=== PATIENT | female | born 1975 | race Caucasian/White ===

== ENCOUNTER 2016-05-20 20:34 | Emergency (ER) | payer MEDICARE, OTHER ==
[~2016-05-20] VITALS: Ht 152.4 cm; Wt 81.6 kg
[~2016-05-20 20:34] MED LIST changes: -AMOX1TAB12 PO; -CIPR-225 PO; -DOXY100C42 PO; -LIDO30JE10 TP; -PENI500T PO; -PHEN-639 PO; -TRAM100C3 PO; -TRAM50TA2 PO; -TRAZ100T92 PO
--- OUTSIDE RECORDS SUMMARY | 2016-05-20 20:39 | XMS REPORT | Continuity of Care Document ---
Author Author [facility] Organization [facility] Address Unknown Phone Unavailable Care Team Providers Care Clothing Trades Workers Name Role Phone German Martin PCP [phone] Source Comments Some departments are not documenting in the electronic medical record. If you do not see the information that you expected, contact Release of Information in the Health Information Management department at [phone] for further assistance in locating additional records.[facility] Active Allergies and Adverse Reactions Allergen [...] 50,000 unit capsule 7 days. 14 Insulin [place] Use when injecting Forteo 100 Each 3 [...]
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
[2016-05-20] MEDS ORDERED: NS IV 1000 ML 1,000 ML IV ONE (20:51)
[2016-05-20] MEDS ORDERED: fentaNYL INJECTION 100 MCG/2 ML AMP IVP STA (21:07)
[2016-05-20 21:11] LABS: BASOPHILS % (AUTO) 0 % (0-10); EOSINOPHILS # (AUTO) 0.1 10^3/uL (0.0-0.3); EOSINOPHILS % (AUTO) 1 % (0-10); LYMPHOCYTES % (AUTO) 11 % (12-44); MEAN CORPUSCULAR HEMOGLOBIN 29 PG (25-34); MEAN CORPUSCULAR HGB CONC 32 G/DL (32-36); MEAN CORPUSCULAR VOLUME 90 FL (80-99); MEAN PLATELET VOLUME 10.1 FL (7.4-10.4); MONOCYTES # (AUTO) 0.5 X 10^3 (0.0-1.0); MONOCYTES % (AUTO) 5 % (0-12); NEUTROPHILS % (AUTO) 82 % (42-75); PLATELET COUNT 261 10^3/uL (130-400); RED BLOOD COUNT 4.53 10^6/uL (4.35-5.85); RED CELL DISTRIBUTION WIDTH 16.1 % (10.0-14.5); WHITE BLOOD COUNT 8.5 10^3/uL (4.3-11.0)
[2016-05-20 21:28] LABS: ALANINE AMINOTRANSFERASE 7 U/L (0-55); ALBUMIN 4.1 G/DL (3.2-4.5); ANION GAP 9 MMOL/L (5-14); ASPARTATE AMINO TRANSFERASE 7 U/L (5-34); BILIRUBIN,TOTAL 0.5 MG/DL (0.1-1.0); BLOOD UREA NITROGEN 19 MG/DL (7-18); BUN/CREATININE RATIO 22; CALCIUM 8.8 MG/DL (8.5-10.1); CARBON DIOXIDE 20 MMOL/L (21-32); CHLORIDE 106 MMOL/L (98-107); CREATININE SERUM 0.86 MG/DL (0.60-1.30); GFR ESTIMATED > 60; GLUCOSE 98 MG/DL (70-105); POTASSIUM 4.3 MMOL/L (3.6-5.0); SODIUM 135 MMOL/L (135-145); TOTAL PROTEIN 7.2 G/DL (6.4-8.2); hs C REACTIVE PROTEIN 4.31 MG/DL (0.00-0.50)
[2016-05-20 21:32] LABS: BILIRUBIN,URINE NEGATIVE (NEGATIVE); KETONES,URINE NEGATIVE (NEGATIVE); LEUKOCYTE ESTERASE ,URINE 3+ (NEGATIVE); NITRITE,URINE POSITIVE (NEGATIVE); PH,URINE 6 (5-9); PROTEIN,URINE 2+ (NEGATIVE); UROBILINOGEN,URINE NORMAL (NORMAL)
[2016-05-20 21:49] LABS: SQUAMOUS EPITHELIAL CELL,UR 25-50 /HPF; WBC,URINE 50-100 /HPF
[2016-05-20] MEDS ORDERED: PHEN-639 PO (21:59)
[2016-05-20] MEDS ORDERED: CIPR-225 PO (21:59)
[2016-05-20] MEDS ORDERED: TRAM100C3 PO (22:05)
[2016-05-20] MEDS ORDERED: PHENAZOPYRIDINE 100 MG (PYRIDIUM) TABLET PO STA (22:07)
[2016-05-20] MEDS ORDERED: CIPROFLOXACIN 500 MG (CIPRO) TABLET PO ONE (22:22)
[2016-05-20 22:25] VITALS: BP 129/97
[2016-05-21] MEDS ORDERED: CIPROFLOXACIN 500 MG (CIPRO) TABLET PO SCH (09:00)
== END 2016-05-20 22:26 | disposition home or self-care (01) ==
LOC: EDUNIT# 20:34 → ER 20:35
DX: L97.321 Non-pressure chronic ulcer of left ankle limited to breakdown of skin (principal); L97.319 Non-pressure chronic ulcer of right ankle with unspecified severity; I10 Essential (primary) hypertension; J44.9 Chronic obstructive pulmonary disease, unspecified; I73.9 Peripheral vascular disease, unspecified; F17.210 Nicotine dependence, cigarettes, uncomplicated; Z79.899 Other long term (current) drug therapy
CPT/HCPCS: 36415; 80053; 81000; 83605; 85025; 86141; 87077; 87088; 87186; 96361; 96374

== ENCOUNTER → 2016-05-20 | Outpatient (CLI) | payer MEDICARE ==
[~2016-05-20] MED LIST: ACHD5005 PO; ACHYD1T; AMLO5TAB2 PO; AMOX1TAB12 PO; ARIP2TAB11 PO; AZAT50TA PO; AZAT50TA7 PO; AZTH50T PO; BISO1TAB39; BSP10T PO; BUSP10TA95 PO; CEPH500C PO; CEPH500T PO; CIPR-225 PO; CIPR500S3 PO; CIPR500T4 PO; CLOT15CR6 TOP; D50KC PO; DOXY100C42 PO; DOXY100T2 PO; DULO30CA3 PO; DULO60CA6 PO; ESCT10T; GABA-486 PO; GABA800T2 PO; GBPN100C PO; GBPN600T PO; HYDR-2890 PO; HYDR-623 PO; HYDR50TA76 PO; IBP800T PO; IBUP800T26 PO; Imuran PO; KETO-22 PO; LD5PT TOP; LEVO500T69 PO; LEVO750T24 GT; LEVO750T24 PO; LEVO88TA28 PO; LEVO88TA54 PO; LIDO30JE10 TP; LOVA20TA2 PO; LRT10T PO; LVT.1T PO; LYRICA; METH4TAB PO; NITR-65 PO; NITR100C3 PO; ONDA4TAB8 PO; ONDA8TAB9 PO; OXYC-12 PO; OXYC-465 PO; OXYC1TAB17 PO; PANT40TA3 PO; PENI500T PO; PHEN-639 PO; PHEN200T27 PO; PNT40TEC; PRD10T PO; PRD20T PO; PRD5T PO; PRED-398 PO; PRED1TAB PO; PRED5TAB PO; PREG75CA PO; PRM25T PO; PROP20TA5 PO; Prednisone PO; QTP25T; RT-ALBUINH IH; SERT100T8 PO; SRTR100T PO; SULF-222 PO; SULF1TAB38 PO; SULF1TAB7 PO; TMSL.4C PO; TR1C15 TOP; TRAM100C3 PO; TRAM50TA2 PO; TRAZ100T92 PO; TRAZ150T42 PO; TRAZ300T3 PO; [UNRECOGNIZED DRUG - CODE] TOP; [UNRECOGNIZED DRUG - OTHER]; [UNRECOGNIZED DRUG - OTHER]; humera IJ; medihoney EXT
--- OUTSIDE RECORDS SUMMARY | 2016-05-20 10:47 | XMS REPORT | Continuity of Care Document ---
Author Author [facility] Organization [facility] Address Unknown Phone Unavailable Care Team Providers Care Process Technician Name Role Phone German Martin PCP [phone] Source Comments Some departments are not documenting in the electronic medical record. If you do not see the information that you expected, contact Release of Information in the Health Information Management department at [phone] for further assistance in locating additional records.[facility] Active Allergies and Adverse Reactions Allergen [...] 50,000 unit capsule 7 days. 14 Insulin [place] Use when injecting Forteo 100 Each 3 [...]
--- NOTE | 2016-05-20 12:48 | Diagnostic Imaging Report ---
INDICATION: Venous stasis with ulceration. FINDINGS: There is wavy periosteal thickening and erosion along the fibular shafts bilaterally. The tibia appears normal. Moderate degenerative changes noted of the ankle mortise bilaterally. There are no phleboliths demonstrated in the soft tissues. IMPRESSION: 1. Diffuse periosteal changes along the fibula bilaterally consistent with chronic venous stasis. Could not exclude osteomyelitis with open ulceration. Dictated by: Dictated on workstation # [id number]
== END ==
LOC: RAD 10:41
PROVIDERS: ATTEND Surgery
DX: I87.333 Chronic venous hypertension (idiopathic) with ulcer and inflammation of bilateral lower extremity (principal); L97.313 Non-pressure chronic ulcer of right ankle with necrosis of muscle; L97.322 Non-pressure chronic ulcer of left ankle with fat layer exposed; I70.233 Atherosclerosis of native arteries of right leg with ulceration of ankle; I70.243 Atherosclerosis of native arteries of left leg with ulceration of ankle

== ENCOUNTER 2016-05-25 12:04 | Emergency (ER) | payer MEDICARE, OTHER ==
[~2016-05-25] VITALS: Ht 152.4 cm; Wt 81.6 kg
[~2016-05-25 12:04] MED LIST changes: +CIPR-225 PO; +PHEN-639 PO; +TRAM100C3 PO
--- OUTSIDE RECORDS SUMMARY | 2016-05-25 12:11 | XMS REPORT | Continuity of Care Document ---
Author Author [facility] Organization [facility] Address Unknown Phone Unavailable Care Team Providers Care Bobbin Loose End Finder Name Role Phone German Martin PCP [phone] Source Comments Some departments are not documenting in the electronic medical record. If you do not see the information that you expected, contact Release of Information in the Health Information Management department at [phone] for further assistance in locating additional records.[facility] Active Allergies and Adverse Reactions Allergen [...] 50,000 unit capsule 7 days. 14 Insulin [place] Use when injecting Forteo 100 Each 3 [...]
[2016-05-25] MEDS ORDERED: morphine INJ 10 MG/ML 1ML (SYR OR VIAL) IM STA (12:29)
[2016-05-25] MEDS ORDERED: PENI500T PO (12:49)
--- NOTE | 2016-05-25 12:50 | ED Integumentary General ---
General Chief Complaint: Skin/Wound Problems Stated Complaint: SORE ON RIGHT LEG Nursing Triage Note: PT STATES SHE IS BEING TREATED FOR A WOUND ON HER RT LOWER LEG, STATES PAIN THAT SHE CAN'T STAND ANYMORE. TAKES TRAMADOL BUT IT'S NOT WORKING. Source: patient, other (friend) Exam Limitations: no limitations History of Present Illness Time seen by provider: 12:20 Initial Comments 40-year-old female patient presents to the emergency department complaints of chronic wounds on the right ankle and chronic pain. Reports pain worsened the last 2-3 days. Reports taking tramadol. Does not improve symptoms. Patient is seeing wound care at [facility] and is scheduled to see Dr. Benz on Monday for recheck. Timing/Duration: other (chronic pain and wounds of the right ankle) Location: extremities (right ankle) Possible Cause: other (chronic wounds) Modifying Factors: worse with other (worse with palpation) Allergies and Home Medications Allergies Coded Allergies: levofloxacin (Verified Allergy, Intermediate, HIVES, 12/07/12) orphenadrine (Unverified Allergy, Unknown, 11/14/13) Uncoded Allergies: UNKNOWN ALLERGY (Allergy, Unknown, 07/25/05) Home Medications Albuterol Sulfate 8.5 Gm Hfa.aer.ad #1 2 PUFF IH Q4H PRN PRN SHORTNESS OF BREATH Prescribed by: KAYLA NOLAND on 08/17/152103 Azathioprine 50 Mg Tablet 100 MG PO BID (Reported) LAST FILLED #120 11-20-14 TAKES 2 (50 mg) TABLETS Doxycycline Hyclate 100 Mg Tablet #20 100 MG PO BID Prescribed by: KAYLA NOLAND on 08/17/152103 Gabapentin 800 Mg Tablet 800 MG PO TID (Reported) LAST FILLED #90 11-17-14 Ibuprofen 800 Mg Tablet 800 MG PO TID PRN PRN PAIN (Reported) LAST FILLED #90 11-08-14 Pantoprazole Sodium 40 Mg Tablet. #30 1 TAB PO DAILY (Reported) Penicillin V Potassium 500 Mg Tablet #21 500 MG PO TID Prescribed by: KAYLA NOLAND on 05/25/16 1249 Phenazopyridine HCl 100 Mg Tablet #6 100 MG PO TID PRN PRN PAIN Prescribed by: RONAK JUAREZ on 05/20/162158 Prednisone 20 Mg Tab #30 1 TAB PO DAILY (Reported) Tramadol HCl 100 Mg Cpbp.25.75 #4 100 MG PO ONCE Prescribed by: RONAK JUAREZ on 05/20/16 3121 Constitutional: No chills, No fever, No malaise Respiratory: no symptoms reported Cardiovascular: no symptoms reported Musculoskeletal: see HPI joint pain (right ankle)No joint swelling Skin: see HPI Psychiatric/Neurological: No Symptoms Reported All Other Systems Reviewed Negative Unless Noted: Yes (Negative excepted noted.) Past Rojkbmz-Eweaue-Nkhvuz Hx Patient Social History Alcohol Use: Denies Use Recreational Drug Use: No (SMOKES 1/2 PPD) Smoking Status: Current Everyday Smoker Type Used: Cigarettes Former Smoker/When Quit: Apr 01, 2013 Recent Foreign Travel: No Contact w/Someone Who Travel: No Recent Infectious Disease Expo: No Recent Hopitalizations: No Immunizations Up To Date Tetanus Booster (TDap): Less than 5yrs Date of Pneumonia Vaccine: September 07, 2011 Seasonal Allergies Seasonal Allergies: No Surgeries HX Surgeries: Yes (MULTIPLE SKIN GRAFTS TO FEET, R ANKLE) Respiratory Hx Respiratory Disorders: Yes Respiratory Disorders: Asthma, COPD Cardiovascular Hx Cardiac Disorders: Yes (VASCULITIS, RBBB) Cardiac Disorders: High Cholesterol, Hypertension, Peripheral Vascular Neurological Hx Neurological Disorders: No Reproductive System : No Hx Reproductive Disorders: Yes (miscarriages) Sexually Transmitted Disease: No HIV/AIDS: No Female Reproductive Disorders: Ovarian Cyst Genitourinary Hx Genitourinary Disorders: Yes Genitourinary Disorders: UTI-Chronic Gastrointestinal Hx Gastrointestinal Disorders: No Musculoskeletal Hx Musculoskeletal Disorders: Yes Musculoskeletal Disorders: Degenerate Disk Disease, Arthritis, Rheumatoid Arthritis, Chronic Back Pain Endocrine Hx Endocrine Disorders: Yes (THYROID DISEASE) Endocrine Disorders: Hypothyroidsim HEENT HX ENT Disorders: No Loss of Vision: Denies Hearing Impairment: Denies Cancer Hx Cancer: No Psychosocial Hx Psychiatric Problems: Yes (EXTENSIVE PSYCH ISSUES AND POLYSUBSTANCE ABUSE) Behavioral Health Disorders: Anxiety, Suicide Attempts, Depression Integumentary HX Skin/Integumentary Disorder: Yes Skin/Integumentary Disorders: Eczema Blood Transfusions Hx Blood Disorders: No Adverse Reaction to a Blood Tr: No Reviewed Nursing Assessment Reviewed/Agree w Nursing PMH: Yes Family Medical History Significant Family History: No Pertinent Family Hx Family Medial History: PT NOT COOPERATIVE AT THIS TIME Physical Exam Vital Signs Vital Sign - Last 12Hours 05/25/16 12:13 Temp 98.7 Pulse 114 Resp 22 B/P 134/109 Pulse Ox 98 O2 Delivery Room Air Capillary Refill : Less Than 3 Seconds General Appearance: WD/WN no apparent distress Cardiovascular: normal peripheral pulses no edema Extremities: normal capillary refill other (4x6 cm wound with eschar of the rt lateral ankle and a 3x3 cm wound of the medial rt ankle with escar. Serous drainage from both wounds. No evidence of erythema or warmth. Patient is noted to have telfa on the wounds. TTP. ) Neurologic/Psychiatric: alert normal mood/affect oriented x 3 Skin: normal color warm/dry Skin Problem Location: lower extremities (right ankle) Skin Problem Character: drainage, tenderness, other (4x6 cm wound with eschar of the rt lateral ankle and a 3x3 cm wound of the medial rt ankle with escar. Serous drainage from both wounds. No evidence of erythema or warmth. Patient is noted to have telfa on the wounds. TTP. ) Progress/Results/Core Measures Results/Orders My Orders Orders-KAYLA NOLAND Morphine Injection (Morphine Injection (05/25/16 12:29) Vital Signs/I&O Vital Sign - Last 12Hours 05/25/16 05/25/16 12:13 13:04 Temp 98.7 98.7 Pulse 114 110 Resp 22 20 B/P 134/109 Pulse Ox 98 98 O2 Delivery Room Air Blood Pressure Mean: 117 Departure Communication Progress Notes Patient seen and evaluated. Given 1 dose IM morphine in the emergency department. Patient was found to have Streptococcus viridans on a wound culture from last Monday at [facility] outpatient wound care clinic. Patient given a prescription for penicillin. Patient instructed to contact her primary care physician in [place] for all narcotic medication refills and prescriptions. Patient voices understanding and agrees with the treatment plan. Impression Impression: Primary Impression: Lower extremity pain, right Additional Impression: Chronic wound of extremity Disposition: HOME, SELF-CARE Condition: Improved Departure-Patient Inst. Decision time for Depature: 12:46 Referrals: PAULINA BENZ MD NO,LOCAL PHYSICIAN (PCP) Primary Care Physician Patient Instructions: Wound Care (DC) Add. Discharge Instructions: All discharge instructions reviewed with patient and/or family. Voiced understanding. Medications as instructed. Continue usual home medications. Do NOT use telfa on the wounds. Dressed wounds as instructed by Dr. Rosa at wound care. Follow-up Monday as previously scheduled with wound care. Follow- up with your primary care physician in [place] for all narcotic pain medication prescriptions. Call for appointment time. Return to the emergency department for worsened symptoms or any other concerns. Scripts Penicillin V Potassium 500 Mg [id number] Mg PO TID #21 TAB Ref 0 Prov:KAYLA NOLAND 05/25/16 KAYLA NOLAND May 25, 2016 12:50
[2016-05-25 13:04] VITALS: BP 134/109
== END 2016-05-25 13:04 | disposition home or self-care (01) ==
LOC: EDUNIT# 12:04 → ER 12:06
DX: M79.661 Pain in right lower leg (principal); G89.29 Other chronic pain; S91.001A Unspecified open wound, right ankle, initial encounter; J44.9 Chronic obstructive pulmonary disease, unspecified; F17.210 Nicotine dependence, cigarettes, uncomplicated; X58.XXXA Exposure to other specified factors, initial encounter; Y99.8 Other external cause status
CPT/HCPCS: 96372

== ENCOUNTER 2016-05-28 08:23 | Emergency (ER) | payer MEDICARE, OTHER ==
[~2016-05-28] VITALS: Ht 147.3 cm; Wt 54.4 kg
[~2016-05-28 08:23] MED LIST changes: +PENI500T PO
--- OUTSIDE RECORDS SUMMARY | 2016-05-28 08:28 | XMS REPORT | Continuity of Care Document ---
Author Author [facility] Organization [facility] Address Unknown Phone Unavailable Care Team Providers Care Woods Laborer Name Role Phone German Martin PCP [phone] Source Comments Some departments are not documenting in the electronic medical record. If you do not see the information that you expected, contact Release of Information in the Health Information Management department at [phone] for further assistance in locating additional records.[facility] Active Allergies and Adverse Reactions [...] 50,000 unit capsule 7 days. 14 Insulin [place] Use when injecting Forteo 100 Each 3 [...]
[2016-05-28] MEDS ORDERED: diphenhydrAMINE 50 MG/ML INJ (BENADRYL) IVP ONE (08:30)
[2016-05-28] MEDS ORDERED: PROMETHAZINE INJ 25 MG/ML (PHENERGAN) AMP IVP ONE (08:30)
[2016-05-28] MEDS ORDERED: NS IV 1000 ML 1,000 ML ONE (08:32)
[2016-05-28] MEDS ORDERED: diphenhydrAMINE 50 MG/ML INJ (BENADRYL) ONE (08:32)
[2016-05-28] MEDS ORDERED: PROMETHAZINE INJ 25 MG/ML (PHENERGAN) AMP ONE (08:32)
--- NOTE | 2016-05-28 08:38 | ED Abdominal Pain ---
General Stated Complaint: N/V Source of Information: Patient, EMS Exam Limitations: No Limitations History of Present Illness Time Seen By Provider: 08:34 Initial Comments This 40 year old female presents with nausea and vomiting that began this morning. No preceeding fever or chill. No URI sympts. Allergies and Home Medications Allergies Coded Allergies: levofloxacin (Verified Allergy, Intermediate, HIVES, 12/07/12) orphenadrine (Unverified Allergy, Unknown, 11/14/13) Uncoded Allergies: UNKNOWN ALLERGY (Allergy, Unknown, 07/25/05) Home Medications Albuterol Sulfate 8.5 Gm Hfa.aer.ad #1 2 PUFF IH Q4H PRN PRN SHORTNESS OF BREATH Prescribed by: KAYLA NOLAND on 08/17/152103 Azathioprine 50 Mg Tablet 100 MG PO BID (Reported) LAST FILLED #120 11-20- TAKES 2 (50 mg) TABLETS Gabapentin 800 Mg Tablet 800 MG PO TID (Reported) LAST FILLED #90 15 Ibuprofen 800 Mg Tablet 800 MG PO TID PRN PRN PAIN (Reported) LAST FILLED #90 11-08-15 Pantoprazole Sodium 40 Mg Tablet. #30 1 TAB PO DAILY (Reported) Penicillin V Potassium 500 Mg Tablet #21 500 MG PO TID Prescribed by: KAYLA NOLAND on 05/25/16 1249 Tramadol HCl 100 Mg Cpbp.25.75 #4 100 MG PO ONCE Prescribed by: RONAK JUAREZ on 05/20/16 2205 Review of Systems Constitutional: No chills, No fever EENTM: No Blurred Vision Respiratory: Denies Cough Cardiovascular: Denies Chest Pain Gastrointestinal: Abdominal Pain Nausea Vomiting Genitourinary: Denies Burning Musculoskeletal: No back pain, No joint pain Skin: No rash Psychiatric/Neurological: No Symptoms Reported Endocrine: No Symptoms Reported Hematologic/Lymphatic: Other (vasculitis) Past Mtkgcmm-Czisyg-Fhfdyc Hx Patient Social History Type Used: Cigarettes Former Smoker/When Quit: Apr 01, 2013 Recent Hopitalizations: No Immunizations Up To Date Tetanus Booster (TDap): Less than 5yrs Date of Pneumonia Vaccine: September 07, 2011 Seasonal Allergies Seasonal Allergies: No Surgeries HX Surgeries: Yes (MULTIPLE SKIN GRAFTS TO FEET, R ANKLE) Respiratory Hx Respiratory Disorders: Yes Respiratory Disorders: Asthma, COPD Cardiovascular Hx Cardiac Disorders: Yes (VASCULITIS, RBBB) Cardiac Disorders: High Cholesterol, Hypertension, Peripheral Vascular Neurological Hx Neurological Disorders: No Reproductive System Hx Reproductive Disorders: Yes (miscarriages) Sexually Transmitted Disease: No HIV/AIDS: No Female Reproductive Disorders: Ovarian Cyst Genitourinary Hx Genitourinary Disorders: Yes Genitourinary Disorders: UTI-Chronic Gastrointestinal Hx Gastrointestinal Disorders: No Musculoskeletal Hx Musculoskeletal Disorders: Yes Musculoskeletal Disorders: Degenerate Disk Disease, Arthritis, Rheumatoid Arthritis, Chronic Back Pain Endocrine Hx Endocrine Disorders: Yes (THYROID DISEASE) Endocrine Disorders: Hypothyroidsim HEENT HX ENT Disorders: No Loss of Vision: Denies Hearing Impairment: Denies Cancer Hx Cancer: No Psychosocial Hx Psychiatric Problems: Yes (EXTENSIVE PSYCH ISSUES AND POLYSUBSTANCE ABUSE) Behavioral Health Disorders: Anxiety, Suicide Attempts, Depression Integumentary HX Skin/Integumentary Disorder: Yes Skin/Integumentary Disorders: Eczema Blood Transfusions Hx Blood Disorders: No Adverse Reaction to a Blood Tr: No Reviewed Nursing Assessment Reviewed/Agree w Nursing PMH: Yes Family Medical History Significant Family History: No Pertinent Family Hx Family Medial History: PT NOT COOPERATIVE AT THIS TIME Physical Exam Vital Signs VS - Last 72 Hours, by Label 05/28/16 08:23 Temp 98.3 Pulse 90 Resp 20 B/P 109/73 Pulse Ox 97 Capillary Refill : General Appearance: WD/WN mild distress HEENT: normal ENT inspection Neck: normal inspection Respiratory: lungs clear normal breath sounds Cardiovascular: regular rate, rhythm no edema Gastrointestinal: normal bowel soundsNo distended, No guarding, tenderness ( there is mild diffuse abdominal tenderness.) Extremities: normal range of motion other (there is an ulcer over the right ankle area. The wound is clean. There is no remarkable soft tissue swelling or ascending lymphedema.) Back: normal inspection Neurologic/Psychiatric: no motor/sensory deficits alert normal mood/affect Skin: other (there are circular areas of erythema approximately 1 inch in diameter over the lower extremities over the legs right greater than left from the patient's vasculitis. There is an ulcer that is clean that is approximately 10 cm in diameter over the malleolar area there is a smaller similar ulcer over the medial malleolar area of the right ankle.) Progress/Results/Core Measures Results/Orders Lab Results Laboratory Tests Test 05/28/16 08:50 05/28/16 11:44 Range/Units Alanine Aminotransferase (ALT/SGPT) 10 0-55 U/L Albumin 3.9 3.2-4.5 G/DL Alkaline Phosphatase 76 40-136 U/L Anion Gap 24 H 5-14 MMOL/L Aspartate Amino Transf (AST/SGOT) 15 5-34 U/L BUN/Creatinine Ratio 24 Band Neutrophils 3 % Basophils # (Auto) 0.0 0.0-0.1 10^3/uL Basophils (%) (Auto) 0 0-10 % Blood Morphology Comment NORMAL Blood Urea Nitrogen 21 H 7-18 MG/DL Calcium Level 8.2 L 8.5-10.1 MG/DL Carbon Dioxide Level 15 L 21-32 MMOL/L Chloride Level 91 L 98-107 MMOL/L Creatinine 0.87 0.60-1.30 MG/DL Eosinophils # (Auto) 0.0 0.0-0.3 10^3/uL Eosinophils % (Manual) 1 % Eosinophils (%) (Auto) 0 0-10 % Erythrocyte Sedimentation Rate 50 H 0-20 MM/HR Estimat Glomerular Filtration Rate > 60 Glucose Level 230 H 70-105 MG/DL Hematocrit 39 35-52 % Hemoglobin 13.4 11.5-16.0 G/DL Hypersegmented Neutrophils SLIGHT Lipase 19 8-78 U/L Lymphocytes # (Auto) 0.5 L 1.0-4.0 X 10^3 Lymphocytes % (Manual) 4 % Lymphocytes (%) (Auto) 6 L 12-44 % Mean Corpuscular Hemoglobin 29 25-34 PG Mean Corpuscular Hemoglobin Concent 35 32-36 G/DL Mean Corpuscular Volume 85 80-99 FL Mean Platelet Volume 10.1 7.4-10.4 FL Monocytes # (Auto) 0.3 0.0-1.0 X 10^3 Monocytes % (Manual) 5 % Monocytes (%) (Auto) 4 0-12 % Neutrophils # (Auto) 8.0 H 1.8-7.8 X 10^3 Neutrophils % (Manual) 87 % Neutrophils (%) (Auto) 91 H 42-75 % Platelet Count 235 130-400 10^3/uL Potassium Level 3.7 3.6-5.0 MMOL/L Red Blood Count 4.58 4.35-5.85 10^6/uL Red Cell Distribution Width 16.8 H 10.0-14.5 % Serum Test, Qualitative NEGATIVE NEGATIVE Sodium Level 130 L 135-145 MMOL/L Total Bilirubin 1.0 0.1-1.0 MG/DL Total Protein 6.6 6.4-8.2 G/DL Toxic Granulation 1+ White Blood Count 8.8 4.3-11.0 10^3/uL Urine Bacteria TRACE /HPF Urine Bilirubin NEGATIVE NEGATIVE Urine Casts NONE /LPF Urine Clarity CLEAR Urine Color YELLOW Urine Crystals NONE /LPF Urine Culture Indicated NO Urine Glucose (UA) NEGATIVE NEGATIVE Urine Ketones 4+ H NEGATIVE Urine Leukocyte Esterase NEGATIVE NEGATIVE Urine Mucus SMALL H /LPF Urine Nitrite NEGATIVE NEGATIVE Urine Protein 2+ H NEGATIVE Urine RBC NONE /HPF Urine RBC (Auto) 5+ H NEGATIVE Urine Specific [place] 1.005 L 1.016-1.022 Urine Urobilinogen NORMAL NORMAL MG/DL Urine WBC NONE /HPF Urine pH 7 5-9 My Orders Orders-LAVON AUGUSTE MD Ct Abdomen/Pelvis W (05/28/16 08:30) Cbc With Automated Diff (05/28/16 08:30) Comprehensive Metabolic Panel (05/28/16 08:30) Urinalysis (05/28/16 08:30) Lipase (05/28/16 08:30) Erythrocyte Sedimentation Rate (05/28/16 08:30) Ns Iv 1000 Ml (Sodium Chloride 0.9%) (05/28/16 08:30) Promethazine Injection (Phenergan Injec (05/28/16 08:30) Diphenhydramine Injection (Benadryl Inje (05/28/16 08:30) Diphenhydramine Injection (Benadryl Inje (05/28/16 08:32) Promethazine Injection (Phenergan Injec (05/28/16 08:32) Ns Iv 1000 Ml (Sodium Chloride 0.9%) (05/28/16 08:32) Iohexol Injection (Omnipaque 350 Mg/Ml 1 (05/28/16 09:00) Ns (Ivpb) (Sodium Chloride 0.9% Ivpb Bag (05/28/16 09:00) Manual Differential (05/28/16 08:50) D50w (Emergency) Syringe (Dextrose 50% 5 (05/28/16 09:15) Fentanyl Injection (Sublimaze Injection (05/28/16 09:15) Fentanyl Injection (Sublimaze Injection (05/28/16 09:14) Hcg,Qualitative Serum (05/28/16 09:42) Ondansetron Injection (Zofran Injectio (05/28/16 11:15) Medications Given in ED Current Medications Medications Dose Ordered Sig/[place] Route Start Time Stop Time Status Last Admin Dose Admin Dextrose 50 ml ONCE ONCE IV 05/28/16 09:15 05/28/16 09:16 DC 05/28/16 08:45 50 ML Diphenhydramine HCl 25 mg ONCE ONCE IVP 05/28/16 08:30 05/28/16 08:34 DC 05/28/16 08:40 25 MG Fentanyl Citrate 100 mcg STK-MED ONCE .ROUTE 05/28/16 09:14 05/28/16 09:15 DC 05/28/16 09:15 100 MCG Iohexol 100 ml ONCE ONCE IV 05/28/16 09:00 05/28/16 09:01 DC 05/28/16 10:19 100 ML Ondansetron HCl 4 mg ONCE ONCE IVP 05/28/16 11:15 05/28/16 11:16 DC 05/28/16 11:22 4 MG Promethazine HCl 25 mg ONCE ONCE IVP 05/28/16 08:30 05/28/16 08:34 DC 05/28/16 08:40 25 MG Sodium Chloride 100 ml ONCE ONCE IV 05/28/16 09:00 05/28/16 09:01 DC 05/28/16 10:19 100 ML Vital Signs/I&O Vital Sign - Last 12Hours 05/28/16 08:23 Temp 98.3 Pulse 90 Resp 20 B/P 109/73 Pulse Ox 97 Progress Note : Time: 12:22 Progress Note The patient was significantly improved following IV fluids, Phenergan and Benadryl, fentanyl, and Zofran. Patient's laboratory evaluation was essentially unremarkable. There was no elevation of the patient's white count. Urinalysis demonstrated no evidence of a urinary tract infection. CT of the abdomen and pelvis failed and was evidence of acute pathology. Departure Impression Impression: Primary Impression: Nausea and vomiting Qualified Code: R11.2 - Nausea with vomiting, unspecified Disposition: 01 HOME, SELF-CARE Condition: Improved Departure-Patient Inst. Decision time for Depature: 12:24 Referrals: [facility],LOCAL PHYSICIAN (PCP) Primary Care Physician Patient Instructions: Nausea and Vomiting, Adult Add. Discharge Instructions: Zofran for nausea. Clear liquids today. Rest over the weekend. Follow-up with your elderly caregiver in [place] on Monday. Return if any problems. Scripts Ondansetron (Zofran Odt)8 Mg Tab.rapdis8 Mg PO Q4H PRN NAUSEA/VOMITING #14 TAB Prov:LAVON AUGUSTE MD 05/28/16 LAVON AUGUSTE MD May 28, 2016 08:38
[2016-05-28] MEDS: NS IV 1000 ML 1,000 ML IV SCH ×2 (08:40→11:22)
[2016-05-28 08:58] LABS: BASOPHILS % (AUTO) 0 % (0-10); EOSINOPHILS % (AUTO) 0 % (0-10); LYMPHOCYTES # (AUTO) 0.5 X 10^3 (1.0-4.0); LYMPHOCYTES % (AUTO) 6 % (12-44); MEAN CORPUSCULAR HEMOGLOBIN 29 PG (25-34); MEAN CORPUSCULAR HGB CONC 35 G/DL (32-36); MEAN CORPUSCULAR VOLUME 85 FL (80-99); MEAN PLATELET VOLUME 10.1 FL (7.4-10.4); MONOCYTES # (AUTO) 0.3 X 10^3 (0.0-1.0); MONOCYTES % (AUTO) 4 % (0-12); NEUTROPHILS % (AUTO) 91 % (42-75); PLATELET COUNT 235 10^3/uL (130-400); RED BLOOD COUNT 4.58 10^6/uL (4.35-5.85); RED CELL DISTRIBUTION WIDTH 16.8 % (10.0-14.5); WHITE BLOOD COUNT 8.8 10^3/uL (4.3-11.0)
[2016-05-28] MEDS ORDERED: IOHEXOL 350 MG/ML 100 ML (OMNIPAQUE 350) VIAL IV ONE (09:00)
[2016-05-28] MEDS ORDERED: NS 100 ML (IVPB) BAG IV ONE (09:00)
[2016-05-28 09:12] LABS: BAND NEUTROPHILS 3 %; EOSINOPHILS % (MANUAL) 1 %; LYMPHOCYTES % (MANUAL) 4 %; NEUTROPHILS % (MANUAL) 87 %
[2016-05-28] MEDS ORDERED: fentaNYL INJECTION 100 MCG/2 ML AMP ONE (09:14)
[2016-05-28] MEDS ORDERED: fentaNYL INJECTION 100 MCG/2 ML AMP IVP ONE (09:15)
[2016-05-28] MEDS ORDERED: DEXTROSE 50% 50 ML (IMS) SYR IV ONE (09:15)
[2016-05-28 09:16] LABS: ALANINE AMINOTRANSFERASE 10 U/L (0-55); ALBUMIN 3.9 G/DL (3.2-4.5); ANION GAP 24 MMOL/L (5-14); ASPARTATE AMINO TRANSFERASE 15 U/L (5-34); BLOOD UREA NITROGEN 21 MG/DL (7-18); BUN/CREATININE RATIO 24; CALCIUM 8.2 MG/DL (8.5-10.1); CARBON DIOXIDE 15 MMOL/L (21-32); CHLORIDE 91 MMOL/L (98-107); CREATININE SERUM 0.87 MG/DL (0.60-1.30); GFR ESTIMATED > 60; GLUCOSE 230 MG/DL (70-105); LIPASE 19 U/L (8-78); POTASSIUM 3.7 MMOL/L (3.6-5.0); SODIUM 130 MMOL/L (135-145); TOTAL PROTEIN 6.6 G/DL (6.4-8.2)
--- NOTE | 2016-05-28 10:51 | Diagnostic Imaging Report ---
CLINICAL INDICATION: Patient states she is having nausea and vomiting for 5 hours now. EXAM: Axial CT scan of the abdomen and pelvis performed with 100 cc of Omnipaque 300 IV contrast. Portal venous and delayed phases were obtained. Coronal reformatted images are created. Comparison: CT scan of the abdomen and pelvis without IV contrast dated 12/26/2012. Findings: There is mild dependent atelectasis involving the posterior aspects of both lung bases. Bones show no significant interval abnormality. There is diffuse low-attenuation changes seen throughout the liver likely representing fatty infiltration. There is no liver mass seen. The spleen, pancreas, adrenal glands, and gallbladder are unremarkable. Both kidneys are unremarkable and stable. There is no urinary tract stones or hydronephrosis. There is no evidence of intra-abdominal free air or free fluid. Few colonic diverticula are seen with no evidence of diverticulitis. The colon, small bowel, and stomach are unremarkable. The appendix is unremarkable. The bladder is fluid distended with no gross abnormality seen. There is a roughly 2.4 cm low-density circumscribed lesion involving left adnexa region which may represent a cyst. The previously seen 4.5 cm cystic lesion is not visualized on this exam and likely resolved. Uterus and right adnexal structures are unremarkable. There is no abdominal lymphadenopathy. Again seen collateral vessels overlying the right abdominal region. 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 This may be congenital or due to occlusion. This appearance is stable. The extra-abdominal and extrapelvic soft tissue structures are unremarkable. IMPRESSION: 1.: There is no evidence of interval acute abdominal or pelvic process. 2: There is a 2.4 cm cyst circumscribed low-density area likely representing a left adnexal cyst. The previously seen 4.5 cm cystic lesion is not visualized on this exam and likely resolved. 3: Stable collateral vessels overlying the right abdomen with absent or occluded proximal IVC. 4: Diffuse fatty infiltration of the liver. Dictated by: Dictated on workstation # [id number]
[2016-05-28 11:09] LABS: ERYTHROCYTE SEDIMENTATION RATE 50 MM/HR (0-20)
[2016-05-28] MEDS ORDERED: ONDANSETRON 4 MG/2 ML (SDV) Z0FRAN IVP ONE (11:15)
[2016-05-28 11:53] LABS: BILIRUBIN,URINE NEGATIVE (NEGATIVE); KETONES,URINE 4+ (NEGATIVE); LEUKOCYTE ESTERASE ,URINE NEGATIVE (NEGATIVE); NITRITE,URINE NEGATIVE (NEGATIVE); PH,URINE 7 (5-9); PROTEIN,URINE 2+ (NEGATIVE); UROBILINOGEN,URINE NORMAL (NORMAL)
[2016-05-28] MEDS ORDERED: ONDA8TAB9 PO (12:25)
[2016-05-28 12:33] VITALS: BP 118/74
== END 2016-05-28 12:33 | disposition home or self-care (01) ==
LOC: EDUNIT# 08:23 → ER 08:24
DX: R11.2 Nausea with vomiting, unspecified (principal); K76.0 Fatty (change of) liver, not elsewhere classified; N83.202 Unspecified ovarian cyst, left side; J44.9 Chronic obstructive pulmonary disease, unspecified; I10 Essential (primary) hypertension; L97.319 Non-pressure chronic ulcer of right ankle with unspecified severity; Z79.899 Other long term (current) drug therapy
CPT/HCPCS: 36415; 74177; 80053; 81000; 83690; 84703; 85007; 85027; 85652; 96374; 96375; 96376

== ENCOUNTER 2016-05-28 23:44 | Emergency (ER) | payer MEDICARE, OTHER ==
[~2016-05-28] VITALS: Ht 152.4 cm; Wt 77.1 kg
--- OUTSIDE RECORDS SUMMARY | 2016-05-28 23:50 | XMS REPORT | Continuity of Care Document ---
Author Author [facility] Organization [facility] Address Unknown Phone Unavailable Care Team Providers Care Insulation Extruder Operator Name Role Phone German Martin PCP [phone] Source Comments Some departments are not documenting in the electronic medical record. If you do not see the information that you expected, contact Release of Information in the Health Information Management department at [phone] for further assistance in locating additional records.[facility] Active Allergies and Adverse Reactions Allergen [...] 50,000 unit capsule 7 days. 14 Insulin [place] Use when injecting Forteo 100 Each 3 [...]
[2016-05-29] MEDS ORDERED: KETOROLAC 60 MG/2 ML VIAL IM STA (00:06)
[2016-05-29] MEDS ORDERED: morphine INJ 10 MG/ML 1ML (SYR OR VIAL) IM STA (00:06)
[2016-05-29] MEDS ORDERED: RX-TRAMADOL 50 MG (ULTRAM) TAB PPK#4 PO STA (00:09)
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
[2016-05-29 00:22] VITALS: BP 160/110
== END 2016-05-29 00:23 | disposition home or self-care (01) ==
LOC: EDUNIT# 23:44 → ER 23:46
DX: L97.319 Non-pressure chronic ulcer of right ankle with unspecified severity (principal); G89.29 Other chronic pain; F17.210 Nicotine dependence, cigarettes, uncomplicated
CPT/HCPCS: 96372; 99283

== ENCOUNTER 2016-07-02 14:02 | Inpatient (IN) | payer MEDICARE, OTHER ==
[~2016-07-02] VITALS: Ht 160 cm; Wt 75.0 kg
[2016-07-02] VITALS (20 sets, daily range): BP systolic 111–141; BP diastolic 81–107
--- OUTSIDE RECORDS SUMMARY | 2016-07-02 14:07 | XMS REPORT | Continuity of Care Document ---
Author Author [facility] Organization [facility] Address Unknown Phone Unavailable Care Team Providers Care Corporate Security Officer Name Role Phone German Martin PCP [phone] Source Comments Some departments are not documenting in the electronic medical record. If you do not see the information that you expected, contact Release of Information in the Health Information Management department at [phone] for further assistance in locating additional records.[facility] Active Allergies and Adverse Reactions [...] 50,000 unit capsule 7 days. 14 Insulin Bellamy Use when injecting Forteo 100 Each 3 [...]
[2016-07-02] MEDS ORDERED: HALOPERIDOL 5 MG/ML (HALDOL) AMP IV ONE (14:15)
[2016-07-02] MEDS ORDERED: LORazepam INJ 2 MG/ML (ATIVAN) VIAL IVP ONE (14:15)
[2016-07-02] MEDS ORDERED: NS IV 1000 ML 1,000 ML IV ONE (14:15)
[2016-07-02] MEDS ORDERED: HALOPERIDOL 5 MG/ML (HALDOL) AMP ONE (14:19)
[2016-07-02] MEDS ORDERED: LORazepam INJ 2 MG/ML (ATIVAN) VIAL ONE (14:20)
[2016-07-02 14:25] LABS: BASOPHILS % (AUTO) 0 % (0-10); EOSINOPHILS % (AUTO) 0 % (0-10); LYMPHOCYTES # (AUTO) 0.8 X 10^3 (1.0-4.0); LYMPHOCYTES % (AUTO) 11 % (12-44); MEAN CORPUSCULAR HEMOGLOBIN 30 PG (25-34); MEAN CORPUSCULAR HGB CONC 35 G/DL (32-36); MEAN CORPUSCULAR VOLUME 86 FL (80-99); MEAN PLATELET VOLUME 10.6 FL (7.4-10.4); MONOCYTES # (AUTO) 0.6 X 10^3 (0.0-1.0); MONOCYTES % (AUTO) 8 % (0-12); NEUTROPHILS % (AUTO) 80 % (42-75); PLATELET COUNT 210 10^3/uL (130-400); RED BLOOD COUNT 4.49 10^6/uL (4.35-5.85); RED CELL DISTRIBUTION WIDTH 19.5 % (10.0-14.5); WHITE BLOOD COUNT 7.5 10^3/uL (4.3-11.0)
[2016-07-02 14:27] LABS: BILIRUBIN,URINE NEGATIVE (NEGATIVE); KETONES,URINE 3+ (NEGATIVE); LEUKOCYTE ESTERASE ,URINE NEGATIVE (NEGATIVE); NITRITE,URINE NEGATIVE (NEGATIVE); PH,URINE 6.5 (5-9); PROTEIN,URINE 3+ (NEGATIVE); UROBILINOGEN,URINE NORMAL (NORMAL)
[2016-07-02 14:34] LABS: ABG BASE EXCESS -6.5 MMOL/L (-2.5-2.5); ABG OXYGEN SATURATION 93 % (94-100); ABG PCO2 27 MMHG (35-45); ABG PH 7.41 (7.37-7.43); ABG PO2 72 MMHG (79-93)
[2016-07-02 14:36] LABS: ABG HCO3 17 MMOL/L (23-27)
[2016-07-02 14:37] LABS: WBC,URINE RARE /HPF
[2016-07-02 14:37] LABS: ALLENS TEST YES-POS; PATIENT TEMP 98.5
[2016-07-02 14:42] LABS: ALANINE AMINOTRANSFERASE 83 U/L (0-55); ALBUMIN 3.3 G/DL (3.2-4.5); ANION GAP 24 MMOL/L (5-14); ASPARTATE AMINO TRANSFERASE 160 U/L (5-34); BILIRUBIN,TOTAL 0.5 MG/DL (0.1-1.0); BLOOD UREA NITROGEN 12 MG/DL (7-18); BUN/CREATININE RATIO 17; CALCIUM 7.6 MG/DL (8.5-10.1); CARBON DIOXIDE 16 MMOL/L (21-32); CHLORIDE 95 MMOL/L (98-107); CREATININE SERUM 0.71 MG/DL (0.60-1.30); GFR ESTIMATED > 60; GLUCOSE 270 MG/DL (70-105); MAGNESIUM 1.6 MG/DL (1.8-2.4); POTASSIUM 3.1 MMOL/L (3.6-5.0); SODIUM 135 MMOL/L (135-145); TOTAL PROTEIN 5.9 G/DL (6.4-8.2); hs C REACTIVE PROTEIN 6.72 MG/DL (0.00-0.50)
[2016-07-02 14:43] LABS: ACETAMINOPHEN < 10 UG/ML (10-30)
[2016-07-02 14:44] LABS: ALCOHOL 379 MG/DL (<10)
--- NOTE | 2016-07-02 14:55 | Diagnostic Imaging Report ---
INDICATION: Patient is unresponsive. COMPARISON: 08/17/2015 FINDINGS: Supine portable view of the chest is obtained. Heart size is normal. The pulmonary vessels appear unremarkable. There is no pneumothorax, mediastinal widening or pleural fluid demonstrated. The lungs are clear. IMPRESSION: No acute abnormality is demonstrated. Dictated by: Dictated on workstation # [id number]
[2016-07-02] MEDS ORDERED: fentaNYL INJECTION 100 MCG/2 ML AMP ONE (15:00)
[2016-07-02] MEDS ORDERED: ETOMIDATE IV SOLN 20 MG/10 ML VIAL ONE (15:00)
[2016-07-02] MEDS ORDERED: MIDAZOLAM 5 MG/5 ML (VERSED) VIAL ONE ×2 (15:00→20:39)
[2016-07-02] MEDS ORDERED: SUCCINYLCHOLINE INJ 100 MG/5 ML SYR ONE (15:00)
[2016-07-02] MEDS ORDERED: PROPOFOL DRIP (ICU) 100 ML IV ONE (15:16)
[2016-07-02] MEDS ORDERED: AMOX1TAB12 PO (15:34)
[2016-07-02] MEDS ORDERED: GABA800T2 PO (15:34)
[2016-07-02] MEDS ORDERED: TRAZ100T92 PO (15:34)
[2016-07-02] MEDS ORDERED: TRAM50TA2 PO (15:34)
--- NOTE | 2016-07-02 15:47 | ED Neurological Problem ---
General Chief Complaint: Altered Mental Status Stated Complaint: UNRESPONSIVE Nursing Triage Note: to ER 8 by [facility] with reports of consuming 6 bottles of hairspray. This is not abnormal behavior for this patient. EMS reports unresponsive state upon their arrival with blood glucose of 51. EMS attempted multiple IV starts without success so they initiated IO access to the left humeral head. EMS administered 1 amp of D50 and reports sugar of 156 after administration. Patient continues to not follow commands, and is belligerent. Patient is not alert and not verbal upon arrival; however, is continually restless and uncooperative. Nursing Sepsis Screen: No Definite Risk Source: EMS Exam Limitations: clinical condition, physical impairment History of Present Illness Time seen by provider: 14:02 Initial Comments Here by EMS with report of being found unresponsive. Patient noted that her blood sugar was 51 and a give 1 amp of D50. Her blood sugar elevated afterwards and she did open her eyes by the time she arrived. She was confused at best and combative with movements or stimulation. She was noted to have 6 bottles of hairspray near her which she is known to drink to get alcohol. She also had a bottle of vanilla that was an open is near her. Patient has had overdose episodes previously with hairspray and alcohol. She has also attempted suicide in the past . Patient's is not responding answers or following commands. Unable to obtain history from the patient. Family apparently had been trying to contact her and she was not responding and so welfare check was done by law enforcement. She was found unresponsive and EMS was called. Timing/Duration: unknown Severity: severe Associated Symptoms: confusion loss of consciousness Allergies and Home Medications Allergies Coded Allergies: levofloxacin (Verified Allergy, Intermediate, HIVES, 05/29/16) orphenadrine (Unverified Allergy, Unknown, 05/29/16) Uncoded Allergies: UNKNOWN ALLERGY (Allergy, Unknown, 07/25/05) Home Medications Amoxicillin/Potassium Clav 1 Each Tablet 1 EACH PO BID (Reported) Gabapentin 800 Mg Tablet 800 MG PO TID (Reported) Tramadol HCl 50 Mg Tablet 100 MG PO Q6H PRN PRN PAIN (Reported) Trazodone HCl 100 Mg Tablet 100 MG PO HS PRN PRN SLEEP (Reported) Constitutional: see HPI Other Unable to complete review of systems due to altered mental status Past Yvtpyjl-Vgojri-Vhdxbp Hx Patient Social History Alcohol Use: Regular Use Recreational Drug Use: No (SMOKES 1/2 PPD) Smoking Status: Current Everyday Smoker Type Used: Cigarettes Former Smoker/When Quit: Apr 01, 2013 2nd Hand Smoke Exposure: Yes Recent Foreign Travel: No Contact w/Someone Who Travel: No Recent Infectious Disease Expo: No Recent Hopitalizations: No (ED/WOUND CARE) Immunizations Up To Date Tetanus Booster (TDap): Less than 5yrs Date of Pneumonia Vaccine: September 07, 2011 Seasonal Allergies Seasonal Allergies: No Surgeries HX Surgeries: Yes (MULTIPLE SKIN GRAFTS TO FEET, R ANKLE) Respiratory Hx Respiratory Disorders: Yes Respiratory Disorders: Asthma, COPD Cardiovascular Hx Cardiac Disorders: Yes (VASCULITIS, RBBB) Cardiac Disorders: High Cholesterol, Hypertension, Peripheral Vascular Neurological Hx Neurological Disorders: No Reproductive System Hx Reproductive Disorders: Yes (miscarriages) Sexually Transmitted Disease: No HIV/AIDS: No Female Reproductive Disorders: Ovarian Cyst Genitourinary Hx Genitourinary Disorders: Yes Genitourinary Disorders: UTI-Chronic Gastrointestinal Hx Gastrointestinal Disorders: No Musculoskeletal Hx Musculoskeletal Disorders: Yes Musculoskeletal Disorders: Degenerate Disk Disease, Arthritis, Rheumatoid Arthritis, Chronic Back Pain Endocrine Hx Endocrine Disorders: Yes (THYROID DISEASE) Endocrine Disorders: Hypothyroidsim HEENT HX ENT Disorders: No Loss of Vision: Denies Hearing Impairment: Denies Cancer Hx Cancer: No Psychosocial Hx Psychiatric Problems: Yes (EXTENSIVE PSYCH ISSUES AND POLYSUBSTANCE ABUSE) Behavioral Health Disorders: Anxiety, Suicide Attempts, Depression Integumentary HX Skin/Integumentary Disorder: Yes Skin/Integumentary Disorders: Eczema Blood Transfusions Hx Blood Disorders: No Adverse Reaction to a Blood Tr: No Reviewed Nursing Assessment Reviewed/Agree w Nursing PMH: Yes Family Medical History Significant Family History: No Pertinent Family Hx Family Medial History: PT NOT COOPERATIVE AT THIS TIME Physical Exam Vital Signs Vital Sign - Last 12Hours 07/02/16 07/02/16 14:02 15:00 Temp 98.5 Pulse 114 Resp 14 B/P 140/102 Pulse Ox 94 O2 Delivery Room Air O2 Flow Rate 2 Capillary Refill : Less Than 3 Seconds General Appearance: moderate distress (confused and combative) HEENT: PERRL/EOMI other (dry mucous membranes with sticky coating on tongue and lips.) Neck: full range of motion normal inspection Respiratory: lungs clear normal breath sounds Cardiovascular: no murmur tachycardia Peripheral Pulses: 2+ Dorsalis Pedis (R), 2+ Left Dors-Pedis (L), 2+ Radial Pulses (R), 2+ Radial Pulses (L) Gastrointestinal: non tender soft no organomegaly Back: normal inspection no vertebral tenderness Extremities: no pedal edema other (chronic lower extremity wounds covered with dressing. No obvious edema or new wounds.) Neurologic/Psychiatric: disoriented x 3 Motor/Sensory: other (moves all extremities to try to pull out lines or get off the bed it appears.) Skin: warm/dry ecchymosis (anterior chest wall) Lumen: triple Central Line Procedure: betadine prep sterile drapes applied sterile dressing applied Position: internal jugular (R) Anesthesia: local Volume Anesthetic (ccs): 3 Complications: none Post Position: sutured, good blood return, position confirmed w/ CXR Progress Times one stick with ultrasound guidance. Placed without complication with good blood return. Date of ETT Placement: Jul 02, 2016 Time of ETT Placement: 1506 Intubation Method: orotracheal Tube Size: 7.5 Medications: Etomidate, Succinylcholine Positive End Tide CO2: Yes Breath Sounds after Intubation: bilateral-equal Intubation Complications: no complications Post Intubation Xray: Yes Progress/Results/Core Measures Results/Orders Lab Results Laboratory Tests Test 07/02/16 14:10 07/02/16 14:12 07/02/16 14:16 07/02/16 14:18 Range/Units Acetaminophen Level < 10 L 10-30 UG/ML Alanine Aminotransferase (ALT/SGPT) 83 H 0-55 U/L Albumin 3.3 3.2-4.5 G/DL Alkaline Phosphatase 108 40-136 U/L Anion Gap 24 H 5-14 MMOL/L Aspartate Amino Transf (AST/SGOT) 160 H 5-34 U/L BUN/Creatinine Ratio 17 Basophils # (Auto) 0.0 0.0-0.1 10^3/uL Basophils (%) (Auto) 0 0-10 % Blood Urea Nitrogen 12 7-18 MG/DL C-Reactive Protein High Sensitivity 6.72 H 0.00-0.50 MG/DL Calcium Level 7.6 L 8.5-10.1 MG/DL Carbon Dioxide Level 16 L 21-32 MMOL/L Chloride Level 95 L 98-107 MMOL/L Creatinine 0.71 0.60-1.30 MG/DL Eosinophils # (Auto) 0.0 0.0-0.3 10^3/uL Eosinophils (%) (Auto) 0 0-10 % Estimat Glomerular Filtration Rate > 60 Glucose Level 270 H 70-105 MG/DL Hematocrit 39 35-52 % Hemoglobin 13.5 11.5-16.0 G/DL Lymphocytes # (Auto) 0.8 L 1.0-4.0 X 10^3 Lymphocytes (%) (Auto) 11 L 12-44 % Magnesium Level 1.6 L 1.8-2.4 MG/DL Mean Corpuscular Hemoglobin 30 25-34 PG Mean Corpuscular Hemoglobin Concent 35 32-36 G/DL Mean Corpuscular Volume 86 80-99 FL Mean Platelet Volume 10.6 H 7.4-10.4 FL Monocytes # (Auto) 0.6 0.0-1.0 X 10^3 Monocytes (%) (Auto) 8 0-12 % Neutrophils # (Auto) 6.0 1.8-7.8 X 10^3 Neutrophils (%) (Auto) 80 H 42-75 % Platelet Count 210 130-400 10^3/uL Potassium Level 3.1 L 3.6-5.0 MMOL/L Red Blood Count 4.49 4.35-5.85 10^6/uL Red Cell Distribution Width 19.5 H 10.0-14.5 % Serum Alcohol 379 *H <10 MG/DL Sodium Level 135 135-145 MMOL/L Total Bilirubin 0.5 0.1-1.0 MG/DL Total Protein 5.9 L 6.4-8.2 G/DL White Blood Count 7.5 4.3-11.0 10^3/uL Glucometer 375 H 70-110 MG/DL Ur Tricyclic Antidepressants Screen NEGATIVE NEGATIVE Urine Amphetamines Screen NEGATIVE NEGATIVE Urine Bacteria NEGATIVE /HPF Urine Barbiturates Screen NEGATIVE NEGATIVE Urine Benzodiazepines Screen NEGATIVE NEGATIVE Urine Bilirubin NEGATIVE NEGATIVE Urine Cannabinoids Screen NEGATIVE NEGATIVE Urine Casts NONE /LPF Urine Clarity SLIGHTLY CLOUDY Urine Cocaine Screen NEGATIVE NEGATIVE Urine Color YELLOW Urine Crystals NONE /LPF Urine Culture Indicated NO Urine Glucose (UA) 2+ H NEGATIVE Urine Ketones 3+ H NEGATIVE Urine Leukocyte Esterase NEGATIVE NEGATIVE Urine Methadone Screen NEGATIVE NEGATIVE Urine Methamphetamines Screen NEGATIVE NEGATIVE Urine Mucus NEGATIVE /LPF Urine Nitrite NEGATIVE NEGATIVE Urine Opiates Screen NEGATIVE NEGATIVE Urine Oxycodone Screen NEGATIVE NEGATIVE Urine Phencyclidine Screen NEGATIVE NEGATIVE Urine Propoxyphene Screen NEGATIVE NEGATIVE Urine Protein 3+ H NEGATIVE Urine RBC 5-10 H /HPF Urine RBC (Auto) 5+ H NEGATIVE Urine Specific [place] 1.010 L 1.016-1.022 Urine Squamous Epithelial Cells NONE /HPF Urine Urobilinogen NORMAL NORMAL MG/DL Urine WBC RARE /HPF Urine pH 6.5 5-9 Gary Test YES-POS Arterial Blood Base Excess -6.5 L -2.5-2.5 MMOL/L Arterial Blood HCO3 17 *L 23-27 MMOL/L Arterial Blood Oxygen Saturation 93 L 94-100 % Arterial Blood Partial Pressure CO2 27 L 35-45 MMHG Arterial Blood Partial Pressure O2 72 L 79-93 MMHG Arterial Blood Total CO2 18.0 L 21.0-31.0 MMOL/L Arterial Blood pH 7.41 7.37-7.43 Blood Gas Inspired Oxygen ROOM AIR Blood Gas Patient Temperature 98.5 Blood Gas Puncture Site L.RADIAL Blood Gas Ventilator Setting NO My Orders Orders-JUSTIN PFEIFFER MD Acetaminophen (07/02/16 14:15) Alcohol (07/02/16 14:15) Arterial Blood Gas (07/02/16 14:15) Cbc With Automated Diff (07/02/16 14:15) Comprehensive Metabolic Panel (07/02/16 14:15) Hs C Reactive Protein (07/02/16 14:15) Drug Screen Stat (Urine) (07/02/16 14:15) Magnesium (07/02/16 14:15) Ua Culture If Indicated (07/02/16 14:15) Chest 1 View, Ap/Pa Only (07/02/16 14:15) Saline Lock/Iv-Start (07/02/16 14:15) Ns Iv 1000 Ml (Sodium Chloride 0.9%) (07/02/16 14:15) Ekg Tracing (07/02/16 14:15) Catheter(Urinary) Insert & Ass ,15 (07/02/16 14:15) Restraints: Medically Indicate Q2H (07/02/16 14:15) O2 (07/02/16 14:15) Monitor-Rhythm Ecg Trace Only (07/02/16 14:15) Restraint: Notification Sticke 07 (07/02/16 14:15) Haloperidol Injection (Haldol Injectio (07/02/16 14:15) Lorazepam Injection (Ativan Injection) (07/02/16 14:15) Haloperidol Injection (Haldol Injectio (07/02/16 14:19) Lorazepam Injection (Ativan Injection) (07/02/16 14:20) Propofol Drip (Icu) (Diprivan Drip (Icu) (07/02/16 15:16) Protime With Inr (07/02/16 15:34) Partial Thromboplastin Time (07/02/16 15:34) Chest 1 View, Ap/Pa Only (07/02/16 15:36) Medications Given in ED Current Medications Medications Dose Ordered Sig/[place]mina Route Start Time Stop Time Status Last Admin Dose Admin Haloperidol Lactate 5 mg ONCE ONCE IV 07/02/16 14:15 07/02/16 14:21 DC 07/02/16 14:20 5 MG Lorazepam 1 mg ONCE ONCE IVP 07/02/16 14:15 07/02/16 14:21 DC 07/02/16 14:20 1 MG Vital Signs/I&O Vital Sign - Last 12Hours 07/02/16 07/02/16 14:02 15:00 Temp 98.5 Pulse 114 Resp 14 B/P 140/102 Pulse Ox 94 94 O2 Delivery Room Air Nasal Cannula O2 Flow Rate 2 Blood Pressure Mean: 115 Progress Note : Progress Note Seen and evaluated on arrival by EMS. Patient very combative. Second IV line placed to the left EJ. Labs, normal saline 1 L bolus, Chou catheter, UA and UDS ordered. EKG and chest x-ray ordered. Monitor patient. Patient very combative and confused and pulling at lines. Soft restraints have been applied and this is not effective. Concerns about patient protecting airway due to meds required to keep patient from being combative and her underlying overdose which appears to be alcohol currently. She is on a variety of meds and we are not sure of what she has taken of her meds. I did discuss the case with Dr. Bonds at 1443. We discussed the need for possible intubation to protect patient's airway and patient self due to underlying overdose and she is in full agreement of intubation. Patient will need central line as well for fluid volume resuscitation and blood draws. Both of these were done emergent without complication. Postintubation sedation with fentanyl and Versed and then ultimately propofol initiated with 40 mg bolus and started at 50 mcg/kg/m with estimated weight of 80 kg. Blood pressure Post sedation and procedures is 119/ 92 with heart rate of 108 and O2 sat 97 percent on vent at 450 for tidal volume , 14 for rate and 5 PEEP. Patient to be admitted to ICU with eICU consult for additional management. Dr. Bonds accepts patient for admission, inpatient status. I did discuss the case with eICU, Dr. Aranda. Family updated and informed. Admit, ICU, critical condition, inpatient status. ECG Initial ECG Impression Date: Jul 02, 2016 Initial ECG Impression Time: 15:47 Initial ECG Rate: 125 Initial ECG Rhythm: S.Tach Comment Sinus tachycardia with right bundle branch block and left posterior fascicular block. Noted some ST elevation [place]. Similar to previous of 12/29/14. Interpreted by me. Diagnostic Imaging Diagonstic Imaging: Xray Plain Films/CT/US/NM/MRI: chest Comments NAME: NICOLE FIELDS [facility] REC#: [id number] PT STATUS: REG ER : 1975 PHYSICIAN: JUSTIN PFEIFFER MD ADMIT DATE: 07/02/16/ER Signed Date of Exam: 07/02/16 CHEST 1 VIEW, AP/PA ONLY INDICATION: Patient is unresponsive. COMPARISON: 08/17/2015 FINDINGS: Supine portable view of the chest is obtained. Heart size is normal. The pulmonary vessels appear unremarkable. There is no pneumothorax, mediastinal widening or pleural fluid demonstrated. The lungs are clear. IMPRESSION: No acute abnormality is demonstrated. Dictated by: Dictated on workstation # [id number] Dict: 07/02/16 1448 Trans: 07/02/16 1456 [id number] Interpreted by: JACINTO JAVED DO Electronically signed by:JACINTO JAVED DO 07/02/16 1459 Diagonstic Imaging: Xray Plain Films/CT/US/NM/MRI: chest Comments VIA [facility]. [place], [place] NAME: LOGAN FIELDSBrandon Martinez [facility] REC#: [id number] PT STATUS: REG ER : 1975 PHYSICIAN: JUSTIN PFEIFFER MD ADMIT DATE: 07/02/16/ER Draft Date of Exam:07/02/16 CHEST 1 VIEW, AP/PA ONLY INDICATION: Central line placement. COMPARISON: 07/02/2016 at 2:36 PM TIME OF EXAM: 07/02/2016 at 3:41 PM FINDINGS: Portable supine view of the chest is obtained. The patient is now intubated. The tip of endotracheal tube is approximately 2.1 cm proximal to the monica. There is a new right central line via IJ approach the tip of which appears to be in the mid to distal superior vena cava. There is an NG tube coiled in the stomach. Heart size is upper limits of normal but unchanged. There is no central venous congestion or evidence of edema. There is some developing atelectasis at the left lung base. Right lung remains well aerated. IMPRESSION: 1. New endotracheal tube NG tube and right IJ line appear to be in good position. 2. Developing left basilar atelectasis. Dictated on workstation # [id number] Dict: 07/02/16 1550 Trans: 07/02/16 1556 [id number] Interpreted by: JACINTO JAVED DO Electronically signed by: Reviewed: Reviewed by Ri Critical Care Note Critical Care Start Time: 14:30 Stop Time: 16:10 Departure Communication Time/Spoke to Admitting Phy: 14:43 Time/Spoke to Consulting Physi: 15:52 Impression Impression: Primary Impression: Alcohol overdose Qualified Code: T51.94XA - Toxic effect of unspecified alcohol, undetermined, initial encounter Additional Impression: Altered mental status Qualified Code: R40.1 - Stupor Disposition: ADMITTED INPATIENT Condition: Critical Decision to Admit Reason: Admit from ER (General) Decision to Admit/Date: Jul 02, 2016 Time/Decision to Admit Time: 16:00 Departure-Patient Inst. Referrals: NO,LOCAL PHYSICIAN (PCP/Family) Primary Care Physician JUSTIN PFEIFFER MD Jul 02, 2016 15:47
--- NOTE | 2016-07-02 15:56 | Diagnostic Imaging Report ---
INDICATION: Central line placement. COMPARISON: 07/02/2016 at 2:36 PM TIME OF EXAM: 07/02/2016 at 3:41 PM FINDINGS: Portable supine view of the chest is obtained. The patient is now intubated. The tip of endotracheal tube is approximately 2.1 cm proximal to the monica. There is a new right central line via IJ approach the tip of which appears to be in the mid to distal superior vena cava. There is an NG tube coiled in the stomach. Heart size is upper limits of normal but unchanged. There is no central venous congestion or evidence of edema. There is some developing atelectasis at the left lung base. Right lung remains well aerated. IMPRESSION: 1. New endotracheal tube NG tube and right IJ line appear to be in good position. 2. Developing left basilar atelectasis. Dictated by: Dictated on workstation # [id number]
[2016-07-02] MEDS ORDERED: NS IV 1000 ML 1,000 ML IV SCH (17:00)
[2016-07-02] MEDS ORDERED: CATHETER FLUSH 10 ML SYR IV PRN (17:00)
[2016-07-02 17:03] LABS: INR 1.1 (0.8-1.4); PROTHROMBIN TIME PATIENT 14.3 SEC (12.2-14.7)
[2016-07-02] MEDS ORDERED: fentaNYL (OMNICELL DRIP KIT ONLY) 250 MCG/5 ML AMP ONE ×2 (17:17→23:18)
[2016-07-02] MEDS ORDERED: NS (IVPB) 100 ML ONE ×2 (17:18→23:18)
[2016-07-02 17:37] LABS: ABG BASE EXCESS -5.1 MMOL/L (-2.5-2.5); ABG HCO3 19 MMOL/L (23-27); ABG OXYGEN SATURATION 100 % (94-100); ABG PCO2 31 MMHG (35-45); ABG PO2 230 MMHG (79-93); ALLENS TEST YES-POS
[2016-07-02 17:38] LABS: PATIENT TEMP 97.2
[2016-07-02] MEDS: PROPOFOL DRIP (ICU) 100 ML IV SCH ×2 (18:05→21:22)
--- NOTE | 2016-07-02 18:31 | Diagnostic Imaging Report ---
Indication: Line placement. Discussion: Single portable upright view of the chest was obtained, comparison earlier the same date. Interval repositioning of right IJ vascular line which is now directed cephalad. Recommend repositioning. Endotracheal tube and enteric tube are stable. Stable normal heart size. Atelectasis and small left pleural effusion are likely stable. No pneumothorax. Impression: Right IJ central venous catheter is directed cephalad. Recommend repositioning. CRITICAL FINDING Report was called to patient's nurse in the [facility] ICU at 6:26 p.m., by ariana. Dictated by: Dictated on workstation # [id number]
[2016-07-02] MEDS ORDERED: DRIP ONLY IV SCH (20:45)
[2016-07-02] MEDS ORDERED: INSULIN REGULAR TPN IV SCH (20:45)
[2016-07-02] MEDS ORDERED: DEXTROSE 50% 50 ML (IMS) SYR IV PRN (20:45)
[2016-07-02] MEDS ORDERED: NORMAL SALINE IV SCH (20:45)
[2016-07-02] MEDS ORDERED: FLU TRIvalent (5 YOA+) 2016-17 (AFLURIA) 0.5 ML IM ONE (21:15)
[2016-07-02] MEDS: FAMOTIDINE 20MG/2ML IV (PEPCID) IVP SCH (21:45)
[2016-07-02] MEDS: MAGNESIUM 1 GM/D5W 100 ML IVPB IV SCH ×2 (21:46→22:47)
[2016-07-02] MEDS: NS IV 1000 ML 1,000 ML IV SCH (22:20)
[2016-07-02 22:47] LABS: ABG BASE EXCESS -9.2 MMOL/L (-2.5-2.5); ABG OXYGEN SATURATION 99 % (94-100); ABG PCO2 26 MMHG (35-45); ABG PH 7.38 (7.37-7.43); ABG PO2 163 MMHG (79-93); ABG TCO2 15.9 MMOL/L (21.0-31.0)
[2016-07-02 22:51] LABS: ABG HCO3 15 MMOL/L (23-27)
[2016-07-02 22:52] LABS: ALLENS TEST ART LINE; PATIENT TEMP 97.7
[2016-07-02] MEDS: fentaNYL INJECTION 1,250 MCG in NS (IVPB) 225 ML IV SCH (23:28)
[2016-07-02] MEDS ORDERED: CHLORHEXIDINE 0.12% SOLN 15 ML (PERIDEX) UDC PO PRN (23:30)
[2016-07-02] MEDS: DEXTROSE 10% IV SOLUTION 1,000 ML IV SCH (23:49)
[2016-07-03] VITALS (29 sets, daily range): BP systolic 94–145; BP diastolic 65–91
[2016-07-03] MEDS: PROPOFOL DRIP (ICU) 100 ML IV SCH ×7 (00:12→21:32)
[2016-07-03] MEDS ORDERED: fentaNYL INJECTION 250 MCG/5 ML AMP ONE (03:13)
[2016-07-03] MEDS ORDERED: NS (IVPB) 100 ML ONE (03:16)
[2016-07-03] MEDS: MIDAZOLAM 5 MG/5 ML (VERSED) VIAL IV PRN ×5 (03:36→20:48)
[2016-07-03 04:04] LABS: ABG BASE EXCESS -10.9 MMOL/L (-2.5-2.5); ABG OXYGEN SATURATION 95 % (94-100); ABG PCO2 26 MMHG (35-45); ABG PO2 83 MMHG (79-93); ABG TCO2 14.5 MMOL/L (21.0-31.0)
[2016-07-03 04:21] LABS: ABG PH 7.34 (7.37-7.43)
[2016-07-03 04:22] LABS: ABG HCO3 14 MMOL/L (23-27); ALLENS TEST YES-POS; PATIENT TEMP 99.3
[2016-07-03 04:33] LABS: BASOPHILS % (AUTO) 0 % (0-10); EOSINOPHILS # (AUTO) 0.1 10^3/uL (0.0-0.3); EOSINOPHILS % (AUTO) 2 % (0-10); LYMPHOCYTES # (AUTO) 0.8 X 10^3 (1.0-4.0); LYMPHOCYTES % (AUTO) 19 % (12-44); MEAN CORPUSCULAR HEMOGLOBIN 30 PG (25-34); MEAN CORPUSCULAR HGB CONC 35 G/DL (32-36); MEAN CORPUSCULAR VOLUME 88 FL (80-99); MEAN PLATELET VOLUME 11.1 FL (7.4-10.4); MONOCYTES # (AUTO) 0.2 X 10^3 (0.0-1.0); MONOCYTES % (AUTO) 5 % (0-12); NEUTROPHILS % (AUTO) 74 % (42-75); PLATELET COUNT 157 10^3/uL (130-400); RED BLOOD COUNT 4.03 10^6/uL (4.35-5.85); RED CELL DISTRIBUTION WIDTH 19.5 % (10.0-14.5); WHITE BLOOD COUNT 4.1 10^3/uL (4.3-11.0)
[2016-07-03 05:04] LABS: MAGNESIUM 2.4 MG/DL (1.8-2.4); PHOSPHORUS 1.3 MG/DL (2.3-4.7)
[2016-07-03 05:06] LABS: ALANINE AMINOTRANSFERASE 84 U/L (0-55); ALBUMIN 2.9 G/DL (3.2-4.5); ANION GAP 23 MMOL/L (5-14); ASPARTATE AMINO TRANSFERASE 168 U/L (5-34); BILIRUBIN,TOTAL 0.4 MG/DL (0.1-1.0); BLOOD UREA NITROGEN 10 MG/DL (7-18); BUN/CREATININE RATIO 16; CALCIUM 6.7 MG/DL (8.5-10.1); CARBON DIOXIDE 11 MMOL/L (21-32); CHLORIDE 105 MMOL/L (98-107); CREATININE SERUM 0.63 MG/DL (0.60-1.30); GFR ESTIMATED > 60; GLUCOSE 65 MG/DL (70-105); POTASSIUM 3.1 MMOL/L (3.6-5.0); SODIUM 139 MMOL/L (135-145); TOTAL PROTEIN 5.3 G/DL (6.4-8.2)
[2016-07-03] MEDS: KCL 20 MEQ TAB (K-DUR) PO SCH (05:57)
[2016-07-03] MEDS: MAGNESIUM 1 GM/100 ML IVPB 100 ML IV SCH (05:57)
[2016-07-03] MEDS: POTASSIUM CL 10MEQ/50ML IVPB 50 ML IV SCH (06:00)
[2016-07-03] MEDS: NS IV 1000 ML 1,000 ML IV SCH ×5 (06:00→21:32)
[2016-07-03] MEDS: DEXTROSE 10% IV SOLUTION 1,000 ML IV SCH ×2 (06:39→16:45)
[2016-07-03] MEDS ORDERED: SODIUM PHOSPHATE INJ 30 MM in NS (IVPB) 250 ML INJ ONE (07:15)
[2016-07-03] MEDS ORDERED: POTASSIUM PHOSPHATE INJ 30 MM in NS IV 500 ML 500 ML IV ONE (08:00)
[2016-07-03] MEDS: INSULIN DRIP 250 UNITS/NS 250 ML IV SCH ×2 (08:15)
--- NOTE | 2016-07-03 09:01 | Diagnostic Imaging Report ---
INDICATION: Ventilator. EXAMINATION: Chest, 07/03/16. COMPARISON: 07/02/16. FINDINGS: There is an ET tube which is stable with feeding tube coursing beneath the diaphragm. Heart is enlarged. The pulmonary vasculature is mildly congested. There is an infiltrate at the left lung base. A small amount of adjacent fluid is possible. No pneumothorax. IMPRESSION: 1. Mild pulmonary vascular congestion. 2. Left base infiltrate and/or atelectasis with small adjacent effusion. Dictated by: Dictated on workstation # [id number]
[2016-07-03] MEDS: FAMOTIDINE 20MG/2ML IV (PEPCID) IVP SCH ×2 (09:02→20:22)
[2016-07-03] MEDS: fentaNYL INJECTION 1,250 MCG in NS (IVPB) 225 ML IV SCH ×2 (10:06→19:33)
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
--- NOTE | 2016-07-03 16:42 | Diagnostic Imaging Report ---
PROCEDURE: CT head without contrast. TECHNIQUE: Multiple contiguous axial images were obtained through the brain without the use of intravenous contrast. INDICATION: New-onset altered mental status. On mechanical ventilation. CORRELATION STUDY: 08/25/2014. FINDINGS: Ventricles and sulci appearing unchanged and unremarkable. No evidence for intracranial hemorrhage. No definitive area of decreased attenuation suggest edema. No midline shift or mass effect. Endotracheal tube is present. Gastric tube through the right nasal cavity. Scattered areas of mucosal thickening throughout the ethmoid air cells and right sphenoid sinus. IMPRESSION: 1. Negative acute intracranial abnormality. 2. Sinusitis. Dictated by: Dictated on workstation # [id number]
[2016-07-03 17:15] LABS: ABG BASE EXCESS -5.6 MMOL/L (-2.5-2.5); ABG HCO3 18 MMOL/L (23-27); ABG OXYGEN SATURATION 79 % (94-100); ABG PCO2 30 MMHG (35-45); ABG PO2 48 MMHG (79-93); ABG TCO2 19.2 MMOL/L (21.0-31.0)
[2016-07-03 17:17] LABS: ALLENS TEST YES-POS
[2016-07-03 17:18] LABS: PATIENT TEMP 99.2
[2016-07-03 18:29] LABS: ANION GAP 16 MMOL/L (5-14); BLOOD UREA NITROGEN 10 MG/DL (7-18); BUN/CREATININE RATIO 14; CALCIUM 6.3 MG/DL (8.5-10.1); CARBON DIOXIDE 14 MMOL/L (21-32); CHLORIDE 109 MMOL/L (98-107); CREATININE SERUM 0.74 MG/DL (0.60-1.30); GFR ESTIMATED > 60; GLUCOSE 79 MG/DL (70-105); POTASSIUM 3.7 MMOL/L (3.6-5.0); SODIUM 139 MMOL/L (135-145)
[2016-07-04] VITALS (19 sets, daily range): BP systolic 114–155; BP diastolic 72–100
[2016-07-04] MEDS: MIDAZOLAM 5 MG/5 ML (VERSED) VIAL IV PRN ×2 (00:30→05:45)
[2016-07-04] MEDS: PROPOFOL DRIP (ICU) 100 ML IV SCH ×4 (00:31→08:14)
[2016-07-04] MEDS: DEXTROSE 10% IV SOLUTION 1,000 ML IV SCH ×2 (02:45→14:34)
[2016-07-04 04:05] LABS: ABG OXYGEN SATURATION 99 % (94-100); ABG PCO2 23 MMHG (35-45); ABG PH 7.44 (7.37-7.43); ABG PO2 119 MMHG (79-93); ABG TCO2 16.1 MMOL/L (21.0-31.0)
[2016-07-04 04:08] LABS: ABG HCO3 15 MMOL/L (23-27); ALLENS TEST YES-POS; PATIENT TEMP 98.1
[2016-07-04] MEDS: NS IV 1000 ML 1,000 ML IV SCH ×3 (04:14→19:16)
[2016-07-04 04:24] LABS: BASOPHILS % (AUTO) 0 % (0-10); EOSINOPHILS # (AUTO) 0.3 10^3/uL (0.0-0.3); EOSINOPHILS % (AUTO) 7 % (0-10); LYMPHOCYTES # (AUTO) 0.7 X 10^3 (1.0-4.0); LYMPHOCYTES % (AUTO) 14 % (12-44); MEAN CORPUSCULAR HEMOGLOBIN 30 PG (25-34); MEAN CORPUSCULAR HGB CONC 34 G/DL (32-36); MEAN CORPUSCULAR VOLUME 90 FL (80-99); MEAN PLATELET VOLUME 11.2 FL (7.4-10.4); MONOCYTES # (AUTO) 0.2 X 10^3 (0.0-1.0); MONOCYTES % (AUTO) 4 % (0-12); NEUTROPHILS # (AUTO) 3.6 X 10^3 (1.8-7.8); NEUTROPHILS % (AUTO) 76 % (42-75); PLATELET COUNT 94 10^3/uL (130-400); RED BLOOD COUNT 3.22 10^6/uL (4.35-5.85); RED CELL DISTRIBUTION WIDTH 19.9 % (10.0-14.5); WHITE BLOOD COUNT 4.7 10^3/uL (4.3-11.0)
[2016-07-04 04:44] LABS: ANION GAP 16 MMOL/L (5-14); BLOOD UREA NITROGEN 8 MG/DL (7-18); BUN/CREATININE RATIO 14; CARBON DIOXIDE 12 MMOL/L (21-32); CHLORIDE 112 MMOL/L (98-107); CREATININE SERUM 0.59 MG/DL (0.60-1.30); GFR ESTIMATED > 60; GLUCOSE 72 MG/DL (70-105); MAGNESIUM 1.9 MG/DL (1.8-2.4); PHOSPHORUS 1.3 MG/DL (2.3-4.7); POTASSIUM 2.9 MMOL/L (3.6-5.0); SODIUM 140 MMOL/L (135-145)
[2016-07-04] MEDS: fentaNYL INJECTION 1,250 MCG in NS (IVPB) 225 ML IV SCH (04:50)
[2016-07-04] MEDS: MAGNESIUM 1 GM/100 ML IVPB 100 ML IV SCH (04:53)
[2016-07-04] MEDS: KCL 20 MEQ TAB (K-DUR) PO SCH (04:53)
[2016-07-04] MEDS: POTASSIUM CL 10MEQ/50ML IVPB 50 ML IV SCH ×6 (04:53→10:00)
[2016-07-04] MEDS ORDERED: POTASSIUM CL 10MEQ/50ML IVPB 50 ML IV ONE (05:00)
[2016-07-04] MEDS: INSULIN DRIP 250 UNITS/NS 250 ML IV SCH ×2 (08:10)
[2016-07-04] MEDS: FAMOTIDINE 20MG/2ML IV (PEPCID) IVP SCH ×2 (08:14→21:49)
--- NOTE | 2016-07-04 08:55 | Cardiology Progress Note ---
Subjective Subjective/Events-last exam patient is laying down in bed, thrashing, still unresponsive, on large dose of sedation, unable to provide any history, Dr. Garber is off for this week. Review of Systems General: Other (intubated and sedated, unable to provide review of systems) Objective-Cardiology Exam Last Set of Vital Signs Vital Signs 07/04/16 07/04/16 07/04/16 08:18 08:45 08:58 Temp 97.7 Pulse 95 Resp 18 B/P 136/93 Pulse Ox 100 O2 Delivery Mechanical Ventilator O2 Flow Rate 35.00 FiO2 35 Capillary Refill : Less Than 3 Seconds I&O Intake and Output 07/04/16 00:00 Intake Total 2510 ml Output Total 555 ml Balance 1955 ml Intake Oral 0 ml IV Total 2510 ml Output Urine Total 555 ml General: Severe Distress HEENT: Atraumatic, PERRLA Neck: Supple, No JVD, No Thyromegaly Lungs: Normal Air Movement, Other (bilateral rhonchi) Heart: Normal S1, Normal S2, No Murmurs, Other (tachycardia) Abdomen: Normal Bowel Sounds, Soft, No Tenderness, No Hepatosplenomegaly, No Masses Extremities: No Clubbing, No Cyanosis, No Edema, Normal Pulses, No Tenderness/ Swelling Skin: No Rashes, No Breakdown, No Significant Lesion Neuro: Other (sedated and intubated) Results Lab Laboratory Tests 07/03/16 18:00 07/04/16 03:53 A/P-Cardiology Admission Diagnosis sinus tachycardia Acute respiratory failure Metabolic alkalosis Hypotension Assessment/Plan Acute respiratory failure, ventilatory dependent, , I will attempt weaning trial today. Stopped sedation temporarily and evaluate her mental status. Status post alcohol intoxication, patient drank 6 bottles of hairspray. Metabolic acidosis, acute respiratory alkalosis. Intubated at this time. Continue to monitor, evaluate weaning trial. Hypokalemia, hypophosphatemia, Add Potassium phos 30 MM and continue to monitor Sinus tachycardia, improving, continue to monitor, I'm expecting her heart rate to increase during the weaning trial. Elevated liver enzymes, secondary to alcoholism and alcohol intoxication, monitor closely History of depression and suicide attempt in the past. Rheumatoid arthritis Infected foot ulcer, managed by the primary care physician Clinical Quality Measures DVT/VTE Risk/Contraindication: Risk Factor Score Per Nursin RFS Level Per Nursing on Admit: 4+=Very High MARISEL,BASHAR J MD Jul 04, 2016 08:55
[2016-07-04] MEDS ORDERED: POTASSIUM PHOSPHATE INJ 30 MM in NS (IVPB) 250 ML IV NR (09:00)
[2016-07-04] MEDS ORDERED: PRD10T PO (09:22)
[2016-07-04] MEDS ORDERED: DOXY100C42 PO (09:22)
[2016-07-04] MEDS ORDERED: LIDO30JE10 TP (09:22)
--- NOTE | 2016-07-04 10:01 | Diagnostic Imaging Report ---
INDICATION: Intubation. COMPARISON: 07/03/2016. FINDINGS: Stable ET and enteric tubes. Improved but persistent left basilar linear atelectasis. No pleural effusion or pneumothorax. Stable cardiomediastinal silhouette. IMPRESSION: 1. Stable support devices. 2. Improving but persistent left basilar subsegmental atelectasis. Dictated by: Dictated on workstation # [id number]
--- NOTE | 2016-07-04 10:42 | Progress Note-Hospitalist ---
Standard Progress Note Progress Notes/Assess & Plan Date Seen 07/04/16 Diagnosis Assessment: Sepsis with elevated lactic acid in respiratory failure patient after consuming 6 bottles of hairspray Known alcoholism Known mental illness Lower extremity wounds Sinus tachycardia due to critical illness Elevated liver enzymes Neutropenia Hypokalemia Assess & Plan/Chief Complaint The patient is a 40-year-old white female with rheumatoid arthritis and chronic alcoholism. She presented to the emergency room on 07/02 acutely intoxicated after drinking several bottles of hairspray for the alcohol content. She has previously done this with vanilla extract as well. She is rather disabled with rheumatoid arthritis. She is unable to give any history at this time as she is still intubated. The parameters suggest that she can be successfully extubated. Physical exam: The patient appeared to be asleep when I walked into the room however she responded easily to spoken voice by opening her eyes and focusing on me. The lungs are clear to auscultation. CV is regular. Blood pressure is satisfactory. The extremities show a dressing over the medial aspect of the right ankle superior to the malleolus. The the toes are seriously and bizarrely deformed consistent with rheumatoid arthritis Impression: Respiratory failure secondary to alcohol overdose. 2.chronic alcoholism. 3.severe rheumatoid arthritis Plan: Extubate and hope to transfer to the floor later today Labs Laboratory Tests 07/02/16 14:10 07/03/16 03:40 07/03/16 18:00 07/04/16 03:53 RIK CARTER MD Jul 04, 2016 10:42
[2016-07-04 14:09] LABS: ANION GAP 14 MMOL/L (5-14); BLOOD UREA NITROGEN 5 MG/DL (7-18); BUN/CREATININE RATIO 8; CALCIUM 6.7 MG/DL (8.5-10.1); CARBON DIOXIDE 14 MMOL/L (21-32); CHLORIDE 110 MMOL/L (98-107); CREATININE SERUM 0.59 MG/DL (0.60-1.30); GFR ESTIMATED > 60; GLUCOSE 93 MG/DL (70-105); POTASSIUM 3.3 MMOL/L (3.6-5.0); SODIUM 138 MMOL/L (135-145)
[2016-07-04] MEDS ORDERED: ONDANSETRON 4 MG/2 ML (SDV) Z0FRAN ONE (14:40)
[2016-07-04] MEDS: ONDANSETRON 4 MG/2 ML (SDV) Z0FRAN IVP PRN ×2 (15:55→17:58)
[2016-07-04] MEDS ORDERED: RX-TRAMADOL 50 MG (ULTRAM) TAB PPK#4 PO PRN (16:45)
[2016-07-04] MEDS ORDERED: traZODone 100 MG (DESYREL) TAB PO PRN (20:30)
--- NOTE | 2016-07-04 23:11 | Wound Care Progress Note ---
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 The patient was admitted to the hospital with an acute alcohol overdose. I have been requested to assist in the management of her leg wounds while she is in the hospital. The patient has chronic, recurrent ulcers of the bilateral ankles. These are due to a combination of rheumatoid vasculitis and venous insufficiency. At the time of examination, the patient declines to allow me to examine her wounds. She states that she wants me to put lidocaine on the wounds. I tell her that I will arrange for that, and examine her wounds tomorrow. PMFSH: No interval change except as in HPI. Review of Systems General: Fatigue Malaise HEENT: Head Aches Objective Exam Last Set of Vital Signs Vital Signs Date Time Temp Pulse Resp B/P Pulse Ox O2 Delivery O2 Flow Rate FiO2 07/04/16 12:34 98.6 108 15 146/87 98 Nasal Cannula 4.00 07/04/16 08:45 35 Capillary Refill : Less Than 3 Seconds I&O Intake and Output 07/04/16 00:00 Intake Total 2510 ml Output Total 555 ml Balance 1955 ml Intake Oral 0 ml IV Total 2510 ml Output Urine Total 555 ml General: Alert, No Acute Distress Skin: Other (The patient declined examination.) Results Lab Laboratory Tests 07/04/16 03:53: Anion Gap 16H, BUN/Creatinine Ratio 14, Basophils # (Auto) 0.0, Basophils (%) ( Auto) 0, Blood Urea Nitrogen 8, Calcium Level 6.0*L, Carbon Dioxide Level 12L, Chloride Level 112H, Creatinine 0.59L, Eosinophils # (Auto) 0.3, Eosinophils (% ) (Auto) 7, Estimat Glomerular Filtration Rate > 60, Glucose Level 72, Hematocrit 29L, Hemoglobin 9.7#L, Lymphocytes # (Auto) 0.7L, Lymphocytes (%) ( Auto) 14, Magnesium Level 1.9, Mean Corpuscular Hemoglobin 30, Mean Corpuscular Hemoglobin Concent 34, Mean Corpuscular Volume 90, Mean Platelet Volume 11.2H, Monocytes # (Auto) 0.2, Monocytes (%) (Auto) 4, Neutrophils # (Auto) 3.6, Neutrophils (%) (Auto) 76H, Phosphorus Level 1.3L, Platelet Count 94L, Potassium Level 2.9L, Red Blood Count 3.22L, Red Cell Distribution Width 19.9H, Sodium Level 140, White Blood Count 4.7 07/04/16 04:02: Gary Test YES-POS, Arterial Blood Base Excess -8.0L, Arterial Blood HCO3 15*L, Arterial Blood Oxygen Saturation 99, Arterial Blood Partial Pressure CO2 23L, Arterial Blood Partial Pressure O2 119H, Arterial Blood Total CO2 16.1L, Arterial Blood pH 7.44H, Blood Gas Inspired Oxygen 35%, Blood Gas Patient Temperature 98.1, Blood Gas Puncture Site LEFT RADIAL, Blood Gas Ventilator Setting YES 07/04/16 13:48: Anion Gap 14, BUN/Creatinine Ratio 8, Blood Urea Nitrogen 5L, Calcium Level 6.7L , Carbon Dioxide Level 14L, Chloride Level 110H, Creatinine 0.59L, Estimat Glomerular Filtration Rate > 60, Glucose Level 93, Potassium Level 3.3L, Sodium Level 138, Albumin 2.7L Microbiology 07/03/16 MRSA Screen - Final, Complete MRSA not isolated 07/03/16 Gram Stain - Final, Resulted 07/03/16 Wound Culture - Preliminary, Resulted Staph, Coag Neg (Circulation Man) Assessment/Plan Assessment/Plan Assessment/Plan 1. Bilateral ankle wounds. 2. Venous insufficiency. 3. Rheumatoid vasculitis. Plan: Will order topical Lidocaine and re-examine when patient more agreeable. PAULINA POLLOCK MD Jul 04, 2016 23:11
[2016-07-05] VITALS: BP 157/92
[2016-07-05] MEDS: NS IV 1000 ML 1,000 ML IV SCH ×2 (00:28→06:38)
[2016-07-05] MEDS: ONDANSETRON 4 MG/2 ML (SDV) Z0FRAN IVP PRN (01:25)
[2016-07-05 04:00] VITALS: BP 132/80
[2016-07-05 05:19] LABS: BASOPHILS % (AUTO) 0 % (0-10); EOSINOPHILS # (AUTO) 0.3 10^3/uL (0.0-0.3); EOSINOPHILS % (AUTO) 4 % (0-10); LYMPHOCYTES # (AUTO) 1.1 X 10^3 (1.0-4.0); LYMPHOCYTES % (AUTO) 13 % (12-44); MEAN CORPUSCULAR HEMOGLOBIN 30 PG (25-34); MEAN CORPUSCULAR HGB CONC 34 G/DL (32-36); MEAN CORPUSCULAR VOLUME 87 FL (80-99); MEAN PLATELET VOLUME 11.5 FL (7.4-10.4); MONOCYTES # (AUTO) 0.2 X 10^3 (0.0-1.0); MONOCYTES % (AUTO) 3 % (0-12); NEUTROPHILS # (AUTO) 6.9 X 10^3 (1.8-7.8); NEUTROPHILS % (AUTO) 81 % (42-75); PLATELET COUNT 122 10^3/uL (130-400); RED BLOOD COUNT 3.58 10^6/uL (4.35-5.85); WHITE BLOOD COUNT 8.5 10^3/uL (4.3-11.0)
[2016-07-05 05:42] LABS: ANION GAP 15 MMOL/L (5-14); BLOOD UREA NITROGEN 2 MG/DL (7-18); BUN/CREATININE RATIO 3; CALCIUM 7.1 MG/DL (8.5-10.1); CARBON DIOXIDE 14 MMOL/L (21-32); CHLORIDE 107 MMOL/L (98-107); CREATININE SERUM 0.59 MG/DL (0.60-1.30); GFR ESTIMATED > 60; GLUCOSE 71 MG/DL (70-105); MAGNESIUM 1.2 MG/DL (1.8-2.4); PHOSPHORUS 1.7 MG/DL (2.3-4.7); POTASSIUM 3.3 MMOL/L (3.6-5.0); SODIUM 136 MMOL/L (135-145)
[2016-07-05 08:00] VITALS: BP 139/85
[2016-07-05] MEDS ORDERED: predniSONE 10 MG TAB PO SCH (08:00)
[2016-07-05] MEDS: FAMOTIDINE 20MG/2ML IV (PEPCID) IVP SCH (08:35)
--- NOTE | 2016-07-05 09:40 | ECHOCARDIOGRAPHY REPORT ---
PROCEDURE PHYSICIAN: CAROLINA JOINER DATE OF PROCEDURE: 07/04/2016 TWO DIMENSIONAL ECHOCARDIOGRAM REPORT PRIMARY PHYSICIAN: OTHER PHYSICIAN: REFERRING PHYSICIAN: [facility] ORDERING PHYSICIAN: INDICATION FOR THE PROCEDURE: Respiratory failure. MEASUREMENTS DERIVED VALUES LV DIAMETER (LAX) NORMALS NORMALS Diastolic (3.6-5.2) Eject. Fract. (60%+/-6%) Systolic (2.3-3.9) Diastolic Vol. % Shortening (0.22-0.42) Systolic Vol. Aortic Root IVS THICKNESS Diastolic (0.6-1.1) LVPW THICKNESS Diastolic (0.6-1.1) LA DIAMETER Systolic (2.1-3.7) FINDINGS: 1. Technically suboptimal study. 2. The left ventricle is normal in size with normal contractility. Systolic function appeared to be normal. Estimated ejection fraction 60%. 3. The left atrium is normal in size. No clot or thrombus were seen within the left atrium. 4. The right atrium and right ventricle are normal in size. No clot or thrombus were seen within the right side. 5. Mitral valve is normal in morphology with mild mitral regurgitation noted by color Doppler flow. No mitral valve prolapse. No mitral valve stenosis. 6. Aortic valve is trileaflet with normal opening and closing pattern. No significant aortic stenosis or regurgitation was seen. 7. Tricuspid valve is normal in morphology with mild tricuspid regurgitation noted by color Doppler flow. Doppler across tricuspid valve estimated pulmonary artery pressure of 11+ right atrial pressure. 8. Pulmonic valve is functioning normally. 9. No pericardial effusion. IN CONCLUSION: 1. Normal left ventricular size and systolic function. Estimated ejection fraction 60%. 2. Mild mitral and tricuspid regurgitation. 3. Estimated pulmonary artery pressure of 20 mmHg. Job ID: [id number] Dictated Date: 07/04/2016 16:44:11 Metal Finish Inspector Date: 07/05/2016 09:37:27 / nelson
[2016-07-05] MEDS ORDERED: CEFDINIR 300 MG (OMNICEF) CAP PO SCH (11:57)
[2016-07-05 12:00] VITALS: BP 135/90
[2016-07-05] MEDS ORDERED: GABAPENTIN 400 MG (NEURONTIN) CAP PO SCH (13:00)
--- NOTE | 2016-07-05 14:03 | Progress Note-Hospitalist ---
Standard Progress Note Progress Notes/Assess & Plan Date Seen 07/05/16 Diagnosis Assessment: Sepsis with elevated lactic acid in respiratory failure patient after consuming 6 bottles of hairspray Known alcoholism Known mental illness Lower extremity wounds Sinus tachycardia due to critical illness Elevated liver enzymes Neutropenia Hypokalemia Assess & Plan/Chief Complaint The patient is much more alert today. She is up in her room and has been able to make it from her bed to the bathroom by herself. She reports some nausea and that the Zofran is not helping. social services assistant offered her help in arranging treatment for substance abuse. She declined. Physical exam: Lungs are clear to auscultation. CV is regular without murmur. Abdomen is soft. Bowel sounds are slightly hypoactive. Impression: Acute and chronic alcoholism. 2.overdose with other source alcohol. 3 rheumatoid arthritis Labs Laboratory Tests 07/03/16 18:00 07/04/16 03:53 07/04/16 13:48 07/05/16 04:40 RIK CARTER MD Jul 05, 2016 14:03
[2016-07-05] MEDS ORDERED: ONDA8TAB9 PO (14:04)
[2016-07-05] MEDS ORDERED: PROMETHAZINE INJ 25 MG/ML (PHENERGAN) AMP IVP NR (14:13)
--- NOTE | 2016-07-05 15:24 | Cardiology Progress Note ---
Subjective Subjective/Events-last exam Patient is sitting in bed, feeling better, asking to go home, complaining of pain on her right ankle. Review of Systems General: No Chills, No Night Sweats, No Fatigue, No Malaise, No Appetite, No Other HEENT: No Head Aches, No Visual Changes, No Eye Pain, No Ear Pain, No Dysphasia , No Sinus Congestion, No Post Nasal Drip, No Sore Throat, No Other Pulmonary: No Dyspnea, No Cough, No Pleuritic Chest Pain, No Other Cardiovascular: No: Chest Pain, Edema, Lt Headedness, Orthopnea, Other, Palpitations, Paroxysmal Noc. Dyspnea Objective-Cardiology Exam Last Set of Vital Signs Vital Signs 07/04/16 07/04/16 07/05/16 08:45 12:34 12:00 Temp 99.0 Pulse 102 Resp 20 B/P 135/90 Pulse Ox 98 O2 Delivery Room Air O2 Flow Rate 4.00 FiO2 35 Capillary Refill : Less Than 3 Seconds I&O Intake and Output 07/04/16 23:59 Intake Total 4065 ml Output Total 2405 ml Balance 1660 ml Intake Oral 2000 ml IV Total 2065 ml Output Urine Total 2225 ml Gastric Drainage Total 180 ml # Bowel Movements 4 General: Alert, Oriented X3, Cooperative, Mild Distress, Severe Distress HEENT: Atraumatic, PERRLA Neck: Supple, No JVD, No Thyromegaly Lungs: Clear to Auscultation, Normal Air Movement Heart: Regular Rate, Normal S1, Normal S2, No Murmurs Abdomen: Normal Bowel Sounds, Soft, No Tenderness, No Hepatosplenomegaly, No Masses Extremities: No Clubbing, No Cyanosis, No Edema, Normal Pulses, No Tenderness/ Swelling Skin: No Rashes, No Breakdown, No Significant Lesion Neuro: Normal Speech, Other (sedated and intubated) Results Lab Laboratory Tests 07/05/16 04:40 A/P-Cardiology Admission Diagnosis sinus tachycardia Acute respiratory failure Metabolic alkalosis Hypotension Assessment/Plan status post acute respiratory failure, extubated, doing better at this time. Hypomagnesemia, hypokalemia, replace magnesium, followed by primary care physician. Status post alcohol intoxication, patient drank 6 bottles of hairspray. Sinus tachycardia, Better at this time. Elevated liver enzymes, followed and managed by primary care physician History of depression and suicide attempt in the past. Rheumatoid arthritis Infected foot ulcer, managed by the primary care physician I will signoff, reconsult if needed. Clinical Quality Measures DVT/VTE Risk/Contraindication: Risk Factor Score Per Nursin RFS Level Per Nursing on Admit: 4+=Very High CAROLINA JOINER MD Jul 05, 2016 15:24
--- NOTE | 2016-07-05 15:25 | Discharge Inst-Simple/Standard ---
Discharge Inst-Standard Discharge Medications New, Converted or Re-Newed RX: Transmitted to Pharmacy Patient Instructions/Follow Up Plan of Care/Instructions/FU: REFRAIN FROM ALCOHOL OR COGENERS RESUME MEDS PRINTED Activity as Tolerated: Yes Goal: SOBRIETY Discharge Diet: No Restrictions Planned Outpatient Orders/Ref. Pneu Vac Indicated: Yes RIK CARTER MD Jul 05, 2016 15:25
[2016-07-05] MEDS ORDERED: LIDOCAINE TOPICAL 4% 50 ML BTL TP ONE (15:30)
[2016-07-05] MEDS ORDERED: MAGNESIUM 1 GM/100 ML IVPB 100 ML IV SCH (15:30)
[2016-07-05 17:40] VITALS: BP 135/90
[2016-07-05] MEDS ORDERED: FAMOTIDINE 20 MG (PEPCID) TABLET PO SCH (21:00)
[2016-07-06] MEDS ORDERED: LIDOCAINE JELLY 2% (XYLOCAINE) 5 ML TUBE TOP SCH (09:00)
--- NOTE | 2016-07-27 13:12 | Discharge Summary-Hospitalist ---
Diagnosis/Chief Complaint Date of Admission Jul 02, 2016 at 16:15 Date of Discharge Jul 05, 2016 at 17:55 Discharge Date: Jul 05, 2016 Admission Diagnosis Assessment: Sepsis with elevated lactic acid in respiratory failure patient after consuming 6 bottles of hairspray Known alcoholism Known mental illness Lower extremity wounds Sinus tachycardia due to critical illness Elevated liver enzymes Neutropenia Hypokalemia Discharge Diagnosis 1.lactic acidosis secondary to ingestion of 6 bottles of hairspray as a substitute for ethanol 2.long-standing mental health disorder 3.history of alcoholism Reason Hospital Visit/Course CC: Altered mental status due to consuming 6 bottles of hair spray HPI: This is a 40-year-old white female with a history of long-standing mental illness and alcoholism that was found down at home at [facility] where she had moved to one week ago after consuming 6 bottles of hairspray that she ordinarily does periodically for the alcohol consumption that was brought to the emergency room required intubation and central line place due to critical illness. Elevated lactic acid required aggressive IV fluid resuscitation and currently remains intubated and critically ill but stable. Apparently she also has a history of drinking the nail a for the alcohol content and no longer has a local physician due to multiple terminations for multiple physicians locally. Apparently her primary care provider now is in [place]. Patient remains tachycardic of which Dr. Ramos saw her in evaluation found to have sinus tachycardia and treatment for the overall critical illness will improve that status. The patient was a 40-year-old female who was found down and incoherent at the [facility]. She was brought to the emergency room. She was found to have lactic acidosis without evidence of sepsis. She was placed on aggressive fluid resuscitation and intubated. She was extubated the following day. She continued to complain of nausea and no appetite. Her metabolic measures stabilized. She had a sinus tachycardia throughout the stay. She was referred to mental health services and discharged in improved condition. Medications are as noted on the discharge sequence. She is a likely candidate for repeat performance Discharge Summary Discharge Physical Examination Allergies: Coded Allergies: levofloxacin (Verified Allergy, Intermediate, HIVES, 05/29/16) orphenadrine (Unverified Allergy, Unknown, 05/29/16) Uncoded Allergies: UNKNOWN ALLERGY (Allergy, Unknown, 07/25/05) Hospital Course Labs (last 24 hrs) Microbiology 07/03/16 MRSA Screen - Final, Complete MRSA not isolated 07/03/16 Gram Stain - Final, Complete 07/03/16 Wound Culture - Final, Complete Lactobacillus Species Staph, Coag Neg (Inspector Fibrous Wallboard) Discharge Home Medications: Active Scripts Active Zofran Odt (Ondansetron) 8 Mg Tab.rapdis 8 Mg PO 4 TIMES A DAY Reported Lidocaine HCl 30 Ml Jel..ml. TP DAILY APPLY WITH EACH DRESSING CHANGE DAILY Prednisone 10 Mg Tab 10 Mg PO DAILY Gabapentin 800 Mg Tablet 800 Mg PO TID Tramadol HCl 50 Mg Tablet 100 Mg PO Q6H PRN TAKES 2 (50 MG) TABLETS Trazodone HCl 100 Mg Tablet 100 Mg PO HS PRN Instructions to patient/family Please see electonic discharge instructions given to patient. Clinical Quality Measures DVT/VTE Risk/Contraindication: Risk Factor Score Per Nursin RFS Level Per Nursing on Admit: 4+=Very High RIK CARTER MD Jul 27, 2016 13:12
== END 2016-07-05 17:55 | disposition home or self-care (01) | DRG 917 ==
LOC: EDUNIT# 14:02 → ER 14:03 → ICU 16:15 → 4TH 07-04 16:08
PROVIDERS: ADMIT Internal Medicine; ATTEND Internal Medicine
PROC: 5A1945Z Respiratory Ventilation, 24-96 Consecutive Hours (ICD-10-PCS; principal; 2016-07-02)
DX: T51.94XA Toxic effect of unspecified alcohol, undetermined, initial encounter (principal); J96.00 Acute respiratory failure, unspecified whether with hypoxia or hypercapnia; R40.1 Stupor; A41.9 Sepsis, unspecified organism; L97.319 Non-pressure chronic ulcer of right ankle with unspecified severity; L97.329 Non-pressure chronic ulcer of left ankle with unspecified severity; M05.2 Rheumatoid vasculitis with rheumatoid arthritis; M05.272 Rheumatoid vasculitis with rheumatoid arthritis of left ankle and foot; E87.3 Alkalosis; F10.229 Alcohol dependence with intoxication, unspecified; J44.9 Chronic obstructive pulmonary disease, unspecified; I10 Essential (primary) hypertension; F17.210 Nicotine dependence, cigarettes, uncomplicated; J45.909 Unspecified asthma, uncomplicated; E87.6 Hypokalemia; R74.8 Abnormal levels of other serum enzymes; E83.42 Hypomagnesemia
CPT/HCPCS: 31500; 36415; 36556; 36680; 51702; 70450; 71010; 80048; 80053; 80306; 80320; 80329; 81000; 82040; 82805; 82962; 83605; 83735; 83930; 84100; 85025; 85610; 85730; 86141; 87070; 87077; 87081; 87186; 87205; 93005; 93041; 93306; 94002; 94003; 94799; 96361; 96365; 96372; 96375

== ENCOUNTER 2016-08-09 11:58 | Outpatient (RCR) | payer MEDICARE ==
[~2016-08-09 11:58] MED LIST changes: +AMOX1TAB12 PO; -D50KC PO; +DOXY100C42 PO; +ERGO50006 PO; +LIDO30JE10 TP; +TRAM50TA2 PO; +TRAZ100T92 PO
[2016-08-09 12:17] LABS: BASOPHILS % (AUTO) 0 % (0-10); EOSINOPHILS # (AUTO) 0.1 10^3/uL (0.0-0.3); EOSINOPHILS % (AUTO) 1 % (0-10); LYMPHOCYTES # (AUTO) 0.4 X 10^3 (1.0-4.0); LYMPHOCYTES % (AUTO) 6 % (12-44); MEAN CORPUSCULAR HEMOGLOBIN 32 PG (25-34); MEAN CORPUSCULAR HGB CONC 32 G/DL (32-36); MEAN CORPUSCULAR VOLUME 103 FL (80-99); MEAN PLATELET VOLUME 10.3 FL (7.4-10.4); MONOCYTES # (AUTO) 0.2 X 10^3 (0.0-1.0); MONOCYTES % (AUTO) 3 % (0-12); NEUTROPHILS # (AUTO) 6.4 X 10^3 (1.8-7.8); NEUTROPHILS % (AUTO) 90 % (42-75); PLATELET COUNT 163 10^3/uL (130-400); RED BLOOD COUNT 3.63 10^6/uL (4.35-5.85); RED CELL DISTRIBUTION WIDTH 16.7 % (10.0-14.5); WHITE BLOOD COUNT 7.1 10^3/uL (4.3-11.0)
[2016-08-09 12:29] LABS: ANISOCYTOSIS MODERATE; BAND NEUTROPHILS 0 %; BASOPHILS % (MANUAL) 0 %; EOSINOPHILS % (MANUAL) 1 %; LYMPHOCYTES % (MANUAL) 6 %; NEUTROPHILS % (MANUAL) 91 %
[2016-08-09 12:41] LABS: ALBUMIN 3.7 G/DL (3.2-4.5); BILIRUBIN,DIRECT 0.1 MG/DL (0.0-0.3); BILIRUBIN,INDIRECT 0.3 MG/DL; BILIRUBIN,TOTAL 0.4 MG/DL (0.1-1.0); CREATININE SERUM 0.77 MG/DL (0.60-1.30); TOTAL PROTEIN 6.2 G/DL (6.4-8.2)
== END 2016-11-07 | disposition home or self-care (01) ==
LOC: LAB 11:58
PROVIDERS: ATTEND Internal Medicine Rheumatology
DX: M06.041 Rheumatoid arthritis without rheumatoid factor, right hand (principal); M06.042 Rheumatoid arthritis without rheumatoid factor, left hand; Z79.899 Other long term (current) drug therapy
CPT/HCPCS: 36415; 80076; 82565; 85007; 85027

== ENCOUNTER 2016-08-16 10:50 | Outpatient (RCR) | payer MEDICARE, OTHER ==
--- OUTSIDE RECORDS SUMMARY | 2016-05-20 08:19 | XMS REPORT | Continuity of Care Document ---
Author Author [facility] Organization [facility] Address Unknown Phone Unavailable Care Team Providers Care Soil Engineer Name Role Phone German Martin PCP [phone] Source Comments Some departments are not documenting in the electronic medical record. If you do not see the information that you expected, contact Release of Information in the Health Information Management department at [phone] for further assistance in locating additional records.[facility] Active Allergies and Adverse Reactions Allergen Noted Date Severity Reactions Comments Levaquin 02/11/2013 ANAPHYLAXIS, HIVES Tramadol 12/07/2010 SEIZURES Current Medications Prescription Sig. Disp. Refills Start End Date Status Date levothyroxine (SYNTHROID) Take 88 mcg by mouth Active 88 mcg PO tablet daily. sertraline (ZOLOFT) 100 Take 250 mg by mouth Active mg PO tablet daily. traZODone (DESYREL) 150 Take 300 mg by mouth at Active mg PO tablet bedtime daily. busPIRone (BUSPAR) 10 mg Take 10 mg by mouth three Active PO tablet times daily. ACTONEL 150 mg tablet TAKE ONE TABLET MONTHLY 3 Tab 2 07/19/19 Active 13 CEFADROXIL HYDRATE Take by mouth twice Active (CEFADROXIL PO) daily. LOVASTATIN PO Take 1 Tab by mouth Active daily. loratadine (CLARITIN) 10 Take 10 mg by mouth Active mg tablet daily. clotrimazole-betamethason Apply to affected area Active e (LOTRISONE) 1-0.05 % three times daily. topical cream HYDROcodone/acetaminophen Take 2 Tabs by mouth Active (NORCO; VICODIN) 5-325 mg every 6 hours as needed. tablet ergocalciferol (VITAMIN Take 1 Cap by mouth every 12 Cap 0 06/03/19 Active D-2) 50,000 unit capsule 7 days. 14 Insulin [place] Use when injecting Forteo 100 Each 3 06/06/19 Active (Disposable) (SURE-FINE once daily. 14 PEN NEEDLES) 31 X / " ndle Teriparatide 20 mcg/dose Inject 20 mcg into 3 mL 11 06/06/19 Active - 600 mcg/2.4 mL pnij area(s) as directed 14 daily. adalimumab(+) (HUMIRA) 40 Inject 0.8 mL into 2 Each 3 03/19/20 Active mg/0.8 mL injection area(s) as directed every 14 14 days. predniSONE (DELTASONE) 1 TAKE FOUR TABLETS BY 120 Tab 5 03/25/20 Active mg tablet MOUTH ONCE DAILY IN THE 14 MORNING ibuprofen (MOTRIN) 800 mg TAKE ONE TABLET BY MOUTH 270 Tab 1 04/11/20 Active tablet THREE TIMES DAILY AFTER A 14 MEAL NEEDED azaTHIOprine (IMURAN) 50 TAKE TWO TABLETS BY MOUTH 120 Tab 0 06/15/19 Active mg tablet TWICE DAILY 15 gabapentin (NEURONTIN) TAKE FOUR CAPSULES BY 540 Cap 3 07/31/19 Active 100 mg capsule MOUTH THREE TIMES DAILY 15 AND SIX AT BEDTIME predniSONE (DELTASONE) 5 TAKE ONE TABLET BY MOUTH 30 Tab 0 07/31/19 Active mg tablet ONCE DAILY WITH FOUR 1MG 15 TABLETS Active Problems Problem Noted Date Leg pain, right 05/09/2013 Joint pain 05/09/2013 Low back pain radiating to right leg 05/09/2013 Encounter for long-term (current) use of steroids 10/15/2012 Wound of right leg 10/15/2012 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 Pt states she is working on quitting, goal is January Alcohol Use Drinks/Week oz/Week Comments No recovering alcoholic Last Filed Vital Signs Vital Sign Reading Time Taken Blood Pressure 143/98 12/16/2013 8:43 AM CDT Pulse 60 12/16/2013 8:43 AM CDT Temperature 36.3 C (97.3 F) 12/16/2013 8:43 AM CDT Respiratory Rate 15 12/16/2013 8:43 AM CDT Height 1.562 m (5' 1.5") 12/16/2013 8:43 AM CDT Weight 62.959 kg (138 lb 12.8 12/16/2013 8:43 AM CDT oz) Body Mass Index 25.8 12/16/2013 8:43 AM CDT Oxygen Saturation - - Plan of Care Health Maintenance Due Date Last Done Comments Pertussis Vaccine 1985 Physical (Comprehensive) 12/08/1991 12/07/1990 Exam Tetanus Vaccine 12/23/1991 Cervical Cancer Screening 10/07/2013 10/07/2010 Influenza Vaccine 12/24/2015 05/31/2011 Results from Last 3 Months Not on file
[~2016-08-16 10:50] MED LIST changes: +D50KC PO; -ERGO50006 PO
== END 2016-08-18 | disposition home or self-care (01) ==
LOC: WOUNDCARE 10:50
PROVIDERS: ATTEND Surgery
DX: M05.2 Rheumatoid vasculitis with rheumatoid arthritis (principal); M05.272 Rheumatoid vasculitis with rheumatoid arthritis of left ankle and foot; L97.312 Non-pressure chronic ulcer of right ankle with fat layer exposed; L97.322 Non-pressure chronic ulcer of left ankle with fat layer exposed; I87.333 Chronic venous hypertension (idiopathic) with ulcer and inflammation of bilateral lower extremity; I70.233 Atherosclerosis of native arteries of right leg with ulceration of ankle; I70.243 Atherosclerosis of native arteries of left leg with ulceration of ankle; T65.222A Toxic effect of tobacco cigarettes, intentional self-harm, initial encounter; G60.8 Other hereditary and idiopathic neuropathies
CPT/HCPCS: 11042; 11043; 11045; 11046; 11100; 87070; 87075; 87077; 87186; 87205; 88305; 99213; 99214

== ENCOUNTER → 2016-09-28 | Outpatient (CLI) | payer MEDICARE ==
[2016-09-28 12:08] LABS: BASOPHILS % (AUTO) 0 % (0-10); EOSINOPHILS # (AUTO) 0.2 10^3/uL (0.0-0.3); EOSINOPHILS % (AUTO) 3 % (0-10); LYMPHOCYTES # (AUTO) 0.8 X 10^3 (1.0-4.0); LYMPHOCYTES % (AUTO) 11 % (12-44); MEAN CORPUSCULAR HEMOGLOBIN 36 PG (25-34); MEAN CORPUSCULAR HGB CONC 34 G/DL (32-36); MEAN CORPUSCULAR VOLUME 104 FL (80-99); MEAN PLATELET VOLUME 10.5 FL (7.4-10.4); MONOCYTES # (AUTO) 0.3 X 10^3 (0.0-1.0); MONOCYTES % (AUTO) 4 % (0-12); NEUTROPHILS # (AUTO) 5.6 X 10^3 (1.8-7.8); NEUTROPHILS % (AUTO) 81 % (42-75); PLATELET COUNT 170 10^3/uL (130-400); RED BLOOD COUNT 3.51 10^6/uL (4.35-5.85); RED CELL DISTRIBUTION WIDTH 16.5 % (10.0-14.5)
[2016-09-28 12:29] LABS: ALANINE AMINOTRANSFERASE 8 U/L (0-55); ALBUMIN 3.9 G/DL (3.2-4.5); ANION GAP 9 MMOL/L (5-14); ASPARTATE AMINO TRANSFERASE 8 U/L (5-34); BILIRUBIN,TOTAL 0.3 MG/DL (0.1-1.0); BLOOD UREA NITROGEN 12 MG/DL (7-18); BUN/CREATININE RATIO 16; CALCIUM 8.7 MG/DL (8.5-10.1); CARBON DIOXIDE 25 MMOL/L (21-32); CHLORIDE 107 MMOL/L (98-107); CREATININE SERUM 0.75 MG/DL (0.60-1.30); GFR ESTIMATED > 60; GLUCOSE 87 MG/DL (70-105); SODIUM 141 MMOL/L (135-145); TOTAL PROTEIN 6.5 G/DL (6.4-8.2); hs C REACTIVE PROTEIN 0.75 MG/DL (0.00-0.50)
== END ==
LOC: LAB 11:44
PROVIDERS: ATTEND Surgery
DX: L97.312 Non-pressure chronic ulcer of right ankle with fat layer exposed (principal); I87.311 Chronic venous hypertension (idiopathic) with ulcer of right lower extremity; G60.8 Other hereditary and idiopathic neuropathies; M05.2 Rheumatoid vasculitis with rheumatoid arthritis; T65.222A Toxic effect of tobacco cigarettes, intentional self-harm, initial encounter
CPT/HCPCS: 36415; 80053; 85025; 86141

== ENCOUNTER 2016-11-12 13:14 | Emergency (ER) | payer MEDICARE ==
[~2016-11-12] VITALS: Ht 160 cm; Wt 69.1 kg
[~2016-11-12 13:14] MED LIST changes: -D50KC PO; +ERGO50006 PO
[2016-11-12] MEDS ORDERED: ACYC400T PO (13:24)
--- NOTE | 2016-11-12 13:24 | ED EENT ---
History of Present Illness General Stated Complaint: SORES IN MOUTH/SORE THROAT Source: patient Exam Limitations: no limitations History of Present Illness Time seen by provider: 13:21 Initial Comments To ER with sores in her mouth, a sore tongue, sore throat. These were first noticed yesterday and seemed to be somewhat better today. No history of this. No fevers chills or headache. Timing/Duration: abrupt Severity: moderate Location: mouth, throat Prearrival Treatment: no prearrival treatment Associated Symptoms: denies symptoms Allergies and Home Medications Allergies Coded Allergies: levofloxacin (Verified Allergy, Intermediate, HIVES, 05/29/16) orphenadrine (Unverified Allergy, Unknown, 05/29/16) Uncoded Allergies: UNKNOWN ALLERGY (Allergy, Unknown, 07/25/05) Home Medications Gabapentin 800 Mg Tablet, 800 MG PO TID, (Reported) Lidocaine HCl 30 Ml Jel..ml., TP DAILY, (Reported) APPLY WITH EACH DRESSING CHANGE DAILY Ondansetron 8 Mg Tab.rapdis, 8 MG PO 4 times a day, #20 Prescribed by: RIK CARTER on 07/05/16 1404 Prednisone 10 Mg Tab, 10 MG PO DAILY, (Reported) Tramadol HCl 50 Mg Tablet, 100 MG PO Q6H PRN for PAIN, (Reported) TAKES 2 (50 MG) TABLETS Trazodone HCl 100 Mg Tablet, 100 MG PO HS PRN for SLEEP, (Reported) Review of Systems Constitutional: see HPI Eyes: No Symptoms Reported Ears: No Symptoms Reported Nose: no symptoms reported Mouth: see HPI Throat: see HPI Respiratory: no symptoms reported Past Jytyxbs-Ayocan-Tddnnc Hx Patient Social History Type Used: Cigarettes Former Smoker/When Quit: Apr 01, 2013 2nd Hand Smoke Exposure: Yes Recent Foreign Travel: No Contact w/Someone Who Travel: No Recent Hopitalizations: No (ED/WOUND CARE) Immunizations Up To Date Tetanus Booster (TDap): Less than 5yrs Date of Pneumonia Vaccine: September 07, 2011 Seasonal Allergies Seasonal Allergies: No Surgeries HX Surgeries: Yes (MULTIPLE SKIN GRAFTS TO FEET, R ANKLE) Respiratory Hx Respiratory Disorders: Yes Respiratory Disorders: Asthma, COPD Cardiovascular Hx Cardiac Disorders: Yes (VASCULITIS, RBBB) Cardiac Disorders: High Cholesterol, Hypertension, Peripheral Vascular Neurological Hx Neurological Disorders: Yes Neurological Disorders: Neuropathy Reproductive System Hx Reproductive Disorders: Yes (miscarriages) Sexually Transmitted Disease: No HIV/AIDS: No Female Reproductive Disorders: Ovarian Cyst Genitourinary Hx Genitourinary Disorders: Yes Genitourinary Disorders: UTI-Chronic Gastrointestinal Hx Gastrointestinal Disorders: No Musculoskeletal Hx Musculoskeletal Disorders: Yes Musculoskeletal Disorders: Degenerate Disk Disease, Arthritis, Rheumatoid Arthritis, Chronic Back Pain Endocrine Hx Endocrine Disorders: Yes (THYROID DISEASE) Endocrine Disorders: Hypothyroidsim HEENT HX ENT Disorders: No Loss of Vision: Denies Hearing Impairment: Denies Cancer Hx Cancer: No Psychosocial Hx Psychiatric Problems: Yes (EXTENSIVE PSYCH ISSUES AND POLYSUBSTANCE ABUSE) Behavioral Health Disorders: Anxiety, Suicide Attempts, Depression Integumentary HX Skin/Integumentary Disorder: Yes Skin/Integumentary Disorders: Eczema Blood Transfusions Hx Blood Disorders: No Adverse Reaction to a Blood Tr: No Family Medical History Significant Family History: No Pertinent Family Hx Family Medial History: PT NOT COOPERATIVE AT THIS TIME Physical Exam General Appearance: WD/WN, no apparent distress Eyes: bilateral eye EOMI, bilateral eye PERRL, bilateral eye normal inspection Ears: bilateral ear TM normal, bilateral ear auricle normal, bilateral ear canal normal Nose: normal inspection Mouth/Throat: pharynx normal, No mandibular swelling, other (poor dentition with fractured and carious/eroded teeth. She does have ulcerative appearing lesions to the buccal surface of the bottom lip and top lip. Whether this is of viral etiology or mechanical in nature from rubbing on her eroded and fractured teeth is unclear. These are not on the buccal surface of the cheeks or the tongue and there is no apparent glossitis. The pharynx is normal in appearance.) Neck: non-tender, full range of motion Respiratory: no respiratory distress, no accessory muscle use Gastrointestinal: non tender, soft Skin: normal color, warm/dry Date of ETT Placement: Jul 02, 2016 Time of ETT Placement: 1506 Departure Impression Impression: Primary Impression: ulcerative lesion of mouth Disposition: HOME, SELF-CARE Condition: Stable Departure-Patient Inst. Decision time for Depature: 13:22 Referrals: ZECHARIAH KING DO (PCP) Primary Care Physician LETY CHAHAL (Family) Primary Care Physician Patient Instructions: NO INSTRUCTIONS GIVEN Add. Discharge Instructions: 1. Follow-up with your dentist next week 2. Return to ER for any concerns 3. Use [id number] Orajel applied topically to the sores to help with pain Scripts Acyclovir (Acyclovir) 400 Mg Tablet 400 MG PO 5XD, #20 TAB Prov: XAVIER MORTON APRN 11/12/16 XAVIER MORTON APRN Nov 12, 2016 13:24
[2016-11-12 13:45] VITALS: BP 123/98
== END 2016-11-12 13:45 | disposition home or self-care (01) ==
LOC: EDUNIT# 13:14 → ER 13:15
DX: K13.79 Other lesions of oral mucosa (principal); J44.9 Chronic obstructive pulmonary disease, unspecified; I10 Essential (primary) hypertension; E78.00 Pure hypercholesterolemia, unspecified; I73.9 Peripheral vascular disease, unspecified; M06.9 Rheumatoid arthritis, unspecified; M19.90 Unspecified osteoarthritis, unspecified site; E03.9 Hypothyroidism, unspecified; F41.9 Anxiety disorder, unspecified; F32.9 Major depressive disorder, single episode, unspecified; Z91.5 Personal history of self-harm; Z77.22 Contact with and (suspected) exposure to environmental tobacco smoke (acute) (chronic); Z87.891 Personal history of nicotine dependence
CPT/HCPCS: 99282

== ENCOUNTER 2016-11-16 10:09 | Outpatient (RCR) | payer MEDICARE ==
[~2016-11-16 10:09] MED LIST changes: +ACYC400T PO
[2016-12-17] MEDS ORDERED: TRAZ150T72 PO (22:57)
[2016-12-17] MEDS ORDERED: DULO60CA58 PO (22:57)
== END 2016-11-21 | disposition home or self-care (01) ==
LOC: WOUNDCARE 10:09
PROVIDERS: ATTEND Surgery
DX: M05.2 Rheumatoid vasculitis with rheumatoid arthritis (principal); M05.272 Rheumatoid vasculitis with rheumatoid arthritis of left ankle and foot; L97.313 Non-pressure chronic ulcer of right ankle with necrosis of muscle; L97.322 Non-pressure chronic ulcer of left ankle with fat layer exposed; I87.333 Chronic venous hypertension (idiopathic) with ulcer and inflammation of bilateral lower extremity; I70.233 Atherosclerosis of native arteries of right leg with ulceration of ankle; I70.243 Atherosclerosis of native arteries of left leg with ulceration of ankle
CPT/HCPCS: 11042; 11045; 15271; 87070; 87075; 87077; 87186; 87205

== ENCOUNTER → 2016-11-23 | Outpatient (CLI) | payer MEDICARE ==
[~2016-11-23] MED LIST changes: +ACID1TAB PO; +ADAL40PE INJ; +CEFD300C3 PO; +CEPH250C PO; +CLON0.1T PO; +DOXY100C42; +DULO30CA48; +DULO60CA58 PO; +FLUT16SP22; +HYDR-3816 PO; +IBUP-2055 PO; +KETO15CR2; +LORA10TA7 PO; +TR1C15 TP; +TRAZ150T72 PO
== END ==
LOC: WOUNDCARE 10:02
PROVIDERS: ATTEND Surgery
DX: L97.312 Non-pressure chronic ulcer of right ankle with fat layer exposed (principal); I87.311 Chronic venous hypertension (idiopathic) with ulcer of right lower extremity; M05.2 Rheumatoid vasculitis with rheumatoid arthritis; G60.8 Other hereditary and idiopathic neuropathies; T65.222A Toxic effect of tobacco cigarettes, intentional self-harm, initial encounter
CPT/HCPCS: 11042

== ENCOUNTER → 2016-11-23 | Outpatient (CLI) | payer MEDICARE ==
[~2016-11-23] MED LIST changes: -ACID1TAB PO; -ADAL40PE INJ; -CEFD300C3 PO; -CEPH250C PO; -CLON0.1T PO; -DOXY100C42; -DULO30CA48; -DULO60CA58 PO; -FLUT16SP22; -HYDR-3816 PO; -IBUP-2055 PO; -KETO15CR2; -LORA10TA7 PO; -TR1C15 TP; -TRAZ150T72 PO
== END ==
LOC: CARD 10:52
PROVIDERS: ATTEND Nurse Practitioner Family
DX: R01.1 Cardiac murmur, unspecified (principal); I77.6 Arteritis, unspecified; M06.9 Rheumatoid arthritis, unspecified
CPT/HCPCS: 93306

== ENCOUNTER → 2016-11-30 | Outpatient (CLI) | payer MEDICARE | LOC: WOUNDCARE 09:44 | PROVIDERS: ATTEND Surgery | DX: L97.511 Non-pressure chronic ulcer of other part of right foot limited to breakdown of skin (principal); L97.312 Non-pressure chronic ulcer of right ankle with fat layer exposed; M05.2 Rheumatoid vasculitis with rheumatoid arthritis; I87.311 Chronic venous hypertension (idiopathic) with ulcer of right lower extremity; G60.8 Other hereditary and idiopathic neuropathies; T65.222A Toxic effect of tobacco cigarettes, intentional self-harm, initial encounter | CPT/HCPCS: 15271; 97597 ==

== ENCOUNTER → 2016-12-07 | Outpatient (CLI) | payer MEDICARE | LOC: WOUNDCARE 09:57 | PROVIDERS: ATTEND Surgery | DX: L97.511 Non-pressure chronic ulcer of other part of right foot limited to breakdown of skin (principal); L97.312 Non-pressure chronic ulcer of right ankle with fat layer exposed; M05.2 Rheumatoid vasculitis with rheumatoid arthritis; I87.311 Chronic venous hypertension (idiopathic) with ulcer of right lower extremity; G60.8 Other hereditary and idiopathic neuropathies; T65.222A Toxic effect of tobacco cigarettes, intentional self-harm, initial encounter | CPT/HCPCS: 15271; 87070; 87075; 87205; 97597 ==

== ENCOUNTER → 2016-12-14 | Outpatient (CLI) | payer MEDICARE ==
[~2016-12-14] MED LIST changes: +ACID1TAB PO; +ADAL40PE INJ; +CEFD300C3 PO; +CEPH250C PO; +CLON0.1T PO; +DOXY100C42; +DULO30CA48; +DULO60CA58 PO; +FLUT16SP22; +HYDR-3816 PO; +IBUP-2055 PO; +KETO15CR2; +LORA10TA7 PO; +TR1C15 TP; +TRAZ150T72 PO
== END ==
LOC: WOUNDCARE 09:42
PROVIDERS: ATTEND Surgery
DX: L97.312 Non-pressure chronic ulcer of right ankle with fat layer exposed (principal); L97.511 Non-pressure chronic ulcer of other part of right foot limited to breakdown of skin; M05.2 Rheumatoid vasculitis with rheumatoid arthritis; I87.311 Chronic venous hypertension (idiopathic) with ulcer of right lower extremity; G60.8 Other hereditary and idiopathic neuropathies; T65.222A Toxic effect of tobacco cigarettes, intentional self-harm, initial encounter
CPT/HCPCS: 97597

== ENCOUNTER 2016-12-17 22:43 | Emergency (ER) | payer MEDICARE ==
[~2016-12-17] VITALS: Ht 160 cm; Wt 68.9 kg
[~2016-12-17 22:43] MED LIST changes: -ACID1TAB PO; -ADAL40PE INJ; -CEFD300C3 PO; -CEPH250C PO; -CLON0.1T PO; -DOXY100C42; -DULO30CA48; -DULO60CA58 PO; -FLUT16SP22; -HYDR-3816 PO; -IBUP-2055 PO; -KETO15CR2; -LORA10TA7 PO; -TR1C15 TP; -TRAZ150T72 PO
[2016-12-17] MEDS ORDERED: DULO60CA58 (22:57)
[2016-12-17] MEDS ORDERED: KETO15CR2 (22:57)
[2016-12-17] MEDS ORDERED: DOXY100C42 (22:57)
[2016-12-17] MEDS ORDERED: FLUT16SP22 (22:57)
[2016-12-17] MEDS ORDERED: DULO30CA48 (22:57)
[2016-12-17] MEDS ORDERED: TRAZ150T72 (22:57)
[2016-12-17] MEDS ORDERED: TR1C15 TP (23:01)
--- NOTE | 2016-12-17 23:02 | ED Integumentary General ---
General Chief Complaint: Skin/Wound Problems Stated Complaint: RASH ON BOTH ARMS Source: patient, spouse Exam Limitations: no limitations History of Present Illness Time seen by provider: 22:54 Initial Comments Patient presents the ER with 1 day of progressively worsening rash on the sun exposed areas of her dorsal arms and anterior chest and neck. She says that she was having some pinpoint red dots earlier this week on her arm and saw her doctor who prescribed an antifungal for her. She is in using that. She also has some Claritin case she was having itchiness but has not started using it yet. She is on prednisone for her arthritis already. She is also apparently recently using doxycycline. She has been using a moisturizer for her scan as well. No nausea vomiting diarrhea fatigue chills fevers or pain. Allergies and Home Medications Allergies Coded Allergies: levofloxacin (Verified Allergy, Intermediate, HIVES, 05/29/16) orphenadrine (Unverified Allergy, Unknown, 05/29/16) Uncoded Allergies: UNKNOWN ALLERGY (Allergy, Unknown, 07/25/05) Home Medications Acyclovir 400 Mg Tablet, 400 MG PO 5XD, #20 Prescribed by: XAVIER MORTON on 11/12/16 1324 Doxycycline Monohydrate 100 Mg Capsule, (Reported) Duloxetine HCl 30 Mg Capsule., (Reported) Duloxetine HCl 60 Mg Capsule., (Reported) Fluticasone Propionate 16 Gm [place].susp, (Reported) Gabapentin 800 Mg Tablet, 800 MG PO TID, (Reported) Ketoconazole 15 Gm Cream..g., (Reported) Prednisone 10 Mg Tab, 10 MG PO DAILY, (Reported) Trazodone HCl 150 Mg Tablet, (Reported) Triamcinolone Acet 15 Gm Cr, 15 GM TP BID for 7 Days, #1 Ref 0 Prescribed by: JAMIE GALAVIZ on 12/17/16 2301 Constitutional: No chills, No diaphoresis, No fever, No malaise Respiratory: No cough, No short of breath Cardiovascular: No chest pain, No palpitations Gastrointestinal: No abdominal pain, No constipation, No diarrhea, No nausea, No vomiting Genitourinary: No discharge, No dysuria Musculoskeletal: No back pain, No joint pain, No joint swelling Skin: see HPI, No dryness, No hx of skin cancer, No lesions, rash Psychiatric/Neurological: Denies Numbness, Denies Paresthesia Past Qolriig-Whyokv-Mpnyng Hx Patient Social History Alcohol Beverage of Choice: Other Type Used: Cigarettes 2nd Hand Smoke Exposure: Yes Recent Foreign Travel: No Contact w/Someone Who Travel: No Recent Hopitalizations: No (ED/WOUND CARE) Immunizations Up To Date Tetanus Booster (TDap): Less than 5yrs Date of Pneumonia Vaccine: September 07, 2011 Seasonal Allergies Seasonal Allergies: No Surgeries History of Surgeries: Yes (MULTIPLE SKIN GRAFTS TO FEET, R ANKLE) Respiratory History of Respiratory Disorde: Yes Respiratory Disorders: Asthma, COPD Currently Using CPAP: No Currently Using BIPAP: No Cardiovascular History of Cardiac Disorders: Yes (VASCULITIS, RBBB) Cardiac Disorders: High Cholesterol, Hypertension, Peripheral Vascular Neurological History of Neurological Disord: Yes Neurological Disorders: Neuropathy Reproductive System Hx Reproductive Disorders: Yes (miscarriages) Sexually Transmitted Disease: No HIV/AIDS: No Female Reproductive Disorders: Ovarian Cyst Genitourinary Genitourinary Disorders: UTI-Chronic Gastrointestinal History of Gastrointestinal Di: No Musculoskeletal History of Musculoskeletal Dis: Yes Musculoskeletal Disorders: Degenerate Disk Disease, Arthritis, Rheumatoid Arthritis, Chronic Back Pain Endocrine History of Endocrine Disorders: Yes (THYROID DISEASE) Endocrine Disorders: Hypothyroidsim HEENT Loss of Vision: Denies Hearing Impairment: Denies Cancer History of Cancer: No Psychosocial History of Psychiatric Problem: Yes (EXTENSIVE PSYCH ISSUES AND POLYSUBSTANCE ABUSE) Behavioral Health Disorders: Anxiety, Suicide Attempts, Depression Integumentary History of Skin or Integumenta: Yes Skin/Integumentary Disorders: Eczema Blood Transfusions History of Blood Disorders: No Adverse Reaction to a Blood Tr: No Family Medical History Significant Family History: No Pertinent Family Hx Family Medial History: PT NOT COOPERATIVE AT THIS TIME Physical Exam Vital Signs Capillary Refill : General Appearance: WD/WN, no apparent distress HEENT: PERRL/EOMI, pharynx normal Cardiovascular: normal peripheral pulses, regular rate, rhythm, no edema Respiratory: chest non-tender, lungs clear Extremities: normal inspection, normal capillary refill Neurologic/Psychiatric: alert, oriented x 3 Skin: warm/dry, rash (dorsum of the bilateral arms as well as anterior chest and neck that is some exposed.) Date of ETT Placement: Jul 02, 2016 Time of ETT Placement: 1506 Departure Impression Impression: Primary Impression: Rash Disposition: 01 HOME, SELF-CARE Condition: Stable Departure-Patient Inst. Decision time for Depature: 22:58 Referrals: JACOB ARREOLA MD (PCP/Family) Primary Care Physician Patient Instructions: Skin Rash (DC) Add. Discharge Instructions: Keep your skin well moisturized with hypoallergenic soaps and moisturizers. Twice a day apply the triamcinolone steroid lotion to the areas that are affected. Do not apply ice triamcinolone to your face or genitals. Follow-up with her primary care physician if you're rash is not improving in the next week or 2. If you're rash worsens discontinue use of your lotions and see her primary care physician. Keep the area clean and dry between moisturizers. All discharge instructions reviewed with patient and/or family. Voiced understanding. Wear a high SPF 30-50 or more sunscreen every hour and a half when you're out in the sun. Wide brim had some long sleeves and ask avoid sun exposure while on doxycycline. Scripts Triamcinolone Acet (Triamcinolone Acetonide 0.1% Cream) 15 Gm Cr 15 GM TP BID for 7 Days, #1 TUBE 0 Refills Prov: JAMIE GALAVIZ 12/17/16 Copy Copies To 1: JACOB ARREOLA MD, TITUS J Dec 17, 2016 23:02
[2016-12-17 23:04] VITALS: BP 143/102
== END 2016-12-17 23:04 | disposition home or self-care (01) ==
LOC: EDUNIT# 22:43 → ER 22:45
DX: R21 Rash and other nonspecific skin eruption (principal); J44.9 Chronic obstructive pulmonary disease, unspecified; E78.00 Pure hypercholesterolemia, unspecified; I10 Essential (primary) hypertension; I73.9 Peripheral vascular disease, unspecified; M19.90 Unspecified osteoarthritis, unspecified site; E03.9 Hypothyroidism, unspecified; F41.9 Anxiety disorder, unspecified; F32.9 Major depressive disorder, single episode, unspecified; M06.9 Rheumatoid arthritis, unspecified; Z87.59 Personal history of other complications of pregnancy, childbirth and the puerperium; Z87.440 Personal history of urinary (tract) infections; Z91.5 Personal history of self-harm; Z77.22 Contact with and (suspected) exposure to environmental tobacco smoke (acute) (chronic); Z94.5 Skin transplant status
CPT/HCPCS: 99282

== ENCOUNTER → 2016-12-21 | Outpatient (CLI) | payer MEDICARE ==
[~2016-12-21] MED LIST changes: +ACID1TAB PO; +ADAL40PE INJ; +CEFD300C3 PO; +CEPH250C PO; +CLON0.1T PO; +DOXY100C42; +DULO30CA48; +DULO60CA58 PO; +FLUT16SP22; +HYDR-3816 PO; +IBUP-2055 PO; +KETO15CR2; +LORA10TA7 PO; +TR1C15 TP; +TRAZ150T72 PO
== END ==
LOC: WOUNDCARE 09:57
PROVIDERS: ATTEND Surgery
DX: L97.312 Non-pressure chronic ulcer of right ankle with fat layer exposed (principal); M05.2 Rheumatoid vasculitis with rheumatoid arthritis; I87.311 Chronic venous hypertension (idiopathic) with ulcer of right lower extremity; G60.8 Other hereditary and idiopathic neuropathies; T65.222A Toxic effect of tobacco cigarettes, intentional self-harm, initial encounter
CPT/HCPCS: 11042

== ENCOUNTER 2017-01-04 11:37 | Outpatient (RCR) | payer MEDICARE ==
[2016-10-17 11:57] LABS: BASOPHILS % (AUTO) 0 % (0-10); EOSINOPHILS # (AUTO) 0.1 10^3/uL (0.0-0.3); EOSINOPHILS % (AUTO) 3 % (0-10); LYMPHOCYTES # (AUTO) 1.2 X 10^3 (1.0-4.0); LYMPHOCYTES % (AUTO) 25 % (12-44); MEAN CORPUSCULAR HEMOGLOBIN 36 PG (25-34); MEAN CORPUSCULAR HGB CONC 36 G/DL (32-36); MEAN CORPUSCULAR VOLUME 102 FL (80-99); MEAN PLATELET VOLUME 9.8 FL (7.4-10.4); MONOCYTES # (AUTO) 0.5 X 10^3 (0.0-1.0); MONOCYTES % (AUTO) 9 % (0-12); NEUTROPHILS % (AUTO) 63 % (42-75); PLATELET COUNT 168 10^3/uL (130-400); RED BLOOD COUNT 3.41 10^6/uL (4.35-5.85); RED CELL DISTRIBUTION WIDTH 17.1 % (10.0-14.5); WHITE BLOOD COUNT 4.8 10^3/uL (4.3-11.0)
[2016-10-17 12:16] LABS: ALBUMIN 3.4 GM/DL (3.2-4.5); BILIRUBIN,DIRECT 0.1 MG/DL (0.0-0.3); BILIRUBIN,INDIRECT 0.3 MG/DL; BILIRUBIN,TOTAL 0.4 MG/DL (0.1-1.0); CREATININE SERUM 0.72 MG/DL (0.60-1.30); ICTERUS 0.4 (-100-1.9)
[~2017-01-04 11:37] MED LIST changes: -ACID1TAB PO; -ADAL40PE INJ; -CEFD300C3 PO; -CEPH250C PO; -CLON0.1T PO; -HYDR-3816 PO; -IBUP-2055 PO; -LORA10TA7 PO
[2017-01-04 11:49] LABS: BASOPHILS % (AUTO) 0 % (0-10); EOSINOPHILS # (AUTO) 0.2 10^3/uL (0.0-0.3); EOSINOPHILS % (AUTO) 2 % (0-10); LYMPHOCYTES # (AUTO) 1.1 X 10^3 (1.0-4.0); LYMPHOCYTES % (AUTO) 16 % (12-44); MEAN CORPUSCULAR HEMOGLOBIN 38 PG (25-34); MEAN CORPUSCULAR HGB CONC 33 G/DL (32-36); MEAN CORPUSCULAR VOLUME 115 FL (80-99); MEAN PLATELET VOLUME 11.1 FL (7.4-10.4); MONOCYTES # (AUTO) 0.4 X 10^3 (0.0-1.0); MONOCYTES % (AUTO) 5 % (0-12); NEUTROPHILS # (AUTO) 5.1 X 10^3 (1.8-7.8); NEUTROPHILS % (AUTO) 77 % (42-75); PLATELET COUNT 124 10^3/uL (130-400); RED BLOOD COUNT 3.21 10^6/uL (4.35-5.85); RED CELL DISTRIBUTION WIDTH 15.8 % (10.0-14.5); WHITE BLOOD COUNT 6.7 10^3/uL (4.3-11.0)
[2017-01-04 12:12] LABS: ALBUMIN 3.8 GM/DL (3.2-4.5); BILIRUBIN,DIRECT 0.1 MG/DL (0.0-0.3); BILIRUBIN,INDIRECT 0.4 MG/DL; BILIRUBIN,TOTAL 0.5 MG/DL (0.1-1.0); CREATININE SERUM 0.76 MG/DL (0.60-1.30); TOTAL PROTEIN 6.6 GM/DL (6.4-8.2)
== END 2017-01-15 | disposition home or self-care (01) ==
LOC: LAB 11:37
PROVIDERS: ATTEND Internal Medicine Rheumatology
DX: M06.041 Rheumatoid arthritis without rheumatoid factor, right hand (principal); M06.042 Rheumatoid arthritis without rheumatoid factor, left hand; Z79.899 Other long term (current) drug therapy
CPT/HCPCS: 36415; 80076; 82248; 82565; 85025

== ENCOUNTER → 2017-01-04 | Outpatient (CLI) | payer MEDICARE ==
[2017-01-04 11:52] LABS: BASOPHILS % (AUTO) 0 % (0-10); EOSINOPHILS # (AUTO) 0.2 10^3/uL (0.0-0.3); EOSINOPHILS % (AUTO) 2 % (0-10); LYMPHOCYTES # (AUTO) 1.1 X 10^3 (1.0-4.0); LYMPHOCYTES % (AUTO) 16 % (12-44); MEAN CORPUSCULAR HEMOGLOBIN 38 PG (25-34); MEAN CORPUSCULAR HGB CONC 33 G/DL (32-36); MEAN CORPUSCULAR VOLUME 115 FL (80-99); MEAN PLATELET VOLUME 11.1 FL (7.4-10.4); MONOCYTES # (AUTO) 0.4 X 10^3 (0.0-1.0); MONOCYTES % (AUTO) 5 % (0-12); NEUTROPHILS # (AUTO) 5.1 X 10^3 (1.8-7.8); NEUTROPHILS % (AUTO) 77 % (42-75); PLATELET COUNT 124 10^3/uL (130-400); RED BLOOD COUNT 3.21 10^6/uL (4.35-5.85); RED CELL DISTRIBUTION WIDTH 15.8 % (10.0-14.5); WHITE BLOOD COUNT 6.7 10^3/uL (4.3-11.0)
[2017-01-04 12:32] LABS: ALANINE AMINOTRANSFERASE 7 U/L (0-55); ALBUMIN 3.8 GM/DL (3.2-4.5); ANION GAP 8 MMOL/L (5-14); ASPARTATE AMINO TRANSFERASE 17 U/L (5-34); BILIRUBIN,TOTAL 0.5 MG/DL (0.1-1.0); BLOOD UREA NITROGEN 15 MG/DL (7-18); BUN/CREATININE RATIO 19; CALCIUM 8.5 MG/DL (8.5-10.1); CARBON DIOXIDE 23 MMOL/L (21-32); CHLORIDE 108 MMOL/L (98-107); CREATININE SERUM 0.77 MG/DL (0.60-1.30); GFR ESTIMATED > 60; GLUCOSE 79 MG/DL (70-105); SODIUM 139 MMOL/L (135-145); TOTAL PROTEIN 6.6 GM/DL (6.4-8.2)
[2017-01-04 12:33] LABS: POTASSIUM 4.1 MMOL/L (3.6-5.0)
== END ==
LOC: LAB 11:29
PROVIDERS: ATTEND Surgery
DX: L97.312 Non-pressure chronic ulcer of right ankle with fat layer exposed (principal); M05.2 Rheumatoid vasculitis with rheumatoid arthritis; I87.311 Chronic venous hypertension (idiopathic) with ulcer of right lower extremity; G60.8 Other hereditary and idiopathic neuropathies; Z72.0 Tobacco use
CPT/HCPCS: 36415; 80053; 85025

== ENCOUNTER → 2017-01-04 | Outpatient (CLI) | payer MEDICARE | LOC: WOUNDCARE 09:55 | PROVIDERS: ATTEND Surgery | DX: L97.312 Non-pressure chronic ulcer of right ankle with fat layer exposed (principal); M05.2 Rheumatoid vasculitis with rheumatoid arthritis; I87.311 Chronic venous hypertension (idiopathic) with ulcer of right lower extremity; G60.8 Other hereditary and idiopathic neuropathies; T65.222A Toxic effect of tobacco cigarettes, intentional self-harm, initial encounter | CPT/HCPCS: 11042 ==

== ENCOUNTER → 2017-01-11 | Outpatient (CLI) | payer MEDICARE ==
[~2017-01-11] MED LIST changes: +ACID1TAB PO; +ADAL40PE INJ; +CEFD300C3 PO; +CEPH250C PO; +CLON0.1T PO; +HYDR-3816 PO; +IBUP-2055 PO; +LORA10TA7 PO
== END ==
LOC: WOUNDCARE 09:53
PROVIDERS: ATTEND Surgery
DX: L97.312 Non-pressure chronic ulcer of right ankle with fat layer exposed (principal); M05.2 Rheumatoid vasculitis with rheumatoid arthritis; I87.311 Chronic venous hypertension (idiopathic) with ulcer of right lower extremity; G60.8 Other hereditary and idiopathic neuropathies; T65.222A Toxic effect of tobacco cigarettes, intentional self-harm, initial encounter
CPT/HCPCS: 11042; 87070; 87075; 87205

== ENCOUNTER → 2017-01-18 | Outpatient (CLI) | payer MEDICARE ==
[~2017-01-18] MED LIST changes: -ACID1TAB PO; -ADAL40PE INJ; -CEFD300C3 PO; -CEPH250C PO; -CLON0.1T PO; +DULO60CA58; -DULO60CA58 PO; -HYDR-3816 PO; -IBUP-2055 PO; -LORA10TA7 PO; +TRAZ150T72; -TRAZ150T72 PO
== END ==
LOC: WOUNDCARE 09:52
PROVIDERS: ATTEND Surgery
DX: L97.312 Non-pressure chronic ulcer of right ankle with fat layer exposed (principal); M05.2 Rheumatoid vasculitis with rheumatoid arthritis; I87.311 Chronic venous hypertension (idiopathic) with ulcer of right lower extremity; G60.8 Other hereditary and idiopathic neuropathies; T65.222A Toxic effect of tobacco cigarettes, intentional self-harm, initial encounter
CPT/HCPCS: 11042

== ENCOUNTER → 2017-01-18 | Outpatient (CLI) | payer MEDICARE ==
[~2017-01-18] MED LIST changes: +ACID1TAB PO; +ADAL40PE INJ; +CEFD300C3 PO; +CEPH250C PO; +CLON0.1T PO; -DULO60CA58; +DULO60CA58 PO; +HYDR-3816 PO; +IBUP-2055 PO; +LORA10TA7 PO; -TRAZ150T72; +TRAZ150T72 PO
--- NOTE | 2017-01-18 17:22 | Diagnostic Imaging Report ---
INDICATION: Back pain. AP and lateral views of the thoracic spine are obtained. FINDINGS: There is a compression deformity of T12 which was present on previous chest x-ray of 08/17/15 and appears about the same. There is no definite new compression deformity. Thoracic vertebrae are normal in alignment. IMPRESSION: Compression deformity of T12 is present which was also seen on 08/17/15 and is therefore chronic. No definite new abnormality. Dictated by: Dictated on workstation # [id number]
--- NOTE | 2017-01-18 17:45 | Diagnostic Imaging Report ---
Three views of the lumbar spine. INDICATION: Back pain. FINDINGS: There is a compression fracture of T12 of about 20% seen. The alignment of the posterior spinal line is satisfactory. The lumbar spine vertebral body heights are preserved. No significant disc height loss or osteophyte formation is seen. The paraspinal soft tissues appear unremarkable. IMPRESSION: Old T12 compression fracture. No acute process. Dictated by: Dictated on workstation # [id number]
== END ==
LOC: RAD 16:11
PROVIDERS: ATTEND Nurse Practitioner Family
DX: M48.54XA Collapsed vertebra, not elsewhere classified, thoracic region, initial encounter for fracture (principal); M54.5 Low back pain
CPT/HCPCS: 72072; 72100

== ENCOUNTER 2017-01-30 18:47 | Inpatient (IN) | payer MEDICARE ==
[~2017-01-30] VITALS: Ht 149.9 cm; Wt 75.0 kg
[~2017-01-30 18:47] MED LIST changes: -ACID1TAB PO; -ADAL40PE INJ; -CEFD300C3 PO; -CEPH250C PO; -CLON0.1T PO; -HYDR-3816 PO; -IBUP-2055 PO; -LORA10TA7 PO
--- OUTSIDE RECORDS SUMMARY | 2017-01-30 18:53 | XMS REPORT | Clinical Summary ---
Author Author [facility] Organization [facility] Address Unknown Phone Unavailable Care Team Providers Care Garment Worker Name Role Phone PCP Unavailable Source Comments Some departments are not documenting in the electronic medical record. If you do not see the information that you expected, contact Release of Information in the Health Information Management department at [phone] for further assistance in locating additional records.[facility] Allergies Active Allergy Reactions Severity Noted Date Comments Levofloxacin ANAPHYLAXIS, HIVES 02/11/2013 Tramadol SEIZURES 12/07/2010 Current Medications Prescription Sig. Disp. Refills Start [...] 50,000 unit capsule 7 days. 14 Insulin [place] Use when injecting Forteo 100 Each 3 [...] >3YO 05/31/2011 Pneumococcal Vaccine 05/31/2011 (23-Ronda Adult) Family History Relation Name Status Comments Father Alive Mother Alive Social History Tobacco Use Types Packs/Day Years Used Date Former Smoker Cigarettes 0.5 20 Quit: 01/30/2012 Smokeless Tobacco: Never Used Comments: 05/09/13-Pt states she quit in January 2013. Pt states she is working on quitting, goal is January Alcohol Use Drinks/Week oz/Week Comments No recovering alcoholic Sex Assigned at Date Recorded Not on file Last Filed Vital Signs Vital Sign Reading Time Taken Blood Pressure 143/98 12/16/2013 8:43 AM CDT Pulse 60 12/16/2013 8:43 AM CDT Temperature 36.3 C (97.3 F) 12/16/2013 8:43 AM CDT Respiratory Rate 15 12/16/2013 8:43 AM CDT Oxygen Saturation - - Inhaled Oxygen - - Concentration Weight 63 kg (138 lb 12.8 oz) 12/16/2013 8:43 AM CDT Height 156.2 cm (5' 1.5") 12/16/2013 8:43 AM CDT Body Mass Index 25.8 12/16/2013 8:43 AM CDT Plan of Treatment Health Maintenance Due Date Last Done Comments PERTUSSIS VACCINE 1985 PHYSICAL (COMPREHENSIVE) 12/08/1991 12/07/1990 EXAM TETANUS VACCINE 12/23/1991 CERVICAL CANCER SCREENING 10/07/2013 10/07/2010 BREAST CANCER SCREENING 2014 INFLUENZA VACCINE 01/22/2017 05/31/2011 Results Not on filefrom Last 3 Months
--- OUTSIDE RECORDS SUMMARY | 2017-01-30 18:58 | XMS REPORT ---
Author Author LETY CHAHAL Organization [facility] Address [address] [place] [address] Care Team Providers Care Home Maker Name Role Phone CHRISTOPHER CHAHALNETTE Unavailable PROBLEMS Type Condition ICD9-CM Code [id number] Code Onset Dates Condition Status SNOMED Code Problem Primary insomnia F51.01 Active 5340941 Problem Alcoholism F10.20 Active 8488902 Problem Open wound T14.8 Active 093821366 Problem Rheumatoid arthritis involving both ankles, unspecified rheumatoid factor presence M06.9 Active 839528319 Problem Neuropathy G62.9 Active 337084663 Problem Chronic pain syndrome G89.4 Active 161399273 Problem Anxiety state, unspecified F41.1 Active 132180815 Problem Major depressive disorder, recurrent episode, unspecified F33.9 Active 944296764 Problem Other infective chronic otitis externa of left ear H60.392 Active 717883534 Problem Acute depression F32.9 Active 811118869 Problem Uncomplicated opioid abuse F11.10 Active 7663699 Problem Uncomplicated alcohol dependence F10.20 Active 91352613 ALLERGIES Substance Reaction Event Type Date Status Levaquin anaphylaxis Drug Allergy May, Active SOCIAL HISTORY Never Assessed PLAN OF CARE VITAL SIGNS MEDICATIONS Medication Instructions Dosage Frequency Start Date End Date Duration Status Amoxicillin 500 MG Orally every 12 hrs 1 capsule 12h Active TraMADol HCl ER 100 mg Orally twice a day 1 tablet 12h Active Imuran 100 mg Orally Once a day 1 tablet 24h Active Gabapentin 800 MG Orally Three times a day 1 tablet 8h Active Ibuprofen 200 MG Orally every 6 hrs 1 tablet as needed 6h Active PredniSONE 10 mg Orally Once a day 1 tablet 24h Active Trazodone HCl 100 mg Orally at bedtime 1 tablet at bedtime as needed Active Tramadol HCl 50 mg Orally 2 times a day 2 tabletes 12h Active RESULTS No Results PROCEDURES No Known procedures IMMUNIZATIONS No Known Immunizations MEDICAL (GENERAL) HISTORY Type Description Date Medical History rheumatoid arthritis Medical History depression Medical History anxiety Medical History PTSD 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
--- OUTSIDE RECORDS SUMMARY | 2017-01-30 19:05 | XMS REPORT ---
Author Author LETY CHAHAL Organization [facility] Address [address] [place] [address] Care Team Providers Care Fiscal Technician Name Role Phone CHRISTOPHER CHAHALNETTE Unavailable PROBLEMS Type Condition ICD9-CM Code [id number] Code Onset Dates Condition Status SNOMED Code Problem Primary insomnia F51.01 Active 6988218 Problem Alcoholism F10.20 Active 8334526 Problem Open wound T14.8 Active 965060403 Problem Rheumatoid arthritis involving both ankles, unspecified rheumatoid factor presence M06.9 Active 000467860 Problem Neuropathy G62.9 Active 444037984 Problem Chronic pain syndrome G89.4 Active 520410294 Problem Anxiety state, unspecified F41.1 Active 624841684 Problem Major depressive disorder, recurrent episode, unspecified F33.9 Active 531081215 Problem Other infective chronic otitis externa of left ear H60.392 Active 337175753 Problem Acute depression F32.9 Active 749460900 Problem Uncomplicated opioid abuse F11.10 Active 8943673 Problem Uncomplicated alcohol dependence F10.20 Active 51235687 ALLERGIES Substance Reaction Event Type Date Status Levaquin anaphylaxis Drug Allergy May, Active SOCIAL HISTORY Never Assessed PLAN OF CARE Activity Details Follow Up 4 Weeks Reason:ra VITAL SIGNS Height 60 in 2016-06-21 Weight 165.6 lbs 2016-06-21 Temperature 98.7 degrees Fahrenheit 2016-06-21 Heart Rate 94 bpm 2016-06-21 Respiratory Rate 22 2016-06-21 BMI 32.34 kg/m2 2016-06-21 Blood pressure systolic 118 mmHg 2016-06-21 Blood pressure diastolic 78 mmHg 2016-06-21 MEDICATIONS Medication Instructions Dosage Frequency Start Date End Date Duration Status Ibuprofen 200 MG Orally every 6 hrs 1 tablet as needed 6h Active Gabapentin 800 MG Orally Three times a day 1 tablet 8h Active TraMADol HCl ER 100 mg Orally twice a day 1 tablet 12h Active PredniSONE 10 mg Orally Once a day 1 tablet 24h Active Imuran 100 mg Orally Once a day 1 tablet 24h Active Trazodone HCl 100 mg Orally at bedtime 1 tablet at bedtime as needed Active Tramadol HCl 50 mg Orally 2 times a day 2 tabletes 12h Active RESULTS No Results PROCEDURES Procedure Date Ordered Result Body Site [facility] VISIT NEW PATIENT Jun 21, 2016 IMMUNIZATIONS No Known Immunizations MEDICAL (GENERAL) HISTORY Type Description Date Medical History rheumatoid arthritis Medical History depression Medical History anxiety Medical History PTSD 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
[2017-01-30 19:37] LABS: BILIRUBIN,URINE NEGATIVE (NEGATIVE); KETONES,URINE NEGATIVE (NEGATIVE); LEUKOCYTE ESTERASE ,URINE NEGATIVE (NEGATIVE); NITRITE,URINE NEGATIVE (NEGATIVE); PH,URINE 7 (5-9); PROTEIN,URINE 1+ (NEGATIVE); UROBILINOGEN,URINE NORMAL (NORMAL)
[2017-01-30] MEDS ORDERED: fentaNYL INJECTION 100 MCG/2 ML AMP IM STA (20:49)
--- NOTE | 2017-01-30 20:50 | ED GU-Female ---
General Chief Complaint: -Female Stated Complaint: UTI/L SIDE KIDNEY PAIN Nursing Triage Note: PT AMBULATED TO ROOM. PT STATES SHE WAS SEEN LAST MONDAY FOR A UTI AND WAS PRESCRIBED KEFLEX AND HYDRO. PT STATES HER LEFT SIDED KIDNEY PAIN GOTTEN WORSE SINCE MONDAY. 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 Nursing Sepsis Screen: No Definite Risk Source: patient Exam Limitations: no limitations History of Present Illness Time seen by provider: 20:25 Initial Comments 41-year-old female patient presents to the emergency department with complaints of left flank/low back pain. States she was diagnosed on with urinary tract infection and put on Keflex and Lortab. Patient reports pain has progressively gotten worse since . Denies improvement with hydrocodone. Timing/Duration: week, getting worse Severity/Quality: aching Location: left flank Radiation: back (left low back/kidney) Activities at Onset: none Prior Genitourinary Problems: similar symptoms Sexual Jette History: less than 2 months ago, single partner Modifying Factors: Worsens With Palpation, Worsens With Urinating Allergies and Home Medications Allergies Coded Allergies: levofloxacin (Verified Allergy, Intermediate, HIVES, 05/29/16) orphenadrine (Unverified Allergy, Unknown, 05/29/16) Uncoded Allergies: UNKNOWN ALLERGY (Allergy, Unknown, 07/25/05) Home Medications Acyclovir 400 Mg Tablet, 400 MG PO 5XD, #20 Prescribed by: XAVIER MORTON on 11/12/16 1324 Doxycycline Monohydrate 100 Mg Capsule, (Reported) Duloxetine HCl 30 Mg Capsule., (Reported) Duloxetine HCl 60 Mg Capsule.dr (Reported) Fluticasone Propionate 16 Gm [place].susp, (Reported) Gabapentin 800 Mg Tablet, 800 MG PO TID, (Reported) Ketoconazole 15 Gm Cream..g., (Reported) Prednisone 10 Mg Tab, 10 MG PO DAILY, (Reported) Trazodone HCl 150 Mg Tablet, (Reported) Triamcinolone Acet 15 Gm Cr, 15 GM TP BID for 7 Days, #1 Ref 0 Prescribed by: JAMIE GALAVIZ on 12/17/16 3971 Constitutional: No chills, No fever, malaise EENTM: no symptoms reported Respiratory: No cough, No dyspnea on exertion, No short of breath Cardiovascular: No chest pain, No edema, No palpitations, No syncope Gastrointestinal: No abdominal pain, No constipation, No diarrhea, nausea, No vomiting Genitourinary: see HPI, dysuria, frequency, flank pain (left flank pain), denies pain : No Musculoskeletal: see HPI, back pain, No joint pain Skin: no symptoms reported Psychiatric/Neurological: No Symptoms Reported All Other Systemes Reviewed Negative Unless Noted: Yes (Negative excepted noted.) Past Qmdrxey-Ailebt-Nbmtfx Hx Patient Social History Alcohol Use: Denies Use Number of Drinks Today: II Alcohol Beverage of Choice: Other Recreational Drug Use: No Smoking Status: Current Everyday Smoker Type Used: Cigarettes 2nd Hand Smoke Exposure: Yes Recent Foreign Travel: No Contact w/Someone Who Travel: No Recent Infectious Disease Expo: No Recent Hopitalizations: No Physical Abuse: No Sexual Abuse: No Immunizations Up To Date Tetanus Booster (TDap): Less than 5yrs Date of Pneumonia Vaccine: September 07, 2011 Seasonal Allergies Seasonal Allergies: No Surgeries History of Surgeries: Yes (MULTIPLE SKIN GRAFTS TO FEET, R ANKLE) Respiratory History of Respiratory Disorde: Yes Respiratory Disorders: Asthma, COPD Currently Using CPAP: No Currently Using BIPAP: No Cardiovascular History of Cardiac Disorders: Yes (VASCULITIS, RBBB) Cardiac Disorders: High Cholesterol, Hypertension, Peripheral Vascular Neurological History of Neurological Disord: Yes Neurological Disorders: Neuropathy Reproductive System Hx Reproductive Disorders: Yes (miscarriages) Sexually Transmitted Disease: No HIV/AIDS: No Female Reproductive Disorders: Ovarian Cyst Genitourinary History of Genitourinary Disor: Yes Genitourinary Disorders: UTI-Chronic Gastrointestinal History of Gastrointestinal Di: No Musculoskeletal History of Musculoskeletal Dis: Yes Musculoskeletal Disorders: Degenerate Disk Disease, Arthritis, Rheumatoid Arthritis, Chronic Back Pain Endocrine History of Endocrine Disorders: Yes (THYROID DISEASE) Endocrine Disorders: Hypothyroidsim HEENT History of HEENT Disorders: No Loss of Vision: Denies Hearing Impairment: Denies Cancer History of Cancer: No Psychosocial History of Psychiatric Problem: Yes (EXTENSIVE PSYCH ISSUES AND POLYSUBSTANCE ABUSE) Behavioral Health Disorders: Anxiety, Suicide Attempts, Depression Suicide Risk Score: 0 Integumentary History of Skin or Integumenta: Yes Skin/Integumentary Disorders: Eczema Blood Transfusions History of Blood Disorders: No Adverse Reaction to a Blood Tr: No Reviewed Nursing Assessment Reviewed/Agree w Nursing PMH: Yes Family Medical History Significant Family History: No Pertinent Family Hx Family Medial History: PT NOT COOPERATIVE AT THIS TIME Physical Exam Vital Signs Vital Sign - Last 12Hours 01/30/17 19:08 Temp 97.4 Pulse 69 Resp 20 B/P (MAP) 145/94 Pulse Ox 98 O2 Delivery Room Air Capillary Refill : Less Than 3 Seconds General Appearance: WD/WN, no apparent distress HEENT: PERRL/EOMI, pharynx normal Neck: supple, normal inspection Cardiovascular: normal peripheral pulses, regular rate, rhythm, no edema, no murmur Respiratory: lungs clear, normal breath sounds, no respiratory distress, no accessory muscle use Gastrointestinal: normal bowel sounds, soft, no organomegaly, No distended, No guarding, No rebound, tenderness (left flank tenderness) Back: normal inspection, no vertebral tenderness, No CVA tenderness (R), CVA tenderness (L) Extremities: no pedal edema, no calf tenderness, normal capillary refill Neurologic/Psychiatric: alert, normal mood/affect, oriented x 3 Skin: normal color, warm/dry Date of ETT Placement: Jul 02, 2016 Time of ETT Placement: 1506 Progress/Results/Core Measures Results/Orders Lab Results Laboratory Tests Test 01/30/17 19:20 01/30/17 21:22 Range/Units Urine Color YELLOW Urine Clarity SLIGHTLY CLOUDY Urine pH 7 5-9 Urine Specific [place] 1.005 L 1.016-1.022 Urine Protein 1+ H NEGATIVE Urine Glucose (UA) NEGATIVE NEGATIVE Urine Ketones NEGATIVE NEGATIVE Urine Nitrite NEGATIVE NEGATIVE Urine Bilirubin NEGATIVE NEGATIVE Urine Urobilinogen NORMAL NORMAL MG/DL Urine Leukocyte Esterase NEGATIVE NEGATIVE Urine RBC (Auto) 4+ H NEGATIVE Urine RBC 10-25 H /HPF Urine WBC 2-5 /HPF Urine Squamous Epithelial Cells 5-10 /HPF Urine Crystals NONE /LPF Urine Bacteria FEW H /HPF Urine Casts NONE /LPF Urine Mucus NEGATIVE /LPF Urine Culture Indicated NO White Blood Count 7.5 4.3-11.0 10^3/uL Red Blood Count 2.73 L 4.35-5.85 10^6/uL Hemoglobin 10.0 L 11.5-16.0 G/DL Hematocrit 30 L 35-52 % Mean Corpuscular Volume 110 H 80-99 FL Mean Corpuscular Hemoglobin 37 H 25-34 PG Mean Corpuscular Hemoglobin Concent 33 32-36 G/DL Red Cell Distribution Width 16.2 H 10.0-14.5 % Platelet Count 134 130-400 10^3/uL Mean Platelet Volume 10.3 7.4-10.4 FL Neutrophils (%) (Auto) 79 H 42-75 % Lymphocytes (%) (Auto) 10 L 12-44 % Monocytes (%) (Auto) 11 0-12 % Eosinophils (%) (Auto) 0 0-10 % Basophils (%) (Auto) 0 0-10 % Neutrophils # (Auto) 6.0 1.8-7.8 X 10^3 Lymphocytes # (Auto) 0.8 L 1.0-4.0 X 10^3 Monocytes # (Auto) 0.8 0.0-1.0 X 10^3 Eosinophils # (Auto) 0.0 0.0-0.3 10^3/uL Basophils # (Auto) 0.0 0.0-0.1 10^3/uL Sodium Level 140 135-145 MMOL/L Potassium Level 3.9 3.6-5.0 MMOL/L Chloride Level 108 H 98-107 MMOL/L Carbon Dioxide Level 21 21-32 MMOL/L Anion Gap 11 5-14 MMOL/L Blood Urea Nitrogen 13 7-18 MG/DL Creatinine 0.64 0.60-1.30 MG/DL Estimat Glomerular Filtration Rate > 60 BUN/Creatinine Ratio 20 Glucose Level 91 70-105 MG/DL Calcium Level 8.4 L 8.5-10.1 MG/DL Total Bilirubin 0.3 0.1-1.0 MG/DL Aspartate Amino Transf (AST/SGOT) 7 5-34 U/L Alanine Aminotransferase (ALT/SGPT) 7 0-55 U/L Alkaline Phosphatase 77 40-136 U/L Total Protein 5.9 L 6.4-8.2 GM/DL Albumin 3.0 L 3.2-4.5 GM/DL My Orders Orders - KAYLA NOLAND Ua Culture If Indicated (01/30/17 19:12) Urine Bedside (01/30/17 19:14) Cbc With Automated Diff (01/30/17 20:49) Comprehensive Metabolic Panel (01/30/17 20:49) Ct Abd/Pelvis Wo(Kidney Stone) (01/30/17 20:49) Fentanyl Injection (Sublimaze Injection (01/30/17 20:49) Saline Lock/Iv-Start (01/30/17 22:04) Ceftriaxone Injection (Rocephin Injectio (01/30/17 22:15) Ns Iv 1000 Ml (Sodium Chloride 0.9%) (01/30/17 22:04) Fentanyl Injection (Sublimaze Injection (01/30/17 23:01) Medications Given in ED Current Medications Medications Dose Ordered Sig/[place] Route Start Time Stop Time Status Last Admin Dose Admin Ceftriaxone Sodium 1000 mg/ Sodium Chloride 50 ml @ 100 mls/hr ONCE ONCE IV 01/30/17 22:15 01/30/17 22:44 DC 01/30/17 23:09 100 MLS/HR Sodium Chloride 1,000 ml @ 0 mls/hr Q0M ONCE IV 01/30/17 22:04 01/30/17 22:06 DC 01/30/17 23:08 1,000 MLS/HR Vital Signs/I&O Vital Sign - Last 12Hours 01/30/17 01/31/17 01/31/17 19:08 00:31 00:50 Temp 97.4 99.3 Pulse 69 64 Resp 20 18 B/P (MAP) 145/94 159/84 Pulse Ox 98 95 O2 Delivery Room Air Room Air Room Air Blood Pressure Mean: 111 Point of Care Testing Urine -Bedside: Negative Diagnostic Imaging Diagonstic Imaging: CT Plain Films/CT/US/NM/MRI: abdomen, pelvis Comments INDICATION: Urinary tract infection with extreme pain in the region of the left kidney. COMPARISON STUDY: CT scan of the abdomen and pelvis from May the . FINDINGS: The lung bases are clear. The liver and gallbladder appear normal. Spleen is again seen to be upper normal in size. The pancreas and adrenal glands appear normal. There is some stranding around the left kidney with mild left hydronephrosis. No urinary calculi are identified. The ureter appears normal. The bladder is decompressed. Uterus and adnexal structures are normal. There is normal appearance of the appendix. IMPRESSION: There is inflammation around the left kidney with mild left hydronephrosis. Ureters are not distended and no calculi are identified. Findings are consistent with left pyelonephritis. Dictated by: Dictated on workstation # [id number] Reviewed: Reviewed by Me (radiology report reviewed by me) Departure Communication (Admissions) Time/Spoke to Admitting Phy: 22:[address] May graciously accepts patient to her medical service for IV antibiotics and IV hydration. Impression Impression: Primary Impression: Pyelonephritis Additional Impression: Hydronephrosis, left Disposition: ADMITTED INPATIENT Condition: Stable Admissions Decision to Admit Reason: Admit from ER (General) Decision to Admit/Date: Jan 30, 2017 Time/Decision to Admit Time: 22:00 Departure-Patient Inst. Referrals: JACOB MAY MD (PCP/Family) Primary Care Physician KAYLA NOLAND Jan 30, 2017 20:50
[2017-01-30 21:29] LABS: BASOPHILS % (AUTO) 0 % (0-10); EOSINOPHILS % (AUTO) 0 % (0-10); LYMPHOCYTES # (AUTO) 0.8 X 10^3 (1.0-4.0); LYMPHOCYTES % (AUTO) 10 % (12-44); MEAN CORPUSCULAR HEMOGLOBIN 37 PG (25-34); MEAN CORPUSCULAR HGB CONC 33 G/DL (32-36); MEAN CORPUSCULAR VOLUME 110 FL (80-99); MEAN PLATELET VOLUME 10.3 FL (7.4-10.4); MONOCYTES # (AUTO) 0.8 X 10^3 (0.0-1.0); MONOCYTES % (AUTO) 11 % (0-12); NEUTROPHILS % (AUTO) 79 % (42-75); PLATELET COUNT 134 10^3/uL (130-400); RED BLOOD COUNT 2.73 10^6/uL (4.35-5.85); RED CELL DISTRIBUTION WIDTH 16.2 % (10.0-14.5); WHITE BLOOD COUNT 7.5 10^3/uL (4.3-11.0)
[2017-01-30 21:49] LABS: ALANINE AMINOTRANSFERASE 7 U/L (0-55); ANION GAP 11 MMOL/L (5-14); ASPARTATE AMINO TRANSFERASE 7 U/L (5-34); BILIRUBIN,TOTAL 0.3 MG/DL (0.1-1.0); BLOOD UREA NITROGEN 13 MG/DL (7-18); BUN/CREATININE RATIO 20; CALCIUM 8.4 MG/DL (8.5-10.1); CARBON DIOXIDE 21 MMOL/L (21-32); CHLORIDE 108 MMOL/L (98-107); CREATININE SERUM 0.64 MG/DL (0.60-1.30); GFR ESTIMATED > 60; GLUCOSE 91 MG/DL (70-105); POTASSIUM 3.9 MMOL/L (3.6-5.0); SODIUM 140 MMOL/L (135-145); TOTAL PROTEIN 5.9 GM/DL (6.4-8.2)
--- NOTE | 2017-01-30 21:51 | Diagnostic Imaging Report ---
PROCEDURE: CT urinary tract, rule out kidney stone. TECHNIQUE: Multiple contiguous axial images were obtained through the abdomen and pelvis without the use of intravenous contrast. INDICATION: Urinary tract infection with extreme pain in the region of the left kidney. COMPARISON STUDY: CT scan of the abdomen and pelvis from May the . FINDINGS: The lung bases are clear. The liver and gallbladder appear normal. Spleen is again seen to be upper normal in size. The pancreas and adrenal glands appear normal. There is some stranding around the left kidney with mild left hydronephrosis. No urinary calculi are identified. The ureter appears normal. The bladder is decompressed. Uterus and adnexal structures are normal. There is normal appearance of the appendix. IMPRESSION: There is inflammation around the left kidney with mild left hydronephrosis. Ureters are not distended and no calculi are identified. Findings are consistent with left pyelonephritis. Dictated by: Dictated on workstation # [id number]
[2017-01-30] MEDS ORDERED: NS IV 1000 ML 1,000 ML IV ONE (22:04)
[2017-01-30] MEDS ORDERED: cefTRIAXone INJECTION 1,000 MG in NS (IVPB) 50 ML IV ONE (22:15)
--- OUTSIDE RECORDS SUMMARY | 2017-01-30 22:55 | XMS REPORT | Clinical Summary ---
Author Author [facility] Organization [facility] Address Unknown Phone Unavailable Care Team Providers Care Railway Station Manager Name Role Phone PCP Unavailable Source Comments Some departments are not documenting in the electronic medical record. If you do not see the information that you expected, contact Release of Information in the Health Information Management department at [phone] for further assistance in locating additional records.[facility] Allergies Active Allergy Reactions Severity Noted [...] 50,000 unit capsule 7 days. 14 Insulin [place] Use when injecting Forteo 100 Each 3 [...]
[2017-01-30] MEDS ORDERED: fentaNYL INJECTION 100 MCG/2 ML AMP IVP STA (23:01)
[2017-01-31] MEDS: NS IV 1000 ML 1,000 ML IV SCH ×4 (00:19→22:28)
[2017-01-31] MEDS: HYDROcodone/APAP 7.5 MG/325 MG (LORTAB, LORCET PLUS) TABLET PO PRN ×5 (00:24→22:31)
[2017-01-31 00:50] VITALS: BP 159/84
[2017-01-31] MEDS: KETOROLAC 30 MG/ML VIAL IVP PRN ×4 (01:02→19:35)
[2017-01-31] MEDS: fentaNYL INJECTION 100 MCG/2 ML AMP IV PRN ×5 (01:49→20:30)
[2017-01-31 04:00] VITALS: BP 115/73
[2017-01-31 05:09] LABS: BASOPHILS % (AUTO) 0 % (0-10); EOSINOPHILS # (AUTO) 0.1 10^3/uL (0.0-0.3); EOSINOPHILS % (AUTO) 1 % (0-10); LYMPHOCYTES # (AUTO) 1.2 X 10^3 (1.0-4.0); LYMPHOCYTES % (AUTO) 20 % (12-44); MEAN CORPUSCULAR HEMOGLOBIN 37 PG (25-34); MEAN CORPUSCULAR HGB CONC 33 G/DL (32-36); MEAN CORPUSCULAR VOLUME 111 FL (80-99); MEAN PLATELET VOLUME 10.6 FL (7.4-10.4); MONOCYTES # (AUTO) 0.9 X 10^3 (0.0-1.0); MONOCYTES % (AUTO) 15 % (0-12); NEUTROPHILS # (AUTO) 3.9 X 10^3 (1.8-7.8); NEUTROPHILS % (AUTO) 64 % (42-75); PLATELET COUNT 128 10^3/uL (130-400); RED BLOOD COUNT 2.59 10^6/uL (4.35-5.85); RED CELL DISTRIBUTION WIDTH 16.2 % (10.0-14.5); WHITE BLOOD COUNT 6.1 10^3/uL (4.3-11.0)
[2017-01-31 05:32] LABS: ALANINE AMINOTRANSFERASE 6 U/L (0-55); ALBUMIN 2.7 GM/DL (3.2-4.5); ANION GAP 11 MMOL/L (5-14); ASPARTATE AMINO TRANSFERASE 6 U/L (5-34); BILIRUBIN,TOTAL 0.2 MG/DL (0.1-1.0); BLOOD UREA NITROGEN 15 MG/DL (7-18); BUN/CREATININE RATIO 23; CARBON DIOXIDE 21 MMOL/L (21-32); CHLORIDE 111 MMOL/L (98-107); CREATININE SERUM 0.66 MG/DL (0.60-1.30); GFR ESTIMATED > 60; GLUCOSE 82 MG/DL (70-105); POTASSIUM 3.4 MMOL/L (3.6-5.0); SODIUM 143 MMOL/L (135-145); TOTAL PROTEIN 5.4 GM/DL (6.4-8.2)
[2017-01-31 08:00] VITALS: BP 131/75
[2017-01-31] MEDS ORDERED: INFLUENZA TRIvalent 2017-2018 0.5 ML/45 MCG SYR IM ONE (08:15)
[2017-01-31] MEDS ORDERED: CATHETER FLUSH 10 ML SYR IV PRN (08:15)
[2017-01-31 12:00] VITALS: BP 127/72
[2017-01-31] MEDS: ONDANSETRON 4 MG/2 ML (SDV) Z0FRAN IV PRN ×2 (13:33→22:28)
[2017-01-31] MEDS ORDERED: ADAL40PE INJ (15:36)
[2017-01-31] MEDS ORDERED: CEPH250C PO (15:36)
[2017-01-31] MEDS ORDERED: HYDR-3816 PO (15:36)
[2017-01-31] MEDS ORDERED: LORA10TA7 PO (15:39)
[2017-01-31] MEDS ORDERED: AZAT50TA PO (15:39)
[2017-01-31] MEDS ORDERED: IBUP-2055 PO (15:39)
[2017-01-31 15:55] VITALS: BP 134/86
[2017-01-31 20:00] VITALS: BP 141/71
[2017-01-31] MEDS: DULoxetine 30 MG (CYMBALTA) CAP PO SCH (20:31)
[2017-01-31] MEDS: GABAPENTIN 400 MG (NEURONTIN) CAP PO SCH (20:31)
[2017-01-31] MEDS: traZODone 150 MG (DESYREL) TABLET PO SCH ×2 (20:31→22:02)
[2017-01-31] MEDS: predniSONE 10 MG TAB PO SCH (20:31)
[2017-01-31] MEDS: azaTHIOprine (IMURAN) 50 MG TAB PO SCH (20:31)
[2017-01-31] MEDS ORDERED: NON-FORMULARY MEDICATION 1 EA EA (Gabapentin 800 MG) PO SCH (21:00)
[2017-01-31] MEDS ORDERED: NON-FORMULARY MEDICATION 1 EA EA (Duloxetine HCl 60 MG) PO SCH (21:00)
[2017-01-31] MEDS: cefTRIAXone INJECTION 1,000 MG in NS (IVPB) 50 ML IV SCH (21:33)
--- NOTE | 2017-01-31 21:41 | History & Physicial ---
History of Present Illness History of Present Illness Reason for visit/HPI This is a 41 year old female seen last week in the emergency room last week and started on keflex for a UTI. She was having worsening left flank and low back pain so presented back to the emergency room and was found to have acute pyelonephritis on the left with left hydroureter. She will be admitted for IV antibiotics, IVF and pain control. Date of Admission Jan 30, 2017 at 22:48 Date Seen by Provider: Jan 31, 2017 Time Seen by Provider: 08:35 I consulted on this patient on 01/31/17 21:35 Attending Physician Shae May MD Admitting Physician Shae May MD Consult Allergies and Home Medications Allergies Coded Allergies: levofloxacin (Verified Allergy, Intermediate, HIVES, 05/29/16) orphenadrine (Unverified Allergy, Unknown, 05/29/16) Uncoded Allergies: UNKNOWN ALLERGY (Allergy, Unknown, 07/25/05) Home Medications Adalimumab 40 Mg/0.8 Ml Pen.ij.kit, 40 MG INJ EVERY 2 WEEKS, (Reported) TYPICALLY DOES ON SATURDAYS Azathioprine 50 Mg Tablet, 150 MG PO HS, (Reported) TAKES 3 (50 MG) TABLETS Cephalexin 250 Mg Capsule, 250 MG PO TID, (Reported) LAST FILLED 01/26/17 #21 FOR A 7 DAY THERAPY Duloxetine HCl 60 Mg Capsule.dr, 60 MG PO HS, (Reported) Gabapentin 800 Mg Tablet, 800 MG PO TID, (Reported) Hydrocodone/Acetaminophen 1 Each Tablet, 1 TAB PO Q6H PRN for PAIN-MODERATE, ( Reported) Ibuprofen 200 Mg Tablet, 800 MG PO TID PRN for PAIN-MILD, (Reported) TAKES 4 (200 MG) TABLETS Loratadine 10 Mg Tablet, 10 MG PO DAILY, (Reported) Prednisone 10 Mg Tab, 10 MG PO DAILY, (Reported) Trazodone HCl 150 Mg Tablet, 150 MG PO HS, (Reported) Past Drkrtzk-[id number]-Pupgsp Hx Patient Social History Alcohol Use: Denies Use Number of Drinks Today: II Alcohol Beverage of Choice: Other Recreational Drug Use: No Smoking Status: Current Everyday Smoker Type Used: Cigarettes 2nd Hand Smoke Exposure: Yes Physical Abuse Screen: No Sexual Abuse: No Recent Foreign Travel: No Contact w/other who traveled: No Recent Hopitalizations: No Recent Infectious Disease Expo: No Immunizations Up To Date Tetanus Booster (TDap): Less than 5yrs Date of Pneumonia Vaccine: September 07, 2011 Seasonal Allergies Seasonal Allergies: No Surgeries Yes (MULTIPLE SKIN GRAFTS TO FEET, R ANKLE) Respiratory Yes Pneumonia Currently Using CPAP: No Currently Using BIPAP: No Cardiovascular Yes (VASCULITIS, RBBB) High Cholesterol, Hypertension, Peripheral Vascular Neurological Yes Neuropathy Reproductive System Hx Reproductive Disorders: Yes (miscarriages) Sexually Transmitted Disease: No HIV/AIDS: No Female Reproductive Disorders: Ovarian Cyst Genitourinary Yes UTI-Chronic Gastrointestinal No Musculoskeletal Yes Degenerate Disk Disease, Arthritis, Rheumatoid Arthritis, Chronic Back Pain Endocrine History of Endocrine Disorders: Yes (THYROID DISEASE) Endocrine Disorders: Hypothyroidsim HEENT History of HEENT Disorders: No Loss of Vision: Denies Hearing Impairment: Denies Cancer No Psychosocial History of Psychiatric Problem: Yes (EXTENSIVE PSYCH ISSUES AND POLYSUBSTANCE ABUSE) Behavioral Health Disorders: Anxiety, Suicide Attempts, Depression Integumentary History of Skin or Integumenta: Yes Skin/Integumentary Disorders: Eczema Blood Transfusions History of Blood Disorders: No Adverse Reaction to a Blood Tr: No Reviewed Nursing Assessment Reviewed/Agree w Nursing PMH: Yes Family Medical History Significant Family History: No Pertinent Family Hx Family Hx: PT REPORTS NO FAMILY HISTORY Constitutional: fever EENTM: No see HPI, No no symptoms reported, No ear discharge, No hearing loss, No ear pain, No blurred vision, No double vision, No eye pain, No tearing, No vision loss, No dental problems, No hoarseness, No mouth pain, No mouth swelling , No epistaxis, No nose congestion, No nose pain, No throat pain, No throat swelling, No other Respiratory: No no symptoms reported, No see HPI, No cough, No dyspnea on exertion, No hemoptysis, No orthopnea, No phlegm, No short of breath, No stridor , No wheezing, No other Cardiovascular: No no symptoms reported, No see HPI, No chest pain, No edema, No Hx of Intervention, No palpitations, No syncope, No vascular heart diseas, No other Gastrointestinal: nausea Genitourinary: dysuria, pain (left flank and low back) Musculoskeletal: back pain, joint pain (history of rheumatoid) Psychiatric/Neurological: Emotional Problems, Weakness Physical Exam Vital Signs Vital Sign - Last 12Hours 01/30/17 19:08 Temp 97.4 Pulse 69 Resp 20 B/P (MAP) 145/94 Pulse Ox 98 O2 Delivery Room Air Capillary Refill : Less Than 3 Seconds General Appearance: No Apparent Distress HEENT: Normal ENT Inspection Neck: Supple Respiratory: Lungs Clear Cardiovascular: Regular Rate, Rhythm Gastrointestinal: Normal Bowel Sounds, Soft, Tenderness (LUQ and Left flank) Rectal: Deferred Back: CVA Tenderness (L) Extremity: Non Tender, No Calf Tenderness, No Pedal Edema Neurologic/Psychiatric: Alert, Oriented x3 Skin: Warm/Dry Comments Laboratory Tests 01/31/17 05:00: White Blood Count 6.1, Red Blood Count 2.59L, Hemoglobin 9.5L, Hematocrit 29L, Mean Corpuscular Volume 111H, Mean Corpuscular Hemoglobin 37H, Mean Corpuscular Hemoglobin Concent 33, Red Cell Distribution Width 16.2H, Platelet Count 128L, Mean Platelet Volume 10.6H, Neutrophils (%) (Auto) 64, Lymphocytes (%) (Auto) 20 , Monocytes (%) (Auto) 15H, Eosinophils (%) (Auto) 1, Basophils (%) (Auto) 0, Neutrophils # (Auto) 3.9, Lymphocytes # (Auto) 1.2, Monocytes # (Auto) 0.9, Eosinophils # (Auto) 0.1, Basophils # (Auto) 0.0, Sodium Level 143, Potassium Level 3.4L, Chloride Level 111H, Carbon Dioxide Level 21, Anion Gap 11, Blood Urea Nitrogen 15, Creatinine 0.66, Estimat Glomerular Filtration Rate > 60, BUN/ Creatinine Ratio 23, Glucose Level 82, Calcium Level 8.0L, Total Bilirubin 0.2, Aspartate Amino Transf (AST/SGOT) 6, Alanine Aminotransferase (ALT/SGPT) 6, Alkaline Phosphatase 68, Total Protein 5.4L, Albumin 2.7L Assessment/Plan Assessment and Plan 1. Acute Pyelonephritis with Left Hydroureter--admit for IV antibiotics, IVF, pain control 2. History of Rheumatoid Arthritis and Chronic Pain Syndrome--resume home meds 3. Depression--resume home meds Problems: Clinical Quality Measures DVT/VTE Risk/Contraindication: Risk Factor Score Per Nursin RFS Level Per Nursing on Admit: 2=Moderate TABITHA TAYLOR DO Jan 31, 2017 21:40
[2017-02-01 00:01] VITALS: BP 123/78
[2017-02-01] MEDS: KETOROLAC 30 MG/ML VIAL IVP PRN ×2 (01:26→15:43)
[2017-02-01] MEDS: HYDROcodone/APAP 7.5 MG/325 MG (LORTAB, LORCET PLUS) TABLET PO PRN ×2 (02:30→11:18)
[2017-02-01 04:27] VITALS: BP 143/84
[2017-02-01] MEDS: fentaNYL INJECTION 100 MCG/2 ML AMP IV PRN ×6 (04:43→22:16)
[2017-02-01] MEDS: NS IV 1000 ML 1,000 ML IV SCH (06:27)
[2017-02-01 08:30] VITALS: BP 155/89
[2017-02-01] MEDS: GABAPENTIN 400 MG (NEURONTIN) CAP PO SCH ×3 (08:30→20:18)
[2017-02-01] MEDS: LORATADINE (CLARITIN) 10 MG TAB PO SCH (08:30)
--- NOTE | 2017-02-01 08:49 | Progress Note (SOAP) ---
Subjective Date Seen by Provider: Feb 01, 2017 Time Seen by Provider: 08:35 Subjective/Events-last exam PT IS A 41 Y/O FEMALE WHO IS KNOWN TO ME FROM CLINIC. SHE IS A NEW PATIENT TO THE OFFICE. SHE REPORTS THAT SHE CONTINUES TO HAVE PAIN IN HER ABDOMEN - WORSE IN HER RIGHT UPPER ABDOMEN. PT REPORTS THAT SHE HAS INTERMITTENT NAUSEA. Review of Systems General: No Chills, Fatigue HEENT: No Head Aches Pulmonary: No Dyspnea, No Cough Cardiovascular: No: Chest Pain, Palpitations Gastrointestinal: Abdominal Pain, No: Nausea Genitourinary: No Dysuria Neurological: Weakness, No: Confusion Objective Exam Vital Signs Date Time Temp Pulse Resp B/P (MAP) Pulse Ox O2 Delivery O2 Flow Rate FiO2 02/01/17 04:27 97.2 62 20 143/84 96 Room Air 02/01/17 00:01 97.9 59 20 123/78 97 Room Air 01/31/17 20:00 98.2 67 20 141/71 99 Room Air 01/31/17 15:55 97.3 53 20 134/86 98 Room Air 01/31/17 12:00 96.9 57 20 127/72 97 Room Air Capillary Refill : Less Than 3 Seconds General Appearance: WD/WN, Mild Distress HEENT: PERRL/EOMI Neck: Full Range of Motion, Supple Respiratory: Chest Non Tender, Lungs Clear, Normal Breath Sounds, No Accessory Muscle Use Cardiovascular: Regular Rate, Rhythm, No Edema Gastrointestinal: tenderness (RUQ), other (HYPERACTIVE BOWEL SOUNDS) Extremity: No Pedal Edema Neurologic/Psychiatric: Alert, Oriented x3, No Motor/Sensory Deficits, Normal Mood/Affect Skin: Warm/Dry Lymphatic: No Adenopathy Assessment/Plan Assessment/Plan Assess & Plan/Chief Complaint ACUTE PYELONEPHRITIS RHEUMATOID ARTHRITIS CHRONIC PAIN SYNDROME DEPRESSION CHRONIC STEROID DEPENDENCE ABDOMINAL PAIN HYPOKALEMIA ANEMIA ACUTE PYELONEPHRITIS - ON IV ANTIBIOTICS - CONTINUE WITH CURRENT TREATMENT STRATEGY - ROCEPHIN IV, MONITOR SYMPTOMS. RHEUMATOID ARTHRITIS - RESUMED HOME MEDICATIONS. CHRONIC PAIN SYNDROME - ON FENTANYL - MONITOR SYMPTOMS - INCREASE FENTANYL DOSE. DEPRESSION - RESUMED CYMBALTA. CHRONIC STEROID DEPENDENCE - RESUMED PREDNISONE FROM HOME REGIMEN - WILL GIVE A TWO DAY BOLUS OF SOLU-MEDROL TODAY AND TOMORROW. ABDOMINAL PAIN - MAY BE DUE TO PYELONEPHRITIS WELL POSSIBLE ADRENAL CRISIS. HYPOKALEMIA - ADD POTASSIUM TO PATIENT'S IV FLUIDS. ANEMIA - OF CHRONIC DISEASE. Clinical Quality Measures DVT/VTE Risk/Contraindication: Risk Factor Score Per Nursin RFS Level Per Nursing on Admit: 2=Moderate JACOB ARREOLA MD Feb 01, 2017 08:49
[2017-02-01] MEDS: FAMOTIDINE 20 MG (PEPCID) TABLET PO SCH ×2 (11:12→20:18)
[2017-02-01] MEDS: LACTOBACILLUS Acidoph/Bulgar (LACTINEX/FLORANEX) TAB PO SCH ×3 (11:12→15:43)
[2017-02-01] MEDS: NS W/KCL 20 MEQ/L 1,000 ML IV SCH ×2 (11:13→18:50)
[2017-02-01] MEDS: methylPREDNISolone 40 MG/ML (Solu-MEDROL) VIAL IV SCH ×2 (11:13→20:18)
[2017-02-01 12:30] VITALS: BP 180/88
[2017-02-01 16:30] VITALS: BP 177/86
[2017-02-01 20:00] VITALS: BP 167/87
[2017-02-01] MEDS: DULoxetine 30 MG (CYMBALTA) CAP PO SCH (20:18)
[2017-02-01] MEDS: predniSONE 10 MG TAB PO SCH (20:18)
[2017-02-01] MEDS: azaTHIOprine (IMURAN) 50 MG TAB PO SCH (20:18)
[2017-02-01] MEDS: cefTRIAXone INJECTION 1,000 MG in NS (IVPB) 50 ML IV SCH (22:16)
[2017-02-01] MEDS: traZODone 150 MG (DESYREL) TABLET PO SCH (22:16)
[2017-02-02] VITALS: BP 162/89
[2017-02-02] MEDS: HYDROcodone/APAP 7.5 MG/325 MG (LORTAB, LORCET PLUS) TABLET PO PRN ×3 (02:39→13:33)
[2017-02-02] MEDS: NS W/KCL 20 MEQ/L 1,000 ML IV SCH ×3 (02:39→15:25)
[2017-02-02] MEDS: fentaNYL INJECTION 100 MCG/2 ML AMP IV PRN ×3 (03:59→10:51)
[2017-02-02 04:00] VITALS: BP 171/93
[2017-02-02] MEDS: LACTOBACILLUS Acidoph/Bulgar (LACTINEX/FLORANEX) TAB PO SCH ×3 (06:23→15:28)
[2017-02-02] MEDS: KETOROLAC 30 MG/ML VIAL IVP PRN ×2 (07:57→15:25)
[2017-02-02 07:58] VITALS: BP 173/104
[2017-02-02 08:01] VITALS: BP 160/115
[2017-02-02] MEDS ORDERED: cloNIDine 0.1 MG (CATAPRES) TAB PO NR (08:45)
[2017-02-02] MEDS ORDERED: cloNIDine 0.1 MG (CATAPRES) TAB ONE (09:28)
--- NOTE | 2017-02-02 09:31 | Progress Note (SOAP) ---
Subjective Date Seen by Provider: Feb 02, 2017 Time Seen by Provider: 09:10 Subjective/Events-last exam see dc summary Objective Exam Vital Signs Date Time Temp Pulse Resp B/P (MAP) Pulse Ox O2 Delivery O2 Flow Rate FiO2 02/02/17 08:01 160/115 02/02/17 07:58 97.7 50 20 173/104 96 Room Air 02/02/17 04:00 97.2 51 20 171/93 97 Room Air 02/02/17 00:00 97.9 48 20 162/89 97 Room Air 02/01/17 20:18 50 02/01/17 20:00 97.1 45 20 167/87 97 Room Air 02/01/17 16:30 97.5 54 20 177/86 99 Room Air 02/01/17 12:30 96.3 52 16 180/88 97 Room Air Capillary Refill : Less Than 3 Seconds General Appearance: No Apparent Distress Assessment/Plan Assessment/Plan Assess & Plan/Chief Complaint ACUTE PYELONEPHRITIS RHEUMATOID ARTHRITIS CHRONIC PAIN SYNDROME DEPRESSION CHRONIC STEROID DEPENDENCE ABDOMINAL PAIN HYPOKALEMIA ANEMIA ACUTE PYELONEPHRITIS - ON IV ANTIBIOTICS - CONTINUE WITH CURRENT TREATMENT STRATEGY - ROCEPHIN IV, MONITOR SYMPTOMS. RHEUMATOID ARTHRITIS - RESUMED HOME MEDICATIONS. CHRONIC PAIN SYNDROME - ON FENTANYL - MONITOR SYMPTOMS - INCREASE FENTANYL DOSE. DEPRESSION - RESUMED CYMBALTA. CHRONIC STEROID DEPENDENCE - RESUMED PREDNISONE FROM HOME REGIMEN - WILL GIVE A TWO DAY BOLUS OF SOLU-MEDROL TODAY AND TOMORROW. ABDOMINAL PAIN - MAY BE DUE TO PYELONEPHRITIS WELL POSSIBLE ADRENAL CRISIS. HYPOKALEMIA - ADD POTASSIUM TO PATIENT'S IV FLUIDS. ANEMIA - OF CHRONIC DISEASE. Clinical Quality Measures DVT/VTE Risk/Contraindication: Risk Factor Score Per Nursin RFS Level Per Nursing on Admit: 2=Moderate JACOB ARREOLA MD Feb 02, 2017 09:31
[2017-02-02] MEDS: methylPREDNISolone 40 MG/ML (Solu-MEDROL) VIAL IV SCH (09:33)
[2017-02-02] MEDS: GABAPENTIN 400 MG (NEURONTIN) CAP PO SCH ×2 (09:33→13:34)
[2017-02-02] MEDS: FAMOTIDINE 20 MG (PEPCID) TABLET PO SCH (09:33)
[2017-02-02] MEDS: LORATADINE (CLARITIN) 10 MG TAB PO SCH (09:33)
[2017-02-02 10:43] LABS: MEAN PLATELET VOLUME 10.6 FL (7.4-10.4); RED BLOOD COUNT 2.93 10^6/uL (4.35-5.85); RED CELL DISTRIBUTION WIDTH 15.6 % (10.0-14.5); WHITE BLOOD COUNT 9.8 10^3/uL (4.3-11.0)
[2017-02-02 11:17] LABS: ALANINE AMINOTRANSFERASE 8 U/L (0-55); ANION GAP 7 MMOL/L (5-14); ASPARTATE AMINO TRANSFERASE 12 U/L (5-34); BILIRUBIN,TOTAL 0.2 MG/DL (0.1-1.0); BLOOD UREA NITROGEN 15 MG/DL (7-18); BUN/CREATININE RATIO 23; CALCIUM 8.1 MG/DL (8.5-10.1); CARBON DIOXIDE 19 MMOL/L (21-32); CHLORIDE 112 MMOL/L (98-107); CREATININE SERUM 0.65 MG/DL (0.60-1.30); GFR ESTIMATED > 60; GLUCOSE 123 MG/DL (70-105); POTASSIUM 4.9 MMOL/L (3.6-5.0); SODIUM 138 MMOL/L (135-145); TOTAL PROTEIN 5.9 GM/DL (6.4-8.2)
--- NOTE | 2017-02-02 11:48 | Diagnostic Imaging Report ---
Upright and supine views of the abdomen. INDICATION: Abdominal pain. FINDINGS: There is no pneumoperitoneum and no significantly dilated bowel loops or significant air-fluid levels seen. There are moderate amounts of fecal material noted in the colon however most prominent in the ascending colon and cecum. No suspicious calcifications identified. The heart size is mildly enlarged, which is probably exaggerated by the supine AP technique. IMPRESSION: 1. Moderate amounts of fecal material is seen in the colon. 2. The heart appears slightly enlarged. Dictated by: Dictated on workstation # [id number]
[2017-02-02 12:49] VITALS: BP 194/102
[2017-02-02 15:52] VITALS: BP 174/100
[2017-02-02] MEDS ORDERED: cloNIDine 0.2 MG (CATAPRES) TAB PO NR (16:15)
--- NOTE | 2017-02-02 16:16 | Discharge Summary ---
Diagnosis/Chief Complaint Date of Admission Jan 30, 2017 at 22:48 Date of Discharge Admission Diagnosis Admission Diagnosis 1. Acute Pyelonephritis with Left Hydroureter--admit for IV antibiotics, IVF, pain control 2. History of Rheumatoid Arthritis and Chronic Pain Syndrome--resume home meds 3. Depression--resume home meds Discharge Summary Discharge Physical Examination Allergies: Coded Allergies: levofloxacin (Verified Allergy, Intermediate, HIVES, 05/29/16) orphenadrine (Unverified Allergy, Unknown, 05/29/16) Uncoded Allergies: UNKNOWN ALLERGY (Allergy, Unknown, 07/25/05) Vitals & I&Os Vital Signs Date Time Temp Pulse Resp B/P (MAP) Pulse Ox O2 Delivery O2 Flow Rate FiO2 02/02/17 12:49 97.2 50 18 194/102 97 Room Air Hospital Course ACUTE PYELONEPHRITIS RHEUMATOID ARTHRITIS CHRONIC PAIN SYNDROME DEPRESSION CHRONIC STEROID DEPENDENCE ABDOMINAL PAIN HYPOKALEMIA ANEMIA ACUTE PYELONEPHRITIS - ON IV ANTIBIOTICS - CONTINUE WITH CURRENT TREATMENT STRATEGY - ROCEPHIN IV, MONITOR SYMPTOMS. RHEUMATOID ARTHRITIS - RESUMED HOME MEDICATIONS. CHRONIC PAIN SYNDROME - ON FENTANYL - MONITOR SYMPTOMS - INCREASE FENTANYL DOSE. DEPRESSION - RESUMED CYMBALTA. CHRONIC STEROID DEPENDENCE - RESUMED PREDNISONE FROM HOME REGIMEN - WILL GIVE A TWO DAY BOLUS OF SOLU-MEDROL TODAY AND TOMORROW. ABDOMINAL PAIN - MAY BE DUE TO PYELONEPHRITIS WELL POSSIBLE ADRENAL CRISIS. HYPOKALEMIA - ADD POTASSIUM TO PATIENT'S IV FLUIDS. ANEMIA - OF CHRONIC DISEASE. Pending Labs Laboratory Tests 02/02/17 10:34: White Blood Count 9.8, Red Blood Count 2.93, Hemoglobin 10.6, Hematocrit 32, Mean Corpuscular Volume 110, Mean Corpuscular Hemoglobin 36, Mean Corpuscular Hemoglobin Concent 33, Red Cell Distribution Width 15.6, Platelet Count 195, Mean Platelet Volume 10.6, Sodium Level 138, Potassium Level 4.9, Chloride Level 112, Carbon Dioxide Level 19, Anion Gap 7, Blood Urea Nitrogen 15, Creatinine 0.65, Estimat Glomerular Filtration Rate > 60, BUN/Creatinine Ratio 23, Glucose Level 123, Calcium Level 8.1, Total Bilirubin 0.2, Aspartate Amino Transf (AST/SGOT) 12, Alanine Aminotransferase (ALT/SGPT) 8, Alkaline Phosphatase 119, Total Protein 5.9, Albumin 3.0 Discharge Instructions to patient/family Please see electronic discharge instructions given to patient. Discharge Medications Reviewed and agree with Discharge Medication list on patient's Discharge Instruction sheet Clinical Quality Measures DVT/VTE Risk/Contraindication: Risk Factor Score Per Nursin RFS Level Per Nursing on Admit: 2=Moderate JACOB ARREOLA MD Feb 02, 2017 16:15
[2017-02-02] MEDS ORDERED: ACID1TAB PO (16:19)
[2017-02-02] MEDS ORDERED: CEFD300C3 PO (16:19)
[2017-02-02] MEDS ORDERED: CLON0.1T PO (16:20)
--- NOTE | 2017-02-02 16:22 | Discharge Inst-Complex ---
PDI Med Rec & Follow Up Appt. New Medications: Cefdinir (Cefdinir) 300 Mg Capsule 300 MG PO BID for 7 Days, #14 CAP Clonidine HCl (Clonidine HCl) 0.1 Mg Tablet 0.1 MG PO TID for 30 Days, #90 TAB 2 Refills L. Acidophilus/Bulgaricus (Floranex Tablet) 1 Each Tablet 1 TAB.CHEW PO AC for 10 Days, #40 TAB Continued Medications: Adalimumab (Humira) 40 Mg/0.8 Ml Pen.ij.kit 40 MG INJ EVERY 2 WEEKS TYPICALLY DOES ON SATURDAYS Azathioprine (Azathioprine) 50 Mg Tablet 150 MG PO HS TAKES 3 (50 MG) TABLETS Duloxetine HCl (Duloxetine HCl) 60 Mg Capsule.dr 60 MG PO HS Gabapentin (Gabapentin) 800 Mg Tablet 800 MG PO TID, TAB Hydrocodone/Acetaminophen (Hydrocodon-Acetaminoph 7.5-325) 1 Each Tablet 1 TAB PO Q6H PRN for PAIN-MODERATE Ibuprofen (Ibuprofen) 200 Mg Tablet 800 MG PO TID PRN for PAIN-MILD, TAB TAKES 4 (200 MG) TABLETS Loratadine (Loratadine) 10 Mg Tablet 10 MG PO DAILY, TAB Prednisone (Prednisone) 10 Mg Tab 10 MG PO DAILY Trazodone HCl (Trazodone HCl) 150 Mg Tablet 150 MG PO HS Discontinued Medications: Cephalexin (Cephalexin) 250 Mg Capsule 250 MG PO TID LAST FILLED 01/26/17 #21 FOR A 7 DAY THERAPY Prescription: Transmitted to Pharmacy Patient Instructions: pt appt in 2 weeks from discharge Activity, Diet and PDI Resume Normal Activity: Yes Discharge Diet: Regular Diet Diet for 24 Hours: No Alcohol Drink 6-8 Glasses of Fluid/Day: Yes Driving Instructions: No Driving for 24 Hours Avoid ALL Tobacco Products: Smoking of Any Kind, Second Hand Smoke Symptoms to Reoprt to : Appetite Changes, Fever Over 101 Degrees F, Nausea/ Vomiting For Problems or Questions: Contact Your Physician, Go to Emergency Room JACOB ARREOLA MD Feb 02, 2017 16:22
== END 2017-02-02 19:05 | disposition home or self-care (01) | DRG 690 ==
LOC: EDUNIT# 18:47 → ER 18:49 → 4TH 22:48
PROVIDERS: ADMIT Family Medicine; ATTEND Family Medicine
DX: N10 Acute pyelonephritis (principal); N13.30 Unspecified hydronephrosis; F17.210 Nicotine dependence, cigarettes, uncomplicated; J45.909 Unspecified asthma, uncomplicated; J44.9 Chronic obstructive pulmonary disease, unspecified; E78.00 Pure hypercholesterolemia, unspecified; I10 Essential (primary) hypertension; G62.9 Polyneuropathy, unspecified; E03.9 Hypothyroidism, unspecified; M06.9 Rheumatoid arthritis, unspecified; F41.9 Anxiety disorder, unspecified; F32.9 Major depressive disorder, single episode, unspecified; L30.9 Dermatitis, unspecified; I45.10 Unspecified right bundle-branch block; I77.6 Arteritis, unspecified; E87.6 Hypokalemia; G89.4 Chronic pain syndrome; D63.8 Anemia in other chronic diseases classified elsewhere; Z79.52 Long term (current) use of systemic steroids
CPT/HCPCS: 36415; 74020; 74176; 76937; 80053; 81000; 84703; 85025; 85027; 96374; 96375; 96376

== ENCOUNTER → 2017-02-08 | Outpatient (CLI) | payer MEDICARE ==
[~2017-02-08] MED LIST changes: +ACID1TAB PO; +ADAL40PE INJ; +CEFD300C3 PO; +CEPH250C PO; +CLON0.1T PO; +HYDR-3816 PO; +IBUP-2055 PO; +LORA10TA7 PO
== END ==
LOC: WOUNDCARE 09:47
PROVIDERS: ATTEND Surgery
DX: L97.312 Non-pressure chronic ulcer of right ankle with fat layer exposed (principal); M05.2 Rheumatoid vasculitis with rheumatoid arthritis; I87.311 Chronic venous hypertension (idiopathic) with ulcer of right lower extremity; G60.8 Other hereditary and idiopathic neuropathies; T65.222A Toxic effect of tobacco cigarettes, intentional self-harm, initial encounter
CPT/HCPCS: 11042

== ENCOUNTER → 2017-02-22 | Outpatient (CLI) | payer MEDICARE | LOC: WOUNDCARE 09:59 | PROVIDERS: ATTEND Surgery | DX: L97.312 Non-pressure chronic ulcer of right ankle with fat layer exposed (principal); I87.311 Chronic venous hypertension (idiopathic) with ulcer of right lower extremity; M05.2 Rheumatoid vasculitis with rheumatoid arthritis; G60.8 Other hereditary and idiopathic neuropathies; T65.222A Toxic effect of tobacco cigarettes, intentional self-harm, initial encounter | CPT/HCPCS: 11042 ==

== ENCOUNTER → 2017-02-22 | Outpatient (CLI) | payer MEDICARE | LOC: LAB 11:29 | PROVIDERS: ATTEND Surgery | DX: L97.312 Non-pressure chronic ulcer of right ankle with fat layer exposed (principal); M05.2 Rheumatoid vasculitis with rheumatoid arthritis; I87.311 Chronic venous hypertension (idiopathic) with ulcer of right lower extremity; G60.8 Other hereditary and idiopathic neuropathies; F17.210 Nicotine dependence, cigarettes, uncomplicated | CPT/HCPCS: 36415; 84590 ==

== ENCOUNTER → 2017-03-01 | Outpatient (CLI) | payer MEDICARE | LOC: WOUNDCARE 09:55 | PROVIDERS: ATTEND Surgery | DX: L97.312 Non-pressure chronic ulcer of right ankle with fat layer exposed (principal); M05.2 Rheumatoid vasculitis with rheumatoid arthritis; I87.311 Chronic venous hypertension (idiopathic) with ulcer of right lower extremity; G60.8 Other hereditary and idiopathic neuropathies; T65.222A Toxic effect of tobacco cigarettes, intentional self-harm, initial encounter | CPT/HCPCS: 11042; 87070; 87075; 87077; 87186; 87205 ==

== ENCOUNTER → 2017-03-08 | Outpatient (CLI) | payer MEDICARE | LOC: WOUNDCARE 09:56 | PROVIDERS: ATTEND Surgery | DX: L97.312 Non-pressure chronic ulcer of right ankle with fat layer exposed (principal); M05.2 Rheumatoid vasculitis with rheumatoid arthritis; I87.311 Chronic venous hypertension (idiopathic) with ulcer of right lower extremity; G60.8 Other hereditary and idiopathic neuropathies; T65.222A Toxic effect of tobacco cigarettes, intentional self-harm, initial encounter | CPT/HCPCS: 11042 ==

== ENCOUNTER → 2017-03-22 | Outpatient (CLI) | payer MEDICARE | LOC: WOUNDCARE 09:55 | PROVIDERS: ATTEND Surgery | DX: I87.311 Chronic venous hypertension (idiopathic) with ulcer of right lower extremity (principal); L97.312 Non-pressure chronic ulcer of right ankle with fat layer exposed; M05.2 Rheumatoid vasculitis with rheumatoid arthritis; G60.8 Other hereditary and idiopathic neuropathies; T65.222A Toxic effect of tobacco cigarettes, intentional self-harm, initial encounter | CPT/HCPCS: 11042; 87070; 87075; 87077; 87186; 87205 ==

== ENCOUNTER → 2017-04-12 | Outpatient (CLI) | payer MEDICARE | LOC: WOUNDCARE 10:12 | PROVIDERS: ATTEND Surgery | DX: L97.312 Non-pressure chronic ulcer of right ankle with fat layer exposed (principal); M05.2 Rheumatoid vasculitis with rheumatoid arthritis; I87.311 Chronic venous hypertension (idiopathic) with ulcer of right lower extremity; G60.8 Other hereditary and idiopathic neuropathies | CPT/HCPCS: 11042 ==

== ENCOUNTER → 2017-04-19 | Outpatient (CLI) | payer MEDICARE | LOC: WOUNDCARE 10:06 | PROVIDERS: ATTEND Surgery | DX: I87.311 Chronic venous hypertension (idiopathic) with ulcer of right lower extremity (principal); L97.312 Non-pressure chronic ulcer of right ankle with fat layer exposed; M05.2 Rheumatoid vasculitis with rheumatoid arthritis; G60.8 Other hereditary and idiopathic neuropathies | CPT/HCPCS: 15271 ==

== ENCOUNTER → 2017-04-26 | Outpatient (CLI) | payer MEDICARE ==
[~2017-04-26] MED LIST changes: +ONDA4TAB11 PO
== END ==
LOC: WOUNDCARE 10:08
PROVIDERS: ATTEND Surgery
DX: I87.311 Chronic venous hypertension (idiopathic) with ulcer of right lower extremity (principal); L97.312 Non-pressure chronic ulcer of right ankle with fat layer exposed; M05.2 Rheumatoid vasculitis with rheumatoid arthritis; G60.8 Other hereditary and idiopathic neuropathies
CPT/HCPCS: 15271

== ENCOUNTER 2017-04-27 21:29 | Emergency (ER) | payer MEDICAID, MEDICARE ==
[~2017-04-27] VITALS: Ht 152.4 cm; Wt 72.6 kg
[~2017-04-27 21:29] MED LIST changes: -ONDA4TAB11 PO
[2017-04-27 23:00] LABS: BILIRUBIN,URINE NEGATIVE (NEGATIVE); CLARITY,URINE CLEAR; COLOR,URINE YELLOW; GLUCOSE, URINE (UA) NEGATIVE (NEGATIVE); KETONES,URINE NEGATIVE (NEGATIVE); LEUKOCYTE ESTERASE ,URINE 1+ (NEGATIVE); NITRITE,URINE NEGATIVE (NEGATIVE); PH,URINE 7 (5-9); PROTEIN,URINE 3+ (NEGATIVE); UROBILINOGEN,URINE NORMAL (NORMAL)
[2017-04-27] MEDS ORDERED: ONDANSETRON 4 MG/2 ML (SDV) Z0FRAN IM ONE ×2 (23:00→23:30)
--- NOTE | 2017-04-27 23:00 | ED GI ---
General Chief Complaint: Dizziness/Syncope Stated Complaint: DIZZINESS Nursing Triage Note: PATIENT STATES THAT SHE DRANK A FIFTH OF VODKA LAST NIGHT ENDING AT 3AM TODAY. SINCE THEN SHE HAS NOT BEEN FEELING WELL. SHE BELIEVES SHE DID PASS OUT AT SOME POINT. CURRENTLY SHE IS DIZZY. SHE ALSO STATES SHE HAS BEEN HAVING DIARRHEA SINCE SOME TIME AFTER SHE STARTED DRINKING THE VODKA. Sepsis Screen: No Definite Risk Source of Information: Patient, Other Exam Limitations: No Limitations History of Present Illness Time Seen By Provider: 22:49 Initial Comments Patient presents to ER by private conveyance with a chief complaint of nausea and dysuria that started this morning. She was drinking all night and drank probably a fifth of vodka she thinks no beer wine. She finished drinking about 3 or 4 in the morning and she's been miserable throwing up unable to keep fluids down and having painful urination. She does not have anything for nausea home. She's had no fevers, chills, cough, shortness of breath, constipation, abdominal pain until after she started retching in her epigastric region. She has not taken Tylenol or Motrin. Allergies and Home Medications Allergies Coded Allergies: levofloxacin (Verified Allergy, Intermediate, HIVES, 05/29/16) orphenadrine (Unverified Allergy, Unknown, 05/29/16) Uncoded Allergies: UNKNOWN ALLERGY (Allergy, Unknown, 07/25/05) Home Medications Adalimumab 40 Mg/0.8 Ml Pen.ij.kit, 40 MG INJ EVERY 2 WEEKS, (Reported) TYPICALLY DOES ON SATURDAYS Azathioprine 50 Mg Tablet, 150 MG PO HS, (Reported) TAKES 3 (50 MG) TABLETS Cefdinir 300 Mg Capsule, 300 MG PO BID for 7 Days, #14 Prescribed by: JACOB ARREOLA on 02/02/17 1619 Clonidine HCl 0.1 Mg Tablet, 0.1 MG PO TID for 30 Days, #90 Ref 2 Prescribed by: JACOB ARREOLA on 02/02/17 1620 Duloxetine HCl 60 Mg Capsule.dr, 60 MG PO HS, (Reported) Gabapentin 800 Mg Tablet, 800 MG PO TID, (Reported) Hydrocodone/Acetaminophen 1 Each Tablet, 1 TAB PO Q6H PRN for PAIN-MODERATE, ( Reported) Ibuprofen 200 Mg Tablet, 800 MG PO TID PRN for PAIN-MILD, (Reported) TAKES 4 (200 MG) TABLETS L. Acidophilus/Bulgaricus 1 Each Tablet, 1 TAB.CHEW PO AC for 10 Days, #40 Prescribed by: JACOB ARREOLA on 02/02/17 1619 Loratadine 10 Mg Tablet, 10 MG PO DAILY, (Reported) Prednisone 10 Mg Tab, 10 MG PO DAILY, (Reported) Trazodone HCl 150 Mg Tablet, 150 MG PO HS, (Reported) Review of Systems Constitutional: No chills, No diaphoresis, No fever, malaise Respiratory: Denies Cough, Denies Shortness of Air Cardiovascular: Denies Chest Pain, Denies Irregular Heart Rate Gastrointestinal: Denies Abdomen Distended, Denies Abdominal Pain, Denies Constipated, Diarrhea (soft stools), Nausea, Poor Appetite, Poor Fluid Intake, Vomiting (without hematemesis) Genitourinary: Burning, Denies Discharge Musculoskeletal: No back pain, No joint pain Skin: No pruritus, No rash Psychiatric/Neurological: Headache, Denies Numbness, Denies Paresthesia Past Bxwwiuf-[id number]-Kfifqc Hx Patient Social History Alcohol Use: Rarely Uses Number of Drinks Today: II Alcohol Beverage of Choice: Vodka, Other Recreational Drug Use: No (SMOKES 1/2 PPD) Type Used: Cigarettes 2nd Hand Smoke Exposure: Yes Recent Foreign Travel: No Contact w/Someone Who Travel: No Recent Infectious Disease Expo: No Recent Hopitalizations: No Physical Abuse: No Sexual Abuse: No Immunizations Up To Date Tetanus Booster (TDap): Less than 5yrs Date of Pneumonia Vaccine: September 07, 2011 Seasonal Allergies Seasonal Allergies: No Surgeries History of Surgeries: Yes (MULTIPLE SKIN GRAFTS TO FEET, R ANKLE) Respiratory History of Respiratory Disorde: Yes Respiratory Disorders: Asthma, COPD Currently Using CPAP: No Currently Using BIPAP: No Cardiovascular History of Cardiac Disorders: Yes (VASCULITIS, RBBB) Cardiac Disorders: High Cholesterol, Hypertension, Peripheral Vascular Neurological History of Neurological Disord: Yes Neurological Disorders: Neuropathy Reproductive System Hx Reproductive Disorders: Yes (miscarriages) Sexually Transmitted Disease: No HIV/AIDS: No Female Reproductive Disorders: Ovarian Cyst Genitourinary History of Genitourinary Disor: Yes Genitourinary Disorders: UTI-Chronic Gastrointestinal History of Gastrointestinal Di: No Musculoskeletal History of Musculoskeletal Dis: Yes Musculoskeletal Disorders: Degenerate Disk Disease, Arthritis, Rheumatoid Arthritis, Chronic Back Pain Endocrine History of Endocrine Disorders: Yes (THYROID DISEASE) Endocrine Disorders: Hypothyroidsim HEENT History of HEENT Disorders: No Loss of Vision: Denies Hearing Impairment: Denies Cancer History of Cancer: No Psychosocial History of Psychiatric Problem: Yes (EXTENSIVE PSYCH ISSUES AND POLYSUBSTANCE ABUSE) Behavioral Health Disorders: Anxiety, Suicide Attempts, Depression Suicide Risk Score: 0 Integumentary History of Skin or Integumenta: Yes Skin/Integumentary Disorders: Eczema Blood Transfusions History of Blood Disorders: No Adverse Reaction to a Blood Tr: No Family Medical History Significant Family History: No Pertinent Family Hx Family Medial History: PT REPORTS NO FAMILY HISTORY Physical Exam Vital Signs VS - Last 72 Hours, by Label 04/27/17 21:34 Temp 97.0 Pulse 103 Resp 20 B/P (MAP) 117/93 (101) Pulse Ox 95 O2 Delivery Room Air Capillary Refill : Less Than 3 Seconds General Appearance: WD/WN, mild distress HEENT: PERRL/EOMI, pharynx normal (oral mucosa is moist) Neck: non-tender, supple, normal inspection Respiratory: chest non-tender, lungs clear, normal breath sounds, no respiratory distress, no accessory muscle use Cardiovascular: normal peripheral pulses, regular rate, rhythm, no edema Peripheral Pulses: 2+ Radial Pulses (R), 2+ Radial Pulses (L) Gastrointestinal: normal bowel sounds, soft, tenderness (mild diffuse tenderness everywhere palpated) Extremities: normal capillary refill Back: normal inspection, no CVA tenderness Neurologic/Psychiatric: alert, normal mood/affect, oriented x 3 Skin: normal color, warm/dry Date of ETT Placement: Jul 02, 2016 Time of ETT Placement: 1506 Progress/Results/Core Measures Results/Orders Lab Results Laboratory Tests Test 04/27/17 22:00 Range/Units Urine Color YELLOW Urine Clarity CLEAR Urine pH 7 5-9 Urine Specific Abernathy 1.005 L 1.016-1.022 Urine Protein 3+ H NEGATIVE Urine Glucose (UA) NEGATIVE NEGATIVE Urine Ketones NEGATIVE NEGATIVE Urine Nitrite NEGATIVE NEGATIVE Urine Bilirubin NEGATIVE NEGATIVE Urine Urobilinogen NORMAL NORMAL MG/DL Urine Leukocyte Esterase 1+ H NEGATIVE Urine RBC (Auto) 5+ H NEGATIVE Urine RBC 10-25 H /HPF Urine WBC 2-5 /HPF Urine Squamous Epithelial Cells 2-5 /HPF Urine Crystals NONE /LPF Urine Bacteria NONE /HPF Urine Casts NONE /LPF Urine Mucus NEGATIVE /LPF Urine Culture Indicated NO My Orders Orders - JAMIE GALAVIZ Ondansetron Injection (Zofran Injectio (04/27/17 23:00) Ua Culture If Indicated (04/27/17 22:53) Ondansetron Injection (Zofran Injectio (04/27/17 23:30) Medications Given in ED Current Medications Medications Dose Ordered Sig/Carmina Route Start Time Stop Time Status Last Admin Dose Admin Ondansetron HCl 4 mg ONCE ONCE IM 04/27/17 23:00 04/27/17 23:01 DC 04/27/17 23:01 4 MG Ondansetron HCl 8 mg ONCE ONCE IM 04/27/17 23:30 04/27/17 23:31 DC 04/27/17 23:28 8 MG Vital Signs/I&O Vital Sign - Last 12Hours 04/27/17 21:34 Temp 97.0 Pulse 103 Resp 20 B/P (MAP) 117/93 (101) Pulse Ox 95 O2 Delivery Room Air Blood Pressure Mean: 101 Progress Note #1: Time: 22:57 Progress Note The patient clinically has a hangover we will give her nausea meds and took a urinalysis because she is complaining of dysuria. Progress Note #2: Time: 23:36 Progress Note Patient is still having some nausea so we'll give her another 8 mg of Zofran. However her significant other has brought her some food from an outside facility so she can eat some of this or drink some water then she should be good to go home. Departure Impression Impression: Primary Impression: Hangover without complication Additional Impression: Urinary tract infection Qualified Codes: N30.01 - Acute cystitis with hematuria Disposition: HOME, SELF-CARE Condition: Improved Departure-Patient Inst. Decision time for Depature: 23:45 Referrals: JACOB ARREOLA MD (PCP/Family) Primary Care Physician Patient Instructions: Alcohol Use - When Is Drinking a Problem? Add. Discharge Instructions: Use the nausea medicine one tablet on the tongue every 6 hours as needed to control your nausea. Drink lots of fluids. Use Tylenol 1000 mg every 8 hours and or ibuprofen 800 mg every 8 hours as needed for headache or misery. 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 All discharge instructions reviewed with patient and/or family. Voiced understanding. Scripts Nitrofurantoin Monohyd/M-Cryst (Macrobid 100 mg Capsule) 100 Mg Capsule 1 TAB PO BID for 5 Days, #10 CAP 0 Refills Prov: JAMIE GALAVIZ 04/27/17 Ondansetron (Ondansetron Odt) 4 Mg Tab.rapdis 4 MG PO Q6H Y for NAUSEA/VOMITING, #8 TAB 0 Refills Prov: JAMIE GALAVIZ 04/27/17 Copy Copies To 1: JACOB ARREOLA MD, TITUS J Apr 27, 2017 23:00
[2017-04-27] MEDS ORDERED: ONDA4TAB11 PO (23:38)
[2017-04-27] MEDS ORDERED: NITR-65 PO (23:38)
[2017-04-27 23:48] VITALS: BP 128/88
== END 2017-04-27 23:47 | disposition home or self-care (01) ==
LOC: EDUNIT# 21:29 → ER 21:31
DX: F10.129 Alcohol abuse with intoxication, unspecified (principal); N39.0 Urinary tract infection, site not specified; J44.9 Chronic obstructive pulmonary disease, unspecified; E78.00 Pure hypercholesterolemia, unspecified; I10 Essential (primary) hypertension; M06.9 Rheumatoid arthritis, unspecified; E03.9 Hypothyroidism, unspecified; F41.9 Anxiety disorder, unspecified; F32.9 Major depressive disorder, single episode, unspecified; I73.9 Peripheral vascular disease, unspecified; Z87.440 Personal history of urinary (tract) infections; Z87.448 Personal history of other diseases of urinary system; Z77.22 Contact with and (suspected) exposure to environmental tobacco smoke (acute) (chronic); Z91.5 Personal history of self-harm
CPT/HCPCS: 81000; 96372; 99284

== ENCOUNTER → 2017-05-03 | Outpatient (CLI) | payer MEDICARE ==
[~2017-05-03] MED LIST changes: +ONDA4TAB11 PO
== END ==
LOC: WOUNDCARE 14:18
PROVIDERS: ATTEND Surgery
DX: I87.311 Chronic venous hypertension (idiopathic) with ulcer of right lower extremity (principal); L97.312 Non-pressure chronic ulcer of right ankle with fat layer exposed; M05.2 Rheumatoid vasculitis with rheumatoid arthritis; G60.8 Other hereditary and idiopathic neuropathies
CPT/HCPCS: 99212

== ENCOUNTER → 2017-05-10 | Outpatient (CLI) | payer MEDICARE | LOC: WOUNDCARE 10:11 | PROVIDERS: ATTEND Surgery | DX: I87.311 Chronic venous hypertension (idiopathic) with ulcer of right lower extremity (principal); L97.312 Non-pressure chronic ulcer of right ankle with fat layer exposed; M05.2 Rheumatoid vasculitis with rheumatoid arthritis; G60.8 Other hereditary and idiopathic neuropathies | CPT/HCPCS: 15271 ==

== ENCOUNTER → 2017-05-24 | Outpatient (CLI) | payer MEDICARE ==
[~2017-05-24] MED LIST changes: +HYDR-34 PO; -HYDR-3816 PO
== END ==
LOC: WOUNDCARE 10:20
PROVIDERS: ATTEND Surgery
DX: I87.311 Chronic venous hypertension (idiopathic) with ulcer of right lower extremity (principal); L97.312 Non-pressure chronic ulcer of right ankle with fat layer exposed; M05.2 Rheumatoid vasculitis with rheumatoid arthritis; G60.8 Other hereditary and idiopathic neuropathies
CPT/HCPCS: 11042; 87070; 87075; 87205

== ENCOUNTER 2017-05-31 14:28 | Outpatient (RCR) | payer MEDICARE ==
[~2017-05-31 14:28] MED LIST changes: -LIDO30JE10 TP; +LIDO30JE3 TP
[2017-05-31 15:18] LABS: BASOPHILS % (AUTO) 0 % (0-10); EOSINOPHILS # (AUTO) 0.2 10^3/uL (0.0-0.3); EOSINOPHILS % (AUTO) 1 % (0-10); HEMATOCRIT 36 % (35-52); LYMPHOCYTES # (AUTO) 1.8 X 10^3 (1.0-4.0); LYMPHOCYTES % (AUTO) 14 % (12-44); MEAN CORPUSCULAR HEMOGLOBIN 35 PG (25-34); MEAN CORPUSCULAR HGB CONC 34 G/DL (32-36); MEAN CORPUSCULAR VOLUME 104 FL (80-99); MEAN PLATELET VOLUME 9.8 FL (7.4-10.4); MONOCYTES % (AUTO) 8 % (0-12); NEUTROPHILS # (AUTO) 9.9 X 10^3 (1.8-7.8); NEUTROPHILS % (AUTO) 77 % (42-75); PLATELET COUNT 158 10^3/uL (130-400); RED BLOOD COUNT 3.44 10^6/uL (4.35-5.85); RED CELL DISTRIBUTION WIDTH 15.1 % (10.0-14.5); WHITE BLOOD COUNT 12.8 10^3/uL (4.3-11.0)
[2017-05-31 15:36] LABS: ALANINE AMINOTRANSFERASE < 6 U/L (0-55); ALBUMIN 3.5 GM/DL (3.2-4.5); ALKALINE PHOSPHATASE 61 U/L (40-136); BILIRUBIN,DIRECT 0.1 MG/DL (0.0-0.3); BILIRUBIN,INDIRECT 0.3 MG/DL; BILIRUBIN,TOTAL 0.4 MG/DL (0.1-1.0); BUN/CREATININE RATIO 10; CREATININE SERUM 0.73 MG/DL (0.60-1.30); GFR ESTIMATED > 60; TOTAL PROTEIN 6.6 GM/DL (6.4-8.2)
== END 2017-08-29 | disposition home or self-care (01) ==
LOC: LAB 14:28
PROVIDERS: ATTEND Internal Medicine Rheumatology
DX: M06.041 Rheumatoid arthritis without rheumatoid factor, right hand (principal); M06.042 Rheumatoid arthritis without rheumatoid factor, left hand; Z79.899 Other long term (current) drug therapy
CPT/HCPCS: 36415; 80076; 82565; 84520; 85025

== ENCOUNTER → 2017-05-31 | Outpatient (CLI) | payer MEDICARE | LOC: WOUNDCARE 13:09 | PROVIDERS: ATTEND Surgery | DX: I87.331 Chronic venous hypertension (idiopathic) with ulcer and inflammation of right lower extremity (principal); L97.312 Non-pressure chronic ulcer of right ankle with fat layer exposed; M05.721 Rheumatoid arthritis with rheumatoid factor of right elbow without organ or systems involvement; G60.8 Other hereditary and idiopathic neuropathies | CPT/HCPCS: 11042 ==

== ENCOUNTER → 2017-06-07 | Outpatient (CLI) | payer MEDICARE ==
[~2017-06-07] MED LIST changes: +LIDO30JE10 TP; -LIDO30JE3 TP
== END ==
LOC: WOUNDCARE 13:05
PROVIDERS: ATTEND Surgery
DX: L97.312 Non-pressure chronic ulcer of right ankle with fat layer exposed (principal); I87.331 Chronic venous hypertension (idiopathic) with ulcer and inflammation of right lower extremity; M05.2 Rheumatoid vasculitis with rheumatoid arthritis; G60.8 Other hereditary and idiopathic neuropathies
CPT/HCPCS: 11042

== ENCOUNTER → 2017-07-05 | Outpatient (CLI) | payer MEDICARE | LOC: WOUNDCARE 14:08 | PROVIDERS: ATTEND Surgery | DX: I87.331 Chronic venous hypertension (idiopathic) with ulcer and inflammation of right lower extremity (principal); L97.312 Non-pressure chronic ulcer of right ankle with fat layer exposed; M05.2 Rheumatoid vasculitis with rheumatoid arthritis; G60.8 Other hereditary and idiopathic neuropathies | CPT/HCPCS: 99212 ==

== ENCOUNTER 2017-09-26 13:01 | Outpatient (RCR) | payer MEDICARE ==
[~2017-09-26 13:01] MED LIST changes: -LIDO30JE10 TP; +LIDO30JE3 TP; +TRAZ-190 PO; -TRAZ100T92 PO
[2017-09-26 13:49] LABS: ALBUMIN 3.8 GM/DL (3.2-4.5); BILIRUBIN,DIRECT 0.1 MG/DL (0.0-0.3); BILIRUBIN,INDIRECT 0.2 MG/DL; BILIRUBIN,TOTAL 0.3 MG/DL (0.1-1.0); CREATININE SERUM 0.95 MG/DL (0.60-1.30); TOTAL PROTEIN 6.8 GM/DL (6.4-8.2)
== END 2017-12-25 | disposition home or self-care (01) ==
LOC: LAB 13:01
PROVIDERS: ATTEND Internal Medicine Rheumatology
DX: M06.041 Rheumatoid arthritis without rheumatoid factor, right hand (principal); M06.042 Rheumatoid arthritis without rheumatoid factor, left hand; Z79.899 Other long term (current) drug therapy
CPT/HCPCS: 36415; 80076; 82565; 85652; 86141

== ENCOUNTER → 2017-11-15 | Outpatient (CLI) | payer MEDICARE | LOC: WOUNDCARE 13:19 | PROVIDERS: ATTEND Surgery | DX: L97.522 Non-pressure chronic ulcer of other part of left foot with fat layer exposed (principal); G60.8 Other hereditary and idiopathic neuropathies; M05.272 Rheumatoid vasculitis with rheumatoid arthritis of left ankle and foot | CPT/HCPCS: 11042; 87070; 87075; 87077; 87186; 87205 ==

== ENCOUNTER 2018-10-17 14:29 | Inpatient (IN) | payer MEDICARE, MEDICAID ==
[2018-10-17] VITALS (14 sets, daily range): BP systolic 110–136; BP diastolic 77–95
[~2018-10-17] VITALS: Ht 152.4 cm; Wt 52.8 kg
[~2018-10-17 14:29] MED LIST changes: +GABA800T10 PO; -GABA800T2 PO
[2018-10-17] MEDS ORDERED: HYDROmorphone 2 MG/ML VIAL (DILAUDID) IV ONE ×2 (15:00→16:00)
[2018-10-17] MEDS ORDERED: VANCOMYCIN INJECTION 1,000 MG in NS (IVPB) 250 ML IV SCH (15:00)
[2018-10-17] MEDS ORDERED: cefTRIAXone FOR IV USE 1,000 MG in WATER (STERILE) FOR INJECTION 10 ML IV ONE (15:00)
[2018-10-17] MEDS: LACTATED RINGERS 1,000 ML IV SCH ×2 (15:00→15:35)
--- NOTE | 2018-10-17 15:05 | ED Lower Extremity ---
General Chief Complaint: Lower Extremity Stated Complaint: L FOOT ULCER Nursing Triage Note: pt presents to ER via wheelchair, states she is unable to walk d/t pain in both feet. Pt states she has ulcers on both feet that have gotten worse over the past two weeks. Pt no longer has a PCP d/t missing two consecutive wound care appts. Was taking oxycodone for pain but is out of prescription. Nursing Sepsis Screen: No Definite Risk Source: patient Exam Limitations: no limitations History of Present Illness Date Seen by Provider: Oct 17, 2018 Time Seen by Provider: 15:02 Initial Comments To ER by wheelchair accompanied by male with reports of being unable to walk due to pain in both feet, ulcers on both feet and ankles getting progressively worse over the past few weeks. She presents today because she is out of her pain medication. She's been fired by primary care recently due to missing 2 consecutive wound care appointments. Reports a history of vasculitis causing these ulcers. She is an everyday smoker. She also has strong history of substance abuse. . Onset: just prior to arrival Severity: moderate Pain/Injury Location: left foot Method of Injury: unknown Modifying Factors: Worse With Movement Allergies and Home Medications Allergies Coded Allergies: levofloxacin (Verified Allergy, Intermediate, HIVES, 05/29/16) orphenadrine (Unverified Allergy, Unknown, 05/29/16) Uncoded Allergies: UNKNOWN ALLERGY (Allergy, Unknown, 07/25/05) Home Medications Clonidine HCl 0.1 Mg Tablet, 0.1 MG PO TID Prescribed by: JACOB MAY on 02/02/17 1620 Ibuprofen 200 Mg Tablet, 800 MG PO TID, (Reported) TAKES 4 (200 MG) TABLETS Mirtazapine 15 Mg Tab.rapdis, 7.5 MG PO HS, (Reported) Oxycodone HCl 30 Mg Tablet, 30 MG PO QID PRN for PAIN-MODERATE TO SEVERE, (Reported) PT TAKES 4-6 TIMES A DAY NEEDEED Pregabalin 100 Mg Capsule, 100 MG PO TID, (Reported) Trazodone HCl 150 Mg Tablet, 150 MG PO HS, (Reported) Patient Home Medication List Home Medication List Reviewed: Yes Review of Systems Constitutional: see HPI EENTM: see HPI Respiratory: no symptoms reported Cardiovascular: no symptoms reported Genitourinary: no symptoms reported Musculoskeletal: see HPI Skin: no symptoms reported Psychiatric/Neurological: No Symptoms Reported Past [id number]-Puhdaw-[id number] Hx Patient Social History Alcohol Use: Denies Use Alcohol Beverage of Choice: Vodka, Other Recreational Drug Use: No Smoking Status: Current Everyday Smoker Type Used: Cigarettes 2nd Hand Smoke Exposure: No Recent Foreign Travel: No Contact w/Someone Who Travel: No Recent Infectious Disease Expo: No Recent Hopitalizations: No Immunizations Up To Date Tetanus Booster (TDap): Less than 5yrs Date of Pneumonia Vaccine: September 07, 2011 Seasonal Allergies Seasonal Allergies: No Past Medical History Surgeries: Yes (MULTIPLE SKIN GRAFTS TO FEET, R ANKLE) Respiratory: Yes Asthma, COPD Currently Using CPAP: No Currently Using BIPAP: No Cardiac: Yes (VASCULITIS, RBBB) High Cholesterol, Hypertension, Peripheral Vascular Neurological: Yes Neuropathy Reproductive Disorders: Yes (miscarriages) Female Reproductive Disorders: Ovarian Cyst Sexually Transmitted Disease: No HIV/AIDS: No Genitourinary: Yes UTI-Chronic Gastrointestinal: No Musculoskeletal: Yes Degenerate Disk Disease, Arthritis, Rheumatoid Arthritis, Chronic Back Pain Endocrine: Yes (THYROID DISEASE) Hypothyroidsim HEENT: No Loss of Vision: Denies Hearing Impairment: Denies Cancer: No Psychosocial: Yes (EXTENSIVE PSYCH ISSUES AND POLYSUBSTANCE ABUSE) Anxiety, Suicide Attempts, Depression Integumentary: Yes Eczema Blood Disorders: No Adverse Reaction/Blood Tranf: No Family Medical History PT REPORTS NO FAMILY HISTORY No Pertinent Family Hx Physical Exam Vital Signs Vital Signs - First Documented 10/17/18 14:53 Temp 98.6 Pulse 76 Resp 16 B/P (MAP) 110/72 (85) Pulse Ox 98 O2 Delivery Room Air Capillary Refill : Less Than 3 Seconds Height, Weight, BMI Height: 5'0" Weight: 110lbs. 0oz. [id number]; 33.4 BMI Method:Stated General Appearance: WD/WN, no apparent distress HEENT: PERRL/EOMI, normal ENT inspection Neck: non-tender, full range of motion Respiratory: no respiratory distress, no accessory muscle use Gastrointestinal: normal bowel sounds, non tender, soft Hips: bilateral hip non-tender, bilateral hip normal inspection, bilateral hip normal range of motion Legs: bilateral leg other (both lower extremities are thin with tight skin over them, there are some ulcerations to anterior and lateral aspects of both lower extremities.) Knees: bilateral knee non-tender, bilateral knee normal inspection, bilateral knee normal range of motion Ankles: bilateral ankle limited range of motion, bilateral ankle pain Feet: left foot other (the left foot has a purplish black dry appearance to all of the toes beginning at the mid foot and extending distally. I am able to palpate a weak posterior tibial pulse , I am able to Doppler a strong pulse in the posterior tibial on the left.) Neurologic/Psychiatric: alert, normal mood/affect, oriented x 3 Skin: normal color, warm/dry Procedures/Interventions Date of ETT Placement: Jul 02, 2016 Time of ETT Placement: 1506 Progress/Results/Core Measures Results/Orders Lab Results My Orders Orders - XAVIER MORTON APRN Cbc With Automated Diff (10/17/18 14:52) Comprehensive Metabolic Panel (10/17/18 14:52) Ua Culture If Indicated (10/17/18 14:52) Drug Screen Stat (Urine) (10/17/18 14:52) Intake & Output-Until Iv D/C'D (10/17/18 14:52) Hydromorphone Injection (Dilaudid Inject (10/17/18 15:00) Blood Culture (10/17/18 14:52) Lactic Acid Analyzer (10/17/18 14:52) Lactated Ringers (Lr 1000 Ml Iv Solution (10/17/18 15:00) Erythrocyte Sedimentation Rate (10/17/18 14:52) Foot, Left, 3 Views (10/17/18 14:52) Ceftriaxone For Iv Use (Rocephin For I (10/17/18 15:00) Vancomycin Injection (Vancomycin Injecti (10/17/18 15:00) Medications Given in ED Current Medications Medications Dose Ordered Sig/Carmina Route Start Time Stop Time Status Last Admin Dose Admin Ceftriaxone Sodium 1000 mg/ Sterile Water 10 ml @ 200 mls/hr ONCE ONCE IV 10/17/18 15:00 10/17/18 15:02 DC 10/17/18 15:30 200 MLS/HR Hydromorphone HCl 1 mg ONCE ONCE IV 10/17/18 15:00 10/17/18 15:01 DC 10/17/18 15:00 1 MG Vital Signs/I&O 10/17/18 14:53 Temp 98.6 Pulse 76 Resp 16 B/P (MAP) 110/72 (85) Pulse Ox 98 O2 Delivery Room Air Blood Pressure Mean: 85 Departure Communication (Admissions) Time/Spoke to Admitting Phy: 15:[address] Bonds, we will admit, consult surgery. She would also like me to consult cardiology for vascular evaluation. Time/Spoke to Consulting Phy: 15:[address] Hammond, agrees to consult. I spoke with Dr. Stacy who agrees to consult, would like lower actually arterial ultrasounds today. Cannot do much from interventional standpoint on that until the anemia has been evaluated and stabilized. 1520-I called Dr. May's office in an attempt to contact her, however she is out of the office until and Dr. Dr. Castañeda is covering for her. Office staff informed me however that Sita Mccoy is no longer a patient of theirs, she was fired from the practice on 09/27/18. Impression Primary Impression: Dry gangrene Additional Impression: Anemia Qualified Codes: D64.9 - Anemia, unspecified Disposition: ADMITTED INPATIENT Condition: Stable Admissions Decision to Admit Reason: Admit from ER (General) Decision to Admit/Date: Oct 17, 2018 Time/Decision to Admit Time: 15:49 Departure-Patient Inst. Referrals: JACOB MAY MD (PCP/Family) Primary Care Physician XAVIER MORTON APRN Oct 17, 2018 15:05
[2018-10-17 15:16] LABS: BASOPHILS % (AUTO) 0 % (0-10); EOSINOPHILS # (AUTO) 0.2 10^3/uL (0.0-0.3); EOSINOPHILS % (AUTO) 1 % (0-10); LYMPHOCYTES # (AUTO) 1.3 X 10^3 (1.0-4.0); LYMPHOCYTES % (AUTO) 10 % (12-44); MEAN CORPUSCULAR HEMOGLOBIN 23 PG (25-34); MEAN CORPUSCULAR HGB CONC 29 G/DL (32-36); MEAN CORPUSCULAR VOLUME 80 FL (80-99); MEAN PLATELET VOLUME 10.3 FL (7.4-10.4); MONOCYTES # (AUTO) 1.2 X 10^3 (0.0-1.0); MONOCYTES % (AUTO) 10 % (0-12); NEUTROPHILS % (AUTO) 79 % (42-75); PLATELET COUNT 401 10^3/uL (130-400); RED CELL DISTRIBUTION WIDTH 17.5 % (10.0-14.5); WHITE BLOOD COUNT 12.6 10^3/uL (4.3-11.0)
[2018-10-17 15:19] LABS: HEMOGLOBIN 5.7 G/DL (11.5-16.0)
[2018-10-17 15:20] LABS: HEMATOCRIT 20 % (35-52)
[2018-10-17 15:33] LABS: ALANINE AMINOTRANSFERASE 7 U/L (0-55); ALBUMIN 2.5 GM/DL (3.2-4.5); ALKALINE PHOSPHATASE 131 U/L (40-136); BILIRUBIN,TOTAL 0.2 MG/DL (0.1-1.0); BUN/CREATININE RATIO 13; CALCIUM 8.2 MG/DL (8.5-10.1); CARBON DIOXIDE 20 MMOL/L (21-32); CHLORIDE 108 MMOL/L (98-107); CREATININE SERUM 0.79 MG/DL (0.60-1.30); GFR ESTIMATED > 60; GLUCOSE 78 MG/DL (70-105); POTASSIUM 3.7 MMOL/L (3.6-5.0); SODIUM 139 MMOL/L (135-145)
[2018-10-17 15:57] LABS: ERYTHROCYTE SEDIMENTATION RATE 110 MM/HR (0-20)
--- NOTE | 2018-10-17 16:00 | Diagnostic Imaging Report ---
INDICATION: Left foot pain. TIME OF EXAM: 3:45 p.m. EXAMINATION: Three views of the left foot were obtained. FINDINGS: There is demineralization. There appears to be ankylosis of the subtalar joint as well as midfoot joints as well as multiple tarsometatarsal joints. No definite fractures are seen. The toes are held in flexion, limiting evaluation. No bony destructive changes or soft tissue gas is seen. There may be some soft tissue swelling along the dorsum of the foot. IMPRESSION: Chronic changes. No acute bony abnormality is detected. Dictated by: Dictated on workstation # [id number]
[2018-10-17] MEDS ORDERED: LACTATED RINGERS 1,000 ML IV SCH (16:30)
[2018-10-17] MEDS ORDERED: oxyCODONE/APAP 10/325MG (PERCOCET 10) TABLET PO ONE (17:15)
[2018-10-17] MEDS ORDERED: PIPERACILLIN/TAZO 4.5 GM/NS 100 ML IV NR ×2 (17:30)
[2018-10-17] MEDS ORDERED: oxyCODONE/APAP 10/325MG (PERCOCET 10) TABLET PO PRN (17:30)
[2018-10-17] MEDS ORDERED: NS IV 500 ML 500 ML IV SCH (17:30)
--- NOTE | 2018-10-17 17:33 | Diagnostic Imaging Report ---
PROCEDURE: US Bilateral lower extremity arterial. TECHNIQUE: Multiple real-time grayscale images are obtained through both lower extremity arterial systems with color Doppler imaging and color Doppler spectral analysis. INDICATION: Bilateral lower extremity pain. FINDINGS: Examination is mildly limited by wounds and bandages on the lower legs. There are normal peak systolic velocities throughout the bilateral common femoral, superficial femoral, profunda femoral, and popliteal arteries with normal waveforms and no abrupt increase in peak systolic velocities. Normal peak systolic velocities and waveforms demonstrated in the left posterior tibial and bilateral dorsalis pedis arteries. The right posterior tibial is not well seen due to the bandages and wounds. IMPRESSION: Examination mildly limited by lower extremity wounds and bandages. No high-grade arterial narrowing is identified in the lower extremities. Dictated by: Dictated on workstation # [id number]
[2018-10-17] MEDS ORDERED: CATHETER FLUSH 10 ML SYR IV PRN (17:45)
[2018-10-17] MEDS ORDERED: PREG100C PO (18:56)
[2018-10-17] MEDS ORDERED: OXYC30TA80 PO (18:56)
[2018-10-17] MEDS ORDERED: MIRT15TA3 PO (18:57)
[2018-10-17] MEDS: NS IV 1000 ML 1,000 ML IV SCH (19:38)
[2018-10-17] MEDS ORDERED: NON-FORMULARY MEDICATION 1 EA EA (Oxycodone HCl 30 MG) PO PRN (19:45)
[2018-10-17] MEDS ORDERED: fentaNYL INJECTION 100 MCG/2 ML AMP IVP PRN (20:30)
[2018-10-17] MEDS ORDERED: MIRTAZAPINE 15 MG (REMERON) TAB PO SCH (21:00)
[2018-10-17] MEDS ORDERED: NON-FORMULARY MEDICATION 1 EA EA (Ibuprofen 800 MG) PO SCH (21:00)
[2018-10-17] MEDS: traZODone 150 MG (DESYREL) TABLET PO SCH (21:12)
[2018-10-17] MEDS: cloNIDine 0.1 MG (CATAPRES) TAB PO SCH (21:12)
[2018-10-17] MEDS: PREGABALIN 100 MG (LYRICA) CAPSULE PO SCH (21:13)
[2018-10-17] MEDS: fentaNYL INJECTION 100 MCG/2 ML AMP IVP PRN (23:44)
[2018-10-18] VITALS (18 sets, daily range): BP systolic 105–133; BP diastolic 58–102
[2018-10-18] MEDS: PIPERACILLIN/TAZO 4.5 GM/NS 100 ML IV SCH ×8 (00:23→23:34)
[2018-10-18] MEDS: NS IV 1000 ML 1,000 ML IV SCH ×4 (00:23→21:40)
--- NOTE | 2018-10-18 00:44 | CONSULTATION REPORT ---
DATE OF SERVICE: ATTENDING PHYSICIAN: Lesli Bonds DO HISTORY OF PRESENT ILLNESS: The patient is a 42-year-old female who presented to [facility] Emergency Department for complaints of bilateral foot pain who was seen in consultation with Dr. Hammond. She reports she does have a history of vasculitis and reports that approximately a week ago, she started developing what looked like a bruise on the bottom of her left foot. She reports that this has progressed and her pain has become worse. She does report a history of lower extremity ulcers requiring debridement and skin grafts multiple times throughout her life. She was seeing wound care, however, did miss two appointments and reports that she was let go by her primary care physician. She reports that she does have a history of alcoholism; however, has not had a drink since August of last year. She reports that currently she does have an ulcer to the right lateral lower extremity as well as the left lower lateral extremity. She reports that the right one has been bleeding when she does try and walk and has been using a wheelchair to get around. Upon arrival to the emergency room, she did have lab work performed where she was found to have a hemoglobin of 5.7 as well as a left foot that on the distal half did appear to be dry gangrene looking and was purple to black in color. PAST MEDICAL HISTORY: Alcoholism, asthma, COPD, vasculitis, right bundle-branch block, hypercholesterolemia, hypertension, peripheral vascular disease, chronic UTIs, degenerative disk disease, rheumatoid arthritis, chronic back pain, hypothyroidism, anxiety and depression with suicide attempts, eczema. PAST SURGICAL HISTORY: Multiple debridement of lower extremity ulcers with skin grafts. ALLERGIES: LEVAQUIN, ORPHENADRINE. MEDICATIONS: Trazodone 150 mg at bedtime, prednisone 10 mg daily, Zofran 4 mg q.6 hours p.r.n., nitrofurantoin 100 mg b.i.d., loratadine 2 mg daily, acidophilus and bulgaricus before meals, ibuprofen 800 mg t.i.d. p.r.n., hydrocodone q.6 hours p.r.n., gabapentin 800 mg t.i.d., duloxetine 60 mg at bedtime, clonidine 0.1 mg t.i.d., cefdinir 300 mg b.i.d., azathioprine 150 mg at bedtime, Humira 40 mg injection every 2 weeks. SOCIAL HISTORY: Positive for smoke for 25-pack years, previous for alcoholism. FAMILY HISTORY: Noncontributory. VITAL SIGNS: Temperature is 97.6, pulse 90, respirations 16, blood pressure is 119/83, pulse ox is 92% on room air. LABORATORY DATA: WBC is 12.6, hemoglobin is 5.7, hematocrit is 20, platelets 401. Sodium is 139, potassium 3.7, chloride 108, BUN 10, creatinine 0.79, calcium is 8.2, total protein 6.0, albumin 2.5. REVIEW OF SYSTEMS: This is an ill-appearing female, in no acute distress. She is not experiencing any shortness of breath or difficulty breathing. No chest pain, palpitations or diaphoresis. She does report occasional episodes of nausea as well as reflux, but denies any vomiting or abdominal pain. No diarrhea or constipation. No red blood per rectum. No dark tarry stools. No fever or chills. No recent overt weight loss. She does report pain in the bilateral feet. She also reports ulcerations of the right lateral as well as left lateral lower extremity. All other review of systems is negative. PHYSICAL EXAMINATION: CHEST: Clear breath sounds bilaterally. HEART: Regular, no murmurs. EXTREMITIES: There is a large ulcer of the right lateral lower extremity that does appear to be approximately stage II-III. She also has a ulcer of the left lateral lower extremity, there is approximately a stage II. There is also a left foot that has a purple to black dry appearance from the mid foot extending distally. There is a weak palpable posterior tibial pulse to the left foot. HEENT: No scleral icterus. No cervical adenopathy. ABDOMEN: Soft, nontender, nondistended. SKIN: Warm, dry and pink. NEUROLOGIC: Awake, alert and oriented x3. ASSESSMENT AND PLAN: A 42-year-old female with anemia, vasculitis, who has other multiple medical issues. She currently has dry gangrene to the left foot from approximately the mid left foot distally. It was discussed with the patient about surgical intervention proceeding with Syme amputation of the left foot once she is medically stable. We will currently proceed with IV fluids, IV antibiotics, pain and nausea medications as well as resuscitation with packed red blood cells. Once she is medically stable, we will then proceed with Syme amputation of the left foot. We would also proceed with endoscopy to evaluate her significant anemia on admisson. Job ID: [id number] DocumentID: [id number] Dictated Date: 10/17/2018 19:16:24 [employer] Date: 10/18/2018 00:43:27 Dictated By: ANETA MAR
[2018-10-18] MEDS: VANCOMYCIN 750 MG/NS 250 ML IVPB IV SCH ×4 (03:53→15:53)
[2018-10-18] MEDS: fentaNYL INJECTION 100 MCG/2 ML AMP IVP PRN ×4 (05:20→16:01)
--- NOTE | 2018-10-18 06:03 | Pulmonary Consultation ---
History of Present Illness History of Present Illness Date of Consultation 10/18/18 05:58 Date of Admission Allergies and Home Medications Allergies Coded Allergies: levofloxacin (Verified Allergy, Intermediate, HIVES, 05/29/16) orphenadrine (Unverified Allergy, Unknown, 05/29/16) Uncoded Allergies: UNKNOWN ALLERGY (Allergy, Unknown, 07/25/05) Home Medications Clonidine HCl 0.1 Mg Tablet, 0.1 MG PO TID Prescribed by: JACOB ARREOLA on 02/02/17 1620 Ibuprofen 200 Mg Tablet, 800 MG PO TID, (Reported) TAKES 4 (200 MG) TABLETS Mirtazapine 15 Mg Tab.rapdis, 7.5 MG PO HS, (Reported) Oxycodone HCl 30 Mg Tablet, 30 MG PO QID PRN for PAIN-MODERATE TO SEVERE, (Reported) PT TAKES 4-6 TIMES A DAY NEEDEED Pregabalin 100 Mg Capsule, 100 MG PO TID, (Reported) Trazodone HCl 150 Mg Tablet, 150 MG PO HS, (Reported) Past Zhsbkdb-Fgbufo-Aimyec Hx Patient Social History Alcohol Use: Denies Use Alcohol Beverage of Choice: Vodka, Other Recreational Drug Use: No Smoking Status: Current Everyday Smoker Type Used: Cigarettes 2nd Hand Smoke Exposure: No Recent Foreign Travel: No Contact w/Someone Who Travel: No Recent Infectious Disease Expo: No Recent Hopitalizations: No Immunizations Up To Date Tetanus Booster (TDap): Less than 5yrs Date of Pneumonia Vaccine: September 07, 2011 Seasonal Allergies Seasonal Allergies: No Past Medical History Surgeries: Yes (MULTIPLE SKIN GRAFTS TO FEET, R ANKLE) Respiratory: Yes Asthma, COPD Currently Using CPAP: No Currently Using BIPAP: No Cardiac: Yes (VASCULITIS, RBBB) High Cholesterol, Hypertension, Peripheral Vascular Neurological: Yes Neuropathy : No Reproductive Disorders: Yes (miscarriages) Female Reproductive Disorders: Ovarian Cyst Sexually Transmitted Disease: No HIV/AIDS: No Genitourinary: Yes UTI-Chronic Gastrointestinal: No Musculoskeletal: Yes Degenerate Disk Disease, Arthritis, Rheumatoid Arthritis, Chronic Back Pain Endocrine: Yes (THYROID DISEASE) Hypothyroidsim HEENT: No Loss of Vision: Denies Hearing Impairment: Denies Cancer: No Psychosocial: Yes (EXTENSIVE PSYCH ISSUES AND POLYSUBSTANCE ABUSE) Anxiety, Suicide Attempts, Depression Integumentary: Yes Eczema Blood Disorders: No Adverse Reaction/Blood Tranf: No Family Medical History PT REPORTS NO FAMILY HISTORY No Pertinent Family Hx Sepsis Event Evaluation Height, Weight, BMI Height: 5'0.00" Weight: 124lbs. 6.0oz. 56.087194gg; 23.7 BMI Method:Stated Exam Exam Vital Signs Date Time Temp Pulse Resp B/P (MAP) Pulse Ox O2 Delivery O2 Flow Rate FiO2 10/18/18 05:00 74 8 112/73 (86) 100 Room Air 10/18/18 04:20 98.8 79 12 112/79 100 Room Air 10/18/18 04:00 73 11 113/79 (90) 100 Room Air 10/18/18 03:50 98.7 76 10 100 Room Air 10/18/18 03:25 100 Room Air 10/18/18 03:00 74 12 124/80 (95) Room Air 10/18/18 02:40 98.0 81 20 124/79 98 Room Air 10/18/18 02:00 81 14 124/80 (95) Room Air 10/18/18 01:40 97.7 88 20 117/102 97 Room Air 10/18/18 01:24 97.0 76 10 119/92 96 Room Air 10/18/18 01:01 80 11 119/92 (101) 94 Room Air 10/18/18 01:00 87 10/18/18 00:25 96 Room Air 10/18/18 00:24 97.0 80 12 111/70 96 Room Air 10/18/18 00:00 99.0 Room Air 10/17/18 22:02 98.7 88 22 126/86 100 Room Air 10/17/18 22:01 98.7 88 22 126/86 10 Room Air 10/17/18 22:00 82 10 126/86 (99) 100 Room Air 10/17/18 21:54 98.6 88 22 127/77 98 Room Air 10/17/18 21:23 89.5 86 24 127/77 100 Room Air 10/17/18 21:15 95 16 127/77 (94) Room Air 10/17/18 20:08 96 11 122/87 (99) Room Air 10/17/18 19:50 98.4 Room Air 10/17/18 19:45 95 Room Air 10/17/18 19:40 98.4 98 16 122/79 Room Air 10/17/18 19:00 90 10/17/18 19:00 90 16 121/84 (96) Room Air 10/17/18 18:27 97.6 90 11 119/83 Room Air 10/17/18 18:21 97.0 84 12 119/83 92 Room Air 10/17/18 18:00 91 11 126/95 (105) Room Air 10/17/18 17:45 103 17 136/84 (101) Room Air 10/17/18 17:30 101 10 110/89 (96) 90 Room Air 10/17/18 17:26 95 10/17/18 17:10 85 20 108/65 (79) 98 Room Air 10/17/18 14:53 98.6 76 16 110/72 (85) 98 Room Air I & O 10/18/18 07:00 Intake Total 5415.5 ml Output Total 1450 ml Balance 3965.5 ml Height & Weight Height: 5'0.00" Weight: 124lbs. 6.0oz. 56.987787xs; 23.7 BMI Method:Stated Capillary Refill: Less Than 3 Seconds Gastrointestinal: normal bowel sounds, non tender, soft Results Lab Laboratory Tests 10/17/18 15:02 Assessment/Plan Assessment/Plan Necrotic Left foot secondary to vasculitis/PVD -Dr. Hammond following -Plan is for amputation -Vanco/Zosyn Tobacco use -Education Severe Anemia -S/P 3 units of PRBC -Repeat labs pending HEATHER HALL DO Oct 18, 2018 06:03
[2018-10-18 06:26] LABS: BASOPHILS % (AUTO) 0 % (0-10); EOSINOPHILS # (AUTO) 0.4 10^3/uL (0.0-0.3); EOSINOPHILS % (AUTO) 3 % (0-10); HEMATOCRIT 31 % (35-52); HEMOGLOBIN 10.2 G/DL (11.5-16.0); LYMPHOCYTES % (AUTO) 8 % (12-44); MEAN CORPUSCULAR HGB CONC 33 G/DL (32-36); MEAN CORPUSCULAR VOLUME 82 FL (80-99); MEAN PLATELET VOLUME 9.9 FL (7.4-10.4); MONOCYTES # (AUTO) 1.4 X 10^3 (0.0-1.0); MONOCYTES % (AUTO) 11 % (0-12); NEUTROPHILS # (AUTO) 9.7 X 10^3 (1.8-7.8); NEUTROPHILS % (AUTO) 77 % (42-75); PLATELET COUNT 275 10^3/uL (130-400); RED CELL DISTRIBUTION WIDTH 17.7 % (10.0-14.5); WHITE BLOOD COUNT 12.5 10^3/uL (4.3-11.0)
[2018-10-18 06:27] LABS: MEAN CORPUSCULAR HEMOGLOBIN 26 PG (25-34)
[2018-10-18 06:39] LABS: NEUTROPHILS % (MANUAL) 82 %
[2018-10-18 06:40] LABS: ANISOCYTOSIS MODERATE; BAND NEUTROPHILS 0 %; BASOPHILS % (MANUAL) 0 %; EOSINOPHILS % (MANUAL) 1 %; HYPOCHROMASIA MODERATE; LYMPHOCYTES % (MANUAL) 8 %; MONOCYTES % (MANUAL) 5 %; POLYCHROMASIA SLIGHT; REACTIVE LYMPHOCYTES 4 %; TEAR DROP CELLS SLIGHT; TOXIC GRANULATION/VACUOLAZATIO 1+
[2018-10-18 06:46] LABS: ALANINE AMINOTRANSFERASE 6 U/L (0-55); ALBUMIN 2.3 GM/DL (3.2-4.5); ALKALINE PHOSPHATASE 112 U/L (40-136); BILIRUBIN,TOTAL 0.5 MG/DL (0.1-1.0); BUN/CREATININE RATIO 13; CALCIUM 7.9 MG/DL (8.5-10.1); CARBON DIOXIDE 18 MMOL/L (21-32); CHLORIDE 109 MMOL/L (98-107); CREATININE SERUM 0.68 MG/DL (0.60-1.30); GFR ESTIMATED > 60; GLUCOSE 83 MG/DL (70-105); MAGNESIUM 1.4 MG/DL (1.8-2.4); POTASSIUM 3.5 MMOL/L (3.6-5.0); SODIUM 138 MMOL/L (135-145); TOTAL PROTEIN 5.3 GM/DL (6.4-8.2)
[2018-10-18] MEDS ORDERED: IBUPROFEN 800 MG (MOTRIN) TAB PO SCH (07:00)
[2018-10-18] MEDS: cloNIDine 0.1 MG (CATAPRES) TAB PO SCH ×3 (08:22→22:03)
[2018-10-18] MEDS: PREGABALIN 100 MG (LYRICA) CAPSULE PO SCH ×3 (08:22→20:02)
[2018-10-18] MEDS: PANTOPRAZOLE 40 MG (PROTONIX) VIAL IV SCH (08:22)
--- NOTE | 2018-10-18 08:30 | History & Physical-Hospitalist ---
History of Present Illness HPI/Chief Complaint CC: Dry gangrene of the left foot needing amputation. HPI: This is a 42yoWF who has a history of severe noncompliance requiring Dr. May to terminate her care who has a PMH of vasculitis who presented to the ER after she canceled multiple wound care appointments and she had left foot dry gangrene in need of amputation. Dr. Hammond was consulted and found to have Hgb of 5.9 but repeat was 10 with 3 units of blood transfusions. Pt has a long history of alcoholism, quit one year ago but continues to smoke and extremely histrionic regarding her pain issues. We will try to keep her comfortable with Fentanyl and Oxycodone and provide IV antibiotics in preparation for amputation. I will consult cardiology for peripheral vascular evaluation. Source: patient Exam Limitations: no limitations Date Seen 10/18/18 Time Seen by a Provider: 08:15 Attending Physician Lesli Anthony Holly A MD Referring Physician Date of Admission Oct 17, 2018 at 15:01 Home Medications & Allergies Home Medications Reviewed patient Home Medication Reconciliation performed by pharmacy medication reconciliations vascular ultrasound technician and/or nursing. Patients Allergies have been reviewed. Allergies Allergies Coded Allergies levofloxacin (Verified Allergy, Intermediate, HIVES, 05/29/16) orphenadrine (Unverified Allergy, Unknown, 05/29/16) Uncoded Allergies UNKNOWN ALLERGY ( Allergy, Unknown, 07/25/05) Past Txmplhq-Knogym-Srtktx Hx Past Med/Social Hx: Reviewed Nursing Past Med/Soc Hx, Reviewed and Corrections made Patient Social History Marrital Status: single Employed/Student: unemployed Alcohol Use: Denies Use Alcohol Beverage of Choice: Vodka, Other Recreational Drug Use: No Smoking Status: Current Everyday Smoker Type Used: Cigarettes 2nd Hand Smoke Exposure: No Recent Foreign Travel: No Contact w/other who traveled: No Recent Hopitalizations: No Recent Infectious Disease Expo: No Immunizations Up To Date Tetanus Booster (TDap): Less than 5yrs Date of Pneumonia Vaccine: September 07, 2011 Seasonal Allergies Seasonal Allergies: No Past Medical History Respiratory: Pneumonia Currently Using CPAP: No Currently Using BIPAP: No Cardiac: High Cholesterol, Hypertension, Peripheral Vascular Neurological: Neuropathy : No Reproductive: Yes (miscarriages) Sexually Transmitted Disease: No HIV/AIDS: No Female Reproductive Disorders: Ovarian Cyst Genitourinary: UTI-Chronic Musculoskeletal: Degenerate Disk Disease, Arthritis, Rheumatoid Arthritis, Chronic Back Pain Endocrine: Hypothyroidsim Loss of Vision: Denies Hearing Impairment: Denies Psychosocial: Anxiety, Suicide Attempts, Depression Skin/Integumentary: Eczema History of Blood Disorders: No Adverse Reaction to Blood George: No Family History PT REPORTS NO FAMILY HISTORY No Pertinent Family Hx Review of Systems Constitutional: see HPI EENTM: no symptoms reported Respiratory: no symptoms reported Cardiovascular: no symptoms reported Gastrointestinal: no symptoms reported Genitourinary: no symptoms reported Musculoskeletal: joint pain Skin: no symptoms reported Psychiatric/Neurological: No Symptoms Reported All Other Systems Reviewed Negative Unless Noted: Yes Physical Exam Physical Exam Vital Signs Vital Signs - First Documented 10/17/18 14:53 Temp 98.6 Pulse 76 Resp 16 B/P (MAP) 110/72 (85) Pulse Ox 98 O2 Delivery Room Air Capillary Refill : Less Than 3 Seconds Height, Weight, BMI Height: 5'0.00" Weight: 124lbs. 6.0oz. 56.721340ew; 23.7 BMI Method:Stated General Appearance: No Apparent Distress, WD/WN, Anxious, Chronically ill Eyes: Right Eye Normal Inspection, Right Eye PERRL HEENT: PERRL/EOMI, Normal ENT Inspection, Pharynx Normal, Moist Mucous Membranes Neck: Full Range of Motion, Normal Inspection, Non Tender Respiratory: Chest Non Tender, Lungs Clear, Normal Breath Sounds, No Accessory Muscle Use, No Respiratory Distress Cardiovascular: Regular Rate, Rhythm, No Edema, No Gallop, No JVD, No Murmur, Normal Peripheral Pulses Gastrointestinal: Normal Bowel Sounds, No Organomegaly, No Pulsatile Mass, Non Tender, Soft Back: Normal Inspection, No CVA Tenderness, No Vertebral Tenderness Extremity: Normal Capillary Refill, Normal Inspection, Normal Range of Motion (except feet with dressings intact with dry gangrene), Non Tender, No Calf Tenderness, No Pedal Edema Neurologic/Psychiatric: Alert, Oriented x3, No Motor/Sensory Deficits, Normal Mood/Affect Skin: Normal Color, Warm/Dry Lymphatic: No Adenopathy Results Results/Procedures Labs Laboratory Tests 10/17/18 15:02 10/18/18 06:05 Patient resulted labs reviewed. Assessment/Plan Admission Diagnosis Assessment: Dry gangrene of feet Vasculitis Neuropathy Chronic pain Non-compliance Smoker Previous alcoholism Plan: Monitor closely IV abx Pain control Needs amputation Admission Status: Inpatient Order (span 2 midnights) Reason for Inpatient Admission: Dry gangrene of foot in need of amputation Diagnosis/Problems Diagnosis/Problems (1) Dry gangrene Status: Acute (2) Alcoholism in remission Status: Chronic (3) Smoker Status: Chronic (4) Vasculitis Status: Chronic (5) Neuropathy Status: Chronic (6) Transfusion of blood during current hospitalization Status: Acute (7) Anemia Status: Acute Qualifiers: Anemia type: unspecified type Qualified Codes: D64.9 - Anemia, unspecified (8) Chronic wound of extremity Status: Chronic Clinical Quality Measures DVT/VTE Risk/Contraindication: Risk Factor Score Per Nursin RFS Level Per Nursing on Admit: 4+=Very High LESLI ANTHONY DO Oct 18, 2018 08:30
[2018-10-18] MEDS ORDERED: MIRT15TA6 PO (08:44)
--- NOTE | 2018-10-18 08:45 | NUR ---
MED REC COMPLETED BY NURSE PRIOR TO MED REC TECH AVAILABILITY, I UPDATED THE MIRTAZAPINE TO THE TABLET INSTEAD OF THE ODT AND FIXED THE DIRECTIONS ON THE OXYCODONE HOWEVER NO OTHER DISCREPANCIES WERE OBVIOUS. I DID NOT RE INTERVIEW THE PATIENT AT THIS TIME.
--- NOTE | 2018-10-18 09:05 | NUR ---
Pt transferred to floor. Report given to Padmini. Personal belongings sent with pt.
--- NOTE | 2018-10-18 09:11 | Consultation-Cardiology ---
HPI-Cardiology Cardiology Consultation: Date of Consultation 10/18/18 Date of Admission Attending Physician Lesli Bonds DO Admitting Physician Jacob May MD Consulting Physician Juan STACY MD HPI: Time Seen by a Provider: 12:30 Chief Complaint: Nonhealing ulcers bilateral lower extremities. This is a 42-year-old lady with complicated post medical history. She has history of rheumatoid arthritis since she was 4 years of age. She also has history of vasculitis. She follows with a community organization aide in [facility] in [place]. However she tells me that she is switching to a community organization aide in [place]. She is has previous history of necrotic ulcers requiring skin grafts. She has history of substances abuse and active smoking. According to her she is had numerous previous peripheral vascular evaluation which only show small vessel disease. She denies any significant cardiac symptoms. She does have discomfort at the site of the necrotic wounds. Review of Systems-Cardiology Review of Systems Constitutional: As described under HPI; No As described under HPI, No no symptoms reported, No chills, No fever, No lightheadedness Eyes: No As described under HPI, No no symptoms reported, No blindness, No blurred vision, No contact lenses, No drainage, No decreased acuity, No foreign body sensation, No pain, No vision change Ears/Nose/Throat: No As described under HPI, No no symptoms reported, No chronic hearing loss, No ear discharge, No ear pain, No nasal drainage, No ulcerations Respiratory: No no symptoms reported; As described under HPI; No As described under HPI, No cough, No orthopnea, No shortness of breath, No SOB with excertion Cardiovascular: No no symptoms reported; As described under HPI; No As described under HPI, No chest pain, No edema, No irregular heart rate, No lightheadedness, No palpitations Gastrointestinal: No no symptoms reported, No As described under HPI, No abdomen distended, No abdominal pain, No blood streaked bowels, No constipation, No diarrhea, No nausea, No vomiting, No stool coloration changes Genitourinary: No As described under HPI, No burning, No dysuria, No discharge, No frequency, No flank pain, No hematuria, No urgency : Yes : No Skin: No rash, No skin related problems, No ulcerations Psychiatric/Neurological: No anxiety, No depression, No seizure, No focal weakness, No syncope Hematologic: No bleeding abnormalities SVC-Fumsly-Uiynxi Hx Patient Social History Alcohol Use: Denies Use Recreational Drug Use: No Smoking Status: Current Everyday Smoker Former smoker/When Quit: Apr 01, 2013 Type Used: Cigarettes 2nd Hand Smoke Exposure: No Recent Foreign Travel: No Recent Infectious Disease Expo: No Hospitalization with Isolation: Denies Immunizations Up To Date Tetanus Booster (TDap): Less than 5yrs Date of Pneumonia Vaccine: September 07, 2011 Past Medical History PMH As described under Assessment. Family Medical History Family History: PT REPORTS NO FAMILY HISTORY Allergies and Home Medications Allergies Coded Allergies: levofloxacin (Verified Allergy, Intermediate, HIVES, 05/29/16) orphenadrine (Unverified Allergy, Unknown, 05/29/16) Uncoded Allergies: UNKNOWN ALLERGY (Allergy, Unknown, 07/25/05) Home Medications Clonidine HCl 0.1 Mg Tablet, 0.1 MG PO TID Prescribed by: JACOB MAY on 02/02/17 1620 Ibuprofen 200 Mg Tablet, 800 MG PO TID, (Reported) TAKES 4 (200 MG) TABLETS Mirtazapine 15 Mg Tablet, 7.5 MG PO HS, (Reported) TAKES 1/2 (15MG) TABLET Oxycodone HCl 30 Mg Tablet, 30 MG PO 4-6X DAILY PRN for PAIN-SEVERE, (Reported) Pregabalin 100 Mg Capsule, 100 MG PO TID, (Reported) Trazodone HCl 150 Mg Tablet, 150 MG PO HS, (Reported) Patient Home Medication List Home Medication List Reviewed: Yes Physical Exam-Cardiology Physical Exam Vital Signs/I&O 10/18/18 10/18/18 10/18/18 10/18/18 05:00 06:00 07:00 07:16 Pulse 74 76 80 76 Resp 8 10 15 B/P (MAP) 112/73 (86) 122/83 (96) 128/83 (98) Pulse Ox 100 99 90 O2 Delivery Room Air Room Air Room Air 10/18/18 10/18/18 10/18/18 10/18/18 08:00 08:00 08:00 09:00 Temp 97.8 Pulse 84 92 Resp 49 40 B/P (MAP) 133/91 (105) 123/96 (105) Pulse Ox 100 100 96 O2 Delivery Room Air Room Air Room Air 10/18/18 10/18/18 10/18/18 10/18/18 09:10 12:00 12:00 16:00 Temp 97.0 99.7 98.8 Pulse 99 81 94 Resp 20 20 18 B/P (MAP) 133/87 (102) 121/81 (94) 121/80 (94) Pulse Ox 97 100 97 96 O2 Delivery Room Air Room Air Room Air Room Air 10/18/18 00:00 Intake Total 3410 ml Output Total 600 ml Balance 2810 ml Capillary Refill : Less Than 3 Seconds Constitutional: appears stated age, AAO x 3; No apparent distress; well- developed, well-nourished HEENT: PERRL; No normal ENT inspection, No TMs normal, No pharynx normal, No scleral icterus (R), No scleral icterus (L), No pale conjunctivae (R), No pale conjunctivae (L), No photophobia, No TM abnormal (R), No TM abnormal (L), No pharyngeal erythema, No tonsillar exudate, No other, No discharge, No EOMI; hearing is well preserved; No hard of hearing; oral hygience is good; No ulceration, No xanthelasmas are seen Neck: No non-tender, No full range of motion, No supple, No normal inspection, No carotid bruit, No limited range of motion, No lymphadenopathy (R), No lymphadenopathy (L), No tender lateral, No tender midline, No thyromegaly, No other; carotid pulses are 2 + bilaterally; No with good upstrokes Respiratory: No accessory muscle use, No respiratory distress, No chest tender, No chest expansion is symmetric; chest is bilaterally symmetric; No lungs clear to percussion; lungs clear to auscultation; No crackles, No rhonchi, No rales, No stridor, No wheezing, No pleural rub, No other Cardiovascular: regular rate-rhythm; No irregularly irregular, No extra beats, No parasternal heave is noted, No JVD, No edema, No bradycardia, No tachycardia, No point of maximal impulse, No cardiac thrills are palpable; S1 and S2; No gallop/S3, No gallop/S4, No diastolic murmur, No systolic murmur, No friction rub, No click, No other Gastrointestinal: No tender, No soft, No round, No distended, No pulsatile mass, No organomegaly, No guarding, No rebound, No tenderness, No hernia, No mass, No audible bowel sounds, No abnormal bowel sounds, No abdominal bruits, No spleenomegaly, No other Rectal: deferred Extremities: No normal range of motion, No non-tender, No normal inspection, No pedal edema, No calf tenderness, No normal capillary refill, No pelvis stable, No calf tenderness, No inflammation, No pedal edema, No slow capillary refill, No swelling, No other, No abrasion, No clubbing, No cyanosis, No ecchymosis, No laceration, No no lower extremity edema bilateral, No significant edema, No tenderness; wound Neurologic/Psychiatric: no motor/sensory deficits, alert, normal mood/affect, oriented x 3, power is 5/5 both on sides Skin: No normal color, No warm/dry, No cyanosis, No cool, No diaphoresis, No damp, No ecchymosis, No jaundice, No mottled, No pallor, No rash, No tattoos/piercings, No ulcerations, No rash on exposed areas, No ulcerations on exposed areas, No other Data Review Labs Laboratory Tests 10/18/18 06:05: White Blood Count 12.5H, Red Blood Count 3.85L, Hemoglobin 10.2#L, Hematocrit 31L, Mean Corpuscular Volume 82, Mean Corpuscular Hemoglobin 26, Mean Corpuscular Hemoglobin Concent 33, Red Cell Distribution Width 17.7H, Platelet Count 275, Mean Platelet Volume 9.9, Neutrophils (%) (Auto) 77H, Lymphocytes (%) (Auto) 8L, Monocytes (%) (Auto) 11, Eosinophils (%) (Auto) 3, Basophils (%) (Auto) 0, Neutrophils # (Auto) 9.7H, Lymphocytes # (Auto) 1.0, Monocytes # (Auto) 1.4H, Eosinophils # (Auto) 0.4H, Basophils # (Auto) 0.0, Neutrophils % (Manual) 82, Lymphocytes % (Manual) 8, Monocytes % (Manual) 5, Eosinophils % (Manual) 1, Basophils % (Manual) 0, Band Neutrophils 0, Reactive Lymphocytes 4, Toxic Granulation 1+, Polychromasia SLIGHT, Hypochromasia MODERATE, Anisocytosis MODERATE, Tear Drop Cells SLIGHT, Sodium Level 138, Potassium Level 3.5L, Chloride Level 109H, Carbon Dioxide Level 18L, Anion Gap 11, Blood Urea Nitrogen 9, Creatinine 0.68, Estimat Glomerular Filtration Rate > 60, BUN/Creatinine Ratio 13, Glucose Level 83, Calcium Level 7.9L, Corrected Calcium 9.3, Phosphorus Level 5.0H, Magnesium Level 1.4L, Total Bilirubin 0.5, Aspartate Amino Transf (AST/SGOT) 10, Alanine Aminotransferase (ALT/SGPT) 6, Alkaline Phosphatase 112, Total Protein 5.3L, Albumin 2.3L 10/18/18 12:23: Lab Scanned Report Transfusion Reaction Form Microbiology 10/17/18 Blood Culture - Preliminary, Resulted No growth 10/17/18 Gram Stain - Final, Resulted 10/17/18 Wound Culture - Preliminary, Resulted Corynebacterium striatum A/P-Cardiology Assessment/Admission Diagnosis Nonhealing ulcers bilateral lower extremities, Juvenile rheumatoid arthritis, Vasculitis, Substance abuse, Active smoking Plan This patient has a complicated medical history. Cardiology/vascular services were consulted for possible PAD as an etiology for her nonhealing ulcers. Lower extremity arterial Dopplers do not show any significant obstructive disease. The patient has history of vasculitis and this could be due to small vessel disease. No arterial intervention is recommended. Aggressive wound care and deferred to general surgery and wound care services. Severe anemia requiring 2 units of packed RBCs. Source unclear. Thank you for your consultation. Please call me if you have any questions. Heidi Stacy MD, FACP, FACC, FSCAI, FHRS, CCDS Interventional Cardiology Cardiac Electrophysiology Vascular Medicine and Endovascular Interventions Clinical Quality Measures DVT/VTE Risk/Contraindication: Risk Factor Score Per Nursin RFS Level Per Nursing on Admit: 4+=Very High Juan STACY MD Oct 18, 2018 9:11 am
--- NOTE | 2018-10-18 09:17 | NUR ---
Patient to floor at this time via w/c, this RN will assume care of this patient at this time.
--- NOTE | 2018-10-18 12:28 | Diagnostic Imaging Report ---
INDICATION: Gangrene. FINDINGS: The lungs are clear. The heart and vessels are normal. There is no effusion or pneumothorax. No free air beneath the diaphragms. IMPRESSION: Negative. Dictated by: Dictated on workstation # [id number]
--- NOTE | 2018-10-18 15:04 | Progress Note (SOAP) ---
Subjective Date Seen by a Provider: Oct 18, 2018 Time Seen by a Provider: 14:40 Subjective/Events-last exam Patent seen with Dr. Hammond. Patient reports that her left foot is in pain and says that it hurts more than yesterday. She does report some nausea but no vomiting. No fever/chills. Has not had much of an appetite due to the nausea and pain. Focused Exam Lactate Level 10/17/18 15:02: Lactic Acid Level 1.76 Objective Exam Vital Signs Date Time Temp Pulse Resp B/P (MAP) Pulse Ox O2 Delivery O2 Flow Rate FiO2 10/18/18 12:00 97 Room Air 10/18/18 12:00 99.7 81 20 121/81 (94) 100 Room Air 10/18/18 09:10 97.0 99 20 133/87 (102) 97 Room Air 10/18/18 09:00 92 40 123/96 (105) 96 Room Air 10/18/18 08:00 84 49 133/91 (105) 100 Room Air 10/18/18 08:00 100 Room Air 10/18/18 08:00 97.8 10/18/18 07:16 76 10/18/18 07:00 80 15 128/83 (98) 90 Room Air 10/18/18 06:00 76 10 122/83 (96) 99 Room Air 10/18/18 05:00 74 8 112/73 (86) 100 Room Air 10/18/18 04:20 98.8 79 12 112/79 100 Room Air 10/18/18 04:00 73 11 113/79 (90) 100 Room Air 10/18/18 03:50 98.7 76 10 100 Room Air 10/18/18 03:25 100 Room Air 10/18/18 03:00 74 12 124/80 (95) Room Air 10/18/18 02:40 98.0 81 20 124/79 98 Room Air 10/18/18 02:00 81 14 124/80 (95) Room Air 10/18/18 01:40 97.7 88 20 117/102 97 Room Air 10/18/18 01:24 97.0 76 10 119/92 96 Room Air 10/18/18 01:01 80 11 119/92 (101) 94 Room Air 10/18/18 01:00 87 6/27/19 00:25 96 Room Air 10/18/18 00:24 97.0 80 12 111/70 96 Room Air 10/18/18 00:00 99.0 Room Air 10/17/18 22:02 98.7 88 22 126/86 100 Room Air 10/17/18 22:01 98.7 88 22 126/86 10 Room Air 10/17/18 22:00 82 10 126/86 (99) 100 Room Air 10/17/18 21:54 98.6 88 22 127/77 98 Room Air 10/17/18 21:23 89.5 86 24 127/77 100 Room Air 10/17/18 21:15 95 16 127/77 (94) Room Air 10/17/18 20:08 96 11 122/87 (99) Room Air 10/17/18 19:50 98.4 Room Air 10/17/18 19:45 95 Room Air 10/17/18 19:40 98.4 98 16 122/79 Room Air 10/17/18 19:00 90 10/17/18 19:00 90 16 121/84 (96) Room Air 10/17/18 18:27 97.6 90 11 119/83 Room Air 10/17/18 18:21 97.0 84 12 119/83 92 Room Air 10/17/18 18:00 91 11 126/95 (105) Room Air 10/17/18 17:45 103 17 136/84 (101) Room Air 10/17/18 17:30 101 10 110/89 (96) 90 Room Air 10/17/18 17:26 95 10/17/18 17:10 85 20 108/65 (79) 98 Room Air I & O 10/18/18 07:00 Intake Total 5415.5 ml Output Total 1450 ml Balance 3965.5 ml Capillary Refill : Less Than 3 Seconds General Appearance: No Apparent Distress, WD/WN, Chronically ill Neck: Full Range of Motion, Normal Inspection, Supple Respiratory: Normal Breath Sounds, No Accessory Muscle Use, No Respiratory Distress Cardiovascular: Regular Rate, Rhythm, No JVD Gastrointestinal: normal bowel sounds, non tender, soft Extremity: Pedal Edema, Other (Left lower lateral leg ulcer. Left foot dry gangrene from mid foot distally. Right lower lateral leg large ulcer.) Neurologic/Psychiatric: Alert, Oriented x3 Skin: Normal Color, Warm/Dry Results Lab Laboratory Tests 10/17/18 15:02: White Blood Count 12.6H, Red Blood Count 2.49L, Hemoglobin 5.7*L, Hematocrit 20*L, Mean Corpuscular Volume 80, Mean Corpuscular Hemoglobin 23L, Mean Corpuscular Hemoglobin Concent 29L, Red Cell Distribution Width 17.5H, Platelet Count 401H, Mean Platelet Volume 10.3, Neutrophils (%) (Auto) 79H, Lymphocytes (%) (Auto) 10L, Monocytes (%) (Auto) 10, Eosinophils (%) (Auto) 1, Basophils (%) (Auto) 0, Neutrophils # (Auto) 10.0H, Lymphocytes # (Auto) 1.3, Monocytes # (Auto) 1.2H, Eosinophils # (Auto) 0.2, Basophils # (Auto) 0.0, Erythrocyte Sedimentation Rate 110H, Sodium Level 139, Potassium Level 3.7, Chloride Level 108H, Carbon Dioxide Level 20L, Anion Gap 11, Blood Urea Nitrogen 10, Creatinine 0.79, Estimat Glomerular Filtration Rate > 60, BUN/Creatinine Ratio 13, Glucose Level 78, Lactic Acid Level 1.76, Calcium Level 8.2L, Corrected Calcium 9.4, Total Bilirubin 0.2, Aspartate Amino Transf (AST/SGOT) 9, Alanine Aminotransferase (ALT/SGPT) 7, Alkaline Phosphatase 131, Total Protein 6.0L, Albumin 2.5L 10/18/18 06:05: White Blood Count 12.5H, Red Blood Count 3.85L, Hemoglobin 10.2#L, Hematocrit 31L, Mean Corpuscular Volume 82, Mean Corpuscular Hemoglobin 26, Mean Corpuscular Hemoglobin Concent 33, Red Cell Distribution Width 17.7H, Platelet Count 275, Mean Platelet Volume 9.9, Neutrophils (%) (Auto) 77H, Lymphocytes (%) (Auto) 8L, Monocytes (%) (Auto) 11, Eosinophils (%) (Auto) 3, Basophils (%) (Auto) 0, Neutrophils # (Auto) 9.7H, Lymphocytes # (Auto) 1.0, Monocytes # (Auto) 1.4H, Eosinophils # (Auto) 0.4H, Basophils # (Auto) 0.0, Sodium Level 138, Potassium Level 3.5L, Chloride Level 109H, Carbon Dioxide Level 18L, Anion Gap 11, Blood Urea Nitrogen 9, Creatinine 0.68, Estimat Glomerular Filtration Rate > 60, BUN/Creatinine Ratio 13, Glucose Level 83, Calcium Level 7.9L, Corrected Calcium 9.3, Total Bilirubin 0.5, Aspartate Amino Transf (AST/SGOT) 10, Alanine Aminotransferase (ALT/SGPT) 6, Alkaline Phosphatase 112, Total Protein 5.3L, Albumin 2.3L, Neutrophils % (Manual) 82, Lymphocytes % (Manual) 8, Monocytes % (Manual) 5, Eosinophils % (Manual) 1, Basophils % (Manual) 0, Band Neutrophils 0, Reactive Lymphocytes 4, Toxic Granulation 1+, Polychromasia SLIGHT, Hypochromasia MODERATE, Anisocytosis MODERATE, Tear Drop Cells SLIGHT, Phosphorus Level 5.0H, Magnesium Level 1.4L 10/18/18 12:23: Lab Scanned Report Transfusion Reaction Form Microbiology 10/17/18 Gram Stain - Final, Resulted 10/17/18 Wound Culture, Resulted Pending Assessment/Plan Assessment/Plan Assess & Plan/Chief Complaint A 42 year old female with anemia, vasculitis, dry gangrene of the left foot as well as bilateral lower extremity ulcers. VSS. Hgb improved to 10. Continue IV fluids, abx, pain, nausea meds. Will proceed with surgical intervention with amputation of the left foot once medically stable. Clinical Quality Measures DVT/VTE Risk/Contraindication: Risk Factor Score Per Nursin RFS Level Per Nursing on Admit: 4+=Very High YAZ ESPINOZA BOWLING BALL FINISHER Oct 18, 2018 15:04
--- NOTE | 2018-10-18 16:19 | Diagnostic Imaging Report ---
CLINICAL INDICATION: Evaluate PICC line placement. EXAM: Portable chest x-ray upright view. COMPARISONS: Chest x-ray dated 10/18/2018. FINDINGS: Interval placement of right PICC line with tip in the mid to lower right atrial region. This PICC line should be withdrawn roughly 7 mm and repeat chest x-ray performed. Lungs are clear. There is no pleural effusion or pneumothorax. Pulmonary vasculature and mediastinal structures are unremarkable. Cardiac silhouette is within normal limits. Bones show no acute process and are unremarkable for patient's age. Bones show no significant abnormality. IMPRESSION: 1: Interval placement of right PICC line with tip in the mid to lower atrial region. This PICC line should be withdrawn roughly 7 cm and repeat chest x-ray performed. 2: Otherwise, there is no radiographic evidence of acute cardiopulmonary process. Results of this report were given to nurse Noble at [facility] at 4:18 p.m., by ariana. Dictated by: Dictated on workstation # [id number]
[2018-10-18] MEDS: fentaNYL INJECTION 1,000 MCG in NS (IVPB) 80 ML IV SCH (17:10)
--- NOTE | 2018-10-18 18:50 | Diagnostic Imaging Report ---
INDICATION: Repositioning of right upper extremity PICC. FINDINGS: Portable upright AP view of the chest is obtained. Since the study of earlier in the day, there has been partial withdrawal of right upper extremity PICC with catheter tip now projecting over the mid superior vena cava. There is no pneumothorax and the lungs remain clear. IMPRESSION: Good positioning of right upper extremity PICC without evidence of complication. Dictated by: Dictated on workstation # [id number]
[2018-10-18] MEDS: traZODone 150 MG (DESYREL) TABLET PO SCH (22:03)
[2018-10-19 00:50] VITALS: BP 142/82
[2018-10-19] MEDS: VANCOMYCIN 750 MG/NS 250 ML IVPB IV SCH ×4 (03:31→17:13)
[2018-10-19 04:46] VITALS: BP 126/81
[2018-10-19 05:52] LABS: BASOPHILS % (AUTO) 0 % (0-10); EOSINOPHILS # (AUTO) 0.5 10^3/uL (0.0-0.3); EOSINOPHILS % (AUTO) 4 % (0-10); HEMATOCRIT 25 % (35-52); LYMPHOCYTES # (AUTO) 1.1 X 10^3 (1.0-4.0); LYMPHOCYTES % (AUTO) 9 % (12-44); MEAN CORPUSCULAR HEMOGLOBIN 26 PG (25-34); MEAN CORPUSCULAR HGB CONC 32 G/DL (32-36); MEAN CORPUSCULAR VOLUME 81 FL (80-99); MEAN PLATELET VOLUME 9.6 FL (7.4-10.4); MONOCYTES % (AUTO) 8 % (0-12); NEUTROPHILS # (AUTO) 10.2 X 10^3 (1.8-7.8); NEUTROPHILS % (AUTO) 80 % (42-75); PLATELET COUNT 316 10^3/uL (130-400); RED CELL DISTRIBUTION WIDTH 17.9 % (10.0-14.5); WHITE BLOOD COUNT 12.7 10^3/uL (4.3-11.0)
[2018-10-19 06:11] LABS: BUN/CREATININE RATIO 10; CALCIUM 7.5 MG/DL (8.5-10.1); CARBON DIOXIDE 18 MMOL/L (21-32); CHLORIDE 111 MMOL/L (98-107); CREATININE SERUM 0.61 MG/DL (0.60-1.30); GFR ESTIMATED > 60; GLUCOSE 77 MG/DL (70-105); POTASSIUM 3.4 MMOL/L (3.6-5.0); SODIUM 138 MMOL/L (135-145)
[2018-10-19] MEDS: PIPERACILLIN/TAZO 4.5 GM/NS 100 ML IV SCH ×6 (06:33→23:38)
[2018-10-19 08:00] VITALS: BP 137/85
[2018-10-19] MEDS: PANTOPRAZOLE 40 MG (PROTONIX) VIAL IV SCH (09:55)
[2018-10-19] MEDS: PREGABALIN 100 MG (LYRICA) CAPSULE PO SCH ×3 (09:55→20:43)
[2018-10-19] MEDS: cloNIDine 0.1 MG (CATAPRES) TAB PO SCH ×3 (09:55→20:43)
--- NOTE | 2018-10-19 10:32 | Progress Note-Hospitalist ---
Subjective HPI/CC On Admission Date Seen by Provider: Oct 19, 2018 Time Seen by Provider: 09:45 CC: Dry gangrene of the left foot needing amputation. HPI: This is a 42yoWF who has a history of severe noncompliance requiring Dr. May to terminate her care who has a PMH of vasculitis who presented to the ER after she canceled multiple wound care appointments and she had left foot dry gangrene in need of amputation. Dr. Hammond was consulted and found to have Hgb of 5.9 but repeat was 10 with 3 units of blood transfusions. Pt has a long history of alcoholism, quit one year ago but continues to smoke and extremely histrionic regarding her pain issues. We will try to keep her comfortable with Fentanyl and Oxycodone and provide IV antibiotics in preparation for amputation. I will consult cardiology for peripheral vascular evaluation. Subjective/Events-last exam Patient more comfortable today Monday will be the planned amputation No BM passing gas Very difficult situation considering the severity of her comorbidities and termination of care from her prior physician will need to establish care with someone else Smoking cessation discussed Reviewed labs and meds Review of Systems General: Fatigue Focused Exam Lactate Level 10/17/18 15:02: Lactic Acid Level 1.76 Objective Exam Vital Signs Vital Signs Date Time Temp Pulse Resp B/P (MAP) Pulse Ox O2 Delivery O2 Flow Rate FiO2 10/19/18 08:00 99.4 81 20 137/85 (102) 98 Room Air Capillary Refill : Less Than 3 Seconds General Appearance: No Apparent Distress, WD/WN, Anxious, Chronically ill HEENT: PERRL/EOMI, Normal ENT Inspection, Pharynx Normal, Moist Mucous M embranes Neck: Full Range of Motion, Normal Inspection, Non Tender Respiratory: Chest Non Tender, Lungs Clear, Normal Breath Sounds, No Accessory Muscle Use, No Respiratory Distress Cardiovascular: Regular Rate, Rhythm, No Edema, No Gallop, No JVD, No Murmur, Normal Peripheral Pulses Gastrointestinal: Normal Bowel Sounds, No Organomegaly, No Pulsatile Mass, Non Tender, Soft Back: Normal Inspection, No CVA Tenderness, No Vertebral Tenderness Extremity: Normal Capillary Refill, Normal Inspection, Normal Range of Motion (except feet with dressings intact with dry gangrene), Non Tender, No Calf Tenderness, No Pedal Edema Neurologic/Psychiatric: Alert, Oriented x3, No Motor/Sensory Deficits, Normal Mood/Affect Skin: Normal Color, Warm/Dry Lymphatic: No Adenopathy Results/Procedures Lab Laboratory Tests 10/19/18 05:45 Patient resulted labs reviewed. 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
--- NOTE | 2018-10-19 10:42 | Pulmonary Progress Note ---
Subjective Time Seen by a Provider: 06:25 Subjective/Events-last exam PT is much improved Sepsis Event Evaluation Height, Weight, BMI Height: 5'0.00" Weight: 122lbs. 8.0oz. 55.049787gm; 23.7 BMI Method:Stated Focused Exam Lactate Level 10/17/18 15:02: Lactic Acid Level 1.76 Exam Exam Vital Signs Date Time Temp Pulse Resp B/P (MAP) Pulse Ox O2 Delivery O2 Flow Rate FiO2 10/19/18 08:00 99.4 81 20 137/85 (102) 98 Room Air 10/19/18 08:00 97 Room Air 10/19/18 04:46 98.5 84 18 126/81 (96) 98 Room Air 10/19/18 00:50 98.9 81 20 142/82 (102) 99 Room Air 10/18/18 20:36 Room Air 10/18/18 19:36 98.8 89 18 105/58 (74) 99 Room Air 10/18/18 16:00 98.8 94 18 121/80 (94) 96 Room Air 10/18/18 12:00 97 Room Air 10/18/18 12:00 99.7 81 20 121/81 (94) 100 Room Air I & O 10/19/18 07:00 Intake Total 4875.0 ml Output Total 1900 ml Balance 2975.0 ml Height & Weight Height: 5'0.00" Weight: 122lbs. 8.0oz. 55.500822el; 23.7 BMI Method:Stated General Appearance: No Apparent Distress, WD/WN, Anxious, Chronically ill HEENT: PERRL/EOMI, Normal ENT Inspection, Pharynx Normal, Moist Mucous Membranes Neck: Full Range of Motion, Normal Inspection, Non Tender Respiratory: Chest Non Tender, Lungs Clear, Normal Breath Sounds, No Accessory Muscle Use, No Respiratory Distress Cardiovascular: Regular Rate, Rhythm, No Edema, No Gallop, No JVD, No Murmur, Normal Peripheral Pulses Capillary Refill: Less Than 3 Seconds Gastrointestinal: normal bowel sounds, non tender, soft Extremity: Normal Capillary Refill, Normal Inspection, Normal Range of Motion (except feet with dressings intact with dry gangrene), Non Tender, No Calf Tenderness, No Pedal Edema Neurologic/Psychiatric: Alert, Oriented x3, No Motor/Sensory Deficits, Normal Mood/Affect Skin: Normal Color, Warm/Dry Lymphatic: No Adenopathy Results Lab Laboratory Tests 10/17/18 15:02 10/18/18 06:05 10/19/18 05:45 Assessment/Plan Assessment/Plan Necrotic Left foot secondary to vasculitis/PVD -Dr. Hammond following -Plan is for amputation -Vanco/Zosyn Tobacco use -Education Severe Anemia -S/P 3 units of PRBC -Repeat labs pending Pt is doing better from pulmonary standpoint. ON RA. I am going to sign off please call with any questions. HEATHER HALL DO Oct 19, 2018 10:42
[2018-10-19 12:00] VITALS: BP 116/78
--- NOTE | 2018-10-19 14:00 | NUR ---
DRESSINGS CHANGED BY PATIENT WITH ASSISTANCE OF NURSE TOES ON LEFT FOOT BLACK AND DRY, C/O PAIN WITH DRESSING CHANGED, USING FENTANYL DIRECTOR OF PHYSICIAN PRACTICES NEEDED, VERBALIZED UNDERSTANDING OF SURGERY ON MONDAY FOR AMPUTATION
[2018-10-19] MEDS: fentaNYL INJECTION 1,000 MCG in NS (IVPB) 80 ML IV SCH (14:04)
--- NOTE | 2018-10-19 14:20 | NUR ---
NEW FENTANYL IRON INSTALLER BAG HUNG, 12.5 WASTED, WITNESSED BY ALCON VILLANUEVA RN
[2018-10-19] MEDS ORDERED: TROUGH ORDER-PHARMACY XX NR (15:00)
[2018-10-19 16:00] VITALS: BP 109/75
[2018-10-19 20:00] VITALS: BP 107/67
[2018-10-19] MEDS: traZODone 150 MG (DESYREL) TABLET PO SCH (20:43)
[2018-10-19] MEDS: NS IV 1000 ML 1,000 ML IV SCH (23:38)
[2018-10-20 00:45] VITALS: BP 116/56
[2018-10-20] MEDS: VANCOMYCIN 750 MG/NS 250 ML IVPB IV SCH ×4 (03:48→16:50)
[2018-10-20 04:41] VITALS: BP 126/84
[2018-10-20 05:01] LABS: BASOPHILS % (AUTO) 0 % (0-10); EOSINOPHILS # (AUTO) 0.5 10^3/uL (0.0-0.3); EOSINOPHILS % (AUTO) 5 % (0-10); HEMATOCRIT 25 % (35-52); HEMOGLOBIN 7.7 G/DL (11.5-16.0); LYMPHOCYTES % (AUTO) 10 % (12-44); MEAN CORPUSCULAR HEMOGLOBIN 26 PG (25-34); MEAN CORPUSCULAR HGB CONC 31 G/DL (32-36); MEAN CORPUSCULAR VOLUME 83 FL (80-99); MEAN PLATELET VOLUME 9.4 FL (7.4-10.4); MONOCYTES % (AUTO) 10 % (0-12); NEUTROPHILS # (AUTO) 7.5 X 10^3 (1.8-7.8); NEUTROPHILS % (AUTO) 76 % (42-75); PLATELET COUNT 292 10^3/uL (130-400); RED CELL DISTRIBUTION WIDTH 17.9 % (10.0-14.5); WHITE BLOOD COUNT 9.9 10^3/uL (4.3-11.0)
[2018-10-20 05:20] LABS: BUN/CREATININE RATIO 12; CALCIUM 7.9 MG/DL (8.5-10.1); CARBON DIOXIDE 21 MMOL/L (21-32); CHLORIDE 111 MMOL/L (98-107); GFR ESTIMATED > 60; GLUCOSE 75 MG/DL (70-105); POTASSIUM 3.7 MMOL/L (3.6-5.0); SODIUM 140 MMOL/L (135-145)
[2018-10-20] MEDS: PIPERACILLIN/TAZO 4.5 GM/NS 100 ML IV SCH ×6 (06:37→23:53)
[2018-10-20 08:00] VITALS: BP 125/74
[2018-10-20] MEDS: cloNIDine 0.1 MG (CATAPRES) TAB PO SCH ×3 (10:13→20:10)
[2018-10-20] MEDS: PREGABALIN 100 MG (LYRICA) CAPSULE PO SCH ×3 (10:13→20:10)
[2018-10-20] MEDS: PANTOPRAZOLE 40 MG (PROTONIX) VIAL IV SCH (10:13)
[2018-10-20 12:00] VITALS: BP 124/65
[2018-10-20] MEDS: fentaNYL INJECTION 1,000 MCG in NS (IVPB) 80 ML IV SCH (14:07)
--- NOTE | 2018-10-20 14:15 | NUR ---
NEW FENTANYL BAG HUNG, WASTED 15ML, WITNESSED BY PRADEEP BRISCOE
[2018-10-20 16:00] VITALS: BP 101/67
--- NOTE | 2018-10-20 17:46 | NUR ---
REFUSED TO LET NURSE CHANGE HER FOOT DRESSINGS, DRESSINGS DRY AND INTACT, SUPPLIES AT BEDSIDE, FEET ELEVATED OFF BED,FENTANYL WHITING MACHINE OPERATOR CONTINUED, RATES PAIN A 5 ON PAIN SCALE, FEET 1+ EDEMA, CALL LIGHT WITHIN REACH.
[2018-10-20 20:06] VITALS: BP 109/71
[2018-10-20] MEDS: traZODone 150 MG (DESYREL) TABLET PO SCH (20:10)
[2018-10-20] MEDS: NS IV 1000 ML 1,000 ML IV SCH (20:11)
[2018-10-21 00:15] VITALS: BP 108/71
[2018-10-21 03:55] VITALS: BP 108/116
[2018-10-21] MEDS: VANCOMYCIN 750 MG/NS 250 ML IVPB IV SCH ×4 (04:53→15:39)
[2018-10-21] MEDS: NS IV 1000 ML 1,000 ML IV SCH ×2 (04:54→23:33)
[2018-10-21] MEDS: PIPERACILLIN/TAZO 4.5 GM/NS 100 ML IV SCH ×6 (06:45→23:34)
[2018-10-21 06:51] LABS: BASOPHILS % (AUTO) 0 % (0-10); EOSINOPHILS # (AUTO) 0.5 10^3/uL (0.0-0.3); EOSINOPHILS % (AUTO) 4 % (0-10); HEMATOCRIT 24 % (35-52); HEMOGLOBIN 7.6 G/DL (11.5-16.0); LYMPHOCYTES # (AUTO) 1.1 X 10^3 (1.0-4.0); LYMPHOCYTES % (AUTO) 11 % (12-44); MEAN CORPUSCULAR HEMOGLOBIN 26 PG (25-34); MEAN CORPUSCULAR HGB CONC 32 G/DL (32-36); MEAN CORPUSCULAR VOLUME 83 FL (80-99); MEAN PLATELET VOLUME 9.4 FL (7.4-10.4); MONOCYTES % (AUTO) 10 % (0-12); NEUTROPHILS # (AUTO) 7.5 X 10^3 (1.8-7.8); NEUTROPHILS % (AUTO) 74 % (42-75); PLATELET COUNT 321 10^3/uL (130-400); RED CELL DISTRIBUTION WIDTH 18.5 % (10.0-14.5); WHITE BLOOD COUNT 10.1 10^3/uL (4.3-11.0)
[2018-10-21 07:05] LABS: BUN/CREATININE RATIO 11; CALCIUM 7.6 MG/DL (8.5-10.1); CARBON DIOXIDE 20 MMOL/L (21-32); CHLORIDE 114 MMOL/L (98-107); CREATININE SERUM 0.61 MG/DL (0.60-1.30); GFR ESTIMATED > 60; GLUCOSE 69 MG/DL (70-105); POTASSIUM 3.7 MMOL/L (3.6-5.0); SODIUM 141 MMOL/L (135-145)
[2018-10-21 08:00] VITALS: BP 122/79
--- NOTE | 2018-10-21 08:00 | NUR ---
HG 7.[address] MATHEWS, PATIENT REQUESTING MED FOR ARTHRITIS, DR MATHEWS NOTIFIED
[2018-10-21] MEDS: cloNIDine 0.1 MG (CATAPRES) TAB PO SCH ×3 (09:15→21:22)
[2018-10-21] MEDS: PANTOPRAZOLE 40 MG (PROTONIX) VIAL IV SCH (09:15)
[2018-10-21] MEDS: PREGABALIN 100 MG (LYRICA) CAPSULE PO SCH ×3 (09:15→21:22)
[2018-10-21] MEDS ORDERED: methylPREDNISolone 40 MG/ML (Solu-MEDROL) VIAL IV ONE ×2 (10:45→18:00)
--- NOTE | 2018-10-21 11:00 | Progress Note-Hospitalist ---
Subjective HPI/CC On Admission Date Seen by Provider: Oct 21, 2018 Time Seen by Provider: 11:01 CC: Dry gangrene of the left foot needing amputation. HPI: This is a 42yoWF who has a history of severe noncompliance requiring Dr. May to terminate her care who has a PMH of vasculitis who presented to the ER after she canceled multiple wound care appointments and she had left foot dry gangrene in need of amputation. Dr. Hammond was consulted and found to have Hgb of 5.9 but repeat was 10 with 3 units of blood transfusions. Pt has a long history of alcoholism, quit one year ago but continues to smoke and extremely histrionic regarding her pain issues. We will try to keep her comfortable with Fentanyl and Oxycodone and provide IV antibiotics in preparation for amputation. I will consult cardiology for peripheral vascular evaluation. Subjective/Events-last exam patient reports feeling stiff and sore all over coarse pain medicine the left foot where she has dry gangrene involving reportedly all of her toes. She denies any night sweats chills or fever. When questioned she notes increased puffiness and pain over her MCPs 1 through 3(and elbows and shoulders feel stiff as well as her knees. There is been no reported confusion or psychosis and discussion with nursing staff. Objective Exam Vital Signs Vital Signs Date Time Temp Pulse Resp B/P (MAP) Pulse Ox O2 Delivery O2 Flow Rate FiO2 10/21/18 08:00 96 Room Air 10/21/18 08:00 99.2 77 18 122/79 (93) 10/19/18 12:00 2.50 Capillary Refill : Less Than 3 Seconds General Appearance: Anxious, Chronically ill, Mild Distress HEENT: PERRL/EOMI, Moist Mucous Membranes, Other (facial puffiness noted) Neck: Full Range of Motion, Normal Inspection, Non Tender Respiratory: Chest Non Tender, Lungs Clear, Normal Breath Sounds, No Accessory Muscle Use, No Respiratory Distress Cardiovascular: Regular Rate, Rhythm, No Edema, No Gallop, No JVD, No Murmur, Normal Peripheral Pulses Gastrointestinal: Normal Bowel Sounds, No Organomegaly, No Pulsatile Mass, Non Tender, Soft Extremity: Other (left foot bandaged ankle warm right foot warm unable to appreciate dorsalis pedis pulses. 2 small circular violaceous areas with small central excoriation punctate noted on the dorsum of the right foot there is evidence for significant interosseous muscle atrophy and 1+ edema patient has bogginess and pain over the first through third MCPs bilaterally and wrists shoulders reportedly feel stiff with some decrease in range of motion no warmth or erythema noted over any of her joints knees also slightly warm without erythema and mild small bilateral effusion.) Neurologic/Psychiatric: Alert, Oriented x3, Depressed Affect Skin: Pallor Lymphatic: No Adenopathy Results/Procedures Lab Laboratory Tests 10/21/18 06:44 Patient resulted labs reviewed. Assessment/Plan Assessment and Plan Assess & Plan/Chief Complaint A/P 1. 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 This appears to be a small blood vessel process as per cardiology arterial Dop plers of the lower extremities revealed no evidence for peripheral vascular disease. Her sedimentation rate on admission was 110 and she has evidence for active synovitis in is been off therapy for some time due to 2 reported noncompliance with follow-up with her Route recreation therapist for which she states she is in the process of making a change. Will initiate steroid therapy given 2 doses of Solu-Medrol 40 mg today and then switching to prednisone 30 mg in the morning. As there is concern for underlying vasculitis if there is not a significant response she may need IV steroids in the milligram per kilo range in divided doses for a longer period of time reevaluate in the morning. 2. Anemia the patient did have occult positive blood in stool which will need to be worked up later date she does not give a history for overt GI bleeding so I suspect that most of this is anemia of chronic disease from uncontrolled rheumatoid arthritis. She is hemodynamic stable but will likely need blood prior to upcoming surgery the beginning of this week. We'll hold for now with repeat hemoglobin in the morning and continue IV pantoprazole empirically for now. 3. Dry gangrene is most likely due to vasculitis she is at risk for infection however continue antibiotics for now but no evidence for underlying sepsis at this time. Clinical Quality Measures DVT/VTE Risk/Contraindication: Risk Factor Score Per Nursin RFS Level Per Nursing on Admit: 4+=Very High LAVON MATHEWS MD Oct 21, 2018 11:00
--- NOTE | 2018-10-21 11:15 | NUR ---
CONSENT SIGNED FOR SURGERY, VERBALIZED UNDERSTANDING
--- NOTE | 2018-10-21 11:48 | NUR ---
PICC LINE DRESSING CHANGED, CAPS CHANGED, SITE WITHOUT REDNESS OR SWELLING, CONSENT SIGN FOR SURGERY IN AM, VERBALIZED UNDERSTANDING.
[2018-10-21 12:00] VITALS: BP 145/88
[2018-10-21] MEDS ORDERED: TROUGH ORDER-PHARMACY XX NR (13:00)
--- NOTE | 2018-10-21 13:43 | NUR ---
Vancomycin - Trough = 17.5, no changes necessary.
--- NOTE | 2018-10-21 15:00 | NUR ---
DRESSING CHANGED TO PICC LINE, JAN WELL, DRESSINGS CHANGED TO BILATERAL FEET, TOES ON LEFT FOOT BLACK AND DRY, TOP OF LEFT FOOT DARK WITH OPEN AREA ON SIDE. OPEN WOUND ON RIGHT LOWER LEG WITH SEROSANGIOUS DRAINAGE, WOUND PINK WITH AREA AT THE TOP OF THE WOUND BLACK, LEGS ELEVATED ON PILLOW
[2018-10-21] MEDS: fentaNYL INJECTION 1,000 MCG in NS (IVPB) 80 ML IV SCH (15:53)
[2018-10-21 16:00] VITALS: BP 129/75
--- NOTE | 2018-10-21 16:00 | NUR ---
NEW FENTANYL BAG HUNG, WITNESSED BY PETAR RN, 15ML WASTED.
[2018-10-21 20:05] VITALS: BP 135/67
[2018-10-21] MEDS: traZODone 150 MG (DESYREL) TABLET PO SCH (21:22)
[2018-10-22] VITALS (7 sets, daily range): BP systolic 135–162; BP diastolic 74–90
[2018-10-22] MEDS: VANCOMYCIN 750 MG/NS 250 ML IVPB IV SCH ×4 (05:08→15:06)
[2018-10-22] MEDS: PIPERACILLIN/TAZO 4.5 GM/NS 100 ML IV SCH ×6 (06:36→23:00)
[2018-10-22] MEDS: predniSONE 20 MG TAB PO SCH (06:36)
[2018-10-22 06:48] LABS: BASOPHILS % (AUTO) 0 % (0-10); EOSINOPHILS % (AUTO) 0 % (0-10); HEMATOCRIT 23 % (35-52); HEMOGLOBIN 7.2 G/DL (11.5-16.0); LYMPHOCYTES % (AUTO) 10 % (12-44); MEAN CORPUSCULAR HEMOGLOBIN 26 PG (25-34); MEAN CORPUSCULAR HGB CONC 32 G/DL (32-36); MEAN CORPUSCULAR VOLUME 83 FL (80-99); MEAN PLATELET VOLUME 9.8 FL (7.4-10.4); MONOCYTES # (AUTO) 0.9 X 10^3 (0.0-1.0); MONOCYTES % (AUTO) 9 % (0-12); NEUTROPHILS # (AUTO) 7.8 X 10^3 (1.8-7.8); NEUTROPHILS % (AUTO) 80 % (42-75); PLATELET COUNT 283 10^3/uL (130-400); RED CELL DISTRIBUTION WIDTH 17.9 % (10.0-14.5); WHITE BLOOD COUNT 9.8 10^3/uL (4.3-11.0)
[2018-10-22 07:05] LABS: BUN/CREATININE RATIO 14; CALCIUM 7.6 MG/DL (8.5-10.1); CARBON DIOXIDE 19 MMOL/L (21-32); CHLORIDE 111 MMOL/L (98-107); CREATININE SERUM 0.64 MG/DL (0.60-1.30); GFR ESTIMATED > 60; GLUCOSE 98 MG/DL (70-105); POTASSIUM 3.7 MMOL/L (3.6-5.0); SODIUM 138 MMOL/L (135-145)
[2018-10-22] MEDS: cloNIDine 0.1 MG (CATAPRES) TAB PO SCH ×3 (08:05→20:40)
[2018-10-22] MEDS: PANTOPRAZOLE 40 MG (PROTONIX) VIAL IV SCH (08:05)
[2018-10-22] MEDS: PREGABALIN 100 MG (LYRICA) CAPSULE PO SCH ×3 (08:05→20:40)
--- NOTE | 2018-10-22 13:03 | NUR ---
Initial visit pt is [place] with [employer]. Her fiance, Vicenta, is a primary support to her at this time. The pt shared openly about life dreams and desires, such as traveling, which she doubts she will ever be able to do with her fiance due to her poor health. Pt describes grieving these hopes, as well as the loss of her foot. She was tearful while talking about foot amputation. Pt states her sources of strength include her finance, family and her dogs. She welcomed prayer. Pt said her pain was an 8/10, and difficult to manage due to management of chronic pain since she was 11 years old (arthritis).This woods warden communicated her pain level to the nurse following the visit.
--- NOTE | 2018-10-22 13:12 | Progress Note-Hospitalist ---
Subjective HPI/CC On Admission Date Seen by Provider: Oct 22, 2018 Time Seen by Provider: 13:03 CC: Dry gangrene of the left foot needing amputation. HPI: This is a 42yoWF who has a history of severe noncompliance requiring Dr. May to terminate her care who has a PMH of vasculitis who presented to the ER after she canceled multiple wound care appointments and she had left foot dry gangrene in need of amputation. Dr. Hammond was consulted and found to have Hgb of 5.9 but repeat was 10 with 3 units of blood transfusions. Pt has a long history of alcoholism, quit one year ago but continues to smoke and extremely histrionic regarding her pain issues. We will try to keep her comfortable with Fentanyl and Oxycodone and provide IV antibiotics in preparation for amputation. I will consult cardiology for peripheral vascular evaluation. Subjective/Events-last exam Pt reports doing ok. States foot is "terrible" still and is ready for surgery tomorrow. No other complaints. Objective Exam Vital Signs Vital Signs Date Time Temp Pulse Resp B/P (MAP) Pulse Ox O2 Delivery O2 Flow Rate FiO2 10/22/18 08:00 98 Room Air 2.50 10/22/18 08:00 97.2 55 20 138/80 (99) Capillary Refill : Less Than 3 Seconds General Appearance: Anxious, Chronically ill HEENT: Other (facial puffiness) Respiratory: Lungs Clear, No Accessory Muscle Use, No Respiratory Distress Cardiovascular: Regular Rate, Rhythm, No JVD, No Murmur Gastrointestinal: Normal Bowel Sounds, Non Tender, Soft Extremity: Other (left foot and ankle dressed in bandages, bandages clean and dry) Neurologic/Psychiatric: Alert, Oriented x3, Depressed Affect Skin: Pallor Results/Procedures Lab Laboratory Tests 10/22/18 06:36 Patient resulted labs reviewed. Assessment/Plan Assessment and Plan Assess & Plan/Chief Complaint Dry gangrene- left foot Plan for OR with Dr Hammond tomorrow at 10am Fentanyl wildlife biology internship for pain Vanc and Zosyn Vasculitis Continue Steroids Chronic pain Continue Fentnayl PACKAGING SALES REPRESENTATIVE and oxycodone Anemia of chronic disease Hgb 7.2 today Check in AM may need blood prior to OR if still marginal FOBT positive, surgery consulted Neuropathy Continue lyrica HTN Continue clonidine Clinical Quality Measures DVT/VTE Risk/Contraindication: Risk Factor Score Per Nursin RFS Level Per Nursing on Admit: 4+=Very High VGEA THAPA MD Oct 22, 2018 13:11
[2018-10-22] MEDS: 1/2 NS IV SOLUTION 1,000 ML IV SCH (16:28)
[2018-10-22] MEDS: fentaNYL INJECTION 1,000 MCG in NS (IVPB) 80 ML IV SCH (16:47)
--- NOTE | 2018-10-22 16:52 | NUR ---
wasted 13 mls of fentanyl with LUIS FELIPE Felton at this time.
--- NOTE | 2018-10-22 16:53 | Progress Note (SOAP) ---
Subjective Date Seen by a Provider: Oct 22, 2018 Time Seen by a Provider: 16:30 Subjective/Events-last exam Patient seen with Dr. Hammond. Patient reports doing well and pain for the most part is under control. Tolerating diet. No fever/chills. No N/V. Objective Exam Vital Signs Date Time Temp Pulse Resp B/P (MAP) Pulse Ox O2 Delivery O2 Flow Rate FiO2 10/22/18 16:40 98.2 60 18 143/87 (105) 97 Room Air 10/22/18 12:00 98.0 60 18 162/89 (113) 98 Room Air 10/22/18 08:00 98 Room Air 2.50 10/22/18 08:00 97.2 55 20 138/80 (99) 98 Room Air 10/22/18 06:00 18 10/22/18 04:06 98.1 54 18 152/90 (110) 99 Room Air 10/22/18 01:37 98.1 56 18 148/83 (104) 98 Room Air 10/22/18 00:02 98.8 68 18 152/74 (100) 99 Room Air 10/21/18 20:05 98.5 66 18 135/67 (89) 99 Room Air 10/21/18 20:00 Room Air 10/21/18 18:57 18 I & O 10/22/18 07:00 Intake Total 4462.5 ml Output Total 2400 ml Balance 2062.5 ml Capillary Refill : Less Than 3 Seconds General Appearance: No Apparent Distress, WD/WN Neck: Full Range of Motion, Normal Inspection, Supple Respiratory: Normal Breath Sounds, No Accessory Muscle Use, No Respiratory Distress Cardiovascular: Regular Rate, Rhythm, No Edema Gastrointestinal: normal bowel sounds, non tender, soft Extremity: Pedal Edema, Other (Left foot dry gangrene mid-foot distally. Right lateral lower extremity large ulcer noted. Left lateral lower extremity ulcer noted.) Neurologic/Psychiatric: Alert, Oriented x3 Skin: Normal Color, Warm/Dry Results Lab Laboratory Tests 10/22/18 06:36: White Blood Count 9.8, Red Blood Count 2.75L, Hemoglobin 7.2L, Hematocrit 23L, Mean Corpuscular Volume 83, Mean Corpuscular Hemoglobin 26, Mean Corpuscular Hemoglobin Concent 32, Red Cell Distribution Width 17.9H, Platelet Count 283, Mean Platelet Volume 9.8, Neutrophils (%) (Auto) 80H, Lymphocytes (%) (Auto) 10L , Monocytes (%) (Auto) 9, Eosinophils (%) (Auto) 0, Basophils (%) (Auto) 0, Neutrophils # (Auto) 7.8, Lymphocytes # (Auto) 1.0, Monocytes # (Auto) 0.9, Eosinophils # (Auto) 0.0, Basophils # (Auto) 0.0, Sodium Level 138, Potassium Level 3.7, Chloride Level 111H, Carbon Dioxide Level 19L, Anion Gap 8, Blood Urea Nitrogen 9, Creatinine 0.64, Estimat Glomerular Filtration Rate > 60, BUN/Creatinine Ratio 14, Glucose Level 98, Calcium Level 7.6L Microbiology 10/17/18 Blood Culture - Preliminary, Resulted No growth 10/19/18 MRSA Screen - Final, Complete MRSA not isolated 10/17/18 Gram Stain - Final, Complete 10/17/18 Wound Culture - Final, Complete Corynebacterium striatum YEAST Gram Pos Mixed Bacterial Kim Assessment/Plan Assessment/Plan Assess & Plan/Chief Complaint A 42 year old female with anemia, vasculitis, dry gangrene of the left foot as well as bilateral lower extremity ulcers. VSS. Hgb at 7.2, will monitor and may need transfusion before surgery. Continue IV fluids, abx, pain, nausea meds. Will proceed with surgical intervention with amputation of the left foot as well as debridement of right lower extremity ulcer and placement of STSG tomorrow. NPO tonight. Clinical Quality Measures DVT/VTE Risk/Contraindication: Risk Factor Score Per Nursin RFS Level Per Nursing on Admit: 4+=Very High YAZ ESPINOZA SENIOR DIRECTOR OF STRATEGY Oct 22, 2018 16:53
--- NOTE | 2018-10-22 19:00 | Progress Note-Pre Operative ---
Pre-Operative Progress Note H&P Reviewed The H&P was reviewed, patient examined and no changes noted. Date Seen by Provider: Oct 22, 2018 Time Seen by Provider: 19:00 Date H&P Reviewed: Oct 22, 2018 Time H&P Reviewed: 19:00 Pre-Operative Diagnosis: dry gangrene left forefoot KOFI GARCES MD Oct 22, 2018 19:00
[2018-10-22] MEDS: traZODone 150 MG (DESYREL) TABLET PO SCH (20:40)
[2018-10-23] VITALS (14 sets, daily range): BP systolic 146–182; BP diastolic 87–105
[2018-10-23] MEDS: VANCOMYCIN 750 MG/NS 250 ML IVPB IV SCH ×4 (03:29→16:11)
[2018-10-23] MEDS: predniSONE 20 MG TAB PO SCH (05:20)
[2018-10-23 05:51] LABS: BASOPHILS % (AUTO) 0 % (0-10); EOSINOPHILS # (AUTO) 0.1 10^3/uL (0.0-0.3); EOSINOPHILS % (AUTO) 0 % (0-10); HEMATOCRIT 24 % (35-52); HEMOGLOBIN 7.3 G/DL (11.5-16.0); LYMPHOCYTES # (AUTO) 1.8 X 10^3 (1.0-4.0); LYMPHOCYTES % (AUTO) 13 % (12-44); MEAN CORPUSCULAR HEMOGLOBIN 26 PG (25-34); MEAN CORPUSCULAR HGB CONC 31 G/DL (32-36); MEAN CORPUSCULAR VOLUME 84 FL (80-99); MEAN PLATELET VOLUME 9.3 FL (7.4-10.4); MONOCYTES # (AUTO) 1.5 X 10^3 (0.0-1.0); MONOCYTES % (AUTO) 11 % (0-12); NEUTROPHILS # (AUTO) 10.3 X 10^3 (1.8-7.8); NEUTROPHILS % (AUTO) 75 % (42-75); PLATELET COUNT 368 10^3/uL (130-400); RED CELL DISTRIBUTION WIDTH 18.2 % (10.0-14.5); WHITE BLOOD COUNT 13.7 10^3/uL (4.3-11.0)
[2018-10-23 06:08] LABS: BUN/CREATININE RATIO 12; CALCIUM 7.6 MG/DL (8.5-10.1); CARBON DIOXIDE 19 MMOL/L (21-32); CHLORIDE 112 MMOL/L (98-107); CREATININE SERUM 0.65 MG/DL (0.60-1.30); GFR ESTIMATED > 60; GLUCOSE 71 MG/DL (70-105); POTASSIUM 3.4 MMOL/L (3.6-5.0); SODIUM 140 MMOL/L (135-145)
[2018-10-23] MEDS: PIPERACILLIN/TAZO 4.5 GM/NS 100 ML IV SCH ×6 (07:29→23:01)
[2018-10-23] MEDS ORDERED: NS IV 500 ML 500 ML IV SCH (07:55)
[2018-10-23] MEDS: cloNIDine 0.1 MG (CATAPRES) TAB PO SCH ×3 (08:13→20:17)
[2018-10-23] MEDS: PREGABALIN 100 MG (LYRICA) CAPSULE PO SCH ×3 (08:13→20:18)
[2018-10-23] MEDS: PANTOPRAZOLE 40 MG (PROTONIX) TAB PO SCH (08:14)
--- NOTE | 2018-10-23 10:14 | Progress Note-Hospitalist ---
Subjective HPI/CC On Admission Date Seen by Provider: Oct 23, 2018 Time Seen by Provider: 10:10 CC: Dry gangrene of the left foot needing amputation. HPI: This is a 42yoWF who has a history of severe noncompliance requiring Dr. May to terminate her care who has a PMH of vasculitis who presented to the ER after she canceled multiple wound care appointments and she had left foot dry gangrene in need of amputation. Dr. Hammond was consulted and found to have Hgb of 5.9 but repeat was 10 with 3 units of blood transfusions. Pt has a long history of alcoholism, quit one year ago but continues to smoke and extremely histrionic regarding her pain issues. We will try to keep her comfortable with Fentanyl and Oxycodone and provide IV antibiotics in preparation for amputation. I will consult cardiology for peripheral vascular evaluation. Subjective/Events-last exam Pt reports feeling okay today. Ready for surgery. Discussed with RN and pt is requiring large amounts of fentanyl per TOUR GUIDE to control patient. Pressed TOUR GUIDE over 570 times yesterday with ~300 dispensing. Currently denies pain though. Objective Exam Vital Signs Vital Signs Date Time Temp Pulse Resp B/P (MAP) Pulse Ox O2 Delivery O2 Flow Rate FiO2 10/23/18 08:00 98 Room Air 2.50 10/23/18 08:00 98.7 71 20 149/92 (111) Capillary Refill : Less Than 3 Seconds General Appearance: No Apparent Distress, WD/WN HEENT: Other (facial puffiness) Respiratory: Lungs Clear, No Accessory Muscle Use, No Respiratory Distress Cardiovascular: Regular Rate, Rhythm, No Edema Gastrointestinal: Normal Bowel Sounds, Non Tender, Soft Extremity: Other (left foot wrapped in banadages) Neurologic/Psychiatric: Alert, Oriented x3 Skin: Normal Color, Warm/Dry Results/Procedures Lab Laboratory Tests 10/23/18 05:36 Patient resulted labs reviewed. Assessment/Plan Assessment and Plan Assess & Plan/Chief Complaint Dry gangrene- left foot Plan for OR with Dr Hammond today Fentanyl print producer for pain Vanc and Zosyn Vasculitis Continue Steroids Chronic pain Continue Fentanyl TOUR GUIDE and oxycodone Consider switching to longer acting for Anemia of chronic disease Hgb 7.3 today- transfusion ordered in prep for surgery FOBT positive, surgery consulted Neuropathy Continue lyrica HTN Continue clonidine Clinical Quality Measures DVT/VTE Risk/Contraindication: Risk Factor Score Per Nursin RFS Level Per Nursing on Admit: 4+=Very High VEGA THAPA MD Oct 23, 2018 10:14
[2018-10-23] MEDS ORDERED: LIDOCAINE PF 2% 5 ML (XYLOCAINE) VIAL ONE (11:50)
[2018-10-23] MEDS ORDERED: proPOfol 200 MG/20 ML (DIPRIVAN) VIAL IV ONE (11:50)
[2018-10-23] MEDS ORDERED: MIDAZOLAM 2 MG/2 ML (VERSED) VIAL ONE (11:51)
[2018-10-23] MEDS ORDERED: fentaNYL INJECTION 100 MCG/2 ML AMP ONE (11:51)
[2018-10-23] MEDS ORDERED: ONDANSETRON 4 MG/2 ML (SDV) Z0FRAN ONE (12:02)
[2018-10-23] MEDS ORDERED: SEVOFLURANE (ULTANE) 15 ML INHAL SOLN ONE ×6 (12:02→14:37)
[2018-10-23] MEDS ORDERED: DEXAMETHASONE 10 MG/ML (DECADRON) 1 ML VIAL ONE (12:02)
--- NOTE | 2018-10-23 12:27 | NUR ---
Pt. taken to OR with Prediculousonna at 1220 via bed.
[2018-10-23] MEDS ORDERED: LACTATED RINGERS 1,000 ML IV PRN (12:47)
[2018-10-23] MEDS ORDERED: MEPERIDINE (DEMEROL) INJ 50 MG/ML IVP ONE (13:00)
[2018-10-23] MEDS ORDERED: morphine INJ 10 MG/ML 1ML (SYR OR VIAL) IVP ONE (13:00)
[2018-10-23] MEDS ORDERED: ONDANSETRON 4 MG/2 ML (SDV) Z0FRAN IVP PRN (13:00)
[2018-10-23] MEDS ORDERED: fentaNYL INJECTION 100 MCG/2 ML AMP IVP ONE (13:00)
[2018-10-23] MEDS ORDERED: EPINEPHrine INJECTION 1 MG/ML AMP ONE (13:39)
[2018-10-23] MEDS ORDERED: NS (IVPB) 100 ML ONE (13:40)
[2018-10-23] MEDS ORDERED: morphine INJ 10 MG/ML 1ML (SYR OR VIAL) ONE ×2 (13:42→15:15)
[2018-10-23] MEDS ORDERED: LABETALOL HCL 20 MG/4 ML VIAL ONE (14:58)
[2018-10-23] MEDS ORDERED: MEPERIDINE (DEMEROL) INJ 50 MG/ML ONE (15:10)
[2018-10-23] MEDS: LABETALOL HCL 100 MG/20 ML VIAL IV PRN ×2 (15:35→15:40)
--- NOTE | 2018-10-23 16:36 | NUR ---
DR. GARCES ON FLOOR AT THIS TIME, GAVE VERBAL ORDER TO HOLD SECOND UNIT UNTIL 10/24/2018 LABS HAVE RESULTED. THIS RN WILL CONT. TO MONITOR THIS PATIENT THROUGHOUT THE REMAINDER OF THIS SHIFT.
--- NOTE | 2018-10-23 17:09 | NUR ---
BEDSIDE SURGERY REPORT GIVEN TO THIS RN BY LUIS FELIPE MORRIS AT [phone]. FENTANYL CADD PUMP RECONNECTED ORDERED PER DR. GARCES. PAST DUE MEDICATIONS GIVEN AND DIET RESUMED PER DR. GARCES. THIS RN WILL CONT. TO MONITOR THIS PATIENT THROUGHOU THE REMAINDER OF THIS SHIFT.
[2018-10-23] MEDS: 1/2 NS IV SOLUTION 1,000 ML IV SCH (18:14)
[2018-10-23] MEDS: fentaNYL INJECTION 1,000 MCG in NS (IVPB) 80 ML IV SCH (19:38)
[2018-10-23] MEDS: traZODone 150 MG (DESYREL) TABLET PO SCH (20:17)
[2018-10-24] VITALS: BP 155/90
[2018-10-24 04:00] VITALS: BP 133/80
[2018-10-24 06:08] LABS: BASOPHILS % (AUTO) 0 % (0-10); EOSINOPHILS % (AUTO) 0 % (0-10); HEMATOCRIT 26 % (35-52); HEMOGLOBIN 8.3 G/DL (11.5-16.0); LYMPHOCYTES # (AUTO) 1.6 X 10^3 (1.0-4.0); LYMPHOCYTES % (AUTO) 12 % (12-44); MEAN CORPUSCULAR HEMOGLOBIN 26 PG (25-34); MEAN CORPUSCULAR HGB CONC 32 G/DL (32-36); MEAN CORPUSCULAR VOLUME 83 FL (80-99); MEAN PLATELET VOLUME 9.3 FL (7.4-10.4); MONOCYTES # (AUTO) 1.7 X 10^3 (0.0-1.0); MONOCYTES % (AUTO) 13 % (0-12); NEUTROPHILS # (AUTO) 10.3 X 10^3 (1.8-7.8); NEUTROPHILS % (AUTO) 76 % (42-75); PLATELET COUNT 385 10^3/uL (130-400); RED CELL DISTRIBUTION WIDTH 18.1 % (10.0-14.5); WHITE BLOOD COUNT 13.6 10^3/uL (4.3-11.0)
[2018-10-24 06:23] LABS: BUN/CREATININE RATIO 11; CALCIUM 7.6 MG/DL (8.5-10.1); CARBON DIOXIDE 22 MMOL/L (21-32); CHLORIDE 108 MMOL/L (98-107); CREATININE SERUM 0.64 MG/DL (0.60-1.30); GFR ESTIMATED > 60; GLUCOSE 85 MG/DL (70-105); POTASSIUM 3.1 MMOL/L (3.6-5.0); SODIUM 140 MMOL/L (135-145)
[2018-10-24] MEDS: PANTOPRAZOLE 40 MG (PROTONIX) TAB PO SCH (06:33)
[2018-10-24] MEDS: PIPERACILLIN/TAZO 4.5 GM/NS 100 ML IV SCH ×4 (06:33→15:27)
[2018-10-24] MEDS: predniSONE 20 MG TAB PO SCH (06:33)
--- NOTE | 2018-10-24 07:52 | Anesthesia-General Post-Op ---
General Patient Condition Mental Status/LOC: Same as Preop Cardiovascular: Satisfactory Nausea/Vomiting: Absent Respiratory: Satisfactory Pain: Controlled Complications: Absent Post Op Complications Complications None Follow Up Care/Instructions Patient Instructions None needed. Anesthesia/Patient Condition Patient Condition Patient is doing well, no complaints, stable vital signs, no apparent adverse anesthesia problems. No complications reported per nursing. JUVENAL PENALOZA CRNA Oct 24, 2018 07:52
[2018-10-24 08:00] VITALS: BP 152/94
[2018-10-24] MEDS: PREGABALIN 100 MG (LYRICA) CAPSULE PO SCH ×3 (08:28→21:29)
[2018-10-24] MEDS: cloNIDine 0.1 MG (CATAPRES) TAB PO SCH ×3 (08:28→21:28)
[2018-10-24] MEDS ORDERED: KCL 20 MEQ TAB (K-DUR) PO NR (08:45)
[2018-10-24] MEDS ORDERED: morphine INJ 10 MG/ML 1ML (SYR OR VIAL) IVP NR (09:06)
[2018-10-24] MEDS ORDERED: morphine INJ 4 MG/ML 1 ML (VIAL/SYRINGE) IVP NR (09:07)
--- NOTE | 2018-10-24 09:09 | Progress Note-Hospitalist ---
Subjective HPI/CC On Admission Date Seen by Provider: Oct 24, 2018 Time Seen by Provider: 09:04 CC: Dry gangrene of the left foot needing amputation. HPI: This is a 42yoWF who has a history of severe noncompliance requiring Dr. May to terminate her care who has a PMH of vasculitis who presented to the ER after she canceled multiple wound care appointments and she had left foot dry gangrene in need of amputation. Dr. Hammond was consulted and found to have Hgb of 5.9 but repeat was 10 with 3 units of blood transfusions. Pt has a long history of alcoholism, quit one year ago but continues to smoke and extremely histrionic regarding her pain issues. We will try to keep her comfortable with Fentanyl and Oxycodone and provide IV antibiotics in preparation for amputation. I will consult cardiology for peripheral vascular evaluation. Subjective/Events-last exam Pt lying in bed complaining of significant pain. Discussed with RN and patient pressed MICROBIOLOGY LAB TECHNICIAN over 400 times overnight. Objective Exam Vital Signs Vital Signs Date Time Temp Pulse Resp B/P (MAP) Pulse Ox O2 Delivery O2 Flow Rate FiO2 10/24/18 04:00 99.5 64 18 133/80 (97) 98 Room Air 10/23/18 15:55 4 Capillary Refill : Less Than 3 Seconds General Appearance: Chronically ill, Moderate Distress HEENT: Other (facial puffiness) Respiratory: Lungs Clear, No Accessory Muscle Use, No Respiratory Distress Cardiovascular: Regular Rate, Rhythm, No Edema Gastrointestinal: Normal Bowel Sounds, Non Tender, Soft Extremity: Other (s/p left TMA- surgical dressings wrapped) Neurologic/Psychiatric: Alert, Oriented x3 Results/Procedures Lab Laboratory Tests 10/24/18 06:00 Patient resulted labs reviewed. Assessment/Plan Assessment and Plan Assess & Plan/Chief Complaint Dry gangrene- left foot POD #1 Fentanyl correctional officer sergeant for pain managed by surgery Keke PT/OT ordered- IRU consulted Vasculitis Continue Steroids Chronic pain Continue Fentanyl MICROBIOLOGY LAB TECHNICIAN and oxycodone Consider switching to longer acting- managed by surgery Anemia of chronic disease Hgb 7 up today following transfusion trend Neuropathy Continue lyrica HTN Continue clonidine Clinical Quality Measures DVT/VTE Risk/Contraindication: Risk Factor Score Per Nursin RFS Level Per Nursing on Admit: 4+=Very High VEGA THAPA MD Oct 24, 2018 09:09
--- NOTE | 2018-10-24 11:43 | Occupational Therapy Eval ---
OT Evaluation-General/PLF Medical Diagnosis Admission Date Oct 17, 2018 at 15:01 Medical Diagnosis: Left foot amputation; vasculitis Onset Date: Oct 24, 2018 Therapy Diagnosis Therapy Diagnosis: IMPARED ADLs and Mobility Height/Weight Height (Feet): 5 Height (Inches): 0.00 Weight (Pounds): 135 Weight (Ounces): 8.0 Precautions Precautions/Isolations: Fall Prevention, Standard Precautions Safety Interventions: None Weight Bear Status Weight Bearing Restriction: Non Weight Bearing Location Restriction: LE Bilateral Referral Referral Reason: Activity Tolerance, Self Care, Evaluation/Treatment, Strengthening/ROM Medical History Additional Medical History Respiratory: Pneumonia Currently Using CPAP: No Currently Using BIPAP: No Cardiac: High Cholesterol, Hypertension, Peripheral Vascular Neurological: Neuropathy : No Reproductive: Yes (miscarriages) Sexually Transmitted Disease: No HIV/AIDS: No Female Reproductive Disorders: Ovarian Cyst Genitourinary: UTI-Chronic Musculoskeletal: Degenerate Disk Disease, Arthritis, Rheumatoid Arthritis, Chronic Back Pain Endocrine: Hypothyroidsim Loss of Vision: Denies Hearing Impairment: Denies Psychosocial: Anxiety, Suicide Attempts, Depression Skin/Integumentary: Eczema History of Blood Disorders: No Adverse Reaction to Blood George: No Current History HPI: This is a 42yoWF who has a history of severe noncompliance requiring Dr. May to terminate her care who has a PMH of vasculitis who presented to the ER after she canceled multiple wound care appointments and she had left foot dry gangrene in need of amputation. Dr. Hammond was consulted and found to have Hgb of 5.9 but repeat was 10 with 3 units of blood transfusions. Pt has a long history of alcoholism, quit one year ago but continues to smoke and extremely histrionic regarding her pain issues. We will try to keep her comfortable with Fentanyl and Oxycodone and provide IV antibiotics in preparation for amputation. I will consult cardiology for peripheral vascular evaluation. Post Syme amputation left LE; NWB left. Skin graft right lower lateral leg; WB status not indicted by physician, but pt reports she is not to bear weight right LE. Reviewed History: Yes Social History Home: Single Level Current Living Status: Significant Other Entry Into Home: Stairs With Railing Steps Into Home: 4 ADL-Prior Level of Function Therapy Code Descriptions/Definitions Functional [place] Measure: 0=Not Assessed/NA 4=Minimal Assistance 1=Total Assistance 5=Supervision or Setup 2=Maximal Assistance 6=Modified [place] 3=Moderate Assistance 7=Complete [place] Therapy Quality Codes: 6 Independent with activity with or without an assistive device 5 Patient requires set up or clean up by helper. Patient completes activity by themselves 4 Supervision or touching assist (CGA). [place] provide cues , steadying assist 3 The helper provides less than half the effort to complete the activity 2 The helper provides more than half the effort to complete the activity 1 Dependent. The helper does all the effort to complete an activity 7 Patient refused to complete or attempt activity 9 The patient did not perform the activity before the current illness or injury 88 Not attempted due to Medical conditions or safety concerns Functional Abilities and Goals: Independent: Patient completed the activities by him/herself, with or without an assistive device, with no assistance from a helper. Needed Some Help: Patient needed partial assistance from another person to complete activities. Dependent: A helper completed the activities for the patient. Unknown: Not Applicable: ADL PLOF Comments pt stated she used w/c 1 month prior to coming into hospital. pt stated her fiance would carry her up the 4STE. pt stated prior to this is use no AD and was independent with everything. Self Care: Independent Functional Cognition: Independent Drive Self: No OT Current Status Subjective pt laying in be upon OT arrival in no apparent distress. pt agreed to OT evaluation session. pt complains of 7/10 pain in R stump. NSG is aware of pain. pt stated she would prefer to d/c home but is nervous about how she will function with RLE amputated. Mental Status/Objective Patient Orientation: Person, Place, Time, Situation Current Glasses/Contacts: Yes Hearing Aids: No Dentures/Partials: No Hand Dominance: Right Upper Extremity ROM WFL Upper Extremity Coordination WFL Upper Extremity Sensation WFL danny UE. Upper Extremity Strength 4/5 MMT ADL-Treatment Therapy Code Descriptions/Definitions Functional [place] Measure: 0=Not Assessed/NA 4=Minimal Assistance 1=Total Assistance 5=Supervision or Setup 2=Maximal Assistance 6=Modified [place] 3=Moderate Assistance 7=Complete [place] Therapy Quality Codes: 6 Independent with activity with or without an assistive device 5 Patient requires set up or clean up by helper. Patient completes activity by themselves 4 Supervision or touching assist (CGA). [place] provide cues , steadying assist 3 The helper provides less than half the effort to complete the activity 2 The helper provides more than half the effort to complete the activity 1 Dependent. The helper does all the effort to complete an activity 7 Patient refused to complete or attempt activity 9 The patient did not perform the activity before the current illness or injury 88 Not attempted due to Medical conditions or safety concerns Grooming (FIM): 5 (seated EOB ) Bathing (FIM): 4 Lower Body Dressing (FIM): 4 Toileting (FIM): 4 Transfers (B, C, W/C) (FIM): 4 Toilet/Commode Transfer (FIM): 4 scores based for EVALUATION not true FIM. pt does not use SB and refused to attempt SB transfers. pt perform scoot transfer into w/c and onto commode. CGA for safety / balance. OT Short Term Goals Short Term Goals Grooming(FIM): 6 Bathing(FIM): 6 Lower Body Dressing(FIM): 5 Toileting(FIM): 5 Transfers (B,C,W/C) (FIM): 5 Toilet/Commode Transfer(FIM): 5 Tub Transfer(FIM): 5 1=Demonstrate adherence to instructed precautions during ADL tasks. 2=Patient will verbalize/demonstrate understanding of assistive devices/modifications for ADL. 3=Patient will improve strength/tolerance for activity to enable patient to perform ADL's. OT Equipment Man Goals Equipment Man Goals Grooming(FIM): 6 Bathing(FIM): 6 Lower Body Dressing(FIM): 6 Toileting(FIM): 6 Transfers (B,C,W/C) (FIM): 6 Toilet/Commode Transfer(FIM): 6 Tub Transfer(FIM): 6 1=Demonstrate adherence to instructed precautions during ADL tasks. 2=Patient will verbalize/demonstrate understanding of assistive devices/modifications for ADL. 3=Patient will improve strength/tolerance for activity to enable patient to perform ADL's. OT Education/Plan Problem List/Assessment Assessment: Decreased Activ Tolerance, Decreased Safety Aware, Impaired Funct Balance, Impaired I ADL's, Impaired Self-Care Skills pt presents with functional limitations affecting areas of ADLs and and functional transfers with deficits in the above mention. pt would benefit from OT services to increase independence with ADLs/ functional transfers. OT will c ontinue following for assist with d/c planning. [facility] HH OT Discharge Recommendations Plan/Recommendations: Continue POC Therapy D/C Recommendations: Acute Rehab Equpiment Recommendations-D/C: Extended Bath Bench Treatment Plan/Plan of Care Treatment,Training & Education: Yes Patient would benefit from OT for education, treatment and training to promote independence in ADL's, mobility, safety and/or upper extremity function for ADL's. Plan of Care: ADL Retraining, Functional Mobility, Group Exercise/Act as Ind, UE Funct Exercise/Act Treatment Duration: Nov 07, 2018 Frequency: 5 times per week Estimated Hrs Per Day: .25 hour per day Agreement: Yes Rehab Potential: Good Time/GCodes Start Time: 11:05 Stop Time: 11:25 Billed Treatment Time EVM 20 minutes YOAN YING OT Oct 24, 2018 11:43
[2018-10-24 12:00] VITALS: BP 174/84
--- NOTE | 2018-10-24 12:28 | Physical Therapy Evaluation ---
PT Evaluation-General Medical Diagnosis Admission Date Oct 17, 2018 at 15:01 Medical Diagnosis: Left foot amputation; vasculitis Onset Date: Oct 24, 2018 Therapy Diagnosis Therapy Diagnosis: weakness Height/Weight Height (Feet): 5 Height (Inches): 0.00 Weight (Pounds): 135 Weight (Ounces): 8.0 Precautions Precautions/Isolations: Fall Prevention, Standard Precautions Weight Bear Status Right Lower Extremity: Right Weight Bearing/Tolerated Left Lower Extremity: Left Non Weight Bearing Referral Physician: Brittaney Reason for Referral: Evaluation/Treatment Medical History Pertinent Medical History: Alcoholism, HTN, Neuropathy, Smoking Additional Medical History Long history of skin integrity issues. Pt reports she has had 23 skin grafts. Current History Post Syme amputation left LE; NWB left. Skin graft right lower lateral leg; WB status not indicted by physician, but pt reports she is not to bear weight right LE. Reviewed History: Yes Social History Home: Single Level Current Living Status: Significant Other Entry Into Home: Stairs With Railing PT Steps Into Home: 4 Pt reports her fiance can carry her up her steps Prior/Core FIM Prior Level of Function Therapy Code Descriptions/Definitions Functional [place] Measure: 0=Not Assessed/NA 4=Minimal Assistance 1=Total Assistance 5=Supervision or Setup 2=Maximal Assistance 6=Modified [place] 3=Moderate Assistance 7=Complete [place] Therapy Quality Codes: 6 Independent with activity with or without an assistive device 5 Patient requires set up or clean up by helper. Patient completes activity by themselves 4 Supervision or touching assist (CGA). [place] provide cues , steadying assist 3 The helper provides less than half the effort to complete the activity 2 The helper provides more than half the effort to complete the activity 1 Dependent. The helper does all the effort to complete an activity 7 Patient refused to complete or attempt activity 9 The patient did not perform the activity before the current illness or injury 88 Not attempted due to Medical conditions or safety concerns Functional Abilities and Goals: Independent: Patient completed the activities by him/herself, with or without an assistive device, with no assistance from a helper. Needed Some Help: Patient needed partial assistance from another person to complete activities. Dependent: A helper completed the activities for the patient. Unknown: Not Applicable: Bed Mobility: 7 Transfers (B,C,W/C) (FIM): 6 Gait: 6 Stairs: 5 Indoor Mobility (Ambulation): Independent Stairs: Needed Some Help Pt reports a friend has given her a manual wc and a tub transfer bench. She reports her friend is also going to give her a Hoveround chair. She reports she does NOT have a walker PT Evaluation-Current Subjective Agrees to PT. Reports she has been transferring bed to commode and wheelchair on her own. Reports she is able to propel the wc on her own. Objective Patient Orientation: Person, Place, Time, Situation Attachments: IV ROM/Strength ROM Lower Extremities WFL Strength Lower Extremities strength is WFL Integumentary/Posture Integumentary Refer to nursing notes; post amputation and skin graft. Bowel Incontinence: No Bladder Incontinence: No Posture symmetircal and normal Neuromuscular (Tone, Coordination, Reflexes) no noted functional deficits Sensory Vision: Functional Hearing: Functional Hand Dominance: Right Sensation Right Lower Extremit: Impaired Sensation Left Lower Extremity: Impaired Transfers Therapy Code Descriptions/Definitions Functional [place] Measure: 0=Not Assessed/NA 4=Minimal Assistance 1=Total Assistance 5=Supervision or Setup 2=Maximal Assistance 6=Modified [place] 3=Moderate Assistance 7=Complete [place] Transfers (B, C, W/C) (FIM): 5 Scootin Rollin Supine to/from Sit: 7 bed t/f WC(FIM only if WC use): 5 (SBA as this is the first time seen by this clinician) Pt demonstrated the ability to transfer bed to commode and return to bed and bed to/from wc; she is able to slide across using her UE to push over. No safety issues noted and pt completed without difficulty. Scored her at SBA as she has not been viewed performing this before and would like to follow up for reassurance on her functional safety. Gait Mode of Locomotion: Wheelchair Anticipated Mode of Locomotion: Wheelchair Wheelchair Training Pt reports she has been pushing herself in the wheelchair when her fiance is here. Balance Sitting Static: Normal Sitting Dynamic: Normal Assessment/Needs Post left Syme's amputation. Pt is able to perform transfers bed to commode or wc without assist and without safety concern . She will benefit from skilled monitoring for a few days to ensure functional safety, establish strength exercises and review safety with planning for home. Her mobility is fairly indep but would like to ensure that no complications or safety issues arise, therefore will follow for a few days. Rehab Potential: Good PT Short Term Goals Short Term Goals Transfers (B,C,W/C) (FIM): 5 PT Neonatal Social Worker Goals Fpc Goals PT Neonatal Social Worker Goals Time Frame: Oct 29, 2018 Transfers (B,C,W/C) (FIM): 6 Wheelchair (FIM): 6 PT Plan Problem List Problem List: Activity Tolerance, Functional Strength, Safety, Transfer Treatment/Plan Treatment Plan: Continue Plan of Care Treatment Plan: Bed Mobility, Education, Functional Activity Brandee, Functional Strength, Safety, Therapeutic Exercise, Transfers Treatment Duration: Oct 29, 2018 Frequency: 6 times per week Estimated Hrs Per Day: .25 hour per day Patient and/or Family Agrees t: Yes Safety Risks/Education Patient Education: Transfer Techniques, Safety Issues Teaching Recipient: Patient Teaching Methods: Demonstration, Discussion Response to Teaching: Verbalize Understanding, Reinforcement Needed Discharge Recommendations Therapy D/C Recommendations: Physical Therapy Home Care Time/GCodes Time In: 1150 Time Out: 1215 Total Billed Treatment Time: 20 Total Billed Treatment visit EVM 25 JANI KAPLAN PT Oct 24, 2018 12:28
--- NOTE | 2018-10-24 15:28 | NUR ---
IRF Evaluation Order received to evaluate patient for the ARU. Upon review of PT/OT Evaluations, it appears the patient is able to perform transfers from bed to commode/wc, without assistance and concern (PLOF: Ind). Although patient is requiring minimal assistance with ADLs, at this time, she is functioning at/near her prior level in regard to PT; therefore, patient does not meet the requirement of qualifying for at least two forms of therapy. CM/SS and Dr. Quispe notified. Thank you for this referral.
[2018-10-24 16:35] VITALS: BP 151/89
--- NOTE | 2018-10-24 16:53 | Progress Note (SOAP) ---
Subjective Date Seen by a Provider: Oct 24, 2018 Time Seen by a Provider: 16:30 Subjective/Events-last exam doing well. appears comfortable however always states pain. no fever/chills. tolerating diet. Objective Exam Vital Signs Date Time Temp Pulse Resp B/P (MAP) Pulse Ox O2 Delivery O2 Flow Rate FiO2 10/24/18 16:35 99.7 72 18 151/89 (109) 97 Room Air 10/24/18 15:30 99.2 10/24/18 12:00 99.2 75 18 174/84 (114) 98 Room Air 10/24/18 09:30 99.5 10/24/18 08:00 99.5 79 18 152/94 (113) 98 Room Air 10/24/18 08:00 Room Air 10/24/18 04:00 99.5 64 18 133/80 (97) 98 Room Air 10/24/18 00:00 99.8 71 18 155/90 (111) 98 Room Air 10/23/18 20:00 Room Air 10/23/18 19:50 99.6 66 18 146/87 (106) 96 Room Air I & O 10/24/18 07:00 Intake Total 2387.5 ml Output Total 4350 ml Balance -1962.5 ml Capillary Refill : Less Than 3 Seconds General Appearance: No Apparent Distress HEENT: PERRL/EOMI Neck: Full Range of Motion Respiratory: Chest Non Tender, Normal Breath Sounds Cardiovascular: Regular Rate, Rhythm Extremity: Normal Capillary Refill Neurologic/Psychiatric: Alert, Oriented x3 Skin: Normal Color Lymphatic: No Adenopathy Results Lab Laboratory Tests 10/24/18 06:00: White Blood Count 13.6H, Red Blood Count 3.17L, Hemoglobin 8.3L, Hematocrit 26L, Mean Corpuscular Volume 83, Mean Corpuscular Hemoglobin 26, Mean Corpuscular Hemoglobin Concent 32, Red Cell Distribution Width 18.1H, Platelet Count 385, Mean Platelet Volume 9.3, Neutrophils (%) (Auto) 76H, Lymphocytes (%) (Auto) 12, Monocytes (%) (Auto) 13H, Eosinophils (%) (Auto) 0, Basophils (%) (Auto) 0, Neutrophils # (Auto) 10.3H, Lymphocytes # (Auto) 1.6, Monocytes # (Auto) 1.7H, Eosinophils # (Auto) 0.0, Basophils # (Auto) 0.0, Sodium Level 140, Potassium Level 3.1L, Chloride Level 108H, Carbon Dioxide Level 22, Anion Gap 10, Blood Urea Nitrogen 7, Creatinine 0.64, Estimat Glomerular Filtration Rate > 60, BUN/Creatinine Ratio 11, Glucose Level 85, Calcium Level 7.6L Microbiology 10/17/18 Blood Culture - Final, Complete No growth 10/19/18 MRSA Screen - Final, Complete MRSA not isolated 10/17/18 Gram Stain - Final, Complete 10/17/18 Wound Culture - Final, Complete Corynebacterium striatum YEAST Gram Pos Mixed Bacterial Kim Assessment/Plan Assessment/Plan Assess & Plan/Chief Complaint vasculitis with lower extr ischemia s/p left TMA, right leg STSG. consult SS for placement and to assess need. ambulate as tolerated. partial weith bearing left LE(50%). ok to shower. leave bilateral LE dressing until seen in office in approx 1 week. Clinical Quality Measures DVT/VTE Risk/Contraindication: Risk Factor Score Per Nursin RFS Level Per Nursing on Admit: 4+=Very High KOFI GARCES MD Oct 24, 2018 16:53
[2018-10-24] MEDS: 1/2 NS IV SOLUTION 1,000 ML IV SCH ×2 (17:52→21:29)
[2018-10-24] MEDS: fentaNYL INJECTION 1,000 MCG in NS (IVPB) 80 ML IV SCH (18:49)
--- NOTE | 2018-10-24 20:20 | NUR ---
Received report from day nurseAnat RN that Patient is having family push pain medication pump while she is sleeping. Advised Patient and mother that BANQUET STEWARDESS button use is ONLY for Patient to use. Advised of dangers of respiratory depression from too much pain medication. Patient and mother in room both V/U.
[2018-10-24 20:40] VITALS: BP 152/83
[2018-10-24] MEDS: traZODone 150 MG (DESYREL) TABLET PO SCH (21:00)
[2018-10-25] VITALS: BP 149/82
[2018-10-25 04:00] VITALS: BP 144/86
[2018-10-25 05:11] LABS: BASOPHILS % (AUTO) 0 % (0-10); EOSINOPHILS # (AUTO) 0.1 10^3/uL (0.0-0.3); EOSINOPHILS % (AUTO) 1 % (0-10); HEMATOCRIT 28 % (35-52); HEMOGLOBIN 8.6 G/DL (11.5-16.0); LYMPHOCYTES # (AUTO) 2.2 X 10^3 (1.0-4.0); LYMPHOCYTES % (AUTO) 14 % (12-44); MEAN CORPUSCULAR HEMOGLOBIN 26 PG (25-34); MEAN CORPUSCULAR HGB CONC 31 G/DL (32-36); MEAN CORPUSCULAR VOLUME 83 FL (80-99); MONOCYTES # (AUTO) 2.2 X 10^3 (0.0-1.0); MONOCYTES % (AUTO) 14 % (0-12); NEUTROPHILS % (AUTO) 71 % (42-75); PLATELET COUNT 434 10^3/uL (130-400); RED CELL DISTRIBUTION WIDTH 18.3 % (10.0-14.5); WHITE BLOOD COUNT 15.4 10^3/uL (4.3-11.0)
[2018-10-25 05:26] LABS: BAND NEUTROPHILS 1 %; BASOPHILS % (MANUAL) 0 %; EOSINOPHILS % (MANUAL) 0 %; LYMPHOCYTES % (MANUAL) 16 %; METAMYELOCYTES % 1 %; MONOCYTES % (MANUAL) 13 %; NEUTROPHILS % (MANUAL) 69 %
[2018-10-25 05:27] LABS: ANISOCYTOSIS MODERATE; HYPOCHROMASIA MODERATE; POLYCHROMASIA SLIGHT; TARGET CELLS SLIGHT; TEAR DROP CELLS SLIGHT
[2018-10-25 05:55] LABS: BUN/CREATININE RATIO 14; CALCIUM 7.6 MG/DL (8.5-10.1); CARBON DIOXIDE 23 MMOL/L (21-32); CHLORIDE 106 MMOL/L (98-107); CREATININE SERUM 0.58 MG/DL (0.60-1.30); GFR ESTIMATED > 60; GLUCOSE 83 MG/DL (70-105); SODIUM 139 MMOL/L (135-145)
[2018-10-25] MEDS: predniSONE 20 MG TAB PO SCH (06:50)
[2018-10-25 08:00] VITALS: BP 146/88
[2018-10-25] MEDS ORDERED: KCL 20 MEQ TAB (K-DUR) PO ONE (08:00)
[2018-10-25] MEDS: PREGABALIN 100 MG (LYRICA) CAPSULE PO SCH ×3 (08:25→22:09)
[2018-10-25] MEDS: cloNIDine 0.1 MG (CATAPRES) TAB PO SCH ×3 (08:26→22:09)
[2018-10-25] MEDS: PANTOPRAZOLE 40 MG (PROTONIX) TAB PO SCH (08:26)
--- NOTE | 2018-10-25 08:50 | Progress Note-Hospitalist ---
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 Subjective/Events-last exam When I entered room patient reports doing well and pain improved. As conversation continued she stated pain was worse than before. Has LEAD TEACHER at bedside. Discussed with RN on need for 1 person to be managing pain for patient safety especially considering family noted to be pressing LEAD TEACHER button for patient during sleep. Objective Exam Vital Signs Vital Signs Date Time Temp Pulse Resp B/P (MAP) Pulse Ox O2 Delivery O2 Flow Rate FiO2 10/25/18 04:00 99.2 63 18 144/86 (105) 98 Room Air 10/23/18 15:55 4 Capillary Refill : Less Than 3 Seconds General Appearance: No Apparent Distress, Chronically ill, Cachetic Respiratory: Lungs Clear, No Accessory Muscle Use, No Respiratory Distress Cardiovascular: Regular Rate, Rhythm Gastrointestinal: Normal Bowel Sounds, Non Tender, Soft Extremity: Other (s/p left TMA- wrapped in surgical dressing) Neurologic/Psychiatric: Alert, Oriented x3 Skin: Normal Color Lymphatic: No Adenopathy Results/Procedures Lab Laboratory Tests 10/25/18 05:00 Patient resulted labs reviewed. 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
[2018-10-25] MEDS: MAGNESIUM 1 GM/100 ML IVPB 100 ML IV SCH ×2 (09:21→10:26)
--- NOTE | 2018-10-25 11:55 | Progress Note (SOAP) ---
Subjective Date Seen by a Provider: Oct 25, 2018 Time Seen by a Provider: 11:50 Subjective/Events-last exam doing well. states pain however appears comfortable. will d/c CONDUCTOR YARD, give fentanyl CONDUCTOR YARD and add oxycontin PO. cont abx for now Objective Exam Vital Signs Date Time Temp Pulse Resp B/P (MAP) Pulse Ox O2 Delivery O2 Flow Rate FiO2 10/25/18 08:00 98.6 60 20 146/88 (107) 99 Room Air 10/25/18 08:00 98 Room Air 10/25/18 04:00 99.2 63 18 144/86 (105) 98 Room Air 10/25/18 00:00 100.0 71 18 149/82 (104) 100 Room Air 10/24/18 20:40 99.7 67 20 152/83 (106) 99 Room Air 10/24/18 20:00 Room Air 10/24/18 18:49 99.7 10/24/18 18:00 18 10/24/18 16:35 99.7 72 18 151/89 (109) 97 Room Air 10/24/18 15:30 99.2 10/24/18 12:00 99.2 75 18 174/84 (114) 98 Room Air I & O 10/25/18 07:00 Intake Total 2990 ml Output Total 2300 ml Balance 690 ml Capillary Refill : Less Than 3 Seconds General Appearance: No Apparent Distress HEENT: PERRL/EOMI Neck: Full Range of Motion Respiratory: Chest Non Tender, Normal Breath Sounds Cardiovascular: Regular Rate, Rhythm Peripheral Pulses: 3+ Dorsalis Pedis (R), 3+ Left Dors-Pedis (L) Gastrointestinal: normal bowel sounds, non tender, soft Extremity: Normal Capillary Refill Neurologic/Psychiatric: Alert, Oriented x3 Skin: Normal Color Lymphatic: No Adenopathy Results Lab Laboratory Tests 10/25/18 05:00: White Blood Count 15.4H, Red Blood Count 3.30L, Hemoglobin 8.6L, Hematocrit 28L, Mean Corpuscular Volume 83, Mean Corpuscular Hemoglobin 26, Mean Corpuscular Hemoglobin Concent 31L, Red Cell Distribution Width 18.3H, Platelet Count 434H, Mean Platelet Volume 9.0, Neutrophils (%) (Auto) 71, Lymphocytes (%) (Auto) 14, Monocytes (%) (Auto) 14H, Eosinophils (%) (Auto) 1, Basophils (%) (Auto) 0, Neutrophils # (Auto) 11.0H, Lymphocytes # (Auto) 2.2, Monocytes # (Auto) 2.2H, Eosinophils # (Auto) 0.1, Basophils # (Auto) 0.0, Neutrophils % (Manual) 69, Lymphocytes % (Manual) 16, Monocytes % (Manual) 13, Eosinophils % (Manual) 0, Basophils % (Manual) 0, Metamyelocytes % 1, Band Neutrophils 1, Polychromasia SLIGHT, Hypochromasia MODERATE, Anisocytosis MODERATE, Macrocytosis MODERATE, Target Cells SLIGHT, Tear Drop Cells SLIGHT, Sodium Level 139, Potassium Level 3.0L, Chloride Level 106, Carbon Dioxide Level 23, Anion Gap 10, Blood Urea Nitrogen 8, Creatinine 0.58L, Estimat Glomerular Filtration Rate > 60, BUN/Creatinine Ratio 14, Glucose Level 83, Calcium Level 7.6L, Magnesium Level 1.6L Microbiology 10/17/18 Blood Culture - Final, Complete No growth 10/19/18 MRSA Screen - Final, Complete MRSA not isolated 10/17/18 Gram Stain - Final, Complete 10/17/18 Wound Culture - Final, Complete Corynebacterium striatum YEAST Gram Pos Mixed Bacterial Kim Assessment/Plan Assessment/Plan Assess & Plan/Chief Complaint vasculitis with lower extr ischemia s/p left TMA, right leg STSG. consult SS for placement and to assess need. ambulate as tolerated. partial weight bearing left LE(50%). ok to shower. leave bilateral LE dressing until seen in office in approx 1 week. d/c CONDUCTOR YARD, start oxycontin PO Clinical Quality Measures DVT/VTE Risk/Contraindication: Risk Factor Score Per Nursin RFS Level Per Nursing on Admit: 4+=Very High KOFI GARCES MD Oct 25, 2018 11:55
[2018-10-25 12:00] VITALS: BP 139/79
--- NOTE | 2018-10-25 12:48 | Physical Therapy Daily Note ---
PT Daily Note-Current Subjective Pt. sitting up in bed, says she has already been in/out of wheelchair today; states she transfers to commode without issue. Pain rated 6/10 in the L foot. Mental Status Attachments: IV Transfers Therapy Code Descriptions/Definitions Functional [place] Measure: 0=Not Assessed/NA 4=Minimal Assistance 1=Total Assistance 5=Supervision or Setup 2=Maximal Assistance 6=Modified [place] 3=Moderate Assistance 7=Complete [place] Therapy Quality Codes: 6 Independent with activity with or without an assistive device 5 Patient requires set up or clean up by helper. Patient completes activity by themselves 4 Supervision or touching assist (CGA). [place] provide cues , steadying assist 3 The helper provides less than half the effort to complete the activity 2 The helper provides more than half the effort to complete the activity 1 Dependent. The helper does all the effort to complete an activity 7 Patient refused to complete or attempt activity 9 The patient did not perform the activity before the current illness or injury 88 Not attempted due to Medical conditions or safety concerns Transfers (B, C, W/C) (FIM): 6 Supine to/from Sit: 6 Bed to/from Chair: 6 bed to w/c mod (I), w/c to commode mod (I) Weight Bearing Right Lower Extremity: Right Weight Bearing/Tolerated Left Lower Extremity: Left Non Weight Bearing Treatments transfers Assessment Current Status: Good Progress Pt. is mod (I) with transfers and maintains NWB status. She declines attempting ambulation today. Pt. seated on commode post session with all needs met, family present. PT Short Term Goals Short Term Goals Transfers (B,C,W/C) (FIM): 5 PT Kardex Clerk Goals Nursing Home Goals PT Nursing Home Goals Time Frame: Oct 29, 2018 Transfers (B,C,W/C) (FIM): 6 Wheelchair (FIM): 6 PT Plan Treatment/Plan Treatment Plan: Continue Plan of Care Treatment Plan: Bed Mobility, Education, Functional Activity Brandee, Functional Strength, Safety, Therapeutic Exercise, Transfers Treatment Duration: Oct 29, 2018 Frequency: 6 times per week Estimated Hrs Per Day: .25 hour per day Patient and/or Family Agrees t: Yes Time/GCodes Time In: 1230 Time Out: 1240 Total Billed Treatment Time: 10 Total Billed Treatment 1, FA 10' PRADEEP HAUSER PT Oct 25, 2018 12:48
--- NOTE | 2018-10-25 14:00 | NUR ---
SALINE LOCK REMOVED FROM RIGHT AC, SITE WITHOUT REDNESS OR SWELLING
[2018-10-25 16:00] VITALS: BP 129/74
--- NOTE | 2018-10-25 16:18 | NUR ---
OXYCODONE 30MG GIVEN PO FOR PAIN, FENTANYL PANEL FITTER DC ORDERED, IV FLUIDS DC, RATES PAIN 6 ON PAIN SCALE
--- NOTE | 2018-10-25 16:19 | NUR ---
FENTANYL TILE FINISHER DC, WASTED 19ML FENTANYL, WITNESSED BY BINH BRISCOE
[2018-10-25] MEDS: oxyCODONE ER 40 MG (oxyCONTIN CR) TAB PO SCH (19:21)
[2018-10-25 19:38] VITALS: BP 163/87
[2018-10-25] MEDS: ACETAMINOPHEN 500 MG TAB (TYLENOL) PO PRN (19:45)
[2018-10-25] MEDS ORDERED: ACETAMINOPHEN 325 MG TABLET ONE (19:47)
[2018-10-25] MEDS: fentaNYL INJECTION 100 MCG/2 ML AMP IVP PRN (21:00)
[2018-10-25] MEDS: traZODone 150 MG (DESYREL) TABLET PO SCH (22:09)
[2018-10-26] VITALS: BP 110/69
[2018-10-26] MEDS: fentaNYL INJECTION 100 MCG/2 ML AMP IVP PRN ×5 (00:12→18:43)
[2018-10-26 03:37] VITALS: BP 140/87
[2018-10-26 05:30] LABS: BASOPHILS % (AUTO) 0 % (0-10); EOSINOPHILS # (AUTO) 0.2 10^3/uL (0.0-0.3); EOSINOPHILS % (AUTO) 1 % (0-10); HEMATOCRIT 28 % (35-52); HEMOGLOBIN 8.7 G/DL (11.5-16.0); LYMPHOCYTES # (AUTO) 1.9 X 10^3 (1.0-4.0); LYMPHOCYTES % (AUTO) 13 % (12-44); MEAN CORPUSCULAR HEMOGLOBIN 26 PG (25-34); MEAN CORPUSCULAR HGB CONC 31 G/DL (32-36); MEAN CORPUSCULAR VOLUME 84 FL (80-99); MEAN PLATELET VOLUME 9.6 FL (7.4-10.4); MONOCYTES # (AUTO) 1.8 X 10^3 (0.0-1.0); MONOCYTES % (AUTO) 13 % (0-12); NEUTROPHILS # (AUTO) 10.5 X 10^3 (1.8-7.8); NEUTROPHILS % (AUTO) 73 % (42-75); PLATELET COUNT 402 10^3/uL (130-400); RED CELL DISTRIBUTION WIDTH 18.3 % (10.0-14.5); WHITE BLOOD COUNT 14.4 10^3/uL (4.3-11.0)
[2018-10-26 05:45] LABS: BUN/CREATININE RATIO 16; CALCIUM 7.6 MG/DL (8.5-10.1); CARBON DIOXIDE 25 MMOL/L (21-32); CHLORIDE 106 MMOL/L (98-107); CREATININE SERUM 0.58 MG/DL (0.60-1.30); GFR ESTIMATED > 60; GLUCOSE 92 MG/DL (70-105); MAGNESIUM 1.9 MG/DL (1.8-2.4); POTASSIUM 2.9 MMOL/L (3.6-5.0); SODIUM 140 MMOL/L (135-145)
[2018-10-26] MEDS: predniSONE 20 MG TAB PO SCH (06:58)
[2018-10-26 08:00] VITALS: BP 146/89
[2018-10-26] MEDS: PREGABALIN 100 MG (LYRICA) CAPSULE PO SCH ×3 (08:01→20:25)
[2018-10-26] MEDS: oxyCODONE ER 40 MG (oxyCONTIN CR) TAB PO SCH ×2 (08:01→20:25)
[2018-10-26] MEDS: PANTOPRAZOLE 40 MG (PROTONIX) TAB PO SCH (08:01)
[2018-10-26] MEDS: cloNIDine 0.1 MG (CATAPRES) TAB PO SCH ×3 (08:01→20:24)
[2018-10-26] MEDS ORDERED: KCL 20 MEQ TAB (K-DUR) PO ONE (10:45)
--- NOTE | 2018-10-26 11:16 | Progress Note-Hospitalist ---
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 Objective Exam Vital Signs Vital Signs Date Time Temp Pulse Resp B/P (MAP) Pulse Ox O2 Delivery O2 Flow Rate FiO2 10/26/18 08:39 98 Room Air 0.00 10/26/18 08:00 99.3 75 20 146/89 (108) Capillary Refill : Less Than 3 SecondsLess Than 3 Seconds General Appearance: No Apparent Distress, Chronically ill Respiratory: Lungs Clear, Normal Breath Sounds Cardiovascular: Regular Rate, Rhythm Gastrointestinal: Normal Bowel Sounds, Non Tender, Soft Extremity: Normal Capillary Refill Neurologic/Psychiatric: Alert, Oriented x3 Lymphatic: No Adenopathy Results/Procedures Lab Laboratory Tests 10/26/18 05:20 Patient resulted labs reviewed. 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
--- NOTE | 2018-10-26 11:17 | Progress Note (SOAP) ---
Subjective Date Seen by a Provider: Oct 26, 2018 Time Seen by a Provider: 11:00 Subjective/Events-last exam doing ok. no new complaints. states pain is always a constant. troy diet. no fever/chills. Objective Exam Vital Signs Date Time Temp Pulse Resp B/P (MAP) Pulse Ox O2 Delivery O2 Flow Rate FiO2 10/26/18 08:39 98 Room Air 0.00 10/26/18 08:00 99.3 75 20 146/89 (108) 98 Room Air 10/26/18 03:37 100.0 74 20 140/87 (104) 96 Room Air 10/26/18 00:00 100.2 88 16 110/69 (83) 97 Room Air 10/25/18 21:11 100 Room Air 3.50 10/25/18 20:15 99.0 10/25/18 20:00 100 Room Air 3.50 10/25/18 19:45 101.0 10/25/18 19:38 101.0 78 20 163/87 (112) 100 Room Air 10/25/18 16:00 100.1 71 20 129/74 (92) 100 Room Air 10/25/18 12:00 99.9 86 18 139/79 (99) 98 Room Air I & O 10/26/18 07:00 Intake Total 3880 ml Output Total 4800 ml Balance -920 ml Capillary Refill : Less Than 3 SecondsLess Than 3 Seconds General Appearance: No Apparent Distress HEENT: PERRL/EOMI Neck: Full Range of Motion Respiratory: Chest Non Tender, Normal Breath Sounds Cardiovascular: Regular Rate, Rhythm Peripheral Pulses: 3+ Dorsalis Pedis (R), 3+ Left Dors-Pedis (L) Gastrointestinal: normal bowel sounds, soft Extremity: Normal Capillary Refill Neurologic/Psychiatric: Alert, Oriented x3 Skin: Normal Color Lymphatic: No Adenopathy Results Lab Laboratory Tests 10/26/18 05:20: White Blood Count 14.4H, Red Blood Count 3.31L, Hemoglobin 8.7L, Hematocrit 28L, Mean Corpuscular Volume 84, Mean Corpuscular Hemoglobin 26, Mean Corpuscular Hemoglobin Concent 31L, Red Cell Distribution Width 18.3H, Platelet Count 402H, Mean Platelet Volume 9.6, Neutrophils (%) (Auto) 73, Lymphocytes (%) (Auto) 13, Monocytes (%) (Auto) 13H, Eosinophils (%) (Auto) 1, Basophils (%) (Auto) 0, Neutrophils # (Auto) 10.5H, Lymphocytes # (Auto) 1.9, Monocytes # (Auto) 1.8H, Eosinophils # (Auto) 0.2, Basophils # (Auto) 0.0, Sodium Level 140, Potassium Level 2.9L, Chloride Level 106, Carbon Dioxide Level 25, Anion Gap 9, Blood Urea Nitrogen 9, Creatinine 0.58L, Estimat Glomerular Filtration Rate > 60, BUN/Creatinine Ratio 16, Glucose Level 92, Calcium Level 7.6L, Magnesium Level 1.9 Microbiology 10/17/18 Blood Culture - Final, Complete No growth 10/19/18 MRSA Screen - Final, Complete MRSA not isolated 10/17/18 Gram Stain - Final, Complete 10/17/18 Wound Culture - Final, Complete Corynebacterium striatum YEAST Gram Pos Mixed Bacterial Kim Assessment/Plan Assessment/Plan Assess & Plan/Chief Complaint vasculitis with lower extr ischemia s/p left TMA, right leg STSG. consult SS for placement and to assess need. ambulate as tolerated. partial weight bearing left LE(50%). ok to shower. leave bilateral LE dressing until seen in office in approx 1 week. d/c ASSISTANT BANQUET MANAGER, start oxycontin PO. may need pain specialist due to severely high narcotic need. Clinical Quality Measures DVT/VTE Risk/Contraindication: Risk Factor Score Per Nursin RFS Level Per Nursing on Admit: 4+=Very High KOFI GARCES MD Oct 26, 2018 11:17
--- NOTE | 2018-10-26 11:18 | D/C HH Face to Face Order ---
D/C Face to Face Orders Instructions for Patient Via [facility], Patient Instructions/FollowUp: Please continue to take your medications as written and follow up as scheduled. Physician to follow Patient: Dr Hammond Discharge Diet for Home: No Restrictions Patient Data-Allergies,Ht & Wt Patient Allergies: Coded Allergies: levofloxacin (Verified Allergy, Intermediate, HIVES, 05/29/16) orphenadrine (Unverified Allergy, Unknown, 05/29/16) Uncoded Allergies: UNKNOWN ALLERGY (Allergy, Unknown, 07/25/05) Height (Feet): 5 Height (Inches): 0.00 Weight (Pounds): 134 Weight (Ounces): 8.0 Home Health Need/Face to Face Date of Face to Face: Oct 26, 2018 Clinical Findings: Generalized weakness and fatigue, Non or partial weight bearing, Non-healing wound I have seen Pt [id number]: Yes Discharged To: Home Diagnosis/Conditions: dry gangrene of LLE s/p TMA, vasculitis Patient is Homebound due to: Janett fall risk due to instabilty, Non-weight bearing Homebound Status Due to the above stated illness, injury or surgical procedure (medical condition or diagnosis) and associated clinical findings, the patient is homebound because of his/her inability to leave home except with aid of a supportive device and/or person AND leaving the home requires a considerable and taxing effort or is medically contraindicated. Pt req the following assistanc: Aid of another person, Wheelchair Home Health Nursing Orders Home Health Services Order: Nursing Services, Fiction And Nonfiction Writer Prose-Evaluate & Treat, Physical Therapy-Evaluate & Treat, Wound Care-Eval/Treat Home Health Infusion Therapy Line Start Date: Oct 18, 2018 Therapy Orders Therapy Orders: OT (must have SN or PT order), Physical Therapy Therapy Specific Orders: Eval assistive deivces, Teach enviro modifications/safety, Gait training, Increase strength/endurance [facility] that this patient is under my care and that I, a nurse practitioner or a physician; a administrative personal assistant working with me, had a face to face encounter that - meets the physician face to face encounter requirements with this patient as dated. VEGA THAPA MD Oct 26, 2018 11:18 am
--- NOTE | 2018-10-26 11:40 | NUR ---
Follow up visit with the pt outside this morning: offered compassionate presence and active listening as pt continues journey of healing. She demonstrates positive coping and dynamic george in the midst of discouragement and emotional/physical fatigue.
--- NOTE | 2018-10-26 11:54 | Physical Therapy Daily Note ---
PT Daily Note-Current Subjective Patient reports she does not need PT stating, "I can do everything on my own." She did agree to demonstrate ability to ensure safety with all mobility. Transfers Therapy Code Descriptions/Definitions Functional [place] Measure: 0=Not Assessed/NA 4=Minimal Assistance 1=Total Assistance 5=Supervision or Setup 2=Maximal Assistance 6=Modified [place] 3=Moderate Assistance 7=Complete [place] Therapy Quality Codes: 6 Independent with activity with or without an assistive device 5 Patient requires set up or clean up by helper. Patient completes activity by themselves 4 Supervision or touching assist (CGA). [place] provide cues , steadying assist 3 The helper provides less than half the effort to complete the activity 2 The helper provides more than half the effort to complete the activity 1 Dependent. The helper does all the effort to complete an activity 7 Patient refused to complete or attempt activity 9 The patient did not perform the activity before the current illness or injury 88 Not attempted due to Medical conditions or safety concerns Transfers (B, C, W/C) (FIM): 6 Scootin Rollin Supine to/from Sit: 7 Bed to/from Chair: 6 patient performs a scoot from bed to w/c without difficulty Weight Bearing Right Lower Extremity: Right Weight Bearing/Tolerated Left Lower Extremity: Left Non Weight Bearing Assessment Patient is currently at [facility] with all gross motor skills. Physician consulted on PT dismissing patient from services and concurs. PT to dismiss patient from services at this time. PT Short Term Goals Short Term Goals Transfers (B,C,W/C) (FIM): 5 PT Half-Way Goals Product Marketing Coordinator Goals PT Half-Way Goals Time Frame: Oct 29, 2018 Transfers (B,C,W/C) (FIM): 6 Wheelchair (FIM): 6 PT Plan Treatment/Plan Treatment Plan: Discontinue PT, goals met Treatment Plan: Bed Mobility, Education, Functional Activity Brandee, Functional Strength, Safety, Therapeutic Exercise, Transfers Treatment Duration: Oct 29, 2018 Frequency: 6 times per week Estimated Hrs Per Day: .25 hour per day Patient and/or Family Agrees t: Yes Time/GCodes Time In: 1034 Time Out: 1042 Total Billed Treatment Time: 8 Total Billed Treatment 1 visit FA 8 min JUAN DIAL PT Oct 26, 2018 11:54
--- NOTE | 2018-10-26 11:57 | NUR ---
CM/SS met with the patient, discussed HHC for at discharge. Patient preference would be for [facility]. Information sent to [facility]. They will follow for discharge and set up to see the patient. Choice form in chart.
[2018-10-26 12:00] VITALS: BP 124/65
--- NOTE | 2018-10-26 13:35 | OPERATIVE REPORT ---
DATE OF SERVICE: 10/23/2018 ATTENDING PHYSICIAN: Lesli Bonds DO. PREOPERATIVE DIAGNOSES: Systemic lupus erythematosus and vasculitis with dry gangrene of the left forefoot as well as an open wound of the left lateral lower extremity and larger wound of the right lateral lower extremity. POSTOPERATIVE DIAGNOSES: Systemic lupus erythematosus and vasculitis with dry gangrene of the left forefoot as well as an open wound of the left lateral lower extremity and larger wound of the right lateral lower extremity. PROCEDURES PERFORMED: Left transmetatarsal amputation. Debridement, left lateral lower extremity wound 6 x 3 cm in size and split thickness skin graft. Debridement of right lateral lower extremity 10 x 9 cm in size with a split-thickness skin graft. SURGEON: Kofi Garces MD. ANESTHESIA: General. RADIOISOTOPE TECHNICIAN: Miguel Rajan APRN. ANESTHESIA: General endotracheal. ESTIMATED BLOOD LOSS: Minimal. FINDINGS: Viable tissue at the proximal transmetatarsal level bones fused most likely secondary to the vasculitis. Good viable tissue, bilateral lower extremities with skin graft taken from the right lateral thigh and meshed to 1-1.5 ratio. DISPOSITION: The patient tolerated the procedure well. INDICATIONS: The patient is a 42-year-old male who presented to the Emergency Department with complaints of bilateral foot pain. She has a significant past medical history including a SLE as well as vasculitis. She has had chronic pain issues for many years. This has also been exacerbated by smoking as well as alcoholism. She is able to ambulate with assistance; however, does use a wheelchair for majority of the time. Upon admission, she was found to have a hemoglobin of 5.7. She also did have a dry gangrene of the left forefoot as well as open wounds of the left lateral lower extremity as well as the right lateral lower extremity. She states that she has undergone multiple previous wound debridement and split-thickness skin grafting for these open wounds. DESCRIPTION OF PROCEDURE: The patient was brought to the operating room, laid supine on the table. After adequate IV pain and sedative medications and general endotracheal intubation. bilateral lower extremities were prepped and draped in standard surgical fashion. We first proceeded with a transmetatarsal amputation of the left forefoot. A flap skin incision was created after measurements made. We first proceeded with creation of the superior flap after skin incision was made using 15-blade. Subcutaneous tissue was then dissected to the level of the fascia and bone. This was then scored opened using electrocautery with visualization of good hemostasis. The fascia and periosteum were then elevated using a periosteal elevator. We then proceeded with the inferior flap formation in a similar manner using electrocautery as well as the periosteal elevator. Good bleeding was identified to indicate good perfusion. We then proceeded with the transmetatarsal amputation using a saw. We then used a bone rasp to smooth out the edges of the transmetatarsal amputation. The bones were all fused most likely secondary to her vasculitis. The flaps were then reapproximated in 2 different layers using 2-0 Vicryl interrupted sutures encompassing the muscle and fascial layer first and then the subcutaneous layer. The skin was closed using skin monique; however, before closure of the wound, a 0.25-inch [place] drain was placed in the wound. We then proceeded with debridement of bilateral lower lateral extremity wounds. The left lateral wound was 6 x 3 cm in size. The right lateral wound was 10 x 9 cm in size. Debridement was done using sharp dissection with a 15-blade. Good hemostasis was observed. A good granulation bed was also identified. Adequate bleeding was also identified. We then proceeded with a graft harvest from the right lateral thigh. A dermatome at 0.015 inches was then made using the dermatome. The skin graft taken was measured at 8 x 7 cm. Good hemostasis was achieved at the graft harvest site using epinephrine-soaked lap sponge. The split-thickness skin graft was then meshed to 1-1.5 and then we proceeded to use this split-thickness skin graft to cover the entirety of the bilateral lower extremity wounds using skin monique and the redundant edges cut down to size. We then used a fibrin glue to both of the wounds and held pressure for approximately 60 seconds. Both of the skin graft site wounds were then covered with Adaptic followed by gauze followed by Coban. The left transmetatarsal amputation was also covered in a similar manner. The patient tolerated the procedure well. We will start IV and oral pain medication as well as diet as tolerated and continue with physical therapy. We will also have her keep both of the skin dressings on for approximately 5-7 days and we will proceed with removal of the dressing and then recommend dressing change after that. Job ID: [id number] DocumentID: [id number] Dictated Date: 10/26/2018 11:34:28 Intelligence Support Officer Date: 10/26/2018 13:34:26 Dictated By: KOFI GARCES MD MTDD
--- NOTE | 2018-10-26 15:32 | Occupational Ther Daily Note ---
OT Current Status-Daily Note Subjective Pt sitting and lying in bed. Pt stated that she hasn't slept in 2 days and is very tired. Pt did agree to therapy. Mental Status/Objective Patient Orientation: Person, Place, Time, Situation Therapy Code Descriptions/Definitions Functional [place] Measure: 0=Not Assessed/NA 4=Minimal Assistance 1=Total Assistance 5=Supervision or Setup 2=Maximal Assistance 6=Modified [place] 3=Moderate Assistance 7=Complete [place] ADL-Treatment Pt stated that she has already washed up for the day. Pt demonstrated ability to complete lower body dressing. Other Treatment Medium resistance theraband exercises completed to increase UE strength for daily functional tasks. Skills of therapist needed for correct technique to complete exercises appropriately. 2 sets 10 reps of 3 exercises. After therapy, pt sitting in bed with call light/phone in reach. All needs met in room. OT Short Term Goals Short Term Goals Grooming(FIM): 6 Bathing(FIM): 6 Lower Body Dressing(FIM): 5 Toileting(FIM): 5 Transfers (B,C,W/C) (FIM): 5 Toilet/Commode Transfer(FIM): 5 Tub Transfer(FIM): 5 1=Demonstrate adherence to instructed precautions during ADL tasks. 2=Patient will verbalize/demonstrate understanding of assistive devices/modifications for ADL. 3=Patient will improve strength/tolerance for activity to enable patient to perform ADL's. OT Autotransfusionist Goals Detention Goals Grooming(FIM): 6 Bathing(FIM): 6 Lower Body Dressing(FIM): 6 Toileting(FIM): 6 Transfers (B,C,W/C) (FIM): 6 Toilet/Commode Transfer(FIM): 6 Tub Transfer(FIM): 6 1=Demonstrate adherence to instructed precautions during ADL tasks. 2=Patient will verbalize/demonstrate understanding of assistive devices/modifications for ADL. 3=Patient will improve strength/tolerance for activity to enable patient to perform ADL's. OT Education/Plan Problem List/Assessment pt presents with functional limitations affecting areas of ADLs and and functional transfers with deficits in the above mention. pt would benefit from OT services to increase independence with ADLs/ functional transfers. OT will continue following for assist with d/c planning. [facility] OT Discharge Recommendations Plan/Recommendations: Continue POC Treatment Plan/Plan of Care Patient would benefit from OT for education, treatment and training to promote independence in ADL's, mobility, safety and/or upper extremity function for ADL's. Plan of Care: ADL Retraining, Functional Mobility, Group Exercise/Act as Ind, UE Funct Exercise/Act Treatment Duration: Nov 07, 2018 Frequency: 5 times per week Estimated Hrs Per Day: .25 hour per day Agreement: Yes Rehab Potential: Good Time/GCodes Start Time: 11:29 Stop Time: 11:39 Total Time Billed (hr/min): 10 Billed Treatment Time 1 visit-FA 1 (10 min) JANI GR Oct 26, 2018 15:32
[2018-10-26 16:45] VITALS: BP 137/83
[2018-10-26 20:15] VITALS: BP 148/84
[2018-10-26] MEDS: traZODone 150 MG (DESYREL) TABLET PO SCH (20:24)
[2018-10-26] MEDS ORDERED: PROMETHAZINE 25 MG (PHENERGAN) TAB PO PRN (20:45)
[2018-10-26] MEDS ORDERED: PROMETHAZINE INJ 25 MG/ML (PHENERGAN) AMP IVP PRN (20:45)
[2018-10-26] MEDS ORDERED: PROMETHAZINE 25 MG (PHENERGAN) TAB ONE (20:59)
[2018-10-27] VITALS: BP 139/78
[2018-10-27] MEDS: ACETAMINOPHEN 500 MG TAB (TYLENOL) PO PRN (00:14)
[2018-10-27 04:43] LABS: BASOPHILS % (AUTO) 0 % (0-10); EOSINOPHILS # (AUTO) 0.2 10^3/uL (0.0-0.3); EOSINOPHILS % (AUTO) 2 % (0-10); HEMATOCRIT 29 % (35-52); HEMOGLOBIN 8.9 G/DL (11.5-16.0); LYMPHOCYTES # (AUTO) 2.3 X 10^3 (1.0-4.0); LYMPHOCYTES % (AUTO) 16 % (12-44); MEAN CORPUSCULAR HEMOGLOBIN 26 PG (25-34); MEAN CORPUSCULAR HGB CONC 31 G/DL (32-36); MEAN CORPUSCULAR VOLUME 85 FL (80-99); MEAN PLATELET VOLUME 9.5 FL (7.4-10.4); MONOCYTES # (AUTO) 1.7 X 10^3 (0.0-1.0); MONOCYTES % (AUTO) 11 % (0-12); NEUTROPHILS # (AUTO) 10.4 X 10^3 (1.8-7.8); NEUTROPHILS % (AUTO) 71 % (42-75); PLATELET COUNT 419 10^3/uL (130-400); RED CELL DISTRIBUTION WIDTH 18.9 % (10.0-14.5); WHITE BLOOD COUNT 14.7 10^3/uL (4.3-11.0)
[2018-10-27 04:58] LABS: BUN/CREATININE RATIO 19; CARBON DIOXIDE 25 MMOL/L (21-32); CHLORIDE 107 MMOL/L (98-107); CREATININE SERUM 0.58 MG/DL (0.60-1.30); GFR ESTIMATED > 60; GLUCOSE 95 MG/DL (70-105); MAGNESIUM 1.8 MG/DL (1.8-2.4); POTASSIUM 3.8 MMOL/L (3.6-5.0); SODIUM 141 MMOL/L (135-145)
[2018-10-27] MEDS: KCL 20 MEQ TAB (K-DUR) PO SCH (06:17)
[2018-10-27] MEDS: predniSONE 20 MG TAB PO SCH (06:17)
[2018-10-27 08:00] VITALS: BP 140/87
[2018-10-27] MEDS: oxyCODONE ER 40 MG (oxyCONTIN CR) TAB PO SCH ×2 (08:11→20:46)
[2018-10-27] MEDS: PANTOPRAZOLE 40 MG (PROTONIX) TAB PO SCH (08:11)
[2018-10-27] MEDS: cloNIDine 0.1 MG (CATAPRES) TAB PO SCH ×3 (08:11→20:46)
[2018-10-27] MEDS: PREGABALIN 100 MG (LYRICA) CAPSULE PO SCH ×3 (08:11→20:46)
--- NOTE | 2018-10-27 10:39 | Occ Therapy Progress Note ---
Therapy Progress Note 1035 Pt seen in room, rubbing legs and moaning. Declined OT due to leg pain. She had just received medication and it hadn't taken effect yet. Pt agreed to complete theraband exercises on her own later today. visit SOFIA GARCIA OT Oct 27, 2018 10:39
--- NOTE | 2018-10-27 11:30 | Progress Note-Hospitalist ---
Subjective HPI/CC On Admission Date Seen by Provider: Oct 27, 2018 Time Seen by Provider: 11:26 CC: Dry gangrene of the left foot needing amputation. Subjective/Events-last exam Pt reports feeling well when I entered room. Upon discussion on discharge planning she became tearful and stated her pain was not under control and she can't get on top of it. Also is worried about ability to afford medications on discharge because she believes her insurance does not cover oxycontin. Objective Exam Vital Signs Vital Signs Date Time Temp Pulse Resp B/P (MAP) Pulse Ox O2 Delivery O2 Flow Rate FiO2 10/27/18 08:00 Room Air 10/27/18 08:00 98.2 90 18 140/87 (104) 100 10/26/18 08:39 0.00 Capillary Refill : Less Than 3 SecondsLess Than 3 Seconds General Appearance: Chronically ill, Other (tearful) Respiratory: Chest Non Tender, Normal Breath Sounds Cardiovascular: Regular Rate, Rhythm Gastrointestinal: Normal Bowel Sounds, Non Tender, Soft Extremity: Other (left TMA in dressing, right with dressing as well, right uppe r thigh where skin graft done has clean/dry dressing as well) Neurologic/Psychiatric: Alert, Oriented x3 Skin: Normal Color Lymphatic: No Adenopathy Results/Procedures Lab Laboratory Tests 10/27/18 04:36 Patient resulted labs reviewed. Assessment/Plan Assessment and Plan Assess & Plan/Chief Complaint Dry gangrene- left foot POD #4 Continue pain meds preferentially PT/OT Vasculitis Continue Steroids Chronic pain unsure of if pain inadequately controlled or dependence is more of issue Has needed less fentanyl so likely improving control so will not change regimen Anemia of chronic disease Hgb stable trend Neuropathy Continue lyrica HTN Continue clonidine Discharge planning SW consulted for assistance with HH set up Clinical Quality Measures DVT/VTE Risk/Contraindication: Risk Factor Score Per Nursin RFS Level Per Nursing on Admit: 4+=Very High VEGA THAPA MD Oct 27, 2018 11:30 am
[2018-10-27] MEDS: fentaNYL INJECTION 100 MCG/2 ML AMP IVP PRN (13:41)
[2018-10-27 16:29] VITALS: BP 133/76
[2018-10-27] MEDS: traZODone 150 MG (DESYREL) TABLET PO SCH (20:45)
[2018-10-28] VITALS: BP 124/71
[2018-10-28 05:58] LABS: BASOPHILS % (AUTO) 0 % (0-10); EOSINOPHILS # (AUTO) 0.2 10^3/uL (0.0-0.3); EOSINOPHILS % (AUTO) 2 % (0-10); HEMATOCRIT 31 % (35-52); HEMOGLOBIN 9.5 G/DL (11.5-16.0); LYMPHOCYTES # (AUTO) 2.4 X 10^3 (1.0-4.0); LYMPHOCYTES % (AUTO) 18 % (12-44); MEAN CORPUSCULAR HEMOGLOBIN 26 PG (25-34); MEAN CORPUSCULAR HGB CONC 30 G/DL (32-36); MEAN CORPUSCULAR VOLUME 87 FL (80-99); MONOCYTES # (AUTO) 1.6 X 10^3 (0.0-1.0); MONOCYTES % (AUTO) 12 % (0-12); NEUTROPHILS # (AUTO) 9.5 X 10^3 (1.8-7.8); NEUTROPHILS % (AUTO) 69 % (42-75); PLATELET COUNT 394 10^3/uL (130-400); WHITE BLOOD COUNT 13.7 10^3/uL (4.3-11.0)
[2018-10-28 06:28] LABS: BUN/CREATININE RATIO 29; CALCIUM 8.4 MG/DL (8.5-10.1); CARBON DIOXIDE 25 MMOL/L (21-32); CHLORIDE 105 MMOL/L (98-107); CREATININE SERUM 0.58 MG/DL (0.60-1.30); GFR ESTIMATED > 60; GLUCOSE 83 MG/DL (70-105); MAGNESIUM 1.8 MG/DL (1.8-2.4); POTASSIUM 4.1 MMOL/L (3.6-5.0); SODIUM 141 MMOL/L (135-145)
[2018-10-28] MEDS: KCL 20 MEQ TAB (K-DUR) PO SCH (06:38)
[2018-10-28] MEDS: predniSONE 20 MG TAB PO SCH (06:38)
[2018-10-28 08:00] VITALS: BP 120/81
[2018-10-28] MEDS ORDERED: PRD20T PO (08:04)
[2018-10-28] MEDS ORDERED: PREG100C PO (08:04)
[2018-10-28] MEDS ORDERED: OXC5T PO (08:04)
--- NOTE | 2018-10-28 08:09 | Discharge Summary-Hospitalist ---
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 (3) Smoker Status: Chronic (4) Vasculitis Status: Chronic (5) Neuropathy Status: Chronic (6) Transfusion of blood during current hospitalization Status: Acute (7) Anemia Status: Acute (8) Chronic wound of extremity Status: Chronic Discharge Summary Procedures/Consulations Dr Hammond- Surgery Dr Stacy- Cardiology Dr Garber- Pulm Discharge Physical Exam Allergies: Coded Allergies: levofloxacin (Verified Allergy, Intermediate, HIVES, 05/29/16) orphenadrine (Unverified Allergy, Unknown, 05/29/16) Uncoded Allergies: UNKNOWN ALLERGY (Allergy, Unknown, 07/25/05) Vitals & I&Os Vital Signs Date Time Temp Pulse Resp B/P (MAP) Pulse Ox O2 Delivery O2 Flow Rate FiO2 10/28/18 09:40 84 18 120/81 94 Room Air 0.00 10/28/18 08:00 98.2 General Appearance: No Apparent Distress, Chronically ill Respiratory: Lungs Clear, No Respiratory Distress Cardiovascular: Regular Rate, Rhythm, No Murmur Neurologic/Psychiatric: Alert, Oriented x3 Hospital Course Pt was admitted due to dry gangrene of left lower extremity. She has known vasculitis and had been noncompliant with wound care and continues to smoke thus complicating her disease process. She ultimately underwent left TMA with skin grafting on the right lower extremity. PT/OT was consulted and she quickly returned to her baseline level of function. She was discharged home with home health and short term prescription for narcotics due postoperative pain. She states she is gong to follow up with Rosette Finley at Dr Rosales's office for further care. I did call and discuss this hospitalization with Rosette. She is to follow up with Dr Hammond postoperatively as scheduled. Labs (last 24 hrs) Microbiology 10/17/18 Blood Culture - Final, Complete No growth 10/19/18 MRSA Screen - Final, Complete MRSA not isolated 10/17/18 Gram Stain - Final, Complete 10/17/18 Wound Culture - Final, Complete Corynebacterium striatum YEAST Gram Pos Mixed Bacterial Kim Patient resulted labs reviewed. Pending Labs Discussion & Recommendations Discharge Planning: >30 minutes discharge planning Discharge Home Medications: Active Scripts Active Prednisone 20 Mg Tab 30 Mg PO DAILY@0700 Lyrica (Pregabalin) 100 Mg Capsule 100 Mg PO TID Oxyir Tablet (Oxycodone HCl) 5 Mg Tab 30 Mg PO QID PRN Clonidine HCl 0.1 Mg Tablet 0.1 Mg PO TID 30 Days Reported Ibuprofen 200 Mg Tablet 800 Mg PO TID TAKES 4 (200 MG) TABLETS Trazodone HCl 150 Mg Tablet 150 Mg PO HS Instructions to patient/family Please see electronic discharge instructions given to patient. Clinical Quality Measures DVT/VTE Risk/Contraindication: Risk Factor Score Per Nursin RFS Level Per Nursing on Admit: 4+=Very High Problem Qualifiers (1) Anemia: Anemia type: unspecified type Qualified Codes: D64.9 - Anemia, unspecified VEGA THAPA MD Oct 28, 2018 08:09
[2018-10-28] MEDS: oxyCODONE ER 40 MG (oxyCONTIN CR) TAB PO SCH (08:34)
[2018-10-28] MEDS: PANTOPRAZOLE 40 MG (PROTONIX) TAB PO SCH (08:34)
[2018-10-28] MEDS: cloNIDine 0.1 MG (CATAPRES) TAB PO SCH (08:34)
[2018-10-28] MEDS: PREGABALIN 100 MG (LYRICA) CAPSULE PO SCH (08:34)
[2018-10-28 09:40] VITALS: BP 120/81
--- NOTE | 2018-10-28 09:40 | NUR ---
NICOLE FIELDS demonstrates understanding of discharge instructions and accurately returns instructions upon questioning. Copy of Post-Discharge Instructions and Medication Discharge Instructions given to PATIENT. NICOLE FIELDS is able to manage continuing needs after discharge. Patients belongings returned to [facility]. Skin dry and intact; no breakdown noted. Patient discharged from [facility] on 10/28/2018 at 0940. NICOLE FIELDS left floor via PERSONAL WHEELCHAIR, accompanied by STAFF AND SIGNIFICANT OTHER.
--- NOTE | 2018-10-29 08:43 | NUR ---
[facility]. C information sent to [facility] as they are in network with insurance. They will reach out to the patient to schedule.
== END 2018-10-28 09:40 | disposition home health service (06) | DRG 240 ==
LOC: EDUNIT# 14:29 → ER 14:31 → ICU 15:01 → 4TH 10-18 08:55
PROVIDERS: ADMIT Internal Medicine; ATTEND Family Medicine
PROC: 0Y6N0Z6 Detachment at Left Foot, Complete 3rd Ray, Open Approach (ICD-10-PCS; 2018-10-23)
PROC: 0Y6N0Z7 Detachment at Left Foot, Complete 4th Ray, Open Approach (ICD-10-PCS; 2018-10-23)
PROC: 0Y6N0Z8 Detachment at Left Foot, Complete 5th Ray, Open Approach (ICD-10-PCS; 2018-10-23)
PROC: 0JRN07Z Replacement of Right Lower Leg Subcutaneous Tissue and Fascia with Autologous Tissue Substitute, Open Approach (ICD-10-PCS; 2018-10-23)
PROC: 0JRP07Z Replacement of Left Lower Leg Subcutaneous Tissue and Fascia with Autologous Tissue Substitute, Open Approach (ICD-10-PCS; 2018-10-23)
PROC: 0JBL0ZZ Excision of Right Upper Leg Subcutaneous Tissue and Fascia, Open Approach (ICD-10-PCS; 2018-10-23)
PROC: 0Y6N0Z4 Detachment at Left Foot, Complete 1st Ray, Open Approach (ICD-10-PCS; principal; 2018-10-23 12:33)
PROC: 0Y6N0Z5 Detachment at Left Foot, Complete 2nd Ray, Open Approach (ICD-10-PCS; 2018-10-23 12:33)
DX: I96 Gangrene, not elsewhere classified (principal); I77.6 Arteritis, unspecified; M08.8 Other juvenile arthritis; I73.9 Peripheral vascular disease, unspecified; M32.19 Other organ or system involvement in systemic lupus erythematosus; L97.929 Non-pressure chronic ulcer of unspecified part of left lower leg with unspecified severity; L97.919 Non-pressure chronic ulcer of unspecified part of right lower leg with unspecified severity; D63.8 Anemia in other chronic diseases classified elsewhere; F17.210 Nicotine dependence, cigarettes, uncomplicated; J44.9 Chronic obstructive pulmonary disease, unspecified; I10 Essential (primary) hypertension; G62.9 Polyneuropathy, unspecified; E03.9 Hypothyroidism, unspecified; F41.9 Anxiety disorder, unspecified; F32.9 Major depressive disorder, single episode, unspecified; G89.29 Other chronic pain; Z91.19 Patient's noncompliance with other medical treatment and regimen; F10.21 Alcohol dependence, in remission; L30.9 Dermatitis, unspecified; E78.00 Pure hypercholesterolemia, unspecified; I45.10 Unspecified right bundle-branch block
CPT/HCPCS: 36415; 36569; 71045; 73630; 76937; 80048; 80053; 80202; 82274; 83605; 83735; 84100; 84703; 85007; 85025; 85027; 85652; 86850; 86900; 86901; 86920; 87040; 87070; 87077; 87081; 87205; 93925; 96361; 96365; 96375; 96376

== ENCOUNTER 2018-11-07 21:12 | Emergency (ER) | payer MEDICARE, MEDICAID | END 2018-11-07 22:24 | disposition home or self-care (01) | LOC: ER 21:12 ==